=== PATIENT | male | born 1970 | race Caucasian/White ===

== ENCOUNTER → 2022-06-09 | Outpatient (CLI) | payer BC, SELFPAY ==
--- NOTE | 2022-06-09 12:39 | MRI_ITS ---
STUDY: MRI BRAIN WITH AND WITHOUT CONTRAST (ATTENTION INTERNAL AUDITORY CANALS - I.A.C.''s) REASON FOR EXAM: Male, 51 years old. HEARING LOSS TINNITUS R and gt;L TECHNIQUE: Standardized multiplanar fat and water weighted pulse sequences were obtained. IV 19cc dotarem was administered for the contrast portion of the examination. COMPARISON: None. FINDINGS: The bilateral 7th and 8th cranial nerve complexes have normal contour and signal. No mass or abnormal enhancement. The bilateral cochlea, vestibular apparatus, and facial nerve canal have normal pre and postcontrast MRI appearance. The temporal bone and mastoid air cells and extracranial soft tissue structures of the external ear are unremarkable. The brain is normal contour and signal. No infarct, hemorrhage or mass. No abnormal enhancement. No hydrocephalus. Mucosal thickening opacifies the left frontal sinus, and partially opacifies the bilateral ethmoid, sphenoid, and maxillary sinuses. MRI/Brain W/WO Contrast IMPRESSION: Normal MRI brain with attention to the internal auditory canals. No etiology for hearing loss identified. Mild paranasal sinus mucosal thickening Electronically Signed: Alonso Padron MD at 16:20 EDT Reading Location ID and State: [facility] / [place] Tel , Service support ,
[2022-06-09 13:00] VITALS: BP 139/94; PULSE 84; RESP 16; O2SAT 95
[2022-06-09 13:11] VITALS: BP 137/89; PULSE 84; RESP 16; O2SAT 93
[2022-06-09 13:21] VITALS: BP 133/83; PULSE 84; RESP 16; O2SAT 93
[2022-06-09 13:33] VITALS: BP 136/89; PULSE 85; RESP 16; O2SAT 94
[2022-06-09 13:45] VITALS: BP 130/86; PULSE 84; RESP 16; O2SAT 93
[2022-06-09 13:54] VITALS: BP 136/79; PULSE 85; RESP 16; O2SAT 95
== END | disposition home or self-care (01) ==
PROVIDERS: PCP Family Medicine; Referring Provider Otolaryngology; Visit Provider Otolaryngology
DX: H93.13 Tinnitus, bilateral (principal); H90.3 Sensorineural hearing loss, bilateral
CPT/HCPCS: 70553; A9575

== ENCOUNTER → 2025-06-24 | Outpatient (CLI) | payer BC, SELFPAY ==
--- NOTE | 2025-06-24 13:01 | RAD_ITS ---
PROCEDURE: L/S SPINE MIN 4 VIEWS 06/24/2025 REASON FOR EXAM: LUMBAR STENOSIS TECHNIQUE: Procedure Code: [id number] Modality: DX Procedure: L/S SPINE MIN 4 VIEWS FINDINGS: No evidence of acute fracture or dislocation. No visualized pars defects. Mild degenerative changes of the visualized spine. Mild lower lumbar facet arthropathy. Normal alignment. RAD/L/S Spine Min 4 Views IMPRESSION: Spondylosis. Reading Location: [id number]
== END | disposition home or self-care (01) ==
PROVIDERS: PCP Family Medicine; Referring Provider Anesthesiology; Visit Provider Anesthesiology
DX: M48.061 Spinal stenosis, lumbar region without neurogenic claudication (principal)
CPT/HCPCS: 72110

== ENCOUNTER 2025-08-26 16:29 | Outpatient (CLI) | payer BC, SELFPAY ==
[2025-08-26 17:08] LABS: Hematocrit 44.0 % (40-54); Hemoglobin 15.4 g/dL (13.0-16.5); Immature Granulocytes Count 0.030 X10^3/uL (0.0-0.0); Mean Corp Hgb Conc 35.0 g/dL (32-36); Mean Corpuscular Volume 100.2 fL (80-94); Mean Platelet Vol. 9.9 fl (6.2-12.0); NRBC Flagged by Analyzer 0 % (0-5); Platelet Count 205 K/mm3 (150-450); RBC Distribution Width CV 12.2 % (11.6-14.6); RBC Distribution Width SD 45.7 fl (35.1-43.9); Red Blood Count 4.39 M/mm3 (4.6-6.2); White Blood Count 7.5 K/mm3 (4.4-11.0)
[2025-08-26 18:01] LABS: CRP 4.24 mg/L (0.0-3.0)
[2025-08-26 18:02] LABS: AST(SGOT) 70 U/L (<=37); Alanine Aminotransfer ALT/SGPT 78 U/L (<=46); Albumin, Serum 4.3 g/dL (3.5-5.0); Alkaline Phosphatase 55 U/L (40-129); Anion Gap 14 (5-15); BUN 20 mg/dL (4-19); BUN/Creat Ratio 33.4 RATIO (10-20); Calcium,Total 8.7 mg/dL (7.6-11.0); Carbon Dioxide 22.3 mmol/L (21.0-32.0); Chloride 104 mmol/L (98-108); Globulin 3.1 g/dL (2.2-4.2); Glucose 128 mg/dL (70-99); Potassium 3.9 mmol/L (3.3-5.1)
[2025-08-28 12:08] LABS: Anti-Chromatin <0.2 AI (0.0-0.9); Anti-Jo <0.2 AI (0.0-0.9); Anti-dsDNA Ab <1 IU/mL (0-9); SJOGREN'S Anti-SS-A test < 0.2 AI (0.0-0.9); SJOGREN'S Anti-SS-B test < 0.2 AI (0.0-0.9)
[2025-08-31 15:08] LABS: Albumin 3.8 g/dL (2.9-4.4); Carbohydrate Ag 19-9 2261 28 U/mL (0-35); Cytoplasmic Ab (C-ANCA) <1:20 titer (Neg:<1:20); Gamma Globulin 1.1 g/dL (0.4-1.8); HEPATITIS B SURFACE AG Negative (Negative); Hep C Antibodies Non Reactive (Non Reactive); IgG, Quant 1237 mg/dL (603-1613); Immunoglobulin A 186 mg/dL (90-386); Immunoglobulin G, Subclass 1 510 mg/dL (248-810); Immunoglobulin G, Subclass 2 270 mg/dL (130-555); Immunoglobulin G, Subclass 3 46 mg/dL (15-102); Immunoglobulin G, Subclass 4 99 mg/dL (2-96); Immunoglobulin M 50 mg/dL (20-172); PROEL- TOTAL PROTEIN 7.2 g/dL (6.0-8.5); Perinuclear Ab (P-ANCA) <1:20 titer (Neg:<1:20)
== END 2025-08-26 23:59 | disposition home or self-care (01) ==
PROVIDERS: PCP Family Medicine; Referring Provider Internal Medicine Gastroenterology; Visit Provider Internal Medicine Gastroenterology
DX: R94.5 Abnormal results of liver function studies (principal)
CPT/HCPCS: 80053; 80074; 82784; 82785; 82787; 83516; 84165; 85025; 85652; 86037; 86140; 86225; 86235; 86255; 86301; 86334

== ENCOUNTER → 2025-09-10 | Outpatient (CLI) | payer BC, SELFPAY ==
--- NOTE | 2025-09-10 07:05 | MRI_ITS ---
PROCEDURE: MRCP ABDOMEN WITHOUT CONTRAST, 09/10/2025 REASON FOR EXAM: CHRONIC PANCREATITIS/RECURRENT CHOLEDOCHOLITHIASIS TECHNIQUE: Multiplanar multisequence MRI abdomen was performed without IV contrast. MRCP was performed including generation of MIP reconstructions and 3D reformats. COMPARISON: None. FINDINGS: Variable overall mild motion limitation. Note that the exam was optimized for evaluation of the gallbladder and biliary tree rather than the remaining abdominal viscera, some of which is excluded from the field of view on some sequences. Note also that sensitivity is limited in the absence of IV contrast. Liver: Unremarkable. Gallbladder: Cholecystectomy with tiny cystic duct remnant. Biliary tree: CHD measures 16 mm. CBD measures 14 mm with abrupt transition at the ampulla. No definite filling defect identified.. Pancreas diffuse fatty infiltration. No ductal dilatation.. Other: Circumaortic LEFT renal vein, normal variant. Prominent portacaval/peripancreatic nodes up to 11 mm short axis. MRI/MRCP Abdomen without Contrast IMPRESSION: 1. Cholecystectomy with biliary dilatation which is frequently due to post chol ecystectomy effect. In the absence of priors to confirm stability, correlate with serum bilirubin as ampullary stenosis or much less likely an occult ampullary lesion are also within the differential. No definite choledocholithiasis. 2. Prominent portacaval and peripancreatic nodes, nonspecific and presumably re active in the absence of known malignancy. Correlate with medical history and follow-up as indicated. 3. Additional description as above. Reading Location: [id number]
--- OUTSIDE RECORDS SUMMARY | 2025-09-10 07:27 | XMS RPT_ITS | CCD ---
Author Organization [facility] Care Team Providers Care Agency Recruiter Name Role Phone DIANNE PARKER Unavailable Unavailable VACCARIELLOJAZMYN Unavailable Unavailable CHIMALAKONDA, STEPHANIA Unavailable Unavailable VACCARIELLO, JAZMYN Carlton Unavailable Unavailable GIANCARLO MONGE Unavailable Unavailable ROSSY COFFMAN Unavailable Unavailable JEOVANY ALEXANDRA Unavailable Unavailable TERRANCE COLUNGA Unavailable Unavailable NAIN RONDON Unavailable Unavailable VASQUEZ JIMENEZ Unavailable Unavailable LAMAR MCKENZIE Unavailable Unavailable VaccJazmyn anthony Primary Care Provider Jazmyn Roman MD Unavailable [facility], [facility] office Unavailable Rheumatolgy Provider Unavailable Unavailable Dr. Vandana Holloway MD Unavailable Dr. David Conley MD Unavailable Gastroenterology Provider Unavailable Chelsi Rayo MD, Dr. Jennings Unavailable Dr. Jeovany Wang MD Unavailable Dr. Td Jackson MD Unavailable Dr. Tre Mcclendon MD Unavailable Sandoval ARMORED SERVICE TECHNICIAN, Laura Unavailable Rj Miller MD Unavailable Sukhdev ARMORED SERVICE TECHNICIAN, Nelsy C Unavailable Unavailable Kelvin Gifford MD Unavailable Osorio MAURERN, Ebonie Unavailable Unavailable Laura MAURERN, Eloisa L Unavailable Unavailab lalo Schumacher LPN, Meena Unavailable Unavailab Ebonie Zaragoza MA Unavailable Unavailable Vess ARMORED SERVICE TECHNICIAN, Neilee L Unavailable Unavailable Anthony ARMORED SERVICE TECHNICIAN, Olga Garcia Unavailable Unavaila ble Unavailable Unavailable Dr. Td Jackson MD Unavailable [facility] Unavailable JESSIE HARRIS, DR JAZMYN Carlton Primary Care Physician [facility] Attending Unavailable JESSIE HARRIS, DR JAZMYN Carlton Primary Care Chelsi FREIRE MD, [facility] Admitting Unavailable RU HARRIS, MIGDALIA Garcia Attending Unavailjonnie PELAEZ MD, DAMEON Consulting Unavailable AUGUSTUS HARRIS, ROSSY Nguyen Attending Unavailable LATANYA HARRIS, DAMEON Consulting Unavailable JESSIE HARRIS, DR JAZMYN Carlton Primary Care Chelsi COLUNGA MD, TERRANCE Loza Consulting Unavailable AUGUSTUS HARRIS, ROSSY Nguyen Attending Unavailable JESSIE HARRIS, DR JAZMYN Carlton Primary Care Chelsi Roman MD, Dr. Eaton Primary Care Physician Richard HARRIS, Dr. Ag Attending Physician Richard HARRIS, Dr. Ag Referring Provider JAZMYN ROMAN Consulting Unavailable JAZMYN ROMAN Referring Unavailable BETH DE LA CRUZ MD Primary Care Unavailable BETH DE LA CRUZ MD Attending Unavailable BETH DE LA CRUZ MD Admitting Unavailable PROVIDER, UNKNOWN Consulting Unavailable PROVIDER, UNKNOWN Consulting Unavailable PROVIDER, UNKNOWN Consulting Unavailable JAZMYN ROMAN Consulting Unavailable JAZMYN ROMAN Referring Unavailable SKYLAR FLORES JR Admitting Unavailable SKYLAR FLORES JR Primary Care Unavailable SKYLAR FLORES JR Attending Unavailable PROVIDER, UNKNOWN Consulting Unavailable PROVIDER, UNKNOWN Consulting Unavailable PROVIDER, UNKNOWN Consulting Unavailable JAZMYN ROMAN Consulting Unavailable KALANI CARRILLO MD Admitting Unavailable KALANI CARRILLO MD Primary Care Unavailable KALANI CARRILLO MD Attending Unavailable PROVIDER, UNKNOWN Consulting Unavailable PROVIDER, UNKNOWN Consulting Unavailable PROVIDER, UNKNOWN Consulting Unavailable Ancelmo Ramos Referring Unavailable Ancelmo Ramos Attending Unavailable Jazmyn Roman Primary Care Unavailable Allergies Allergy Classification Reported Allergen(s) Allergy Type Date of Onset Reaction(s) Facility (20 sources) Codeine; Translations: [codeine] Drug Allergy 5 Pharyngeal swelling (finding), Swelling (finding), Tongue swelling (finding) [facility], [facility], [facility]. (1 source) Codeine Drug Allergy [facility] (1 source) Codeine Drug Allergy [facility] Repository Medications Current Medications Medication Drug Class(es) Dates Sig (Normalized) Sig (Original) clobetasol propionate 0.0005 mg/mg topical ointment (20 sources) Corticosteroid Start: 06-26-2025 Start: 05-11-2022 Clobetasol Pro pionate 0.05 % External Ointment ; 1 (one) Ointment qhs, aaa for 0 days Quantity: 80 {Gram} Refills: 2 Ordered: 11-May-2022 MD Jazmyn Roman Start: 11-May-2022 dutasteride 0.5 mg / tamsulosin hydrochloride 0.4 mg oral capsule (20 sources) alpha-Adrenergic Иван, 5-alpha Reductase Inhibitor Start: 06-26-2025 Start: 09-25-2024 dutasteride 0. 5 mg-tamsulosin ER 0.4 mg capsule ext.release 24hr mphas ; 1 (one) capsule daily for 0 days Quantity: 90 {Capsule} Refills: 3 Ordered: 25-Sep-2024 MD Jazmyn Roman Start: 25-Sep-2024 Start: 02-11-2024 dutasteride 0. 5 mg-tamsulosin ER 0.4 mg capsule ext.release 24hr mphas ; 1 (one) capsule daily for 0 days Quantity: 90 {Capsule} Refills: 3 Ordered: 01-Aug-2024 MD Jazmyn Roman Start: 01-Aug-2024 Start: 08-10-2023 dutasteride 0. 5 mg-tamsulosin ER 0.4 mg capsule ext.release 24hr mphas ; 1 (one) capsule daily for 0 days Quantity: 90 {Capsule} Refills: 1 Ordered: 10-Aug-2023 MD Jazmyn Roman Start: 10-Aug-2023 ibuprofen 200 mg oral tablet (2 sources) Nonsteroidal Anti-inflammatory Drug Start: 12-15-2024 ibuprofen 200 mg oral tablet Dose : 400 mg = 2 tab(s), Oral, q4h, PRN as needed for pain, Take with food or milk., # 120 tab(s), 0 Refill(s) Start Date: 12/15/24 Status: Ordered Quantity: 120.0 Unit: tab(s) Repeat number: 1 melatonin 3 mg oral tablet (20 sources) Start: 10-18-2024 melatonin 3 mg oral tablet Dose : 3 mg = 1 tab(s), Oral, qHS, PRN Sleep, 0 Refill(s) Start Date: 10/18/24 Status: Ordered Repeat number: 1 take 1 tablet by mouth at bedtim e Melatonin 2.5 MG Oral Tablet Chewable ; 1 at bedtime (2.5 MG) Status: Inactive pantoprazole 40 mg delayed release oral tablet (20 sources) Proton Pump Inhibitor Start: 06-26-2025 take 1 tablet by mouth twice daily Start: 09-25-2024 pantoprazole 4 0 mg tablet,delayed release ; 1 Tablet two times daily for 0 days Quantity: 180 {Tablet} Refills: 3 Ordered: 25-Sep-2024 MD Jazmyn Roman Start: 25-Sep-2024 Start: 07-24-2024 pantoprazole 4 0 mg tablet,delayed release ; 1 Tablet two times daily for 0 days Quantity: 180 {Tablet} Refills: 3 Ordered: 01-Aug-2024 MD Jazmyn Roman Start: 01-Aug-2024 Start: 04-17-2024 pantoprazole 4 0 mg tablet,delayed release ; 1 Tablet two times daily for 0 days Quantity: 60 {Tablet} Refills: 2 Ordered: 17-Apr-2024 MD Jazmyn Roman Start: 17-Apr-2024 Start: 12-17-2023 pantoprazole 4 0 mg tablet,delayed release ; 1 Tablet two times daily for 0 days Quantity: 60 {Tablet} Refills: 2 Ordered: 17-Dec-2023 MD Jazmyn Roman Start: 17-Dec-2023 Start: 09-14-2023 pantoprazole 4 0 mg tablet,delayed release ; 1 Tablet two times daily for 0 days Quantity: 60 {Tablet} Refills: 2 Ordered: 14-Sep-2023 MD Jazmyn Roman Start: 14-Sep-2023 Start: 03-22-2018 End: 04-21-2018 pantoprazole 40 mg oral ente miller coated tablet Dose : 40 mg = 1 tab(s), Oral, qDay, # 30 tab(s), 0 Refill(s) Start Date: 03/22/18 Stop Date: 04/21/18 Status: Ordered Quantity: 30.0 Unit: tab(s) Repeat number: 1 sertraline 100 mg oral tablet (20 sources) Serotonin Reuptake Inhibitor Start: 06-26-2025 take 1 tablet by mouth once daily Start: 12-15-2024 sertraline 100 mg oral tablet Dose : 100 mg = 1 tab(s), Oral, qAM, # 90 tab(s), 0 Refill(s) Start Date: 12/15/24 Status: Ordered Quantity: 90.0 Unit: tab(s) Repeat number: 1 Start: 09-12-2024 sertraline 25 mg tablet ; 1 (one) tablet daily for 0 days Quantity: 90 {Tablet} Refills: 3 Ordered: 12-Sep-2024 JHONNY Nick Start: 12-Sep-2024 Start: 08-01-2024 sertraline 100 mg tablet ; 1/2 tablet daily 2 wks then full tab for 0 days Quantity: 90 {Tablet} Refills: 3 Ordered: 01-Aug-2024 JHONNY Ac Start: 01-Aug-2024 ursodiol 300 mg oral capsule (20 sources) Bile Acid Start: 06-26-2025 take 1 capsule by mo [facility] twice daily Start: 09-25-2024 ursodioL 300 m g capsule ; 1 (one) Capsule two times daily for 0 days Quantity: 180 {Capsule} Refills: 3 Ordered: 25-Sep-2024 MD Jazmyn Roman Start: 25-Sep-2024 Start: 07-24-2024 ursodioL 300 m g capsule ; 1 (one) Capsule two times daily for 0 days Quantity: 180 {Capsule} Refills: 3 Ordered: 01-Aug-2024 MD Jazmyn Roman Start: 01-Aug-2024 Start: 04-17-2024 ursodioL 300 m g capsule ; 1 (one) Capsule two times daily for 0 days Quantity: 60 {Capsule} Refills: 2 Ordered: 17-Apr-2024 MD Jazmyn Roman Start: 17-Apr-2024 Start: 12-17-2023 ursodioL 300 m g capsule ; 1 (one) Capsule two times daily for 0 days Quantity: 60 {Capsule} Refills: 2 Ordered: 17-Dec-2023 MD Jazmyn Roman Start: 17-Dec-2023 Start: 09-14-2023 ursodioL 300 m g capsule ; 1 (one) Capsule two times daily for 0 days Quantity: 60 {Capsule} Refills: 2 Ordered: 14-Sep-2023 MD Jazmyn Roman Start: 14-Sep-2023 take 1 capsule by [facility] once daily Ursodiol 300 MG Oral Capsule ; 1 daily (300 MG) Status: Inactive Completed/Discontinued Medications Medication Drug Class(es) Dates Sig (Normalized) Sig (Original) acetaminophen 750 mg / HYDROcodone bitartrate 7.5 mg oral tablet (20 sources) Opioid Agonist Start: 07-22-2010 End: 12-28-2010 VICODIN ES, 7.5-750MG (Oral Tablet) ; 1- 2 Tablet q4-6hrs, prn for 0 days Quantity: 20 {Tablet} Refills: 0 Ordered: 28-Dec-2010 JHONNY Nick Start: 22-Jul-2010 End: 28-Dec-2010 Status: Inactive acetaminophen 325 mg / oxyCODONE hydrochloride 7.5 mg oral tablet (20 sources) Opioid Agonist Start: 06-26-2018 End: 11-28-2018 take 1-2 tablets by mouth every four to six hours as needed for pain Percocet 7.5-325 MG Oral Tablet ; 1-2 Tablet q4-6hrs, prn severe pain for 0 days Quantity: 20 {Tablet} Refills: 0 Ordered: 28-Nov-2018 JHONNY Nick Start: 26-Jun-2018 End: 28-Nov-2018 Status: Inactive Start: 07-25-2010 End: 12-28-2010 take 1-2 tablets by mouth every four to six hours as needed PERCOCET, 5-325MG (Oral Tablet) ; 1-2 Tablet q4-6h, prn for 0 days Quantity: 20 {Tablet} Refills: 0 Ordered: 28-Dec-2010 JHONNY Nick Start: 25-Jul-2010 End: 28-Dec-2010 Status: Inactive amoxicillin 875 mg oral tablet (20 sources) Penicillin-class Antibacterial Start: 04-11-2018 End: 05-09-2018 take 1 tablet by mouth every twelve hours Amoxicillin 875 MG Oral Tablet ; 1 (one) Tablet q12 hrs for 0 days Quantity: 20 {Tablet} Refills: 0 Ordered: 09-May-2018 JHONNY Nick Start: 11-Apr-2018 End: 09-May-2018 Status: Inactive Start: 12-28-2010 End: 01-07-2011 take 1 capsule by mouth three times daily AMOXICILLIN, 500MG (Oral Capsule) ; 1 Capsule three times daily for 10 days Quantity: 30 {Capsule} Refills: 0 Ordered: 28-Dec-2010 MD Jazmyn Roman Start: 28-Dec-2010 End: 07-Jan-2011 Status: Inactive amoxicillin 875 mg / clavulanate 125 mg oral tablet (20 sources) Penicillin-class Antibacterial Start: 08-01-2024 End: 09-12-2024 amoxicillin 875 mg-potassium clavulanate 125 mg tablet ; 1 (one) tablet q12 hrs with food for 0 days Quantity: 20 {Tablet} Refills: 0 Ordered: 12-Sep-2024 JHONNY Ac Start: 01-Aug-2024 End: 12-Sep-2024 Status: Inactive Start: 06-17-2018 End: 06-27-2018 take 1 tablet by mouth twice daily at mealtime Augmentin 875-125 MG Oral Tablet ; 1 Tab Tab two times daily for 10 days Quantity: 20 {Tube} Refills: 0 Ordered: 17-Jun-2018 JHONNY Nick Start: 17-Jun-2018 End: 27-Jun-2018 Status: Inactive Comments: Take with food Comment on above: Take with food apremilast 30 mg oral tablet (20 sources) End: Otezla 30 MG Oral Tablet ; (30 MG) End: 10-Aug-2023 Status: Discontinued azithromycin 250 mg oral tablet (20 sources) Macrolide Antimicrobial Start: 014 End: 014 AZITHROMYCIN, 250MG (Oral Tablet) ; 2 (two) Tablets today Tablets today 1/dx4d for 0 days Quantity: 6 {Tablet} Refills: 0 Ordered: 28-May-2014 JHONNY Ramírez Start: 02-Feb-2014 End: 28-May-2014 Status: Inactive cholecalciferol 0.125 mg oral capsule (20 sources) Vitamin D Start: 015 End: 017 take 1 capsule by mouth once daily Vitamin D3 5000 UNIT Oral Capsule ; 1 (one) Capsule Capsule daily for 0 days Quantity: 30 {Capsule} Refills: 5 Ordered: 24-Aug-2017 JHONNY Nick Start: 04-Feb-2015 End: 24-Aug-2017 Status: Inactive ciprofloxacin 500 mg oral tablet (20 sources) Quinolone Antimicrobial Start: 013 End: take 1 tablet by mouth twice daily CIPROFLOXACIN HCL, 500MG (Oral Tablet) ; 1 Tablet two times daily for 7 days Quantity: 14 {Tablet} Refills: 0 Ordered: 11-Apr-2013 MD Kelvin Gifford Start: 11-Apr-2013 End: 18-Apr-2013 Status: Inactive cyclobenzaprine hydrochloride 5 mg oral tablet (20 sources) Muscle Relaxant Start: 018 End: take 1 tablet by mouth every eight hours as needed Cyclobenzaprine HCl 5 MG Oral Tablet ; 1 (one) Tablet q8h, prn for 0 days Quantity: 20 {Tablet} Refills: 0 Ordered: 18-Mar-2018 JHONNY Nick Start: 14-Jan-2018 End: 18-Mar-2018 Status: Inactive Start: 05-13-2014 End: 09-16-2014 take 1 tablet by mouth three times daily as needed CYCLOBENZAPRINE HCL, 10MG (Oral Tablet) ; 1 (one) Tablet Tablet Three times a day as needed for 0 days Quantity: 30 {Tablet} Refills: 0 Ordered: 16-Sep-2014 JHONNY Nick Start: 13-May-2014 End: 16-Sep-2014 Status: Inactive Comments: Medication taken as needed. may cause drowsiness Comment on above: Medication taken as needed. may cause drowsiness doxycycline monohydrate 100 mg oral tablet (20 sources) Tetracycline-class Drug Start: 022 End: 023 doxycycline monohydrate 100 mg tablet ; 1 (one) Tablet bid for 0 days Quantity: 28 {Tablet} Refills: 0 Ordered: 14-Jun-2023 JHONNY Nick Start: 24-Apr-2022 End: 14-Jun-2023 Status: Inactive erythromycin 0.005 mg/mg ophthalmic ointment (1 source) Macrolide, Macrolide Antimicrobial Start: 025 erythromycin 0.5% ophthalmic ointment Dose = 1 frida, Eyes, both, QID, 0 Refill(s) Start Date: 10/18/24 Status: Ordered Repeat number: 1 hydrocortisone acetate 30 mg rectal suppository (20 sources) Corticosteroid Start: End: Hydrocortisone Acetate 30 MG Rectal Suppository ; 1 (one) Suppository Suppository qhs for 0 days Quantity: 30 {Suppository} Refills: 1 Ordered: 24-Aug-2017 JHONNY Nick Start: 28-May-2014 End: 24-Aug-2017 Status: Inactive meloxicam 15 mg oral tablet (20 sources) Nonsteroidal Anti-inflammatory Drug Start: End: take 1 tablet by mouth once daily Meloxicam 15 MG Oral Tablet ; 1 (one) Tablet daily for 0 days Quantity: 10 {Tablet} Refills: 0 Ordered: 11-Apr-2018 JHONNY Ramírez Start: 14-Jan-2018 End: 11-Apr-2018 Status: Inactive metroNIDAZOLE 500 mg oral tablet (20 sources) Nitroimidazole Antimicrobial Start: End: take 1 tablet by mouth every eight hours MetroNIDAZOLE 500 MG Oral Tablet ; 1 (one) Tablet q8h for 0 days Quantity: 30 {Tablet} Refills: 0 Ordered: 09-May-2018 JHONNY Nick Start: 11-Apr-2018 End: 09-May-2018 Status: Inactive naproxen 500 mg oral tablet (20 sources) Nonsteroidal Anti-inflammatory Drug Start: End: take 1 tablet by mouth twice daily as needed Naprosyn 500 MG Oral Tablet ; 1 Tab Twice a day as needed for 0 days Quantity: 60 {Tab} Refills: 0 Ordered: 24-Aug-2017 JHONNY Nick Start: 13-Sep-2015 End: 24-Aug-2017 Status: Inactive Comments: Medication taken as needed. Take with food. Comment on above: Medication taken as needed. Take with food. omeprazole 20 mg delayed release oral capsule (20 sources) Proton Pump Inhibitor Start: End: OMEPRAZOLE, 20MG (Oral Capsule Delayed Release) ; [address] daily for 0 days Quantity: 30 {Capsule} Refills: 0 Ordered: 28-May-2014 JHONNY Ramírez Start: 22-Sep-2013 End: 28-May-2014 Status: Inactive PARoxetine hydrochloride 40 mg oral tablet (20 sources) Serotonin Reuptake Inhibitor Start: End: PaxiL 40 mg tablet ; 1 Tablet daily for 0 days Quantity: 90 {Tablet} Refills: 3 Ordered: 12-Sep-2024 JHONNY Ac Start: 01-Aug-2024 End: 12-Sep-2024 Status: Discontinued Start: 03-31-2024 PaxiL 40 mg ta blet ; 1 Tablet daily for 0 days Quantity: 30 {Tablet} Refills: 2 Ordered: 31-Mar-2024 MD Jazmyn Roman Start: 31-Mar-2024 Start: 12-17-2023 PaxiL 40 mg ta blet ; 1 Tablet daily for 0 days Quantity: 30 {Tablet} Refills: 2 Ordered: 17-Dec-2023 MD Jazmyn Roman Start: 17-Dec-2023 Start: 09-14-2023 PaxiL 40 mg ta blet ; 1 Tablet daily for 0 days Quantity: 30 {Tablet} Refills: 2 Ordered: 14-Sep-2023 MD Jazmyn Roman Start: 14-Sep-2023 Paxlovid (300/100) 20 x 150 MG & 10 x 100MG Oral Tablet Therapy Pack (20 sources) Start: 06-20-2022 End: 06-25-2022 Paxlovid (300/100) 20 x 150 MG & 10 x 100MG Oral Tablet Therapy Pack ; use as directed per instructions in pack for 5 days Quantity: 1 {Packet} Refills: 0 Ordered: 20-Jun-2022 JHONNY Ac Start: 20-Jun-2022 End: 25-Jun-2022 Status: Inactive predniSONE 20 mg oral tablet (20 sources) Start: 09-16-2014 End: 01-04-2015 take 1 tablet by mouth once daily PREDNISONE, 20MG (Oral Tablet) ; 1 (one) Tablet daily taper for 0 days Quantity: 35 {Tablet} Refills: 0 Ordered: 04-Jan-2015 JHONNY Nick Start: 16-Sep-2014 End: 04-Jan-2015 Status: Inactive Start: 07-22-2010 End: 12-28-2010 take 3 tablets by mouth once daily, then take 2 tablets by mouth once daily, then take 1 tablet by mouth once daily, then take 0.5 tablet by mouth once daily PREDNISONE, 20MG (Oral Tablet) ; 1 taper daily for 0 days Quantity: 22 {Tablet} Refills: 0 Ordered: 28-Dec-2010 JHONNY Nick Start: 22-Jul-2010 End: 28-Dec-2010 Status: Inactive Comments: Take 3tabs qd for 3 days thenTake 2tabs qd for 3 days thenTake 1tab qd for 3 days thenTake 1/2tab qd for 4 days. Comment on above: Take 3tabs qd for 3 days thenTake 2tabs qd for 3 days thenTake 1tab qd for 3 days thenTake 1/2tab qd for 4 days. sulfamethoxazole 800 mg / trimethoprim 160 mg oral tablet (20 sources) Dihydrofolate Reductase Inhibitor Antibacterial, Sulfonamide Antimicrobial Start: 06-16-20 End: 07-15-20 take 1 tablet by mouth twice daily Sulfamethoxazole -Trimethoprim 800-160 MG Oral Tablet ; 1 (one) Tablet bid for 0 days Quantity: 20 {Tablet} Refills: 0 Ordered: 15-Jul-2019 JHONNY Nick Start: 16-Jun-2019 End: 15-Jul-2019 Status: Inactive Start: 05-28-2014 End: 09-16-2014 take 1 tablet by mouth twice daily SULFAMETHOXAZOLE-TMP DS, 800-160MG (Oral Tablet) ; 1 (one) Tablet bid for 0 days Quantity: 20 {Tablet} Refills: 0 Ordered: 16-Sep-2014 JHONNY Nick Start: 28-May-2014 End: 16-Sep-2014 Status: Inactive tamsulosin hydrochloride 0.4 mg oral capsule (20 sources) alpha-Adrenergic Иван Start: 11-12-2017 End: 04-11-2018 take 1 capsule by mouth once daily Tamsulosin HCl 0.4 MG Oral Capsule ; 1 (one) Capsule Capsule daily for 0 days Quantity: 30 {Capsule} Refills: 1 Ordered: 11-Apr-2018 JHONNY Ramírez Start: 12-Nov-2017 End: 11-Apr-2018 Status: Inactive Problems Active Problems Problem Classification Problem Date Documented Da te Episodic/Chronic Abdominal pain (20 sources) Generalized abdominal pain; Translations: [Generalized abdominal pain] 11-17-2023 Episodic Allergic reactions (20 sources) Chronic eczema; Translations: [Dermatitis, unspecified] 08-10-2023 Episodic Anxiety disorders (3 sources) Anxiety 10-05-2013 Chronic Biliary tract disease (20 sources) Obstruction of common bile duct; Translations: [Obstruction of bile duct] 08-10-2023 Chronic Comment on above: stent placement 03/13 18 Cardiac dysrhythmias (2 sources) Symptomatic sinus bradycardia 12-15-2024 Episodic Coma; stupor; and brain damage (20 sources) Daytime somnolence; Translations: [Somnolence] 01-06-2021 Episodic Conditions associated with dizziness or vertigo (20 sources) Peripheral vertigo; Translations: [Other peripheral vertigo, unspecified ear] 09-12-2024 Episodic Conduction disorders (10 sources) Cardiac pacemaker in situ; Translations: [Presence of cardiac pacemaker] 10-20-2024 Chronic Comment on above: [facility] Digestive congenital anomalies (20 sources) 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; Translations: [Other congenital malformations of bile ducts] 08-10-2023 Chronic Diverticulosis and diverticulitis (20 sources) Diverticular disease; Translations: [Diverticulosis of intestine, part unspecified, without perforation or abscess without bleeding] 08-10-2023 Chronic Esophageal disorders (20 sources) Esophageal reflux; Translations: [Gastroesophageal reflux disease] 11-13-2011 Chronic Gastroduodenal ulcer (except hemorrhage) (20 sources) Peptic ulcer; Translations: [Peptic ulcer, site unspecified, unspecified as acute or chronic, without hemorrhage or perforation] 08-10-2023 Chronic Comment on above: pantoprazole Gastroduodenal ulcer (except hemorrhage) (20 sources) Acute duodenal ulcer; Translations: [Acute duodenal ulcer without hemorrhage or perforation] 08-10-2023 Episodic Gastrointestinal hemorrhage (20 sources) Black feces; Translations: [Melena] 04-24-2018 Episodic Genitourinary symptoms and ill-defined conditions (20 sources) Urinary outflow obstruction; Translations: [Obstructive and reflux uropathy, unspecified] 08-10-2023 Episodic Headache; including migraine (20 sources) Headache; Translations: [Headache] 02-04-2015 Episodic Hemorrhoids (20 sources) Bleeding internal hemorrhoids; Translations: [Other hemorrhoids] 08-10-2023 Episodic Hyperplasia of prostate (20 sources) Benign prostatic hypertrophy without outflow obstruction; Translations: [Benign prostatic hyperplasia without lower urinary tract symptoms] 08-10-2023 Chronic Comment on above: dutasteride Immunizations and screening for infectious disease (20 sources) Need for prophylactic vaccination and inoculation against influenza 07-22-2010 Episodic Lymphadenitis (20 sources) Acute lymphadenitis; Translations: [Acute lymphadenitis, unspecified] 05-09-2018 Episodic Malaise and fatigue (20 sources) Fatigue; Translations: [Other fatigue] 08-10-2023 Episodic Mood disorders (20 sources) Depressive disorder; Translations: [Depressive disorder, not elsewhere classified] 04-24-2022 Chronic Comment on above: paroxetine Mood disorders (20 sources) Mood disorders 10-10-2013 Nonspecific chest pain (20 sources) Chest pain; Translations: [Chest pain, unspecified] 10-16-2013 Episodic Nutritional deficiencies (20 sources) Vitamin D deficiency; Translations: [Vitamin D deficiency, unspecified] 08-10-2023 Chronic Other aftercare (20 sources) Post-discharge follow-up; Translations: [Encounter for follow-up examination after completed treatment for conditions other than malignant neoplasm] 07-17-2019 Episodic Other and unspecified benign neoplasm (20 sources) Benign neoplasm of ascending colon; Translations: [Benign neoplasm of ascending colon] 08-10-2023 Episodic Other and unspecified benign neoplasm (20 sources) Benign neoplasm of sigmoid colon; Translations: [Benign neoplasm of sigmoid colon] 08-10-2023 Episodic Other connective tissue disease (20 sources) Muscle weakness; Translations: [Muscle weakness (generalized)] 08-13-2023 Episodic Other connective tissue disease (20 sources) Muscle atrophy; Translations: [Muscle wasting and atrophy, not elsewhere classified, other site] 08-10-2023 Episodic Other connective tissue disease (20 sources) Myositis; Translations: [Myositis, unspecified] 08-10-2023 Episodic Other connective tissue disease (20 sources) Arthralgia of the upper arm; Translations: [Pain in right upper arm] 09-13-2015 Episodic Other connective tissue disease (20 sources) Other musculoskeletal symptoms referable to limbs 11-09-2011 Episodic Other connective tissue disease (20 sources) Pain in limb 05-05-2011 Episodic Other connective tissue disease (20 sources) Olecranon bursitis 07-27-2010 Episodic Other ear and sense organ disorders (20 sources) Bilateral tinnitus; Translations: [Tinnitus, bilateral] 08-10-2023 Episodic Other gastrointestinal disorders (20 sources) History of pancreatitis; Translations: [Personal history of other diseases of the digestive system] 08-10-2023 Episodic Other gastrointestinal disorders (20 sources) Central abdominal mass; Translations: [Other intra-abdominal and pelvic swelling, mass and lump] 10-10-2013 Episodic Other inflammatory condition of skin (20 sources) Psoriasis; Translations: [Psoriasis, unspecified] 08-10-2023 Chronic Comment on above: clobetasol Other liver diseases (20 sources) Steatosis of liver; Translations: [Fatty (change of) liver, not elsewhere classified] Onset: 10-15-2013 08-10-2023 Chronic Other liver diseases (20 sources) Increased creatine kinase level; Translations: [Abnormal levels of other serum enzymes] 08-10-2023 Episodic Comment on above: chronic ursodiol Other liver diseases (1 source) Increased aspartate transaminase level; Translations: [Elevation of levels of liver transaminase levels] Onset: 10-13-2024 Episodic Other lower respiratory disease (20 sources) Dyspnea;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 [id number] Acct: [id number] Name: LIYAH HOLLAND Rep #: [id number] : 1970 M 54 From: Harvey Dhillon MD PCP: Dr. Jazmyn Roman MD Status: REG CLI Study: L/S Spine Min 4 Views Date of Exam: 06/24/25 Exam# [id number] Ordering Dr: Ancelmo Ramos MD PROCEDURE: L/S SPINE MIN 4 VIEWS 06/24/2025 REASON FOR EXAM: LUMBAR STENOSIS TECHNIQUE: Procedure Code: RADSPLS Modality: DX Procedure: L/S SPINE MIN 4 VIEWS FINDINGS: No evidence of acute fracture or dislocation. No visualized pars defects. Mild degenerative changes of the visualized spine. Mild lower lumbar facet arthropathy. Normal alignment. RAD/L/S Spine Min 4 Views IMPRESSION: Spondylosis. Reading Location: [id number] CC: Dr. Jazmyn Roman MD; Dr. Ancelmo Ramos MD Test Boring Crew Chief: Signed Normal [facility] HEPATIC FUNCTION PANELon Albumin [Mass/Vol] 4.6 g/dL Normal 3.6-5.1 [facility] Comment on above: Performed By: #### 1 0256 #### [facility] [place] [address] Political Science Instructor: Bravo Kruger MD Albumin/Globulin [Mass ratio] 1.5 {ratio} Normal 1.0-2.5 [facility] Comment on above: Performed By: #### 1 0256 #### [facility] [place] [address] Political Science Instructor: Bravo Kruger MD ALP [Catalytic activity/Vol] 31 U/L Low 35-144 [facility] Comment on above: Performed By: #### 1 0256 #### [facility] [place] [address] Political Science Instructor: Bravo Kruger MD ALT [Catalytic activity/Vol] 66 U/L High 9-46 [facility] Comment on above: Performed By: #### 1 0256 #### [facility] [place] [address] Political Science Instructor: Bravo Kruger MD AST [Catalytic activity/Vol] 47 U/L High 10-35 [facility] Comment on above: Performed By: #### 1 0256 #### [facility] [place] [address] Political Science Instructor: Bravo Kruger MD Bilirubin [Mass/Vol] 0.4 mg/dL Normal 0.2-1.2 [facility] Comment on above: Performed By: #### 1 0256 #### [facility] [place] [address] Political Science Instructor: Bravo Kruger MD BILIRUBIN, INDIRECT 0.3 mg/dL (calc) Normal 0.2-1.2 [facility] Comment on above: Performed By: #### 1 0256 #### [facility] [place] [address] Political Science Instructor: Bravo Kruger MD Bilirubin.indirect [Mass/Vol] 0.1 mg/dL Normal < OR = 0.2 [facility] Comment on above: Performed By: #### 1 0256 #### [facility] [address], [address] [place] [address] Political Science Instructor: Bravo Kruger MD Globulin (S) [Mass/Vol] 3.1 g/dL Normal 1.9-3.7 [facility] Comment on above: Performed By: #### 1 0256 #### [facility] [address], [address] [place] [address] Political Science Instructor: Bravo Kruger MD Protein [Mass/Vol] 7.7 g/dL Normal 6.1-8.1 [facility] Comment on above: Performed By: #### 1 0256 #### [facility] [address], [address] [place] [address] Political Science Instructor: Bravo Kruger MD URINE CULTURE [CCL]on 2024 Bacteria identified Cx Nom (U) URCUL See Results Below See Below CULTURE, URINE No growth (<1,000 CFU/ml) SOURCE: Urine (Nonspecific) [facility] [address] [place] [address] Porfirio Reynoso III, M.D. [id number] SEND TO IC NO Normal [facility] Comment on above: Performed By: #### 2 20566 #### [address] [address] CBC + DIFFon 06-06-2025 Baso # 0.01 x10EE3/UL Normal 0.00 - 0.10 [facility] Comment on above: Performed By: #### 2 33829 #### [address] [address] Basophils/100 WBC (Bld) 0.2 % Normal 0.0 - 2.0 [facility] Comment on above: Performed By: #### 2 56733 #### [facility],[address] [place] [address] CBC + DIFF Normal [facility] Comment on above: Result Comment: CBC- COMPLETE BLOOD COUNT Performed By: #### 2 42105 #### [facility],[address] [place] [address] 41814 EO # 0.13 x10EE3/UL Normal 0.00 - 0.50 [facility] Comment on above: Performed By: #### 2 47141 #### [facility],[address] [place] [address] Eosinophils/100 WBC (Bld) 2.9 % Normal 0.0 - 7.0 [facility] Comment on above: Performed By: #### 2 19672 #### [facility],[address] [place] [address] Erythrocyte distribution width (RBC) [Ratio] 12.3 % Normal 12.0 - 15.6 [facility] Comment on above: Performed By: #### 2 84239 #### [facility],[address] [place] [address] Hematocrit (Bld) [Volume fraction] 42.3 % Normal 40.0 - 52.0 [facility] Comment on above: Performed By: #### 2 65679 #### [facility],[address] [place], [place] [address] Hemoglobin (Bld) [Mass/Vol] 14.5 g/dL Normal 13.0 - 17.5 [facility] Comment on above: Performed By: #### 2 31613 #### [facility],[address] [place] [address] 56076 Lymph # 1.04 x10EE3/UL Normal 0.80 - 2.80 [facility] Comment on above: Performed By: #### 2 15148 #### [facility],[address] [place], [place] [address] Lymphocytes/100 WBC (Bld) 22.7 % Normal 20.0 - 45.0 [facility] Comment on above: Performed By: #### 2 12539 #### [facility],[address] [place] [address] MANUAL DIFF N/A Normal [facility] Comment on above: Performed By: #### 2 84453 #### [facility],[address] [place] [address] MCH (RBC) [Entitic mass] 34 pg High 27 - 33 [facility] Comment on above: Performed By: #### 2 51398 #### [facility],[address] [place] [address] MCHC 34 X10 3 Normal 32 - 36 [facility] Comment on above: Performed By: #### 2 88556 #### [facility],[address] [place] [address] MCV (RBC) [Entitic vol] 98 fL Normal 81 - 98 [facility] Comment on above: Performed By: #### 2 86350 #### [facility],[address] [place] [address] Dent # 0.24 x10EE3/UL Normal 0.20 - 1.00 [facility] Comment on above: Performed By: #### 2 97594 #### [facility],[address] [place] [address] MONOS % 5.3 % Normal 0.0 - 10.0 [facility] Comment on above: Performed By: #### 2 09367 #### [facility],[address] [place] [address] Morphology Get (Bld) [Interp] N/A Normal [facility] Comment on above: Performed By: #### 2 25030 #### [facility],[address] [place] [address] Neut # 3.15 x10EE3/UL Normal 1.50 - 7.10 [facility] Comment on above: Performed By: #### 2 85590 #### [facility],[address] [place] [address] 50179 Neutrophils/100 WBC (Bld) 68.9 % Normal 46.0 - 76.0 [facility] Comment on above: Performed By: #### 2 14050 #### [facility],[address] [place] [address] 20735 PLATELET 162 x10EE3/UL Normal 150 - 450 [facility] Comment on above: Performed By: #### 2 54088 #### [facility],[address] [place] [address] 76517 Platelet mean volume (Bld) [Entitic vol] 7.0 fL Normal 6.4 - 10.5 [facility] Comment on above: Result Comment: AUTO MATED DIFFERENTIAL Performed By: #### 2 75925 #### [facility],[address] [place] [address] 90400 RBC 4.32 x 10EE6/UL Low 4.50 - 6.00 [facility] Comment on above: Performed By: #### 2 00544 #### [facility],[address] [place] [address] 41031 WBC 4.6 x 10EE3/UL Normal 4.5 - 10.8 [facility] Comment on above: Performed By: #### 2 68021 #### [facility],[address] [place] [address]80[address] CMP with eGFRon 06-06-2025 AGE 54 years Normal [facility] Comment on above: Performed By: #### 2 89890 #### [facility],[address] [place] [address] 40690 Albumin [Mass/Vol] 3.0 g/dL Low 3.4 - 5.0 [facility] Comment on above: Performed By: #### 2 57910 #### [facility],[address] [place] [address] 48929 Albumin/Globulin [Mass ratio] 0.9 {ratio} Normal 0.9 - 1.6 [facility] Comment on above: Performed By: #### 2 31212 #### [facility],[address] [place] [address] 75777 ALK PHOS 26 U/L Low 46 - 116 [facility] Comment on above: Performed By: #### 2 85747 #### [facility],[address] [place] [address] 90772 ALT [Catalytic activity/Vol] 262 U/L High 16 - 63 [facility] Comment on above: Performed By: #### 2 37552 #### [facility],[address] [place] [address] 81550 Anion gap [Moles/Vol] 12 mmol/L Normal 10 - 20 [facility] Comment on above: Performed By: #### 2 82582 #### [facility],[address] [place] [address] 78516 AST [Catalytic activity/Vol] 237 U/L High 15 - 37 [facility] Comment on above: Performed By: #### 2 81245 #### [facility],[address] [place] [address] 24991 B/C RATIO 25 ratio Normal 0 - 30 [facility] Comment on above: Performed By: #### 2 37318 #### [facility],[address] [place] [address] 45290 Bilirubin [Mass/Vol] 0.8 mg/dL Normal 0.2 - 1.0 [facility] Comment on above: Performed By: #### 2 07381 #### [facility],[address] [place] [address] 71144 Calcium [Mass/Vol] 7.9 mg/dL Low 8.5 - 10.1 [facility] Comment on above: Performed By: #### 2 35091 #### [facility],[address] [place] [address] 90653 Chloride [Moles/Vol] 104 mmol/L Normal 98 - 107 [facility] Comment on above: Performed By: #### 2 83505 #### [facility],[address] [place] [address] 21117 CMP with eGFR Normal [facility] Comment on above: Result Comment: COMP REHENSIVE METABOLIC PANEL Performed By: #### 2 24604 #### [facility],[address] [place] [address] 67855 CO2 [Moles/Vol] 29.4 mmol/L Normal 21.0 - 32.0 [facility] Comment on above: Performed By: #### 2 38428 #### [facility],[address] [place], [place] [address] Creatinine [Mass/Vol] 0.51 mg/dL Low 0.70 - 1.30 [facility] Comment on above: Performed By: #### 2 37247 #### [facility],[address] [place] [address] GFR/1.73 sq M.predicted among non-blacks MDRD (S/P/Bld) [Vol rate/Area] mL/min/{1.73_m2} Normal 60 - 999 [facility] Comment on above: Performed By: #### 2 15735 #### [facility],[address] [place] [address] Result Comment: ACCO RDING TO THE NATIONAL KIDNEY DISEASE EDUCATION PROGRAM(NKDE), A NORMAL eGFR IS A VALUE GREATER THAN OR EQUAL TO 60 ML/MIN/1.73 SQ METERS. CHRONIC KIDNEY DISEASE: <60mL/MIN/1.73 SQ METERS KIDNEY FAILURE: <15mL/MIN/1.73 SQ METERS THIS TEST SHOULD ONLY BE USED FOR PATIENTS 18 YEARS OF AGE AND OLDER. Globulin (S) [Mass/Vol] 3.4 g/dL Normal 1.5 - 3.8 [facility] Comment on above: Performed By: #### 2 72698 #### [facility],[address] [place], [place] [address] Glucose [Mass/Vol] 94 mg/dL Normal 74 - 106 [facility] Comment on above: Performed By: #### 2 66367 #### [facility],[address] [place] [address] Potassium [Moles/Vol] 3.8 mmol/L Normal 3.5 - 5.1 [facility] Comment on above: Performed By: #### 2 53052 #### [facility],[address] [place] [address] 99511 Protein [Mass/Vol] 6.4 g/dL Normal 6.4 - 8.2 [facility] Comment on above: Performed By: #### 2 84937 #### [facility],[address] [place] [address] Sodium [Moles/Vol] 142 mmol/L Normal 136 - 145 [facility] Comment on above: Performed By: #### 2 63028 #### [facility],[address] [place] [address] 88898 Urea nitrogen [Mass/Vol] 13 mg/dL Normal 7 - 18 [facility] Comment on above: Performed By: #### 2 72847 #### [facility],[address] [place] [address] 30908 Bacteria Ur Culton 5 Bacteria identified Cx Nom (U) CULTURE, URINE: No growth (<1,000 CFU/ml) Normal [facility] Comment on above: Performed By: #### 6 30-4 #### [facility] CLIA [id number] [address] [place] [address] STATES OF [facility] C-REACTIVE PROTEINon 025 CRP 0.15 mg/dl Normal 0.00 - 0.90 [facility] Comment on above: Performed By: #### 2 35918 #### [facility],[address] [place] [address] 39994 CBC + DIFFon 06-05-2025 Baso # 0.03 x10EE3/UL Normal 0.00 - 0.10 [facility] Comment on above: Performed By: #### 2 88446 #### [facility],[address] [place] [address] 58444 Basophils/100 WBC (Bld) 0.5 % Normal 0.0 - 2.0 [facility] Comment on above: Performed By: #### 2 10358 #### [facility],[address] [place] [address] CBC + DIFF Normal [facility] Comment on above: Result Comment: CBC- COMPLETE BLOOD COUNT Performed By: #### 2 74562 #### [facility],[address] [place] [address] 85612 EO # 0.12 x10EE3/UL Normal 0.00 - 0.50 [facility] Comment on above: Performed By: #### 2 12461 #### [facility],[address] [place], [place] [address] Eosinophils/100 WBC (Bld) 1.9 % Normal 0.0 - 7.0 [facility] Comment on above: Performed By: #### 2 17219 #### [facility],[address] [place], [place] [address] Erythrocyte distribution width (RBC) [Ratio] 12.3 % Normal 12.0 - 15.6 [facility] Comment on above: Performed By: #### 2 17493 #### [facility],[address] [place], [place] [address] Hematocrit (Bld) [Volume fraction] 42.2 % Normal 40.0 - 52.0 [facility] Comment on above: Performed By: #### 2 95316 #### [facility],[address] [place] [address] 40756 Hemoglobin (Bld) [Mass/Vol] 14.9 g/dL Normal 13.0 - 17.5 [facility] Comment on above: Performed By: #### 2 92900 #### [facility],[address] [place] [address] 13025 Lymph # 2.28 x10EE3/UL Normal 0.80 - 2.80 [facility] Comment on above: Performed By: #### 2 98004 #### [facility],[address] [place] [address] 89687 Lymphocytes/100 WBC (Bld) 35.1 % Normal 20.0 - 45.0 [facility] Comment on above: Performed By: #### 2 18832 #### [facility],[address] [place] [address] 96576 MANUAL DIFF N/A Normal [facility] Comment on above: Performed By: #### 2 03661 #### [facility],[address] [place] [address] 92180 MCH (RBC) [Entitic mass] 34 pg High 27 - 33 [facility] Comment on above: Performed By: #### 2 28335 #### [facility],[address] [place] [address] MCHC 35 X10 3 Normal 32 - 36 [facility] Comment on above: Performed By: #### 2 01663 #### [facility],[address] [place] [address] 79718 MCV (RBC) [Entitic vol] 97 fL Normal 81 - 98 [facility] Comment on above: Performed By: #### 2 27537 #### [facility],[address] [place] [address] 81118 Dent # 0.48 x10EE3/UL Normal 0.20 - 1.00 [facility] Comment on above: Performed By: #### 2 28404 #### [facility],[address] [place] [address] 32717 MONOS % 7.4 % Normal 0.0 - 10.0 [facility] Comment on above: Performed By: #### 2 02129 #### [facility],[address] [place] [address] 90801 Morphology Get (Bld) [Interp] N/A Normal [facility] Comment on above: Performed By: #### 2 37807 #### [facility],[address] [place] [address] 63800 Neut # 3.58 x10EE3/UL Normal 1.50 - 7.10 [facility] Comment on above: Performed By: #### 2 46892 #### [facility],[address] [place] [address] 03357 Neutrophils/100 WBC (Bld) 55.2 % Normal 46.0 - 76.0 [facility] Comment on above: Performed By: #### 2 24614 #### [facility],[address] [place] [address] 12527 PLATELET 181 x10EE3/UL Normal 150 - 450 [facility] Comment on above: Performed By: #### 2 04947 #### [facility],[address] [place] [address] 53608 Platelet mean volume (Bld) [Entitic vol] 7.3 fL Normal 6.4 - 10.5 [facility] Comment on above: Result Comment: AUTO MATED DIFFERENTIAL Performed By: #### 2 89617 #### [facility],[address] [place] [address] 99614 RBC 4.34 x 10EE6/UL Low 4.50 - 6.00 [facility] Comment on above: Performed By: #### 2 96729 #### [facility],[address] [place] [address] 78521 WBC 6.5 x 10EE3/UL Normal 4.5 - 10.8 [facility] Comment on above: Performed By: #### 2 43858 #### [facility],[address] [place] [address] 62211 CMP with eGFRon 06-05-2025 AGE 54 years Normal [facility] Comment on above: Performed By: #### 2 87481 #### [facility],[address] [place] [address] 58164 Albumin [Mass/Vol] 3.4 g/dL Normal 3.4 - 5.0 [facility] Comment on above: Performed By: #### 2 76978 #### [facility],[address] [place] [address] 84152 Albumin/Globulin [Mass ratio] 0.9 {ratio} Normal 0.9 - 1.6 [facility] Comment on above: Performed By: #### 2 29568 #### [facility],[address] [place] [address] 67474 ALK PHOS 47 U/L Normal 46 - 116 [facility] Comment on above: Performed By: #### 2 94676 #### [facility],[address] [place] [address] 96784 ALT [Catalytic activity/Vol] 72 U/L High 16 - 63 [facility] Comment on above: Performed By: #### 2 40581 #### [facility],[address] [place] [address] 78066 Anion gap [Moles/Vol] 11 mmol/L Normal 10 - 20 [facility] Comment on above: Performed By: #### 2 40211 #### [facility],[address] [place] [address] 86849 AST [Catalytic activity/Vol] 60 U/L High 15 - 37 [facility] Comment on above: Performed By: #### 2 38299 #### [facility],[address] [place] [address] 38269 B/C RATIO 26 ratio Normal 0 - 30 [facility] Comment on above: Performed By: #### 2 11416 #### [facility],[address] [place] [address] 65755 Bilirubin [Mass/Vol] 0.3 mg/dL Normal 0.2 - 1.0 [facility] Comment on above: Performed By: #### 2 03585 #### [facility],[address] [place] [address] 47556 Calcium [Mass/Vol] 8.0 mg/dL Low 8.5 - 10.1 [facility] Comment on above: Performed By: #### 2 73077 #### [facility],[address] [place], [place] [address] Chloride [Moles/Vol] 104 mmol/L Normal 98 - 107 [facility] Comment on above: Performed By: #### 2 62614 #### [facility],[address] [place] [address] CMP with eGFR Normal [facility] Comment on above: Result Comment: COMP REHENSIVE METABOLIC PANEL Performed By: #### 2 73597 #### [facility],[address] [place] [address] CO2 [Moles/Vol] 28.1 mmol/L Normal 21.0 - 32.0 [facility] Comment on above: Performed By: #### 2 51997 #### [facility],[address] [place] [address] Creatinine [Mass/Vol] 0.62 mg/dL Low 0.70 - 1.30 [facility] Comment on above: Performed By: #### 2 31155 #### [facility],[address] [place] [address] GFR/1.73 sq M.predicted among non-blacks MDRD (S/P/Bld) [Vol rate/Area] mL/min/{1.73_m2} Normal 60 - 999 [facility] Comment on above: Performed By: #### 2 32486 #### [facility],[address] [place] [address] Result Comment: ACCO RDING TO THE NATIONAL KIDNEY DISEASE EDUCATION PROGRAM(NKDE), A NORMAL eGFR IS A VALUE GREATER THAN OR EQUAL TO 60 ML/MIN/1.73 SQ METERS. CHRONIC KIDNEY DISEASE: <60mL/MIN/1.73 SQ METERS KIDNEY FAILURE: <15mL/MIN/1.73 SQ METERS THIS TEST SHOULD ONLY BE USED FOR PATIENTS 18 YEARS OF AGE AND OLDER. Globulin (S) [Mass/Vol] 3.6 g/dL Normal 1.5 - 3.8 [facility] Comment on above: Performed By: #### 2 05400 #### [facility],[address] [place] [address] 53021 Glucose [Mass/Vol] 112 mg/dL High 74 - 106 [facility] Comment on above: Performed By: #### 2 16000 #### [facility],[address] [place] [address] 72847 Potassium [Moles/Vol] 3.3 mmol/L Low 3.5 - 5.1 [facility] Comment on above: Performed By: #### 2 21721 #### [facility],[address] [place] [address] 49754 Protein [Mass/Vol] 7.0 g/dL Normal 6.4 - 8.2 [facility] Comment on above: Performed By: #### 2 47321 #### [facility],[address] [place] [address] 10023 Sodium [Moles/Vol] 140 mmol/L Normal 136 - 145 [facility] Comment on above: Performed By: #### 2 60941 #### [facility],[address] [place] [address] 33961 Urea nitrogen [Mass/Vol] 16 mg/dL Normal 7 - 18 [facility] Comment on above: Performed By: #### 2 20794 #### [facility],[address] [place], [place] [address] CT ABDOMEN/PELVIS [facility] 06-05 CT ABDOMEN/PELVIS [place] [address] Patient: LIYAH HOLLAND Phone#: : 1970 Age: 54 Gender: M Pt. Type: ER Account: [id number] Location: [facility] Ordering: DR. RON JOHNSON Exam Date: 06/05/2025/13:34 Family Phys: JAZMYN ROMAN Charge Code: 513122 Physician: [place] Order #: [id number] Dose#: [id number] PROCEDURE: CT ABDOMEN/PELVIS WITHOUT CONTRAST COMPARISON: [facility], CT, ABDOMEN/PELVIS W CON, 10/12/2024, 17:05. INDICATIONS: Abdominal pain. TECHNIQUE: CT images were created without intravenous contrast. All CT scans at this facility use dose modulation, iterative reconstruction, and/or weight based dosing when appropriate to reduce radiation dose to as low as reasonably achievable. IV CONTRAST: No IV contrast used,0ml TOTAL DOSE: 13.40 CTDIvol(mGy) FINDINGS: LIVER: Fatty changes of the liver are present. BILIARY: The gallbladder is absent. Surgical clips are present in the gallbladder fossa. PANCREAS: Senescent changes of the pancreas are present. SPLEEN: Calcified splenic granulomas are present. The common bile duct is 12 millimeters in diameter obstructive etiology is not identified. Diameter on prior exam was 14 millimeters.. No enlargement or focal lesion. KIDNEYS: Normal. No mass, obstruction, or calcification. ADRENALS: Normal. No mass or enlargement. AORTA/VASCULAR: Normal. No aneurysm. RETROPERITONEUM: Normal. No mass or adenopathy. BOWEL/MESENTERY: Normal. No visible mass, obstruction, or bowel wall thickening. ABDOMINAL WALL: Normal. No mass or hernia. URINARY BLADDER: Normal. No visible focal wall thickening, lesion, or calculus. PELVIC NODES: Normal. No adenopathy. PELVIC ORGANS: Normal. No visible mass. Pelvic organs appropriate for patient age. BONES: Normal. No bony lesion or fracture. LUNG BASES: Normal. No visible pulmonary or pleural disease. OTHER: Negative. CONCLUSION: 1. Senescent changes of the pancreas are present. Continued Report - Page 2 of 2 Patient: LIYAH HOLLAND Phone#: : 1970 Age: 54 Gender: M Pt. Type: ER Account: [id number] Location: 2 Ordering: DR. RON JOHNSON Exam Date: 06/05/2025/13:34 Family Phys: JAZMYN HOUSECRIS Charge Code: 692655 Physician: [place] Order #: [id number] Dose#: [id number] 2. The common bile duct is 12 millimeters in diameter. Obstructive etiology is not demonstrated. Dictated by: Katherine Mayer MD on 06/05/2025 at 13:55 Approved by: Katherine Mayer MD on 06/05/2025 at 14:00 Normal [facility] ED MED ADMINISTRATION DETAIL on 06-05-2025 ED MED ADMINISTRATION DETAIL Luggage Maker - LIYAH HOLLAND, : 1970, , Medication Administration Record [address] [address] [id number] 06/05/2025 Patient: LIYAH HOLLAND Sex: Male : 1970 Age: 54y MEASUREMENTS: Wt: 108.0 kg, Ht/Collin: 71.0 in, BMI: 33.19 ALLERGIES: codeine Medication Ordered Medication Administration Date/Time IV NS 0.9 % 1000 13:06/05 IV NS 0.9 % 1000 mL started in bag#1 1000 mL at Started mL at 150 mL/hr 150 mL/hr via Site# 1. Allergies verified and confirmed 5 rights. IV 13:06/05/2025 (NOW x1) patency established. IV site checked: no pain, redness, or swelling. Contreras Tom, SUZE flushed thoroughly pre-medication administration. Information E.M.T.-P. reviewed with patient including reason for taking this medication, Stopped signs of allergic reaction and precautions. Verbalizes 16:06/05/2025 understanding. Completed per protocol. - 13:28 Skyla Ivory R.N. E.M.T.-P. Scanned 16:06/05 Medication Discontinued: bag #1 completed. Total amount infused: 1000 mL. IV patency established. IV site checked: no pain, redness, or swelling. IV flushed thoroughly post-medication administration. - 16:23 Skyla Sánchez R.N. Zofran IVP 4 mg 13:06/05 Zofran IVP 4 mg given via Site# 1. Allergies verified Given (NOW x1) and confirmed 5 rights. IV patency established. IV site checked: no 13:06/05/2025 pain, redness, or swelling. IV flushed thoroughly pre-medication Contreras Tom, administration. IVP given by EMT-P. Information reviewed with Danae. patient including reason for taking this medication, signs of allergic Scanned reaction and precautions. Verbalizes understanding. - 13:28 Contreras Tom E.M.T.-P. 1 of 3 Luggage Maker - LIYAH HOLLAND, : 1970, , Medication Ordered Medication Administration Date/Time HYDROmorphone 13:06/05 HYDROmorphone (Dilaudid) IVP 1 mg given via Site# Given (Dilaudid) IVP 1 mg 1. Allergies verified and confirmed 5 rights. IV patency established. 13:06/05/2025 (NOW x1) IV site checked: no pain, redness, or swelling. IV flushed thoroughly Contreras Tom pre-medication administration. IVP given by EMT-P. Information Danae. reviewed with patient including reason for taking this medication, Scanned signs of allergic reaction and precautions. Verbalizes understanding. - 13:29 Contreras Tom E.M.T.-P. HYDROmorphone 14:06/05 HYDROmorphone (Dilaudid) IVP 0.5 mg given via Given (Dilaudid) IVP 0.5 Site# 1. Allergies verified and confirmed 5 rights. IV patency 14:06/05/2025 mg (NOW x1) established. IV site checked: no pain, redness, or swelling. IV Skyla Sánchez R.N. flushed thoroughly pre-medication administration. Information Scanned reviewed with patient including reason for taking this medication, signs of allergic reaction, precautions and sedative warning. Verbalizes understanding. (back pain 03/03). Medication Wastage: 0.5 mg wasted. - 14:13 Skyla Sánchez R.N. HYDROmorphone 16:06/05 HYDROmorphone (Dilaudid) IVP 0.5 mg given via Given (Dilaudid) IVP 0.5 Site# 1. Allergies verified and confirmed 5 rights. IV patency 16:06/05/2025 mg (NOW x1) established. IV site checked: no pain, redness, or swelling. IV Skyla Sánchez R.N. flushed thoroughly pre-medication administration. Information Scanned reviewed with patient including reason for taking this medication, signs of allergic reaction, precautions and sedative warning. Verbalizes understanding. (back pain 04/02). Medication Wastage: 0.5 mg wasted. - 16:13 Skyla Sánchez R.N. 2 of 3 [employer]gage [employer] - LIYAH HOLLAND, : 1970, , Medication Ordered Medication Administration Date/Time potassium 16:15 06/05 potassium chloride(K-Marshall)20mEq/100 ml IVPB Started chloride(K-Marshall)20 Premix 20 mEq started at 50 mL/hr via Site# 1. Allergies verified 16:15 06/05/2025 mEq/100ml IVPB and confirmed 5 rights. Via IV pump. IV patency established. IV site Skyla Sánchez R.N. Premix 20 mEq at checked: no pain, redness, or swelling. IV flushed thoroughly Scanned 50 mL/hr (NOW x1, pre-medication administration. Information reviewed with patient HIGH ALERT including reason for taking this medication, signs of allergic reaction MEDICATION) and precautions. Verbalizes understanding. (K+ 3.3). - 16:20 Skyla Sánchez R.N. 16:15 06/05 Medication Co-sign: Verified dosage, concentration and rate. - 16:20 Partha Ramirez R.N. 16:43 06/05 Medication Continued: upon transfer at the rate of 50 mL/hr. 80 mL remaining in bag. IV patency established. IV site checked: no pain, redness, or swelling. - 20:15 Skyla Sánchez R.N. 3 of 3 [facility] ED NURSES CLINICAL NOTEon ED NURSES CLINICAL NOTE Nurse Narrative - LIYAH HOLLAND, : 1970, , Nurse Clinical Narrative [address] [place] [address] [id number] 06/05/2025 12:58:00 Patient: LIYAH HOLLAND Sex: Male : 1970 Age: 54y Disposition: Observation to Med/Surg Disposition Decision Time: 15:56 06/05/2025 Departure Time: 16:43 06/05/2025 TRIAGE Arrived by private vehicle. Historian: (patient). Accompanied by family. Primary physician (Dr. Roman). Triage time: 13:01 06/05/2025. Acuity: LEVEL 3. Chief Complaint: Location of symptoms- lower back. No injury occurred. Onset. (2 days ago). The patient has had trouble walking. Has had no swelling or redness. No fever, difficulty breathing, skin rash, itching or weakness. 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 SEPSIS SCREEN: NEGATIVE. SIRS criteria negative. No possible sources of infection. -- 13:06/05/25 DARIT Skyla Sánchez R.N. 13:06/05/25. BP: 131/81 MAP: 98. HR: 75. RR: 18. O2 saturation: 96% Temperature: 97.9 F. Pain level now 10. -- 13:06/05/25 DARIT Skyla Sánchez R.N. Measurements: 13:06/05/25 Wt: 108.0 kg, Ht/Collin: 71.0 in, BMI: 33.19 -- 13:06/05/25 DARIT Skyla Sánchez R.N. Medications: 1 of 5 Nurse Narrative - LIYAH HOLLAND, : 1970, , ursodiol 300 mg capsule: 1 capsule once a day . -- 13:06/05/25 DARIT Skyla Sánchez R.N. pantoprazole 40 mg tablet,delayed release: 1 tablet twice a day . -- 13:06/05/25 DARIT Skyla Sánchez R.N. sertraline 25 mg tablet: 1 tablet once a day . -- 13:06/05/25 DARIT Skyla Sánchez R.N. sertraline 100 mg tablet: 1 tablet once a day . -- 13:06/05/25 JASON Sánchez R.N.Correction -- 15:46 06/05/25 DARIT Skyla Sánchez R.N. dutasteride 0.5 mg-tamsulosin ER 0.4 mg capsule ext.release 24hr mphas: 1 capsule once a day . -- 13:07 06/05/25 JASON Sánchez R.N.Correction -- 15:47 06/05/25 JASON Sánchez R.N. sertraline 25 mg tablet: 125 mg once a day . -- 15:46 06/05/25 JASON Sánchez R.N. tamsulosin 0.4 mg capsule -- 15:49 06/05/25 JASON Sánchez R.N. Allergies: codeine -- 13:04 06/05/25 JASON Sánchez R.N. Problems: Pacemaker -- 13:04 06/05/25 JASON Sánchez R.N. Duodenal ulcer disease -- 13:04 06/05/25 JASON Sánchez R.N. Pancreatitis -- 13:04 06/05/25 JASON Sánchez R.N. 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 Surgeries: Cholecystectomy -- 13:04 06/05/25 JASON Sánchez R.N. Knee Surgery. bilateral -- 13:04 06/05/25 JASON Sánchez R.N. History 13:01 06/05/25. SOCIAL HX: Occasional alcohol use; consumes beer daily. No drug use. The patient has not traveled outside the [place] Infectious disease exposure: No infectious disease exposure. ABUSE ASSESSMENT: The patient answered yes to the question(s) Do you feel safe in your home? and no to the question(s) Are you afraid to go home?. SELF HARM ASSESSMENT: Self harm assessment was performed. The patient answered no to the question(s) Have you recently felt down, depressed, or hopeless? and Do you have thoughts of harming or killing yourself?. 2 of 5 Nurse Narrative - LIYAH HOLLAND, : 1970, , FALL RISK ASSESSMENT: Fall risk assessment completed. No risk factors identified. -- 13:06/05/25 EDT Skyla Sánchez R.N. 13:10 06/05/25. SOCIAL HX: Never smoker. -- 13:10 06/05/25 EDT Skyla Sánchez R.N. Interventions 13:01 06/05/25. Advanced care plan. Patient does not have advanced directive. -- 13:06/05/25 EDT Skyla Sánchez R.N. PHYSICAL ASSESSMENT 13:35 06/05/25. Ambulatory to room. GENERAL / NEURO / PSYCH: Oriented X 4. Alert. Appears in no acute distress. EXTREMITIES: Limited ROM present in the right lower leg and left lower leg. Upper extremity edema present. Extremities exhibit normal ROM. Neuro-vascular status not intact to the extremity. SKIN: Skin intact. Skin is warm and dry. BACK: Lower back area: tenderness. Limited ROM: (c/o severe lower back pain 06/03, denies fall or injury. Pain does not radiate. Denies numbness or tingling.). No erythema, swelling, ecchymosis, laceration or abrasion. No puncture wound or foreign body. -- 14:00 06/05/25 EDT Skyla Sánchez R.N. NURSING PROGRESS NOTES 13:18 06/05/25. Site #1 started in the left wrist with a 20g needle with aseptic technique and good blood return; 1 attempt. Blood drawn: rainbow set tube(s). Saline lock flushed with 10 mL saline. -- 13:21 06/05/25 DARIT Skyla Sánchez R.N. 13:28 06/05/25. IV NS 0.9 % 1000 mL started in bag#1 1000 mL at 150 mL/hr via Site# 1. Allergies verified and confirmed 5 rights. IV patency established. IV site checked: no pain, redness, or swelling. IV flushed thoroughly pre-medication administra (more content not included)... Normal [facility] ED ORDER SHEET (CPOE ONLY)on 06-05-2025 ED ORDER SHEET (CPOE ONLY) Order Sheet - LIYAH HOLLAND, : 1970, , Order Sheet [address] [place] [address] [id number] 06/05/2025 Patient: LIYAH HOLLAND Sex: Male : 1970 Age: 54y MEASUREMENTS: Wt: 108.0 kg, Ht/Collin: 71.0 in, BMI: 33.19 ALLERGIES: codeine MEDICATION/IV/DRIP/FLUID ORDERS Order Description Priority Entered Acknowledged Completed IV NS 0.9 %1000 mL at 150 13:14 06/05/2025 13:20 13:28 mL/hr (NOW x1) Ron Johnson M.D. 06/05/2025 06/05/2025 Contreras Ivory E.M.T.-P. E.MAngelT.-P. Zofran IVP4 mg (NOW x1) 13:14 06/05/2025 13:20 13:28 Ron Johnson M.D. 06/05/2025 06/05/2025 Contreras Ivory E.M.TAngel-P. E.M.T.-P. HYDROmorphone (Dilaudid) 13:14 06/05/2025 13:20 13:29 IVP1 mg (NOW x1) Ron Johnson M.D. 06/05/2025 06/05/2025 Contreras Ivory E.M.T.-P. E.M.T.-P. Reason for ordering with alerts: Benefits outweigh risks --13:14 06/05/2025 Ron Johnson M.D. HYDROmorphone (Dilaudid) 14:07 06/05/2025 16:13 IVP0.5 mg (NOW x1) Ron Johnson M.D. 06/05/2025 Skyla Sánchez, 1 of 4 Order Sheet - LIYAH HOLLAND, : 1970, , R.N. Reason for ordering with alerts: Benefits outweigh risks --14:07 06/05/2025 Ron Johnson M.D. HYDROmorphone (Dilaudid) 16:01 06/05/2025 Cancelled: Duplicate Order IVP0.5 mg (NOW x1, HIGH Ron Johnson M.D. 16:40 EDT Skyla Sánchez R.N. ALERT MEDICATION) Reason for ordering with alerts: Benefits outweigh risks --16:01 06/05/2025 Ron Johnson M.D. potassium 16:01 06/05/2025 16:20 chloride(K-Marshall)20mEq/100 ml Ron Johnosn M.D. 06/05/2025 IVPB Ttxqld50 mEq at 50 mL/hr Skyla Sánchez, (NOW x1, HIGH ALERT R.N. MEDICATION) LAB ORDERS Order Description Priority Entered Acknowledged Collected Completed CBC w Diff Stat Stat 13:14 06/05/2025 13:30 06/05/2025 13:30 06/05/2025 Skyla Conrad Crystal Brenner, M.D. R.N. R.N. CMP Stat Stat 13:14 06/05/2025 13:30 06/05/2025 13:30 06/05/2025 Skyla Conrad Crystal Brenner, M.D. R.N. R.N. Lipase Stat Stat 13:14 06/05/2025 13:30 06/05/2025 13:30 06/05/2025 Skyla Conrad Crystal Brenner, M.D. R.N. R.N. Urinalysis Stat Stat 13:14 06/05/2025 13:30 06/05/2025 16:09 06/05/2025 Skyla Conrad Crystal Brenner, M.D. RAngelN. R.N. Urine Culture [CCL] Stat Stat 13:14 06/05/2025 13:30 06/05/2025 16:09 06/05/2025 2 of 4 Order Sheet - LIYAH HOLLAND, : 1970, , Skyla Conrad Crystal Brenner, M.D. R.N. R.N. CRP Stat Stat 13:14 06/05/2025 13:30 06/05/2025 13:30 06/05/2025 Skyla Conrad Crystal Brenner, M.D. R.N. R.N. Troponin-I Stat Stat 13:14 06/05/2025 13:30 06/05/2025 13:30 06/05/2025 Skyla Conrad Crystal Brenner, M.D. R.N. R.N. Lactate, Serum Stat Stat 13:14 06/05/2025 13:30 06/05/2025 14:01 06/05/2025 Skyla Conrad Crystal Brenner, M.D. R.N. R.N. EKG - ED Stat Stat 13:14 06/05/2025 13:30 06/05/2025 14:01 06/05/2025 Skyla Conrad Crystal Brenner, M.D. R.N. R.N. DIAGNOSTIC STUDY ORDERS Order Description Priority Entered Acknowledged Completed CT ABD/PEL wo Cont Stat Stat 13:14 06/05/2025 13:30 14:01 Ron Johnson M.D. 06/05/2025 06/05/2025 Skyla Jackman R.NAngel R.N. Order Comments: 13:14 06/05/2025: (back pain and ruq pain hx of remote cholecystectomy and panc) Ron Johnson M.D. Reason for Study: Abdominal Pain STAFF ORDERS Order Description Priority Entered Acknowledged Collected Completed 3 of 4 Order Sheet - LIYAH HOLLAND, : 1970, , [Electronically signed by Ron Johnson M.D. (06/05/2025 13:15 EDT)] [Electronically signed by Ron Johnson M.D. (06/05/2025 18:03 EDT)] 4 of 4 Normal [facility] ED PHYSICIAN CLINICAL REPORT on 06-05-2025 ED PHYSICIAN CLINICAL REPORT Narrative - LIYAH HOLLAND, : 1970, , Physician Clinical Narrative [place] [address] [address] [id number] 06/05/2025 12:58:00 Patient: LIYAH HOLLAND Sex: Male : 1970 Age: 54y Disposition: Observation to Med/Surg Disposition Decision Time: 15:56 06/05/2025 Departure Time: 16:43 06/05/2025 Measurements Wt: 108.0 kg, Ht/Collin: 71.0 in, BMI: 33.19 Initial Vital Sign Measured Time BP MAP HR RR O2Sat ETCO2 Temp Pain GCS RTS 13:03 06/05/2025 131/81 98 75 18 96% 97.9 F 9 Time Seen: 13:05 06/05/2025. Arrived- By private vehicle. Historian- patient. Independent historian- family. HISTORY OF PRESENT ILLNESS Chief Complaint: BACK PAIN. Onset- began 2 days ago and it is still present. It is described as being severe and in the area of the lower thoracic spine and radiating (epigstrium). The quality is noted to be sharp and similar to prior episodes. Modifying factors. (nothing) Not relieved by anything. No bladder dysfunction, bowel dysfunction, sensory loss or motor loss. Additional history - post remote cholecystectomy. Has hx of cystic duct obstruction and pancreatitis. Does drink alcohol on occasion. Patient denies an injury. No injury to the head or chest or other injury. Similar symptoms previously. Patient has had similar symptoms several times. Narrative - LIYAH HOLLAND, : 1970, , REVIEW OF SYSTEMS PSYCHIATRIC: No depression. RESPIRATORY: No cough or difficulty breathing. CONSTITUTIONAL: No fever or chills. NEUROLOGICAL: No headache. SKIN: No skin rash. GI: The patient has had abdominal pain and nausea. No vomiting or diarrhea. : No difficulty with urination or urinary frequency. PAST HISTORY See nurses notes. Duodenal ulcer disease Pacemaker Pancreatitis tubular huertas myopathy Surgeries: Cholecystectomy Knee Surgery: Body Site bilateral Medications: pantoprazole 40 mg tablet,delayed release: 1 tablet twice a day . sertraline 25 mg tablet: 125 mg once a day . tamsulosin 0.4 mg capsule ursodiol 300 mg capsule: 1 capsule once a day . Allergies: codeine SOCIAL HISTORY Alcohol use. No drug use. No recent travel. FAMILY HISTORY Negative. ADDITIONAL NOTES 2 of 12 LIYAH Roe, : 1970, , The nursing notes have been reviewed. PHYSICAL EXAM Vital Signs: Have been reviewed as normal. Appearance: Alert. Anxious. Appears to be in pain. Patient in moderate distress. HEENT: Normal external inspection. Eyes: Pupils equal, round and reactive to light. ENT: Ears normal. Neck: Normal inspection. Neck nontender. Painless ROM. CVS: Normal heart rate. Heart sounds normal. Respiratory: No respiratory distress. Breath sounds normal. Chest nontender. Abdomen: Normal inspection. Soft. Moderate tenderness (epigstric and RUQ). No guarding or Wang's sign present. Bowel sounds normal. No organomegaly. Back: Normal inspection. No tenderness. Painless ROM. Skin: Skin warm and dry. Normal skin color. No rash. Normal skin turgor. Extremities: Extremities exhibit normal ROM. Extremities nontender. Neuro: Oriented X 3. Mood/affect normal. LABS, X-RAYS, AND EKG 12-LEAD EKG: Normal sinus rhythm. Rate: 68. Normal P waves. Normal ЮЛИЯ. Normal QRS complex. RBBB (Incomplete). Non-specific ST segment / T wave abnormalities. a sinus rhythm at 68 beats per minute, normal axis, incomplete right bundle-branch block, nonspecific ST changes, no acute ST elevations. Interpreted by Nikolas Johnson MD. The study has been interpreted contemporaneously by me. The EKG appears to be a good tracing. Laboratory Tests: CBC + DIFF Final KARINA: 06/05/2025 13:18:00 EDT MsgRcvd: 06/05/2025 13:34 EDT Lab Test Result Reference Status Received 06/05/2025 13:34 CBC + DIFF Final EDT CBC-COMPLETE BLOOD COUNT 3 of 12 LIYAH Roe, : 1970, , 06/05/2025 13:34 WBC 6.5 x 10/UL 4.5 - 10.8 Final EDT 4.34 x 10/UL 06/05/2025 13:34 RBC 4.50 - 6.00 Final Below low normal EDT 06/05/2025 13:34 HEMOGLOBIN 14.9 g/dl 13.0 - 17.5 Final EDT 06/05/2025 13:34 HEMATOCRIT 42.2 % 40.0 - 52.0 Final EDT 06/05/2025 13:34 MCV 97 fl 81 - 98 Final EDT 34 pg 06/05/2025 13:34 MCH 27 - 33 Final Above high normal EDT 06/05/2025 13:34 MCHC 35 X10 3 32 - 36 Final EDT 06/05/2025 13:34 RDW/CV 12.3 % 12.0 - 15.6 Final EDT 06/05/2025 13:34 PLATELET 181 x10/UL 150 - 450 Final EDT 06/05/2025 13:34 MPV 7.3 fl 6.4 - 10.5 Final EDT AUTOMATED DIFFERENTIAL 06/05/2025 13:34 NEUT % 55.2 % 46.0 - 76.0 Final EDT 06/05/2025 13:34 LYMPH % 35.1 % 20.0 - 45.0 Final EDT 06/05/2025 13:34 MONOS % (more content not included)... Normal [facility] ED SUPER BILLon 06-05-2025 ED [facility] [place] BILL [facility] - LIYAH HOLLAND, : 1970, , [address] [place] [address] [id number] 06/05/2025 Patient: LIYAH HOLLAND Sex: Male : 1970 Age: 54y Facility Professional Category Item Description Code Code Quantity Fee Total Drugs Normal Saline 320893 1 $0.00 $0.00 1000cc (417885) Nurse/E/M EMERGENCY 492159 1 $0.00 $0.00 DEPT VISIT HIGH SEVERITYFUNCJ (79266-24) Nurse/IV/IM/Infusions Drip/IVPB initial 450157 1 $0.00 $0.00 (46063) Nurse/IV/IM/Infusions Hydration 380713 3 $0.00 $0.00 additional hour (52332) Nurse/IV/IM/Infusions IVP additional 280591 2 $0.00 $0.00 push (27481) Nurse/IV/IM/Infusions IVP same med 320915 2 $0.00 $0.00 (31 min apart) (45064) Grand $0.00 Total 1 of 2 Superbill - LIYAH HOLLAND, : 1970, , Providers Ron Johnson M.D. Chief Complaint BACK PAIN. Principal Diagnosis abdominal pain, common bile duct dilatation, hypokalemia. 2 of 2 Normal [facility] ED VISIT SUMMARYon ED VISIT SUMMARY Visit Overview - LIYAH VILLALOBOS : 1970, , Visit [address] [address] [id number] 06/05/2025 Patient: LIYAH HOLLAND Sex: Male : 1970 Age: 54y 06/05/2025 08:16 PM EDT ED Arrival:12:58 06/05/2025 EDT Status: Recent Travel:no Language:eng Adv Directive:No Isolation Status: Ethnicity:N Fall Risk:no risk Infectious Disease Exposure:no Measurements:5'11 / 180.3 Self-Harm Status:risk Sepsis Screen:negative cm 238.0 lb / 108.0 kg Chief Complaint:lower back , (2 days ago), and (Dr. Romna) ALLERGIES codeine HOME MEDICATIONS pantoprazole 40 mg tablet,delayed release: 1 tablet twice a day . sertraline 25 mg tablet: 125 mg once a day . tamsulosin 0.4 mg capsule ursodiol 300 mg capsule: 1 capsule once a day . PAST MEDICAL HISTORY / PROBLEMS 1 of 4 Visit Overview - LIYAH HOLLAND, : 1970, , Duodenal ulcer disease Pacemaker Pancreatitis See nurses notes tubular huertas myopathy PAST SURGICAL HISTORY Cholecystectomy Knee Surgery. bilateral SOCIAL HISTORY Smoking status: No Alcohol use: Yes Drug use: No ED COURSE MEDICATIONS GIVEN IN EMERGENCY DEPARTMENT 13:28 09/12/25 IV NS 0.9 % 1000 mL 150 mL/hr 13:28 06/05/25 Zofran IVP 4 mg 13:28 06/05/25 HYDROmorphone (Dilaudid) IVP 1 mg 14:10 06/05/25 HYDROmorphone (Dilaudid) IVP 0.5 mg 16:12 06/05/25 HYDROmorphone (Dilaudid) IVP 0.5 mg 16:15 06/05/25 potassium chloride(K-Marshall)20mEq/100 ml IVPB Premix 20 mEq 50 mL/hr IV SITE INFORMATION 13:18 06/05/25 Site #1 left wrist, 20g. Saline lock. INTAKE OUTPUT REASSESMENT (most recent) 2 of 4 Visit Overview - HOLLAND, LIYAH, : 1970, , 13:35 06/05/25. Ambulatory to room. GENERAL / NEURO / PSYCH: Oriented X 4. Alert. Appears in no acute distress. EXTREMITIES: Limited ROM present in the right lower leg and left lower leg. Upper extremity edema present. Extremities exhibit normal ROM. Neuro-vascular status not intact to the extremity. SKIN: Skin intact. Skin is warm and dry. BACK: Lower back area: tenderness. Limited ROM: (c/o severe lower back pain 10, denies fall or injury. Pain does not radiate. Denies numbness or tingling.). No erythema, swelling, ecchymosis, laceration or abrasion. No puncture wound or foreign body. VITAL SIGNS First Vitals Last Vitals Temp 13:03 06/05/25 97.9 F Temp 16:35 06/05/25 BP 13:06/05/25 131/81 BP 16:06/05/25 139/75 HR 13:06/05/25 75 HR 16:35 06/05/25 73 RR 13:06/05/25 18 RR 16:35 06/05/25 16 O2 Sat 13:06/05/25 96% O2 Sat 16:35 06/05/25 96% Pain 13:06/05/25 9 Pain 16:06/05/25 3 ETCO2 13:06/05/25 ETCO2 16:35 06/05/25 GCS 13:03 06/05/25 GCS 16:35 06/05/25 RTS 13:03 06/05/25 RTS 16:35 06/05/25 PROCEDURES NURSING INTERVENTIONS LABS / STUDIES LABS / STUDIES ORDERED CBC w Diff CMP CRP CT ABD/PEL wo Cont EKG - ED Lactate, Serum Lipase Troponin-I Urinalysis Urine Culture [CCL] 3 of 4 Visit Overview - LIYAH HOLLAND, : 1970, , CLINICAL IMPRESSION 4 of 4 Normal [facility] ED VITALS FLOW SHEETon 06-05 ED VITALS FLOW SHEET Vitals - LIYAH HOLLAND, : 1970, , [place]ital [place] [address] [id number] 06/05/2025 Patient: LIYAH HOLLAND Sex: Male : 1970 Age: 54y Measurements Wt: 108.0 kg, Ht/Collin: 71.0 in, BMI: 33.19 Measured Time BP MAP HR RR O2Sat ETCO2 Temp Pain GCS RTS 16:35 06/05/2025 139/75 96 73 16 96% 3 13:03 06/05/2025 131/81 98 75 18 96% 97.9 F 9 1 of 1 Normal [facility] LACTATEon 06-05-2025 Lactate [Moles/Vol] 1.2 mmol/L Normal 0.4 - 2.0 [facility] Comment on above: Performed By: #### 2 [id number] #### [facility],[address] [place] [address] LIPASEon 06-05-2025 Lipase [Catalytic activity/Vol] 22.0 U/L Normal 15.0 - 78.0 [facility] Comment on above: Result Comment: *PLE ASE NOTE THAT RANGES FOR LIPASE HAVE CHANGED OF 09/21/23 DUE TO AN ASSAY UPDATE BY THE FIELD IRRIGATION WORKER.THE NEW ASSAY RANGE IS 6-250 U/L, WITH A REFERENCE RANGE OF 16-77 U/L. Performed By: #### 2 [id number] #### [facility],[address] [place] [address] TROPONINon 06-05-2025 HS TROPONIN 7.8 pg/mL Normal 0.0 - 76.2 [facility] Comment on above: Performed By: #### 2 [id number] #### [facility],[address] [place] [address] URINALYSISon 06-05-2025 Amorphous NONE Normal [facility] Comment on above: Performed By: #### 2 [id number] #### [facility],[address] [place] [address] Bacteria NONE Normal [facility] Comment on above: Performed By: #### 2 [id number] #### [facility],[address] [place] [address] Bilirubin Ql (U) Negative Normal NORMAL: NEGATIVE [facility] Comment on above: Performed By: #### 2 [id number] #### [facility],[address] [place] [address] Casts NONE Normal [facility] Comment on above: Performed By: #### 2 [id number] #### [facility],[address] [place] [address] Clarity (U) clear Normal NORMAL: CLEAR [facility] Comment on above: Performed By: #### 2 [id number] #### [facility],[address] [place], [place] [id number] Color (U) yellow Normal NORMAL: YELLOW [facility] Comment on above: Performed By: #### 2 [id number] #### [facility],[address] [place], [place] [phone] Crystals LM Nom (Urine sed) NONE Normal [facility] Comment on above: Performed By: #### 2 [id number] #### [facility],[address] [place], [place] [phone] Epi Cells NONE Normal [facility] Comment on above: Performed By: #### 2 30040 #### [facility],[address] [place] [address] Glucose Ql (U) NORM Normal NORMAL: NORMAL [facility] Comment on above: Performed By: #### 2 33014 #### [facility],[address] [place] [address] Hemoglobin Ql (U) 10 Abnormal NORMAL: NEGATIVE [facility] Comment on above: Performed By: #### 2 95627 #### [facility],[address] [place] [address] Ketone Negative Normal NORMAL: NEGATIVE [facility] Comment on above: Performed By: #### 2 [id number] #### [facility],[address] [place] [address] Leukocytes Negative Normal NORMAL: NEGATIVE [facility] Comment on above: Performed By: #### 2 82078 #### [facility],[address] [place] [address] Mucous NONE Normal [facility] Comment on above: Performed By: #### 2 93994 #### [facility],[address] [place] [address] Nitrite Ql (U) Negative Normal NORMAL: NEGATIVE [facility] Comment on above: Performed By: #### 2 88685 #### [facility],[address] [place] [address] pH (U) 6 [pH] Normal NORMAL: 5.0-8.0 [facility] Comment on above: Performed By: #### 2 85305 #### [facility],[address] [place] [address] Protein Ql (U) Negative Normal NORMAL: NEGATIVE [facility] Comment on above: Performed By: #### 2 25535 #### [facility],[address] [place] [address] Rbc 0-5 Normal 0-3/hpf [facility] Comment on above: Performed By: #### 2 56621 #### [facility],[address] [place] [address] Sp [place] 1.020 Normal NORMAL: 1.010-1.030 [facility] Comment on above: Performed By: #### 2 61925 #### [facility],[address] [place] [address] Specimen Type R Normal [facility] Comment on above: Performed By: #### 2 72333 #### [facility],[address] [place] [address] Urinalysis dipstick W Reflex Microscopic panel (U) SEE BELOW Normal [facility] Comment on above: Result Comment: MICR OSCOPIC Performed By: #### 2 80129 #### [facility],[address] [place] [address] Urobilinog NORM Normal NORMAL: NORMAL [facility] Comment on above: Performed By: #### 2 26098 #### [facility],[address] [place] [address] Wbc 1-5 Normal 0-5/hpf [facility] Comment on above: Performed By: #### 2 75502 #### [facility],[address] [place] [address] Yeast NONE Normal [facility] Comment on above: Performed By: #### 2 27133 #### [facility],[address] [place] [address] XR ERCP BILIARY AND PANCREAT IC DUCTon 12-30-2024 XR ERCP BILIARY AND PANCREATIC DUCT ORIGINAL EXAMINATION: 11 ERCP on 10/18/2024 SPOT IMAGES FROM AN ERCP COMPARISON: ERCP on 10/18/2024 FLUOROSCOPY DOSE AND TYPE: Radiation Exposure Index: 24.867 mGy air kerma, Fluoro time 58.8 seconds HISTORY: ORDERING SYSTEM PROVIDED HISTORY: Reason for Exam: CBD stent removal FINDINGS: Fluoroscopy was provided for in the endoscopic removal of common bile duct stent. Balloon sweeping of common bile duct was performed. IMPRESSION: Common bile duct stent removed. See procedure report for additional details. Interpreted by: Demar Stephens MD Preliminary Report By: Demar Stephens MD Electronically signed By Demar Stephens MD Dictated Date: 12/30/2024 6:00:56 AM Prelim Date: 12/30/2024 6:01:03 AM Sign Date: 12/30/2024 11:54:58 PM Ordering Provider: ROSSY Luciano [facility] .Auto Diffon 12-15-2024 Basophil, Absolute 0.0 10 3/mcL Normal 0.0-0.3 [facility] Comment on above: Performed By: #### B MP, GFR, ANEU, ADIFF, CBC #### [address] [address] Basophils/100 WBC (Bld) 0.5 % Normal 0.0-2.5 [facility] Comment on above: Performed By: #### B MP, GFR, ANEU, ADIFF, CBC #### [address] [address] Eosinophil, Absolute 0.1 10 3/mcL Normal 0.0-0.7 [facility] Comment on above: Performed By: #### B MP, GFR, ANEU, ADIFF, CBC #### [address] [address] Eosinophils/100 WBC (Bld) 1.4 % Normal 0.0-6.0 [facility] Comment on above: Performed By: #### B MP, GFR, ANEU, ADIFF, CBC #### [address] [address] Lymphocyte, Absolute 1.7 10 3/mcL Normal 0.9-4.3 [facility] Comment on above: Performed By: #### B MP, GFR, ANEU, ADIFF, CBC #### [address] [address] Lymphocytes/100 WBC (Bld) 23.7 % Normal 20.0-40.0 [facility] Comment on above: Performed By: #### B MP, GFR, ANEU, ADIFF, CBC #### [address] [address] Monocyte, Absolute 0.6 10 3/mcL Normal 0.1-1.4 [facility] Comment on above: Performed By: #### B MP, GFR, ANEU, ADIFF, CBC #### [facility] [address] [place] [address] Monocytes/100 WBC (Bld) 8.7 % Normal 2.0-13.0 [facility] Comment on above: Performed By: #### B MP, GFR, ANEU, ADIFF, CBC #### [facility] [address] [place] [address] Neutrophils/100 WBC (Bld) 65.7 % Normal 50.0-75.0 [facility] Comment on above: Performed By: #### B MP, GFR, ANEU, ADIFF, CBC #### [address] [address] .GFRon 12-15-2024 Estimated Glomerular Filtration Rate 120 ml/min/1.73sqm Normal [facility] Comment on above: Result Comment: Stages of Chronic Kidney Disease (CKD) Stage Description eGFR(ml/min/1.73 sq.m.) CKD 1 Normal kidney function or >=90 normal kindney function with possible kidney damage (ex. Proteinuria) CKD 2 Kidney damage with mild loss 60-89 of kidney function CKD 3a Mild to moderate loss of kidney 45-59 function CKD 3b Moderate to severe loss of 30-44 of kindey function CKD 4 Severe loss of kidney function 15-29 CKD 5 Kidney failure <15 Note: (go live 2024) the eGFR calculation was updated to the 2020 CKD-EPI creatinine equation without a race factor to calculate the eGFR results. Performed By: #### B MP, GFR, ANEU, ADIFF, CBC #### [address] [address] .NEUABSon 12-15-2024 Neutrophil, Absolute 4.7 10 3/mcL Normal 2.3-8.1 [facility] Comment on above: Performed By: #### B MP, GFR, ANEU, ADIFF, CBC #### [address] [address] BMPon 12-15-2024 BUN/Creatinine Ratio 36.7 ratio High 10.0-22.0 [facility] Comment on above: Performed By: #### B MP, GFR, ANEU, ADIFF, CBC #### [address] [address] Calcium [Mass/Vol] 8.5 mg/dL Low 8.7-10.4 [facility] Comment on above: Performed By: #### B MP, GFR, ANEU, ADIFF, CBC #### [address] [address] Chloride [Moles/Vol] 103 mmol/L Normal 98-110 [facility] Comment on above: Performed By: #### B MP, GFR, ANEU, ADIFF, CBC #### [address] [address] CO2 [Moles/Vol] 28 mmol/L Normal 22-32 [facility] Comment on above: Performed By: #### B MP, GFR, ANEU, ADIFF, CBC #### [place] [phone] Creatinine [Mass/Vol] 0.49 mg/dL Low 0.60-1.40 [facility] Comment on above: Result Comment: Test ing performed on Original analyzer using enzymatic creatinine methodology. Performed By: #### B MP, GFR, ANEU, ADIFF, CBC #### [address] [address] Electrolyte Balance 7.0 mEq/L Normal 4.0-15.0 [facility] Comment on above: Performed By: #### B MP, GFR, ANEU, ADIFF, CBC #### [address] [address] Glucose [Mass/Vol] 119 mg/dL High 70-110 [facility] Comment on above: Performed By: #### B MP, GFR, ANEU, ADIFF, CBC #### [address] [address] Potassium [Moles/Vol] 4.0 mmol/L Normal 3.5-5.0 [facility] Comment on above: Performed By: #### B MP, GFR, ANEU, ADIFF, CBC #### [address] [address] Sodium [Moles/Vol] 138 mmol/L Normal 136-145 [facility] Comment on above: Performed By: #### B MP, GFR, ANEU, ADIFF, CBC #### [place] [address] Urea nitrogen [Mass/Vol] 18.0 mg/dL Normal 8.0-22.0 [facility] Comment on above: Performed By: #### B MP, GFR, ANEU, ADIFF, CBC #### [address] [address] CBCon 12-15-2024 Erythrocyte distribution width (RBC) [Ratio] 13.8 % Normal 11.5-15.5 [facility] Comment on above: Performed By: #### B MP, GFR, ANEU, ADIFF, CBC #### [place] [address] Hematocrit (Bld) [Volume fraction] 47.3 % Normal 40.0-52.0 [facility] Comment on above: Performed By: #### B MP, GFR, ANEU, ADIFF, CBC #### [place] [phone] Hgb 15.9 G/dL Normal 13.0-17.5 [facility] Comment on above: Performed By: #### B MP, GFR, ANEU, ADIFF, CBC #### [place] [phone] MCH (RBC) [Entitic mass] 32.9 pg Normal 27.0-33.0 [facility] Comment on above: Performed By: #### B MP, GFR, ANEU, ADIFF, CBC #### [place] [phone] MCHC 33.7 G/dL Normal 32.0-36.0 [facility] Comment on above: Performed By: #### B MP, GFR, ANEU, ADIFF, CBC #### [place] [address] MCV (RBC) [Entitic vol] 97.6 fL Normal 81.0-100.0 [facility] Comment on above: Performed By: #### B MP, GFR, ANEU, ADIFF, CBC #### [address] [address] Platelet 219 10 3/mcL Normal 150-450 [facility] Comment on above: Performed By: #### B MP, GFR, ANEU, ADIFF, CBC #### [address] [address] Platelet mean volume (Bld) [Entitic vol] 7.6 fL Normal 6.4-10.5 [facility] Comment on above: Performed By: #### B MP, GFR, ANEU, ADIFF, CBC #### [address] [address] RBC 4.85 10 6/mcL Normal 4.50-6.00 [facility] Comment on above: Performed By: #### B MP, GFR, ANEU, ADIFF, CBC #### [place] [phone] WBC 7.2 10 3/mcL Normal 4.5-10.8 [facility] Comment on above: Performed By: #### B MP, GFR, ANEU, ADIFF, CBC #### [place] [address] LABORATORYOrdered By: SYSTEM SYSTEM on 12-15-2024 Basophils (Bld) [#/Vol] 0.0 103/mcL Normal 0.0 - 0.3 10^3/mcL AH Workflow SS Basophils/100 WBC (Bld) 0.5 % Normal 0.0 - 2.5 % AH Workflow SS Calcium [Mass/Vol] 8.5 mg/dL Low 8.7 - 10. 4 mg/dL AH ADM SS Chloride [Moles/Vol] 103 mmol/L Normal 98 - 110 mEq/L AH ADM SS CO2 [Moles/Vol] 28 mmol/L Normal 22 - 32 mEq/L ADM SS Creatinine [Mass/Vol] 0.49 mg/dL Low 0.60 - 1.40 mg/dL AH ADM SS Comment on above: Interpretive Data: T esting performed on Original analyzer using enzymatic creatinine methodology. Electrolyte Balance 7.0 mEq/L Normal 4.0 - 15 .0 mEq/L AH ADM SS Eosinophils (Bld) [#/Vol] 0.1 103/mcL Normal 0.0 - 0.7 10^3/mcL AH Workflow SS Eosinophils/100 WBC (Bld) 1.4 % Normal 0.0 - 6.0 % AH Workflow SS Erythrocyte distribution width (RBC) [Ratio] 13.8 % Normal 11.5 - 15.5 % AH Workflow SS Estimated Glomerular Filtration Rate 120 ml/min/1.73sqm Invalid Interpretation Code Chemistry S Comment on above: Interpretive Data: Stages of Chronic Kidney Disease (CKD) Stage Description eGFR(ml/min/1.73 sq.m.) CKD 1 Normal kidney function or >=90 normal kindney function with possible kidney damage (ex. Proteinuria) CKD 2 Kidney damage with mild loss 60-89 of kidney function CKD 3a Mild to moderate loss of kidney 45-59 function CKD 3b Moderate to severe loss of 30-44 of kindey function CKD 4 Severe loss of kidney function 15-29 CKD 5 Kidney failure <15 Note: (go live 2024) the eGFR calculation was updated to the 2020 CKD-EPI creatinine equation without a race factor to calculate the eGFR results. Glucose [Mass/Vol] 119 mg/dL High 70 - 110 mg/dL ADM SS Hematocrit (Bld) [Volume fraction] 47.3 % Normal 40.0 - 52.0 % AH Workflow SS Hemoglobin (Bld) [Mass/Vol] 15.9 G/dL Normal 13.0 - 17.5 G/dL AH Workflow SS Lymphocytes (Bld) [#/Vol] 1.7 103/mcL Normal 0.9 - 4.3 10^3/mcL AH Workflow SS Lymphocytes/100 WBC (Bld) 23.7 % Normal 20.0 - 40.0 % AH Workflow SS MCH (RBC) [Entitic mass] 32.9 pg Normal 27.0 - 33.0 pg AH Workflow SS MCHC 33.7 G/dL Normal 32.0 - 36.0 G/dL AH Workflow SS MCV (RBC) [Entitic vol] 97.6 fL Normal 81.0 - 100.0 fL AH Workflow SS Monocytes (Bld) [#/Vol] 0.6 103/mcL Normal 0.1 - 1.4 10^3/mcL AH Workflow SS Monocytes/100 WBC (Bld) 8.7 % Normal 2.0 - 13.0 % AH Workflow SS Neutrophils (Bld) [#/Vol] 4.7 103/mcL Normal 2.3 - 8.1 10^3/mcL Workflow SS Neutrophils/100 WBC (Bld) 65.7 % Normal 50.0 - 75.0 % AH Workflow SS Platelet mean volume (Bld) [Entitic vol] 7.6 fL Normal 6.4 - 10.5 fL Workflow SS Platelets (Bld) [#/Vol] 219 103/mcL Normal 150 - 450 10^3/mcL AH Workflow SS Potassium [Moles/Vol] 4.0 mmol/L Normal 3.5 - 5.0 mEq/L AH ADM SS RBC (Bld) [#/Vol] 4.85 106/mcL Normal 4.50 - 6.0 0 10^6/mcL AH Workflow SS Sodium [Moles/Vol] 138 mmol/L Normal 136 - 145 mEq/L ADM SS Urea nitrogen [Mass/Vol] 18.0 mg/dL Normal 8.0 - 22.0 mg/dL ADM SS Urea nitrogen/Creatinine [Mass ratio] 36.7 ratio High 10.0 - 22.0 ratio ADM SS WBC (Bld) [#/Vol] 7.2 103/mcL Normal 4.5 - 10.8 10^3/mcL Workflow SS XR ERCP BILIARY AND PANCREAT IC DUCTon 10-18-2024 XR ERCP BILIARY AND PANCREATIC DUCT ORIGINAL EXAMINATION: 2 SPOT IMAGES FROM AN ERCP COMPARISON: None FLUOROSCOPY DOSE AND TYPE: Reference air kerma: mGy, 11.473 HISTORY: ORDERING SYSTEM PROVIDED HISTORY: Reason for Exam: GS, pancreatitis FINDINGS: Endoscopy and cannulation of the major papilla was performed by the gastroenterology service. Spot views are presented for interpretation. Cholecystectomy. Biliary stent. IMPRESSION: ERCP. Please see procedural report. Interpreted by: Alonso Lanza Preliminary Report By: Alonso Lanza Electronically signed By Alonso Lanza Dictated Date: 10/18/2024 4:05:51 PM Prelim Date: 10/18/2024 4:06:56 PM Sign Date: 10/18/2024 4:06:56 PM Ordering Provider: ROSSY Luciano [facility] HFPon 10-17-2024 Bili Indirect 0.4 mg/dL Normal 0.1-10.0 [facility] Comment on above: Performed By: #### L IP, HFP #### [place] [address] Albumin Level 3.3 G/dL Normal 3.2-4.8 [facility] Comment on above: Performed By: #### L IP, HFP #### [place] [address] Albumin/Globulin [Mass ratio] 0.9 {ratio} Normal 0.9-1.6 [facility] Comment on above: Performed By: #### L IP, HFP #### [place] [address] ALP [Catalytic activity/Vol] 49 U/L Normal 38-126 [facility] Comment on above: Performed By: #### L IP, HFP #### [place] [address] ALT [Catalytic activity/Vol] 250 U/L High 12-55 [facility] Comment on above: Performed By: #### L IP, HFP #### [place] [id number] AST [Catalytic activity/Vol] 270 U/L High 8-34 [facility] Comment on above: Performed By: #### L IP, HFP #### [place] [id number] Bili Direct 0.3 mg/dL Normal 0.0-0.4 [facility] Comment on above: Result Comment: Use of this assay is not recommended for patients undergoing treatment with eltrombopag due to the potential for falsely elevated results. Performed By: #### L IP, HFP #### [place] [address] Bili Total 0.70 mg/dL Normal 0.20-1.20 [facility] Comment on above: Result Comment: Use of this assay is not recommended for patients undergoing treatment with eltrombopag due to the potential for falsely elevated results. Performed By: #### L IP, HFP #### [place] [address] Globulin 3.5 G/dL Normal 1.5-3.8 [facility] Comment on above: Performed By: #### L IP, HFP #### [facility] [address] [place] [address] Total Protein 6.8 G/dL Normal 5.7-8.2 [facility] Comment on above: Performed By: #### L IP, HFP #### [facility] [address] [place] [address] LABORATORYOrdered By: SYSTEM SYSTEM on 10-17-2024 Albumin BCP dye [Mass/Vol] 3.3 G/dL Normal 3.2 - 4.8 G/dL ADM SS Albumin/Globulin [Mass ratio] 0.9 {ratio} Normal 0.9 - 1.6 ratio ADM SS ALP [Catalytic activity/Vol] 49 U/L Normal 38 - 126 U/L ADM SS ALT No additional P-5'-P [Catalytic activity/Vol] 250 U/L High 12 - 55 U/L ADM SS AST [Catalytic activity/Vol] 270 U/L High 8 - 34 U/L ADM SS Bili Indirect 0.4 mg/dL Normal 0.1 - 10.0 mg/dL Chemistry S Bilirubin [Mass/Vol] 0.70 mg/dL Normal 0.20 - 1.20 mg/dL ADM SS Comment on above: Interpretive Data: U se of this assay is not recommended for patients undergoing treatment with eltrombopag due to the potential for falsely elevated results. Bilirubin.conjugate d [Mass/Vol] 0.3 mg/dL Normal 0.0 - 0.4 mg/dL ADM SS Comment on above: Interpretive Data: U se of this assay is not recommended for patients undergoing treatment with eltrombopag due to the potential for falsely elevated results. Globulin 3.5 G/dL Normal 1.5 - 3.8 G/dL ADM SS Lipase [Catalytic activity/Vol] 402 U/L High 12 - 53 U/L ADM SS Comment on above: Interpretive Data: * *Note - New Reference Range in effect 20 Protein [Mass/Vol] 6.8 G/dL Normal 5.7 - 8.2 G/dL ADM SS LIPon 10-17-2024 Lipase Level 402 U/L High 12-53 [facility] Comment on above: Result Comment: No te - New Reference Range in effect 20 Performed By: #### L , [facility] #### [place] [address] HFPon 10-16-2024 Bili Indirect 0.3 mg/dL Normal 0.1-10.0 [facility] Comment on above: Performed By: #### H FP #### [place] [address] Albumin Level 3.3 G/dL Normal 3.2-4.8 [facility] Comment on above: Performed By: #### H FP #### [place] [address] Albumin/Globulin [Mass ratio] 1.0 {ratio} Normal 0.9-1.6 [facility] Comment on above: Performed By: #### H FP #### [place] [address] ALP [Catalytic activity/Vol] 36 U/L Low 38-126 [facility] Comment on above: Performed By: #### H FP #### [place] [address] ALT [Catalytic activity/Vol] 167 U/L High 12-55 [facility] Comment on above: Performed By: #### H FP #### [place] [address] AST [Catalytic activity/Vol] 100 U/L High 8-34 [facility] Comment on above: Performed By: #### H FP #### [place] [address] Bili Direct 0.2 mg/dL Normal 0.0-0.4 [facility] Comment on above: Result Comment: Use of this assay is not recommended for patients undergoing treatment with eltrombopag due to the potential for falsely elevated results. Performed By: #### H FP #### [place] [address] Bili Total 0.50 mg/dL Normal 0.20-1.20 [facility] Comment on above: Result Comment: Use of this assay is not recommended for patients undergoing treatment with eltrombopag due to the potential for falsely elevated results. Performed By: #### H FP #### [place] [address] Globulin 3.4 G/dL Normal 1.5-3.8 [facility] Comment on above: Performed By: #### H FP #### [place] [id number] Total Protein 6.7 G/dL Normal 5.7-8.2 [facility] Comment on above: Performed By: #### H FP #### [place] [address] LABORATORYOrdered By: SYSTEM SYSTEM on 10-16-2024 Albumin BCP dye [Mass/Vol] 3.3 G/dL Normal 3.2 - 4.8 G/dL ADM SS Albumin/Globulin [Mass ratio] 1.0 {ratio} Normal 0.9 - 1.6 ratio AH ADM SS ALP [Catalytic activity/Vol] 36 U/L Low 38 - 126 U/L ADM SS ALT No additional P-5'-P [Catalytic activity/Vol] 167 U/L High 12 - 55 U/L ADM SS AST [Catalytic activity/Vol] 100 U/L High 8 - 34 U/L ADM SS Bili Indirect 0.3 mg/dL Normal 0.1 - 10.0 mg/dL Chemistry S Bilirubin [Mass/Vol] 0.50 mg/dL Normal 0.20 - 1.20 mg/dL AH ADM SS Comment on above: Interpretive Data: U se of this assay is not recommended for patients undergoing treatment with eltrombopag due to the potential for falsely elevated results. Bilirubin.conjugate d [Mass/Vol] 0.2 mg/dL Normal 0.0 - 0.4 mg/dL AH ADM SS Comment on above: Interpretive Data: U se of this assay is not recommended for patients undergoing treatment with eltrombopag due to the potential for falsely elevated results. Globulin 3.4 G/dL Normal 1.5 - 3.8 G/dL ADM SS Protein [Mass/Vol] 6.7 G/dL Normal 5.7 - 8.2 G/dL ADM SS .Auto Diffon 10-14-2024 Basophil, Absolute 0.0 10 3/mcL Normal 0.0-0.3 [facility] Comment on above: Performed By: #### L IP, HFP #### [address] [address] Basophils/100 WBC (Bld) 0.4 % Normal 0.0-2.5 [facility] Comment on above: Performed By: #### L IP, HFP #### [address] [address] Eosinophil, Absolute 0.1 10 3/mcL Normal 0.0-0.7 [facility] Comment on above: Performed By: #### L IP, HFP #### [address] [address] Eosinophils/100 WBC (Bld) 2.1 % Normal 0.0-6.0 [facility] Comment on above: Performed By: #### L IP, HFP #### [address] [address] Lymphocyte, Absolute 1.2 10 3/mcL Normal 0.9-4.3 [facility] Comment on above: Performed By: #### L IP, HFP #### [address] [address] Lymphocytes/100 WBC (Bld) 21.3 % Normal 20.0-40.0 [facility] Comment on above: Performed By: #### L IP, HFP #### [address] [address] Monocyte, Absolute 0.3 10 3/mcL Normal 0.1-1.4 [facility] Comment on above: Performed By: #### L IP, HFP #### [address] [address] Monocytes/100 WBC (Bld) 5.6 % Normal 2.0-13.0 [facility] Comment on above: Performed By: #### L IP, HFP #### [address] [address] Neutrophils/100 WBC (Bld) 70.6 % Normal 50.0-75.0 [facility] Comment on above: Performed By: #### L IP, HFP #### [address] [address] .GFRon 10-14-2024 GFR >60 Normal [facility] Comment on above: Result Comment: GFR Population mean for , Non- Americans Ages 20-29 = 116 mL/min/1.73 sq.m. Ages 30-39 = 107 mL/min/1.73 sq.m. Ages 40-49 = 99 mL/min/1.73 sq.m. Ages 50-59 = 93 mL/min/1.73 sq.m. Ages 60-69 = 85 mL/min/1.73 sq.m. Ages 70+ = 75 mL/min/1.73 sq.m. Chronic Kidney Disease: Less than 60 mL/min/1.73 square meters End Stage Renal Disease: Less than 15 mL/min/1.73 square meters Performed By: #### L IP, HFP #### [address] [address] GFR Non- >60 Normal [facility] Comment on above: Result Comment: GFR Population mean for , Non- Americans Ages 20-29 = 116 mL/min/1.73 sq.m. Ages 30-39 = 107 mL/min/1.73 sq.m. Ages 40-49 = 99 mL/min/1.73 sq.m. Ages 50-59 = 93 mL/min/1.73 sq.m. Ages 60-69 = 85 mL/min/1.73 sq.m. Ages 70+ = 75 mL/min/1.73 sq.m. Chronic Kidney Disease: Less than 60 mL/min/1.73 square meters End Stage Renal Disease: Less than 15 mL/min/1.73 square meters Performed By: #### L IP, HFP #### [address] [address] .NEUABSon 10-14-2024 Neutrophil, Absolute 4.1 10 3/mcL Normal 2.3-8.1 [facility] Comment on above: Performed By: #### L IP, HFP #### [address] [address] CBCon 10-14-2024 Erythrocyte distribution width (RBC) [Ratio] 13.1 % Normal 11.5-15.5 [facility] Comment on above: Performed By: #### G FR, CMP, CBC, ANEU, MG, ADIFF ####[place] [address] Hematocrit (Bld) [Volume fraction] 42.5 % Normal 40.0-52.0 [facility] Comment on above: Performed By: #### G FR, CMP, CBC, ANEU, MG, ADIFF ####[place] [address] Hgb 14.6 G/dL Normal 13.0-17.5 [facility] Comment on above: Performed By: #### G FR, CMP, CBC, ANEU, MG, ADIFF ####[place] [address] MCH (RBC) [Entitic mass] 34.2 pg High 27.0-33.0 [facility] Comment on above: Performed By: #### G FR, CMP, CBC, ANEU, MG, ADIFF ####[place] [address] MCHC 34.4 G/dL Normal 32.0-36.0 [facility] Comment on above: Performed By: #### G FR, CMP, CBC, ANEU, MG, ADIFF ####[place] [address] MCV (RBC) [Entitic vol] 99.5 fL Normal 81.0-100.0 [facility] Comment on above: Performed By: #### G FR, CMP, CBC, ANEU, MG, ADIFF ####[place] [address] Platelet 165 10 3/mcL Normal 150-450 [facility] Comment on above: Performed By: #### G FR, CMP, CBC, ANEU, MG, ADIFF ####[place] [address] Platelet mean volume (Bld) [Entitic vol] 7.5 fL Normal 6.4-10.5 [facility] Comment on above: Performed By: #### G FR, CMP, CBC, ANEU, MG, ADIFF ####[place] [id number] [place] [address] RBC 4.27 10 6/mcL Low 4.50-6.00 [facility] Comment on above: Performed By: #### G FR, CMP, CBC, ANEU, MG, ADIFF ####[place] [address] [place] [address] WBC 5.8 10 3/mcL Normal 4.5-10.8 [facility] Comment on above: Performed By: #### G FR, CMP, CBC, ANEU, MG, ADIFF ####[address] [address] CMPon 10-14-2024 Albumin Level 3.3 G/dL Normal 3.2-4.8 [facility] Comment on above: Performed By: #### L IP, [facility] #### [place] [address] Albumin/Globulin [Mass ratio] 1.0 {ratio} Normal 0.9-1.6 [facility] Comment on above: Performed By: #### L IP, HFP #### [address] [address] ALP [Catalytic activity/Vol] 29 U/L Low 38-126 [facility] Comment on above: Performed By: #### L IP, HFP #### [place] [id number] ALT [Catalytic activity/Vol] 276 U/L High 12-55 [facility] Comment on above: Performed By: #### L IP, HFP #### [place] [id number] AST [Catalytic activity/Vol] 190 U/L High 8-34 [facility] Comment on above: Performed By: #### L IP, HFP #### [place] [id number] Bili Total 0.70 mg/dL Normal 0.20-1.20 [facility] Comment on above: Result Comment: Use of this assay is not recommended for patients undergoing treatment with eltrombopag due to the potential for falsely elevated results. Performed By: #### L IP, HFP #### [place] [address] BUN/Creatinine Ratio 19.6 ratio Normal 10.0-22.0 [facility] Comment on above: Performed By: #### L IP, HFP #### [place] [address] Calcium [Mass/Vol] 8.3 mg/dL Low 8.7-10.4 [facility] Comment on above: Performed By: #### L IP, HFP #### [place] [address] Chloride [Moles/Vol] 106 mmol/L Normal 98-110 [facility] Comment on above: Performed By: #### L IP, HFP #### [place] [address] CO2 [Moles/Vol] 26 mmol/L Normal 22-32 [facility] Comment on above: Performed By: #### L IP, HFP #### [place] [address] Creatinine [Mass/Vol] 0.46 mg/dL Low 0.60-1.40 [facility] Comment on above: Result Comment: Test ing performed on Original analyzer using enzymatic creatinine methodology. Performed By: #### L IP, HFP #### [place] [address] Electrolyte Balance 10.0 mEq/L Normal 4.0-15.0 [facility] Comment on above: Performed By: #### L IP, HFP #### [place] [id number] Globulin 3.3 G/dL Normal 1.5-3.8 [facility] Comment on above: Performed By: #### L IP, HFP #### [place] [id number] Glucose [Mass/Vol] 79 mg/dL Normal 70-110 [facility] Comment on above: Performed By: #### L IP, HFP #### [place] [phone] Potassium [Moles/Vol] 3.5 mmol/L Normal 3.5-5.0 [facility] Comment on above: Performed By: #### L IP, HFP #### [address] [address] Sodium [Moles/Vol] 142 mmol/L Normal 136-145 [facility] Comment on above: Performed By: #### L IP, HFP #### [address] [address] Total Protein 6.6 G/dL Normal 5.7-8.2 [facility] Comment on above: Performed By: #### L IP, HFP #### [address] [address] Urea nitrogen [Mass/Vol] 9.0 mg/dL Normal 8.0-22.0 [facility] Comment on above: Performed By: #### L IP, HFP #### [address] [address] LABORATORYOrdered By: SYSTEM SYSTEM on 10-14-2024 Albumin BCP dye [Mass/Vol] 3.3 G/dL Normal 3.2 - 4.8 G/dL ADM SS Albumin/Globulin [Mass ratio] 1.0 {ratio} Normal 0.9 - 1.6 ratio ADM SS ALP [Catalytic activity/Vol] 29 U/L Low 38 - 126 U/L ADM SS ALT No additional P-5'-P [Catalytic activity/Vol] 276 U/L High 12 - 55 U/L ADM SS AST [Catalytic activity/Vol] 190 U/L High 8 - 34 U/L ADM SS Basophils (Bld) [#/Vol] 0.0 103/mcL Normal 0.0 - 0.3 10^3/mcL Workflow SS Basophils/100 WBC (Bld) 0.4 % Normal 0.0 - 2.5 % Workflow SS Bilirubin [Mass/Vol] 0.70 mg/dL Normal 0.20 - 1.20 mg/dL ADM SS Comment on above: Interpretive Data: U se of this assay is not recommended for patients undergoing treatment with eltrombopag due to the potential for falsely elevated results. Calcium [Mass/Vol] 8.3 mg/dL Low 8.7 - 10. 4 mg/dL ADM SS Chloride [Moles/Vol] 106 mmol/L Normal 98 - 110 mEq/L ADM SS CO2 [Moles/Vol] 26 mmol/L Normal 22 - 32 mEq/L ADM SS Creatinine [Mass/Vol] 0.46 mg/dL Low 0.60 - 1.40 mg/dL ADM SS Comment on above: Interpretive Data: T esting performed on Original analyzer using enzymatic creatinine methodology. Electrolyte Balance 10.0 mEq/L Normal 4.0 - 15 .0 mEq/L ADM SS Eosinophils (Bld) [#/Vol] 0.1 103/mcL Normal 0.0 - 0.7 10^3/mcL Workflow SS Eosinophils/100 WBC (Bld) 2.1 % Normal 0.0 - 6.0 % Workflow SS Erythrocyte distribution width (RBC) [Ratio] 13.1 % Normal 11.5 - 15.5 % Workflow SS GFR/1.73 sq M.predicted among blacks MDRD (S/P/Bld) [Vol rate/Area] ml/min/1.73sqm Invalid Interpretation Code [employer] Chemistry S Comment on above: Interpretive Data: GFR Population mean for , Non- Americans Ages 20-29 = 116 mL/min/1.73 sq.m. Ages 30-39 = 107 mL/min/1.73 sq.m. Ages 40-49 = 99 mL/min/1.73 sq.m. Ages 50-59 = 93 mL/min/1.73 sq.m. Ages 60-69 = 85 mL/min/1.73 sq.m. Ages 70+ = 75 mL/min/1.73 sq.m. Chronic Kidney Disease: Less than 60 mL/min/1.73 square meters End Stage Renal Disease: Less than 15 mL/min/1.73 square meters GFR/1.73 sq M.predicted among non-blacks MDRD (S/P/Bld) [Vol rate/Area] ml/min/1.73sqm Invalid Interpretation Code [employer] Chemistry S Comment on above: Interpretive Data: GFR Population mean for , Non- Americans Ages 20-29 = 116 mL/min/1.73 sq.m. Ages 30-39 = 107 mL/min/1.73 sq.m. Ages 40-49 = 99 mL/min/1.73 sq.m. Ages 50-59 = 93 mL/min/1.73 sq.m. Ages 60-69 = 85 mL/min/1.73 sq.m. Ages 70+ = 75 mL/min/1.73 sq.m. Chronic Kidney Disease: Less than 60 mL/min/1.73 square meters End Stage Renal Disease: Less than 15 mL/min/1.73 square meters Globulin 3.3 G/dL Normal 1.5 - 3.8 G/dL AH ADM SS Glucose [Mass/Vol] 79 mg/dL Normal 70 - 110 mg/dL AH ADM SS Hematocrit (Bld) [Volume fraction] 42.5 % Normal 40.0 - 52.0 % AH Workflow SS Hemoglobin (Bld) [Mass/Vol] 14.6 G/dL Normal 13.0 - 17.5 G/dL AH Workflow SS Lymphocytes (Bld) [#/Vol] 1.2 103/mcL Normal 0.9 - 4.3 10^3/mcL AH Workflow SS Lymphocytes/100 WBC (Bld) 21.3 % Normal 20.0 - 40.0 % AH Workflow SS Magnesium [Mass/Vol] 2.0 mg/dL Normal 1.6 - 2.4 mg/dL AH ADM SS MCH (RBC) [Entitic mass] 34.2 pg High 27.0 - 33.0 pg AH Workflow SS MCHC 34.4 G/dL Normal 32.0 - 36.0 G/dL AH Workflow SS MCV (RBC) [Entitic vol] 99.5 fL Normal 81.0 - 100.0 fL AH Workflow SS Monocytes (Bld) [#/Vol] 0.3 103/mcL Normal 0.1 - 1.4 10^3/mcL AH Workflow SS Monocytes/100 WBC (Bld) 5.6 % Normal 2.0 - 13.0 % AH Workflow SS Neutrophils (Bld) [#/Vol] 4.1 103/mcL Normal 2.3 - 8.1 10^3/mcL AH Workflow SS Neutrophils/100 WBC (Bld) 70.6 % Normal 50.0 - 75.0 % AH Workflow SS Platelet mean volume (Bld) [Entitic vol] 7.5 fL Normal 6.4 - 10.5 fL AH Workflow SS Platelets (Bld) [#/Vol] 165 103/mcL Normal 150 - 450 10^3/mcL AH Workflow SS Potassium [Moles/Vol] 3.5 mmol/L Normal 3.5 - 5.0 mEq/L AH ADM SS Protein [Mass/Vol] 6.6 G/dL Normal 5.7 - 8.2 G/dL ADM SS RBC (Bld) [#/Vol] 4.27 106/mcL Low 4.50 - 6.0 0 10^6/mcL Workflow SS Sodium [Moles/Vol] 142 mmol/L Normal 136 - 145 mEq/L ADM SS Urea nitrogen [Mass/Vol] 9.0 mg/dL Normal 8.0 - 22.0 mg/dL ADM SS Urea nitrogen/Creatinine [Mass ratio] 19.6 ratio Normal 10.0 - 22.0 ratio ADM SS WBC (Bld) [#/Vol] 5.8 103/mcL Normal 4.5 - 10.8 10^3/mcL Workflow SS MGon 10-14-2024 Magnesium [Mass/Vol] 2.0 mg/dL Normal 1.6-2.4 [facility] Comment on above: Performed By: #### L IP, HFP #### [address] [address] .Auto Diffon 10-13-2024 Basophil, Absolute 0.0 10 3/mcL Normal 0.0-0.3 [facility] Comment on above: Performed By: #### A DIFF, MG, GFR, HFP, ANEU, LIP, LIPID, BMP, CBC ####[address] [address] Basophils/100 WBC (Bld) 0.3 % Normal 0.0-2.5 [facility] Comment on above: Performed By: #### A DIFF, MG, GFR, HFP, ANEU, LIP, LIPID, BMP, CBC ####[address] [address] Eosinophil, Absolute 0.1 10 3/mcL Normal 0.0-0.7 [facility] Comment on above: Performed By: #### A DIFF, MG, GFR, HFP, ANEU, LIP, LIPID, BMP, CBC ####[address] [address] Eosinophils/100 WBC (Bld) 1.6 % Normal 0.0-6.0 [facility] Comment on above: Performed By: #### A DIFF, MG, GFR, HFP, ANEU, LIP, LIPID, BMP, CBC ####[address] [address] Lymphocyte, Absolute 1.4 10 3/mcL Normal 0.9-4.3 [facility] Comment on above: Performed By: #### A DIFF, MG, GFR, HFP, ANEU, LIP, LIPID, BMP, CBC ####[address] [address] Lymphocytes/100 WBC (Bld) 28.0 % Normal 20.0-40.0 [facility] Comment on above: Performed By: #### A DIFF, MG, GFR, HFP, ANEU, LIP, LIPID, BMP, CBC ####[address] [address] Monocyte, Absolute 0.3 10 3/mcL Normal 0.1-1.4 [facility] Comment on above: Performed By: #### A DIFF, MG, GFR, HFP, ANEU, LIP, LIPID, BMP, CBC ####[address] [address] Monocytes/100 WBC (Bld) 6.1 % Normal 2.0-13.0 [facility] Comment on above: Performed By: #### A DIFF, MG, GFR, HFP, ANEU, LIP, LIPID, BMP, CBC ####[address] [address] Neutrophils/100 WBC (Bld) 64.0 % Normal 50.0-75.0 [facility] Comment on above: Performed By: #### A DIFF, MG, GFR, HFP, ANEU, LIP, LIPID, BMP, CBC ####[address] [address] .GFRon 10-13-2024 GFR Non- >60 Normal [facility] Comment on above: Result Comment: GFR Population mean for , Non- Americans Ages 20-29 = 116 mL/min/1.73 sq.m. Ages 30-39 = 107 mL/min/1.73 sq.m. Ages 40-49 = 99 mL/min/1.73 sq.m. Ages 50-59 = 93 mL/min/1.73 sq.m. Ages 60-69 = 85 mL/min/1.73 sq.m. Ages 70+ = 75 mL/min/1.73 sq.m. Chronic Kidney Disease: Less than 60 mL/min/1.73 square meters End Stage Renal Disease: Less than 15 mL/min/1.73 square meters Performed By: #### A DIFF, MG, GFR, HFP, ANEU, LIP, LIPID, BMP, CBC ####[place] [address] GFR >60 Normal [facility] Comment on above: Result Comment: GFR Population mean for , Non- Americans Ages 20-29 = 116 mL/min/1.73 sq.m. Ages 30-39 = 107 mL/min/1.73 sq.m. Ages 40-49 = 99 mL/min/1.73 sq.m. Ages 50-59 = 93 mL/min/1.73 sq.m. Ages 60-69 = 85 mL/min/1.73 sq.m. Ages 70+ = 75 mL/min/1.73 sq.m. Chronic Kidney Disease: Less than 60 mL/min/1.73 square meters End Stage Renal Disease: Less than 15 mL/min/1.73 square meters Performed By: #### A DIFF, MG, GFR, HFP, ANEU, LIP, LIPID, BMP, CBC ####[place] [address] .NEUABSon 10-13-2024 Neutrophil, Absolute 3.1 10 3/mcL Normal 2.3-8.1 [facility] Comment on above: Performed By: #### A DIFF, MG, GFR, HFP, ANEU, LIP, LIPID, BMP, CBC ####[place] [address] BMPon 10-13-2024 BUN/Creatinine Ratio 20.8 ratio Normal 10.0-22.0 [facility] Comment on above: Performed By: #### A DIFF, MG, GFR, HFP, ANEU, LIP, LIPID, BMP, CBC ####[place] [address] Calcium [Mass/Vol] 8.8 mg/dL Normal 8.7-10.4 [facility] Comment on above: Performed By: #### A DIFF, MG, GFR, HFP, ANEU, LIP, LIPID, BMP, CBC ####[address] [address] Chloride [Moles/Vol] 106 mmol/L Normal 98-110 [facility] Comment on above: Performed By: #### A DIFF, MG, GFR, HFP, ANEU, LIP, LIPID, BMP, CBC ####[address] [address] CO2 [Moles/Vol] 28 mmol/L Normal 22-32 [facility] Comment on above: Performed By: #### A DIFF, MG, GFR, HFP, ANEU, LIP, LIPID, BMP, CBC ####[place] [id number] Creatinine [Mass/Vol] 0.53 mg/dL Low 0.60-1.40 [facility] Comment on above: Result Comment: Test ing performed on Original analyzer using enzymatic creatinine methodology. Performed By: #### A DIFF, MG, GFR, HFP, ANEU, LIP, LIPID, BMP, CBC ####[place] [id number] Electrolyte Balance 9.0 mEq/L Normal 4.0-15.0 [facility] Comment on above: Performed By: #### A DIFF, MG, GFR, HFP, ANEU, LIP, LIPID, BMP, CBC ####[address] [address] Glucose [Mass/Vol] 115 mg/dL High 70-110 [facility] Comment on above: Performed By: #### A DIFF, MG, GFR, HFP, ANEU, LIP, LIPID, BMP, CBC ####[address] [address] Potassium [Moles/Vol] 3.9 mmol/L Normal 3.5-5.0 [facility] Comment on above: Performed By: #### A DIFF, MG, GFR, HFP, ANEU, LIP, LIPID, BMP, CBC ####[place] [address] Sodium [Moles/Vol] 143 mmol/L Normal 136-145 [facility] Comment on above: Performed By: #### A DIFF, MG, GFR, HFP, ANEU, LIP, LIPID, BMP, CBC ####[place] [address] Urea nitrogen [Mass/Vol] 11.0 mg/dL Normal 8.0-22.0 [facility] Comment on above: Performed By: #### A DIFF, MG, GFR, HFP, ANEU, LIP, LIPID, BMP, CBC ####[place] [address] CBCon 10-13-2024 Erythrocyte distribution width (RBC) [Ratio] 13.2 % Normal 11.5-15.5 [facility] Comment on above: Performed By: #### A DIFF, MG, GFR, HFP, ANEU, LIP, LIPID, BMP, CBC ####[place] [address] Hematocrit (Bld) [Volume fraction] 45.6 % Normal 40.0-52.0 [facility] Comment on above: Performed By: #### A DIFF, MG, GFR, HFP, ANEU, LIP, LIPID, BMP, CBC ####[place] [address] Hgb 15.7 G/dL Normal 13.0-17.5 [facility] Comment on above: Performed By: #### A DIFF, MG, GFR, HFP, ANEU, LIP, LIPID, BMP, CBC ####[place] [address] MCH (RBC) [Entitic mass] 34.1 pg High 27.0-33.0 [facility] Comment on above: Performed By: #### A DIFF, MG, GFR, HFP, ANEU, LIP, LIPID, BMP, CBC ####[place] [address] MCHC 34.4 G/dL Normal 32.0-36.0 [facility] Comment on above: Performed By: #### A DIFF, MG, GFR, HFP, ANEU, LIP, LIPID, BMP, CBC ####[place] [address] MCV (RBC) [Entitic vol] 99.1 fL Normal 81.0-100.0 [facility] Comment on above: Performed By: #### A DIFF, MG, GFR, HFP, ANEU, LIP, LIPID, BMP, CBC ####[place] [address] Platelet 187 10 3/mcL Normal 150-450 [facility] Comment on above: Performed By: #### A DIFF, MG, GFR, HFP, ANEU, LIP, LIPID, BMP, CBC ####[place] [address] Platelet mean volume (Bld) [Entitic vol] 7.8 fL Normal 6.4-10.5 [facility] Comment on above: Performed By: #### A DIFF, MG, GFR, HFP, ANEU, LIP, LIPID, BMP, CBC ####[place] [address] RBC 4.60 10 6/mcL Normal 4.50-6.00 [facility] Comment on above: Performed By: #### A DIFF, MG, GFR, HFP, ANEU, LIP, LIPID, BMP, CBC ####[place] [address] WBC 4.8 10 3/mcL Normal 4.5-10.8 [facility] Comment on above: Performed By: #### A DIFF, MG, GFR, HFP, ANEU, LIP, LIPID, BMP, CBC ####[place] [address] ED MED ADMINISTRATION DETAIL on 10-13-2024 ED MED ADMINISTRATION DETAIL [employer] Medication Administration Record [address] [address] [id number] 10/12/2024 Patient: LIYAH HOLLAND Sex: Male : 1970 Age: 54y MEASUREMENTS: Wt: 106.6 kg, Ht/Collin: 72.0 in, BMI: 31.87 ALLERGIES: codeine Medication Ordered Medication Administration Date/Time IV NS 0.9 % 1000 15:51 10/12 IV NS 0.9 % 1000 mL started in bag#1 1000 mL at Started mL at 999 mL/hr 999 mL/hr via Site# 1. Allergies verified and confirmed 5 rights. Via 15:51 10/12/2024 (NOW x1) IV pump. IV patency established. IV site checked: no pain, redness, Brenda Ma, R.N. or swelling. IV flushed thoroughly pre-medication administration. Stopped Information reviewed with patient and spouse including reason for 17:03 10/12/2024 taking this medication. - 15:53 Brenda Ma R.N. Brenda Ma R.N. Scanned 17:03 10/12 Medication Discontinued: bag #1 infused. Total amount infused: 1000 mL. IV patency established. IV site checked: no pain, redness, or swelling. IV flushed thoroughly post-medication administration. - 17:03 Brenda Ma R.N. MORPHine IVP 4 15:54 10/12 MORPHine IVP 4 mg given via Site# 1. Allergies Given mg (NOW x1, HIGH verified and confirmed 5 rights. IV patency established. IV site 15:54 10/12/2024 ALERT checked: no pain, redness, or swelling. IV flushed thoroughly Brenda Ma R.N. MEDICATION) pre-medication administration. IVP given by nurse. Information Scanned reviewed with patient and spouse including reason for taking this medication and sedative warning. - 15:54 Brenda Ma R.N. 21:00 10/12 Medication Response: Pain is improving. Symptoms have improved. The patient feels better. - 22:40 Keshia Butterfield R.N. 1 of 3 [employer] Medication Ordered Medication Administration Date/Time Zofran IVP 4 mg 15:53 10/12 Zofran IVP 4 mg given via Site# 1. Allergies verified Given (NOW x1) and confirmed 5 rights. IV patency established. IV site checked: no 15:53 10/12/2024 pain, redness, or swelling. IV flushed thoroughly pre-medication Brenda Ma, R.N. administration. IVP given by nurse. Information reviewed with Scanned patient including reason for taking this medication and sedative warning. - 15:53 Brenda Ma R.N. MORPHine IVP 4 16:56 10/12 MORPHine IVP 4 mg given via Site# 1. Allergies Given mg (NOW x1, HIGH verified and confirmed 5 rights. IV patency established. IV site 16:56 10/12/2024 ALERT checked: no pain, redness, or swelling. IV flushed thoroughly Brenda Ma R.N. MEDICATION) pre-medication administration. IVP given by nurse. Information Scanned reviewed with patient including reason for taking this medication and sedative warning. - 16:57 Brenda Ma R.N. MORPHine IVP 1 Completed mg 19:42 10/12/2024 Keshia Butterfield R.N. Order Comments: 19:42 10/12/2024: Canc el order . New order echo fajardo MD. Blake michele R.N. 2 of 3 [employer] Medication Ordered Medication Administration Date/Time IV NS 0.9 % 1000 19:37 10/12 IV NS 0.9 % 1000 mL started in bag#2 1000 mL at Started mL at 999 mL/hr 999 mL/hr via Site# 1. Allergies verified and confirmed 5 rights. Via 19:37 10/12/2024 (NOW x1) IV pump. IV patency established. IV site checked: no pain, redness, Keshia Butterfield R.N. or swelling. IV flushed thoroughly pre-medication administration. Stopped Information reviewed with patient. - 19:38 Keshia Butterfield R.N. 20:40 10/12/2024 Keshia Butterfield R.N. 20:40 10/12 Medication Discontinued: bag #2 completed. Total Scanned amount infused: 2000 mL. IV patency established. IV site checked: no pain, redness, or swelling. IV flushed thoroughly post-medication administration. - 22:29 Keshia Butterfield R.N. MORPHine IVP 4 19:42 10/12 Change MORPHine IVP 4 mg given via Site# 1. Given mg (NOW x1, HIGH Allergies verified and confirmed 5 rights. IV patency established. IV 19:42 10/12/2024 ALERT site checked: no pain, redness, or swelling. IV flushed thoroughly Keshia Butterfield R.N. MEDICATION) pre-medication administration. IVP given by nurse. Information Scanned reviewed with patient including sedative warning. - 19:48 Keshia Butterfield R.N. 21:00 10/12 Medication Response: Pain is improving. Symptoms have improved. The patient feels better. - 22:39 Keshia Butterfield R.N. HYDROmorphone 22:36 10/12 HYDROmorphone (Dilaudid) IVP 0.5 mg given via Given (Dilaudid) IVP 0.5 Site# 1. Allergies verified and confirmed 5 rights. IV patency 22:36 10/12/2024 mg (NOW x1, HIGH established. IV site checked: no pain, redness, or swelling. IV Keshia Butterfield R.N. ALERT flushed thoroughly pre-medication administration. IVP given by Scanned MEDICATION) nurse. Information reviewed with patient including sedative warning. Vitals: 22:33 10/12/2024 BP: 119/81 MAP: 90 mmHg. HR: 63 bpm. Medication Wastage: 0.5 mg wasted. - 22:36 Keshia Butterfield R.N. 22: (more content not included)... Normal [facility] ED NURSES CLINICAL NOTEon ED NURSES CLINICAL NOTE Nurse Narrative Nurse Clinical Narrative [address] [place] [id number] 10/12/2024 Patient: LIYAH HOLLAND Sex: Male : 1970 Age: 54y Disposition: Transfer to [facility] Disposition Decision Time: 19:00 10/12/2024 Departure Time: 23:45 10/12/2024 TRIAGE Arrived by private vehicle. Historian: patient. Accompanied by family. Primary physician (Jessie). Triage time: 14:33 10/12/2024. Acuity: LEVEL 3. Chief Complaint: ABDOMINAL PAIN. Onset. (Sunday). SEPSIS SCREEN: NEGATIVE. SIRS criteria negative. Possible sources of infection: acute abdomen. -- 14:40 10/12/24 CYNDI Marinelli R.N. 14:35 10/12/24. BP: 168/104 MAP: 125. HR: 70. RR: 18. O2 saturation: 97% Temperature: 97.9 F. Pain level now 8/10. Describes the pain as (sharp pain, a hot knife stabbing). -- 14:36 10/12/24 CYNDI Marinelli R.N. Measurements: 14:39 10/12/24 Wt: 106.6 kg, Ht/Collin: 72.0 in, BMI: 31.87 -- 14:39 10/12/24 CYNDI Marinelli R.N. Medications: ursodiol 300 mg capsule: 1 capsule once a day. -- 14:42 10/12/24 CYNDI Marinelli R.N. sertraline 25 mg tablet: 1 tablet once a day. -- 14:42 10/12/24 CYNDI Marinelli R.N. sertraline 100 mg tablet: 1 tablet once a day. -- 14:42 10/12/24 CYNDI Marinelli R.N. pantoprazole 40 mg tablet,delayed release: 1 tablet twice a day. -- 14:42 10/12/24 CYNDI Marinelli R.N. 1 of 6 Nurse Narrative dutasteride 0.5 mg-tamsulosin ER 0.4 mg capsule ext.release 24hr mphas: 1 capsule once a day. -- 14:42 10/12/24 CYNDI Marinelli R.N. Allergies: codeine -- 14:37 10/12/24 CYNDI Marinelli R.N. Home Medications/Allergy Information Source: patient -- 14:37 10/12/24 CYNDI Marinelli R.N. Problems: Pacemaker -- 14:37 10/12/24 CYNDI Marinelli R.N. Duodenal ulcer disease -- 14:37 10/12/24 CYNDI Marinelli R.N. Pancreatitis -- 14:38 10/12/24 CYNDI Marinelli R.N. ADDITIONAL SURGERIES: Cholecystectomy -- 14:38 10/12/24 CYNDI Marinelli R.N. Knee Surgery. bilateral -- 14:38 10/12/24 CYNDI Marinelli R.N. History 14:33 10/12/24. SOCIAL HX: Smoker- current status unknown (chew tobacco). Never smoker. Occasional alcohol use. No drug use. The patient has not traveled outside the [place] Infectious disease exposure: No infectious disease exposure. ABUSE ASSESSMENT: The patient answered yes to the question(s) Do you feel safe in your home? and no to the question(s) Are you afraid to go home?. Abuse denied. No suspicion of abuse. SELF HARM ASSESSMENT: Self harm assessment was performed. The patient answered no to the question(s) Have you recently felt down, depressed, or hopeless? and Do you have thoughts of harming or killing yourself?. FALL RISK ASSESSMENT: Fall risk assessment completed. No risk factors identified. -- 14:40 10/12/24 CYNDI Marinelli R.N. 2 of 6 Nurse Narrative Interventions 14:33 10/12/24. Advanced care plan discussed with patient (full code). -- 14:40 10/12/24 CYNDI Marinelli R.N. PHYSICAL ASSESSMENT 17:03 10/12/24. GENERAL / NEURO / PSYCH: Alert. Oriented X 4. Appears in pain. RESPIRATORY: Respirations not labored. GI / : The patient has had nausea. Abdominal distention. Abdominal tenderness in the left side of the abdomen, left lower quadrant and lower abdomen (Pt states pain goes into pt's left quadrant into his anus - sharp shooting). -- 17:18 10/12/24 CYNDI Ma R.N. NURSING PROGRESS NOTES 15:51 10/12/24. IV NS 0.9 % 1000 mL started in bag#1 1000 mL at 999 mL/hr via Site# 1. Allergies verified and confirmed 5 rights. Via IV pump. IV patency established. IV site checked: no pain, redness, or swelling. IV flushed thoroughly pre-medication administration. Information reviewed with patient and spouse including reason for taking this medication. -- 15:53 10/12/24 CYNDI Ma R.N. 15:53 10/12/24. Zofran IVP 4 mg given via Site# 1. Allergies verified and confirmed 5 rights. IV patency established. IV site checked: no pain, redness, or swelling. IV flushed thoroughly pre-medication administration. IVP given by nurse. Information reviewed with patient including reason for taking this medication and sedative warning. -- 15:53 10/12/24 CYNDI Ma R.N. 15:54 10/12/24. MORPHine IVP 4 mg given via Site# 1. Allergies verified and confirmed 5 rights. IV patency established. IV site checked: no pain, redness, or swelling. IV flushed thoroughly pre-medication administration. IVP given by nurse. Information reviewed with patient and spouse including reason for taking this medication and sedative warning. -- 15:54 10/12/24 CYNDI Ma R.N. 16:47 10/12/24. Patient gowned. Patient identifiers checked. Call light placed in reach. Side rails up. Bed placed in lowest position. Brakes of bed on. -- 17:02 10/12/24 CYNDI Ma, (more content not included)... Normal [facility] ED ORDER SHEET (CPOE ONLY)on 10-13-2024 ED ORDER SHEET (CPOE ONLY) Order Sheet Order Sheet [address] [place] [address] [id number] 10/12/2024 Patient: LIYAH HOLLAND Sex: Male : 1970 Age: 54y MEASUREMENTS: Wt: 106.6 kg, Ht/Collin: 72.0 in, BMI: 31.87 ALLERGIES: codeine MEDICATION/IV/DRIP/FLUID ORDERS Order Description Priority Entered Acknowledged Completed IV NS 0.9 %1000 mL at 999 14:47 10/12/2024 15:53 mL/hr (NOW x1) Skylar Flores D.O. 10/12/2024 Brenda Ma R.N. MORPHine IVP4 mg (NOW x1, 15:21 10/12/2024 15:54 HIGH ALERT MEDICATION) Skylar Flores D.O. 10/12/2024 Brenda Ma R.N. Reason for ordering with alerts: Other --15:21 10/12/2024 Skylar Flores D.O. Zofran IVP4 mg (NOW x1) 15:21 10/12/2024 15:53 Skylar Flores D.O. 10/12/2024 Brenda Ma R.N. MORPHine IVP4 mg (NOW x1, 16:46 10/12/2024 16:55 16:57 HIGH ALERT MEDICATION) Skylar Flores D.O. 10/12/2024 10/12/2024 Brenda Faulkner R.N. RAngelNAngel 1 of 4 Order Sheet Reason for ordering with alerts: Clinical consideration given --16:46 10/12/2024 Skylar Flores D.O. MORPHine IVP1 mg (NOW x1, 18:25 10/12/2024 19:12 19:42 HIGH ALERT MEDICATION) Skylar Flores D.O. 10/12/2024 10/12/2024 Keshia Copeland R.N. RAngelNAngel Order Comments: 19:42 10/12/2024: Cancel order. New order written per MD. Keshia Butterfield R.N. Reason for ordering with alerts: Clinical consideration given --18:25 10/12/2024 Skylar Flores D.O. MORPHine IVP4 mg (NOW x1, 19:20 10/12/2024 19:33 19:48 HIGH ALERT MEDICATION) Skylar Flores D.O. 10/12/2024 10/12/2024 Keshia Copeland R.N. R.NAngel Reason for ordering with alerts: Clinical consideration given --18:25 10/12/2024 Skylar Flores D.O. OxyCODONE-APAP 5-325 18:38 10/12/2024 Cancelled: Other (Percocet) PO1 tab (NOW x1, Skylar Flores D.O. 19:21 EST Skylar Flores D.O. HIGH ALERT MEDICATION) Reason for ordering with alerts: Clinical consideration given --18:38 10/12/2024 Skylar Flores D.O. IV NS 0.9 %1000 mL at 999 18:55 10/12/2024 19:12 19:38 mL/hr (NOW x1) Skylar Flores D.O. 10/12/2024 10/12/2024 Keshia Copeland R.N. R.NAngel Reason for ordering with alerts: Clinical consideration given --18:55 10/12/2024 Skylar Flores D.O. HYDROmorphone (Dilaudid) 22:27 10/12/2024 22:28 22:36 IVP0.5 mg (NOW x1, HIGH Ashely Hodges D.O. 10/12/2024 10/12/2024 ALERT MEDICATION) Keshia Copeland R.N. R.NAngel Reason for ordering with alerts: Benefits outweigh risks --22:27 10/12/2024 Ashely Hodges D.O. 2 of 4 Order Sheet LAB ORDERS Order Description Priority Entered Acknowledged Collected Completed CBC w Diff Stat Stat 14:47 10/12/2024 15:21 10/12/2024 17:04 10/12/2024 Brenda Wagner Natalie Yoder, D.O. R.N. R.N. CMP Stat Stat 14:47 10/12/2024 15:21 10/12/2024 17:04 10/12/2024 Brenda Wagner Natalie Yoder, D.O. R.N. R.NAngel Troponin-I Stat Stat 14:47 10/12/2024 Cancelled: Skip Flores, 15:22 CYNDI Flores D.O. D.O. Urinalysis Stat Stat 14:47 10/12/2024 15:21 10/12/2024 17:04 10/12/2024 Brenda Wagner Natalie Yoder, D.O. R.N. R.N. Lipase Stat Stat 15:22 10/12/2024 15:26 10/12/2024 17:04 10/12/2024 Brenda Wagner Natalie Yoder, D.O. R.N. R.NAngel DIAGNOSTIC STUDY ORDERS Order Description Priority Entered Acknowledged Completed CT Abdomen w Cont Stat Stat 16:43 10/12/2024 Cancelled: Skip Flores D.O. 16:52 CYNDI Flores D.O. Reason for Study: abdominal pain CT ABD/PEL w Cont Stat Stat 16:53 10/12/2024 17:03 17:04 Skylar Flores D.O. 10/12/2024 10/12/2024 Brenda Faulkner R.N. R.NAngel 3 of 4 Order Sheet Reason for Study: Abdominal Pain STAFF ORDERS Order Description Priority Entered Acknowledged Collected Completed IV Saline Lock 14:47 10/12/2024 15:21 10/12/2024 17:04 10/12/2024 Brenda Wagner Natalie Yoder, D.O. R.N. R.N. [Electronically signed by Skylar Flores D.O. (10/12/2024 19:24 EST)] [Electronically signed by Ashely Hodges D.O. (10/12/2024 22:27 EST)] 4 of 4 Normal [facility] ED PHYSICIAN CLINICAL REPORT on 10-13-2024 ED PHYSICIAN CLINICAL REPORT Narrative Physician Clinical Narrative [facility] [address] [place] [address] [id number] 10/12/2024 Patient: LIYAH HOLLAND Sex: Male : 1970 Age: 54y Disposition: Transfer to [facility] Disposition Decision Time: 19:00 10/12/2024 Measurements Wt: 106.6 kg, Ht/Collin: 72.0 in, BMI: 31.87 Initial Vital Sign Measured Time BP MAP HR RR O2Sat ETCO2 Temp Pain GCS RTS 14:35 10/12/2024 168/104 125 70 18 97% 97.9 F 8 Time Seen: 14:27 10/12/2024. Arrived- By private vehicle. Historian- patient. HISTORY OF PRESENT ILLNESS Chief Complaint: ABDOMINAL PAIN. Is still present. It is described as burning and dull and it is described as located in the lower abdomen, in the pelvic area and in the left lower quadrant. The patient has had nausea. No diarrhea. Similar symptoms previously. None. Recent medical care: Not recently seen/assessed. REVIEW OF SYSTEMS EYES: No blurred vision. : No difficulty with urination or pain with urination. NEUROLOGICAL: No headache. GI: No constipation or hematemesis. The patient has had black stools. THROAT: No sore throat. 1 of 10 Narrative PAST HISTORY See nurses notes. Peptic ulcer. Duodenal ulcer disease Pacemaker Pancreatitis Surgeries: Cholecystectomy Knee Surgery: Body Site bilateral Medications: dutasteride 0.5 mg-tamsulosin ER 0.4 mg capsule ext.release 24hr mphas: 1 capsule once a day. pantoprazole 40 mg tablet,delayed release: 1 tablet twice a day. sertraline 100 mg tablet: 1 tablet once a day. sertraline 25 mg tablet: 1 tablet once a day. ursodiol 300 mg capsule: 1 capsule once a day. Allergies: codeine Home Medications/Allergy Information Source: patient - Sara Marinelli Phuong, 10/12/2024 14:37 EST SOCIAL HISTORY No alcohol use or drug use. ADDITIONAL NOTES The nursing notes have been reviewed. PHYSICAL EXAM Vital Signs: Have been reviewed. Appearance: Alert. Oriented X3. No acute distress. 2 of 10 Narrative Eyes: Pupils equal, round and reactive to light. Eyes normal inspection. No scleral icterus or pale conjunctivae. Neck: Normal inspection. Neck supple. CVS: Normal heart rate and rhythm. Respiratory: No respiratory distress. Abdomen: Soft. Tenderness in the periumbilical area, left side of the abdomen and suprapubic area. No organomegaly. No mass. Back: Normal inspection. No CVA tenderness. Skin: Skin warm and dry. Normal skin color. No rash. Extremities: Extremities exhibit normal ROM. No lower extremity edema. Neuro: Oriented X 3. No motor deficit. No sensory deficit. LABS, X-RAYS, AND EKG Laboratory Tests: CBC + DIFF Final KARINA: 10/12/2024 15:55:00 EST MsgRcvd: 10/12/2024 16:28 EST Lab Test Result Reference Status Received Comments 10/12/2024 16:28 CBC-COMPLETE CBC + DIFF Final EST BLOOD COUNT 10/12/2024 16:28 WBC 6.1 x 10/UL 4.5 - 10.8 Final EST 10/12/2024 16:28 RBC 4.96 x 10/UL 4.50 - 6.00 Final EST 10/12/2024 16:28 HEMOGLOBIN 16.6 g/dl 13.0 - 17.5 Final EST 10/12/2024 16:28 HEMATOCRIT 48.8 % 40.0 - 52.0 Final EST 10/12/2024 16:28 MCV 98 fl 81 - 98 Final EST 3 of 10 Narrative 10/12/2024 16:28 MCH 33 pg 27 - 33 Final EST 10/12/2024 16:28 MCHC 34 X10 3 32 - 36 Final EST 10/12/2024 16:28 RDW/CV 12.5 % 12.0 - 15.6 Final EST 10/12/2024 16:28 PLATELET 196 x10/UL 150 - 450 Final EST 10/12/2024 16:28 AUTOMATED MPV 8.1 fl 6.4 - 10.5 Final EST DIFFERENTIAL 10/12/2024 16:28 NEUT % 57.8 % 46.0 - 76.0 Final EST 10/12/2024 16:28 LYMPH % 32.5 % 20.0 - 45.0 Final EST 10/12/2024 16:28 MONOS % 6.8 % 0.0 - 10.0 Final EST 10/12/2024 16:28 EO % 2.6 % 0.0 - 7.0 Final EST 10/12/2024 16:28 BASO % 0.4 % 0.0 - 2.0 Final EST 10/12/2024 16:28 Lymph # 1.97 x10/UL 0.80 - 2.80 Final EST 10/12/2024 16:28 Neut # 3.50 x10/UL 1.50 - 7.10 Final EST 10/12/2024 16:28 Dent # 0.41 x10/UL 0.20 - 1.00 Final EST 10/12/2024 16:28 EO # 0.16 x10/UL 0.00 - 0.50 Final EST 4 of 10 Narrative 10/12/2024 16:28 Baso # 0.02 x10/UL 0.00 - 0.10 Final EST 10/12/2024 16:28 MANUAL DIFF N/A New Order EST 10/12/2024 16:28 MORPHOLOGY N/A New Order EST CMP with eGFR Final KARINA: 10/12/2024 15:55:00 EST MsgRcvd: 10/12/2024 16:49 EST Lab Test Result Reference Status Received Comments COMPREHENSIVE 10/12/2024 CMP with eGFR Final METABOLIC 16:49 EST PANEL 10/12/2024 SODIUM 141 mmol/l 136 - 145 Final 16:49 EST 10/12/2024 POTASSIUM 4.2 mmol/L 3.5 - 5.1 Final 16:49 EST 10/12/2024 CHLORIDE 104 mmol/L 98 - 107 Final 16:49 EST 10/12/2024 CO2 24.9 mmol/L 21.0 - 32.0 Final 16:49 EST 10/12/2024 GLUCOSE 89 mg/dl 74 - 106 Final 16:49 EST 10/12/2024 BUN 12 mg/dl 7 - 18 Final 16:49 (more content not included)... Normal [facility] ED SUPER BILLon 10-13-[address] [address] [id number] 10/12/2024 Patient: LIYAH HOLLAND Sex: Male : 1970 Age: 54y Facility Professional Category Item Description Code Code Quantity Fee Total Drugs Normal Saline 355746 2 $0.00 $0.00 1000cc (568960) Nurse/E/M EMERGENCY 220987 1 $0.00 $0.00 DEPT VISIT HIGH SEVERITYFUNCJ (06481-58) Nurse/IV/IM/Infusions Hydration 382092 2 $0.00 $0.00 additional hour (64613) Nurse/IV/IM/Infusions IVP additional 602203 2 $0.00 $0.00 push (88947) Nurse/IV/IM/Infusions IVP initial (36411) 146078 1 $0.00 $0.00 Nurse/IV/IM/Infusions IVP same med 227409 2 $0.00 $0.00 (31 min apart) (22925) Grand $0.00 Total Providers 1 of 2 [facility] Skylar Flores D.O. Chief Complaint ABDOMINAL PAIN. Principal Diagnosis Acute pancreatitis. ICD-10 Codes K85.90: Acute pancreatitis without necrosis or infection, unspecified 2 of 2 [facility] ED VISIT SUMMARYon ED VISIT SUMMARY Visit Overview Visit Overview [address] [address] [id number] 10/12/2024 Patient: LIYAH HOLLAND Sex: Male : 1970 Age: 54y 10/13/2024 12:00 AM EST ED Arrival:14:33 10/12/2024 EST Status: Recent Travel:no Language:eng Adv Directive: Isolation Status: Ethnicity:N Fall Risk:no risk Infectious Disease Exposure:no Measurements:6' / 182.9 Self-Harm Status:risk Sepsis Screen:negative cm 235.0 lb / 106.6 kg Chief Complaint:ABDOMINAL PAIN, (Sunday ), and ([place]) ALLERGIES codeine HOME MEDICATIONS dutasteride 0.5 mg-tamsulosin ER 0.4 mg capsule ext.release 24hr mphas: 1 capsule once a day. pantoprazole 40 mg tablet,delayed release: 1 tablet twice a day. sertraline 100 mg tablet: 1 tablet once a day. sertraline 25 mg tablet: 1 tablet once a day. ursodiol 300 mg capsule: 1 capsule once a day. 1 of 3 Visit Overview PAST MEDICAL HISTORY / PROBLEMS Duodenal ulcer disease Pacemaker Pancreatitis Peptic ulcer See nurses notes PAST SURGICAL HISTORY Cholecystectomy Knee Surgery. bilateral SOCIAL HISTORY Smoking status: Yes Alcohol use: Yes Drug use: No ED COURSE MEDICATIONS GIVEN IN EMERGENCY DEPARTMENT 15:51 10/12/24 IV NS 0.9 % 1000 mL 999 mL/hr 15:53 10/12/24 Zofran IVP 4 mg 15:54 10/12/24 MORPHine IVP 4 mg 16:56 10/12/24 MORPHine IVP 4 mg 19:37 10/12/24 IV NS 0.9 % 1000 mL 999 mL/hr 19:42 10/12/24 MORPHine IVP 4 mg 22:36 10/12/24 HYDROmorphone (Dilaudid) IVP 0.5 mg IV SITE INFORMATION 15:52 10/12/24 Site #1 left hand, 20g. Saline lock. INTAKE OUTPUT REASSESMENT (most recent) 23:29 10/12/24. The patient reports no complaints and the patient is calm and resting quietly. ( Pt is ambulatory in room.). 2 of 3 Visit Overview VITAL SIGNS First Vitals Last Vitals Temp 14:35 10/12/24 97.9 F Temp 23:24 10/12/24 BP 14:35 10/12/24 168/104 BP 23:24 10/12/24 HR 14:35 10/12/24 70 HR 23:24 10/12/24 68 RR 14:35 10/12/24 18 RR 23:24 10/12/24 O2 Sat 14:35 10/12/24 97% O2 Sat 23:24 10/12/24 96% Pain 14:35 10/12/24 8 Pain 23:24 10/12/24 ETCO2 14:35 10/12/24 ETCO2 23:24 10/12/24 GCS 14:35 10/12/24 GCS 23:24 10/12/24 RTS 14:35 10/12/24 RTS 23:24 10/12/24 PROCEDURES NURSING INTERVENTIONS LABS / STUDIES LABS / STUDIES ORDERED CBC w Diff CMP CT ABD/PEL w Cont Lipase Urinalysis LABS / STUDIES PENDING IMPORT CT ABDOMEN/PELVIS W CLINICAL IMPRESSION ACUTE PANCREATITIS 3 of 3 Normal [facility] ED VITALS FLOW SHEETon 10-13 ED VITALS FLOW SHEET Vitals Vital Sign Flow Sheet [address] [address] [id number] 10/12/2024 Patient: LIYAH HOLLAND Sex: Male : 1970 Age: 54y Measurements Wt: 106.6 kg, Ht/Collin: 72.0 in, BMI: 31.87 Measured Time BP MAP HR RR O2Sat ETCO2 Temp Pain GCS RTS 23:24 10/12/2024 68 96% 23:19 10/12/2024 64 96% 23:17 10/12/2024 131/85 99 61 23:14 10/12/2024 62 97% 23:09 10/12/2024 73 98% 23:04 10/12/2024 70 97% 23:02 10/12/2024 136/84 102 64 22:59 10/12/2024 63 96% 22:54 10/12/2024 67 97% 22:49 10/12/2024 67 95% 22:48 10/12/2024 133/90 104 62 22:44 10/12/2024 63 97% 22:33 10/12/2024 119/81 90 63 20:14 10/12/2024 107/73 78 63 20:01 10/12/2024 114/73 85 62 1 of 2 Vitals Measured Time BP MAP HR RR O2Sat ETCO2 Temp Pain GCS RTS 19:49 10/12/2024 110/68 82 66 16 7 14:35 10/12/2024 168/104 125 70 18 97% 97.9 F 8 2 of 2 Normal [facility] HFPon 10-13-2024 Bili Indirect 0.5 mg/dL Normal 0.1-10.0 [facility] Comment on above: Performed By: #### A DIFF, MG, GFR, HFP, ANEU, LIP, LIPID, BMP, CBC ####[place] [address] Albumin Level 3.6 G/dL Normal 3.2-4.8 [facility] Comment on above: Performed By: #### A DIFF, MG, GFR, HFP, ANEU, LIP, LIPID, BMP, CBC ####[place] [address] Albumin/Globulin [Mass ratio] 1.0 {ratio} Normal 0.9-1.6 [facility] Comment on above: Performed By: #### A DIFF, MG, GFR, HFP, ANEU, LIP, LIPID, BMP, CBC ####[place] [address] ALP [Catalytic activity/Vol] 30 U/L Low 38-126 [facility] Comment on above: Performed By: #### A DIFF, MG, GFR, HFP, ANEU, LIP, LIPID, BMP, CBC ####[place] [address] ALT [Catalytic activity/Vol] 291 U/L High 12-55 [facility] Comment on above: Performed By: #### A DIFF, MG, GFR, HFP, ANEU, LIP, LIPID, BMP, CBC ####[place] [id number] AST [Catalytic activity/Vol] 276 U/L High 8-34 [facility] Comment on above: Performed By: #### A DIFF, MG, GFR, HFP, ANEU, LIP, LIPID, BMP, CBC ####[place] [address] Bili Direct 0.5 mg/dL High 0.0-0.4 [facility] Comment on above: Result Comment: Use of this assay is not recommended for patients undergoing treatment with eltrombopag due to the potential for falsely elevated results. Performed By: #### A DIFF, MG, GFR, HFP, ANEU, LIP, LIPID, BMP, CBC ####[place] [address] Bili Total 1.00 mg/dL Normal 0.20-1.20 [facility] Comment on above: Result Comment: Use of this assay is not recommended for patients undergoing treatment with eltrombopag due to the potential for falsely elevated results. Performed By: #### A DIFF, MG, GFR, HFP, ANEU, LIP, LIPID, BMP, CBC ####[address] [address] Globulin 3.5 G/dL Normal 1.5-3.8 [facility] Comment on above: Performed By: #### A DIFF, MG, GFR, HFP, ANEU, LIP, LIPID, BMP, CBC ####[place] [address] Total Protein 7.1 G/dL Normal 5.7-8.2 [facility] Comment on above: Performed By: #### A DIFF, MG, GFR, HFP, ANEU, LIP, LIPID, BMP, CBC ####[place] [address] LABORATORYOrdered By: SYSTEM SYSTEM on 10-13-2024 Basophils (Bld) [#/Vol] 0.0 103/mcL Normal 0.0 - 0.3 10^3/mcL AH Workflow SS Basophils/100 WBC (Bld) 0.3 % Normal 0.0 - 2.5 % AH Workflow SS Bili Indirect 0.5 mg/dL Normal 0.1 - 10.0 mg/dL Chemistry S Bilirubin.conjugate d [Mass/Vol] 0.5 mg/dL High 0.0 - 0.4 mg/dL ADM SS Comment on above: Interpretive Data: U se of this assay is not recommended for patients undergoing treatment with eltrombopag due to the potential for falsely elevated results. Calcium [Mass/Vol] 8.8 mg/dL Normal 8.7 - 10. 4 mg/dL AH ADM SS Chloride [Moles/Vol] 106 mmol/L Normal 98 - 110 mEq/L AH ADM SS CO2 [Moles/Vol] 28 mmol/L Normal 22 - 32 mEq/L AH ADM SS Creatinine [Mass/Vol] 0.53 mg/dL Low 0.60 - 1.40 mg/dL AH ADM SS Comment on above: Interpretive Data: T esting performed on Original analyzer using enzymatic creatinine methodology. Electrolyte Balance 9.0 mEq/L Normal 4.0 - 15 .0 mEq/L ADM SS Eosinophils (Bld) [#/Vol] 0.1 103/mcL Normal 0.0 - 0.7 10^3/mcL Workflow SS Eosinophils/100 WBC (Bld) 1.6 % Normal 0.0 - 6.0 % Workflow SS Erythrocyte distribution width (RBC) [Ratio] 13.2 % Normal 11.5 - 15.5 % Workflow SS GFR/1.73 sq M.predicted among blacks MDRD (S/P/Bld) [Vol rate/Area] ml/min/1.73sqm Invalid Interpretation Code [employer] Chemistry S Comment on above: Interpretive Data: GFR Population mean for , Non- Americans Ages 20-29 = 116 mL/min/1.73 sq.m. Ages 30-39 = 107 mL/min/1.73 sq.m. Ages 40-49 = 99 mL/min/1.73 sq.m. Ages 50-59 = 93 mL/min/1.73 sq.m. Ages 60-69 = 85 mL/min/1.73 sq.m. Ages 70+ = 75 mL/min/1.73 sq.m. Chronic Kidney Disease: Less than 60 mL/min/1.73 square meters End Stage Renal Disease: Less than 15 mL/min/1.73 square meters GFR/1.73 sq M.predicted among non-blacks MDRD (S/P/Bld) [Vol rate/Area] ml/min/1.73sqm Invalid Interpretation Code [employer] Chemistry S Comment on above: Interpretive Data: GFR Population mean for , Non- Americans Ages 20-29 = 116 mL/min/1.73 sq.m. Ages 30-39 = 107 mL/min/1.73 sq.m. Ages 40-49 = 99 mL/min/1.73 sq.m. Ages 50-59 = 93 mL/min/1.73 sq.m. Ages 60-69 = 85 mL/min/1.73 sq.m. Ages 70+ = 75 mL/min/1.73 sq.m. Chronic Kidney Disease: Less than 60 mL/min/1.73 square meters End Stage Renal Disease: Less than 15 mL/min/1.73 square meters Glucose [Mass/Vol] 115 mg/dL High 70 - 110 mg/dL ADM SS Hematocrit (Bld) [Volume fraction] 45.6 % Normal 40.0 - 52.0 % AH Workflow SS Hemoglobin (Bld) [Mass/Vol] 15.7 G/dL Normal 13.0 - 17.5 G/dL AH Workflow SS Lipase [Catalytic activity/Vol] 529 U/L High 12 - 53 U/L AH ADM SS Comment on above: Interpretive Data: * *Note - New Reference Range in effect 20 Lymphocytes (Bld) [#/Vol] 1.4 103/mcL Normal 0.9 - 4.3 10^3/mcL AH Workflow SS Lymphocytes/100 WBC (Bld) 28.0 % Normal 20.0 - 40.0 % AH Workflow SS Magnesium [Mass/Vol] 2.2 mg/dL Normal 1.6 - 2.4 mg/dL ADM SS MCH (RBC) [Entitic mass] 34.1 pg High 27.0 - 33.0 pg AH Workflow SS MCHC 34.4 G/dL Normal 32.0 - 36.0 G/dL AH Workflow SS MCV (RBC) [Entitic vol] 99.1 fL Normal 81.0 - 100.0 fL AH Workflow SS Monocytes (Bld) [#/Vol] 0.3 103/mcL Normal 0.1 - 1.4 10^3/mcL AH Workflow SS Monocytes/100 WBC (Bld) 6.1 % Normal 2.0 - 13.0 % AH Workflow SS Neutrophils (Bld) [#/Vol] 3.1 103/mcL Normal 2.3 - 8.1 10^3/mcL AH Workflow SS Neutrophils/100 WBC (Bld) 64.0 % Normal 50.0 - 75.0 % AH Workflow SS Platelet mean volume (Bld) [Entitic vol] 7.8 fL Normal 6.4 - 10.5 fL AH Workflow SS Platelets (Bld) [#/Vol] 187 103/mcL Normal 150 - 450 10^3/mcL AH Workflow SS Potassium [Moles/Vol] 3.9 mmol/L Normal 3.5 - 5.0 mEq/L AH ADM SS RBC (Bld) [#/Vol] 4.60 106/mcL Normal 4.50 - 6.0 0 10^6/mcL AH Workflow SS Sodium [Moles/Vol] 143 mmol/L Normal 136 - 145 mEq/L ADM SS Urea nitrogen [Mass/Vol] 11.0 mg/dL Normal 8.0 - 22.0 mg/dL ADM SS Urea nitrogen/Creatinine [Mass ratio] 20.8 ratio Normal 10.0 - 22.0 ratio ADM SS WBC (Bld) [#/Vol] 4.8 103/mcL Normal 4.5 - 10.8 10^3/mcL Workflow SS LABORATORYOrdered By: Trevon covarrubias on 10-13-2024 Cholesterol [Mass/Vol] 127 mg/dL Normal 50 - 199 mg/dL ADM SS Comment on above: Interpretive Data: C holesterol Reference Interval: Less than 200 Desirable 200-239 Borderline high risk 240 and above High risk Cholesterol in HDL [Mass/Vol] 31 mg/dL Low 40 - 59 mg/dL ADM SS Cholesterol in LDL [Mass/Vol] 73 mg/dL Normal 0 - 129 mg/dL ADM SS Triglyceride [Mass/Vol] 116 mg/dL Normal 3 - 149 mg/dL ADM SS LIPon 10-13-2024 Lipase Level 529 U/L [facility] 12-53 [facility] Comment on above: Result Comment: No te - New Reference Range in effect 20 Performed By: #### A DIFF, MG, GFR, HFP, ANEU, LIP, LIPID, BMP, CBC ####[address] [place] [address] [address] LIPIDon 10-13-2024 Cholesterol [Mass/Vol] 127 mg/dL Normal 50-199 [facility] Comment on above: Result Comment: Chol esterol Reference Interval: Less than 200 Desirable 200-239 Borderline high risk 240 and above High risk Performed By: #### A DIFF, MG, GFR, HFP, ANEU, LIP, LIPID, BMP, CBC ####[place] [address] [address] [place] [address] Cholesterol in HDL [Mass/Vol] 31 mg/dL Low 40-59 [facility] Comment on above: Performed By: #### A DIFF, MG, GFR, HFP, ANEU, LIP, LIPID, BMP, CBC ####[place] [address] [place] [address] Cholesterol in LDL [Mass/Vol] 73 mg/dL Normal 0-129 [facility] Comment on above: Performed By: #### A DIFF, MG, GFR, HFP, ANEU, LIP, LIPID, BMP, CBC ####[place] [address] Triglyceride [Mass/Vol] 116 mg/dL Normal 3-149 [facility] Comment on above: Performed By: #### A DIFF, MG, GFR, HFP, ANEU, LIP, LIPID, BMP, CBC ####[place] [address] MGon 10-13-2024 Magnesium [Mass/Vol] 2.2 mg/dL Normal 1.6-2.4 [facility] Comment on above: Performed By: #### A DIFF, MG, GFR, HFP, ANEU, LIP, LIPID, BMP, CBC ####[place] [address] CBC + DIFFon 10-12-2024 Baso # 0.02 x10EE3/UL Normal 0.00 - 0.10 [facility] Comment on above: Performed By: #### 2 65763 #### [facility],[address] [place] [address] Basophils/100 WBC (Bld) 0.4 % Normal 0.0 - 2.0 [facility] Comment on above: Performed By: #### 2 15748 #### [facility],[address] [place] [address] CBC + DIFF Normal [facility] Comment on above: Result Comment: CBC- COMPLETE BLOOD COUNT Performed By: #### 2 35388 #### [facility],[address] [place] [address] EO # 0.16 x10EE3/UL Normal 0.00 - 0.50 [facility] Comment on above: Performed By: #### 2 13920 #### [facility],[address] [place] [address] Eosinophils/100 WBC (Bld) 2.6 % Normal 0.0 - 7.0 [facility] Comment on above: Performed By: #### 2 93525 #### [facility],[address] [place], [place] [id number] Erythrocyte distribution width (RBC) [Ratio] 12.5 % Normal 12.0 - 15.6 [facility] Comment on above: Performed By: #### 2 07838 #### [facility],[address] [place] [address] Hematocrit (Bld) [Volume fraction] 48.8 % Normal 40.0 - 52.0 [facility] Comment on above: Performed By: #### 2 56770 #### [facility],[address] [place] [address] Hemoglobin (Bld) [Mass/Vol] 16.6 g/dL Normal 13.0 - 17.5 [facility] Comment on above: Performed By: #### 2 73093 #### [place] [address] Lymph # 1.97 x10EE3/UL Normal 0.80 - 2.80 [facility] Comment on above: Performed By: #### 2 35049 #### [facility],[address] [place], [place] [id number] Lymphocytes/100 WBC (Bld) 32.5 % Normal 20.0 - 45.0 [facility] Comment on above: Performed By: #### 2 45756 #### [facility],[address] [place], [place] [id number] MANUAL DIFF N/A Normal [facility] Comment on above: Performed By: #### 2 66572 #### [facility],[address] [place] [address] MCH (RBC) [Entitic mass] 33 pg Normal 27 - 33 [facility] Comment on above: Performed By: #### 2 05075 #### [facility],[address] [place] [address] MCHC 34 X10 3 Normal 32 - 36 [facility] Comment on above: Performed By: #### 2 23462 #### [facility],[address] [place] [address] MCV (RBC) [Entitic vol] 98 fL Normal 81 - 98 [facility] Comment on above: Performed By: #### 2 02095 #### [facility],[address] [place] [address] Dent # 0.41 x10EE3/UL Normal 0.20 - 1.00 [facility] Comment on above: Performed By: #### 2 08780 #### [facility],[address] [place] [address] MONOS % 6.8 % Normal 0.0 - 10.0 [facility] Comment on above: Performed By: #### 2 33208 #### [facility],[address] [place] [address] Morphology Get (Bld) [Interp] N/A Normal [facility] Comment on above: Performed By: #### 2 51157 #### [facility],[address] [place] [address]761 Neut # 3.50 x10EE3/UL Normal 1.50 - 7.10 [facility] Comment on above: Performed By: #### 2 98169 #### [facility],[address] [place] [address] 12411 Neutrophils/100 WBC (Bld) 57.8 % Normal 46.0 - 76.0 [facility] Comment on above: Performed By: #### 2 89896 #### [facility],[address] [place] [address]37[address] PLATELET 196 x10EE3/UL Normal 150 - 450 [facility] Comment on above: Performed By: #### 2 46442 #### [facility],[address] [place] [address] Platelet mean volume (Bld) [Entitic vol] 8.1 fL Normal 6.4 - 10.5 [facility] Comment on above: Result Comment: AUTO MATED DIFFERENTIAL Performed By: #### 2 47971 #### [facility],[address] [place] [address] 86133 RBC 4.96 x 10EE6/UL Normal 4.50 - 6.00 [facility] Comment on above: Performed By: #### 2 26600 #### [facility],[address] [place] [address] 00776 WBC 6.1 x 10EE3/UL Normal 4.5 - 10.8 [facility] Comment on above: Performed By: #### 2 51237 #### [facility],[address] [place] [address] 13875 CMP with eGFRon 10-12-2024 AGE 54 years Normal [facility] Comment on above: Performed By: #### 2 01244 #### [facility],[address] [place] [address] Albumin [Mass/Vol] 3.8 g/dL Normal 3.4 - 5.0 [facility] Comment on above: Performed By: #### 2 17008 #### [facility],[address] [place] [address] 51268 Albumin/Globulin [Mass ratio] 1.1 {ratio} Normal 0.9 - 1.6 [facility] Comment on above: Performed By: #### 2 31836 #### [facility],[address] [place] [address]4522 ALK PHOS 33 U/L Low 46 - 116 [facility] Comment on above: Performed By: #### 2 55316 #### [facility],[address] [place] [address] 11665 ALT [Catalytic activity/Vol] 72 U/L High 16 - 63 [facility] Comment on above: Performed By: #### 2 11494 #### [facility],[address] [place] [address] 23193 Anion gap [Moles/Vol] 16 mmol/L Normal 10 - 20 [facility] Comment on above: Performed By: #### 2 95174 #### [facility],[address] [place] [address] 36924 AST [Catalytic activity/Vol] 56 U/L High 15 - 37 [facility] Comment on above: Performed By: #### 2 06379 #### [facility],[address] [place] [address]67[address] B/C RATIO 27 ratio Normal 0 - 30 [facility] Comment on above: Performed By: #### 2 42541 #### [facility],[address] [place] [address] 54745 Bilirubin [Mass/Vol] 0.4 mg/dL Normal 0.2 - 1.0 [facility] Comment on above: Performed By: #### 2 63750 #### [facility],[address] [place] [address]643 Calcium [Mass/Vol] 8.4 mg/dL Low 8.5 - 10.1 [facility] [place] Comment on above: Performed By: #### 2 [id number] #### [facility],[address] [place] [address] [id number] Chloride [Moles/Vol] 104 mmol/L Normal 98 - 107 [facility] Comment on above: Performed By: #### 2 [id number] #### [facility],[address] [place] [address] [id number] CMP with eGFR Normal [facility] Comment on above: Result Comment: COMP REHENSIVE METABOLIC PANEL Performed By: #### [id number] #### [facility],[address] [place] [address] 03464 CO2 [Moles/Vol] 24.9 mmol/L Normal 21.0 - 32.0 [facility] Comment on above: Performed By: #### 2 [id number] #### [facility],[address] [place] [address] [id number] Creatinine [Mass/Vol] 0.45 mg/dL Low 0.70 - 1.30 [facility] Comment on above: Performed By: #### 2 [id number] #### [facility],[address] [place] [address] GFR/1.73 sq M.predicted among non-blacks MDRD (S/P/Bld) [Vol rate/Area] mL/min/{1.73_m2} Normal 60 - 999 [facility] Comment on above: Performed By: #### 2 [id number] #### [facility],[address] [place] [address] Result Comment: ACCO RDING TO THE NATIONAL KIDNEY DISEASE EDUCATION PROGRAM(NKDE), A NORMAL eGFR IS A VALUE GREATER THAN OR EQUAL TO 60 ML/MIN/1.73 SQ METERS. CHRONIC KIDNEY DISEASE: <60mL/MIN/1.73 SQ METERS KIDNEY FAILURE: <15mL/MIN/1.73 SQ METERS THIS TEST SHOULD ONLY BE USED FOR PATIENTS 18 YEARS OF AGE AND OLDER. Globulin (S) [Mass/Vol] 3.4 g/dL Normal 1.5 - 3.8 [facility] Comment on above: Performed By: #### 2 [id number] #### [place] [address] Glucose [Mass/Vol] 89 mg/dL Normal 74 - 106 [facility] [place] Comment on above: Performed By: #### 2 41193 #### [place] [id number] Potassium [Moles/Vol] 4.2 mmol/L Normal 3.5 - 5.1 [facility] Comment on above: Performed By: #### 2 50849 #### [place] [id number] Protein [Mass/Vol] 7.2 g/dL Normal 6.4 - 8.2 [facility] [place] Comment on above: Performed By: #### 2 79295 #### [place] [address] Sodium [Moles/Vol] 141 mmol/L Normal 136 - 145 [facility] [place] Comment on above: Performed By: #### 2 29847 #### [facility],[address] [place] [address] 27327 Urea nitrogen [Mass/Vol] 12 mg/dL Normal 7 - 18 [facility] Comment on above: Performed By: #### 2 54171 #### [facility],[address] [place] [address] ABDOMEN/PELVIS Won 2024 CT ABDOMEN/PELVIS W [address] [address] Patient: LIYAH HOLLAND Phone#: : 1970 Age: 54 Gender: M Pt. Type: ER Account: [id number] Location: [facility] Ordering: SKYLAR FLORES Exam Date: 10/12/2024/17:05 Family Phys: JAZMYN ROMAN Charge Code: 406134 Physician: [place] Order #: [id number] Dose#: [id number] PROCEDURE: CT ABDOMEN/PELVIS WITH CONTRAST COMPARISON: [facility], CT, ABDOMEN/PELVIS W CON, 07/09/2019, 19:28. INDICATIONS: Abdominal pain. TECHNIQUE: After obtaining the patient's consent, CT images were created with non-ionic intravenous contrast material. All CT scans at this facility use dose modulation, iterative reconstruction, and/or weight based dosing when appropriate to reduce radiation dose to as low as reasonably achievable. IV CONTRAST: Omnipaque 350,80ml TOTAL DOSE: 25.80 CTDIvol(mGy) FINDINGS: LIVER: Liver is diffusely decreased in attenuation, consistent with diffuse fatty infiltration the liver. BILIARY: Gallbladder is absent, surgical clips are in the gallbladder fossa. Common bile duct measures 1.6 cm. PANCREAS: The pancreas is enlarged with mild peripancreatic stranding, findings consistent with pancreatitis. No loculated peripancreatic fluid collection. Pancreas parenchyma enhances homogeneously. There is fatty replacement of the pancreas. SPLEEN: Calcified granulomas in the spleen. KIDNEYS: Kidneys enhance and excrete contrast symmetrically. No hydronephrosis. ADRENALS: Normal. No mass or enlargement. AORTA/VASCULAR: No aortic aneurysm. There are scattered atherosclerotic calcifications. There is circumaortic left renal vein. RETROPERITONEUM: Normal. No mass or adenopathy. BOWEL/MESENTERY: No bowel obstruction or dilatation. Diverticulosis of the sigmoid colon. The appendix is unremarkable in size. ABDOMINAL WALL: Normal. No mass or hernia. URINARY BLADDER: Decompressed. Continued Report - Page 2 of 2 Patient: LIYAH HOLLAND Phone#: : 1970 Age: 54 Gender: M Pt. Type: ER Account: [id number] Location: 052 Ordering: SKYLAR FLORES Exam Date: 10/12/2024/17:05 Family Phys: JAZMYN ROMAN Charge Code: 554241 Physician: [place] Order #: [id number] Dose#: [id number] PELVIC NODES: Normal. No adenopathy. PELVIC ORGANS: Normal. No visible mass. Pelvic organs appropriate for patient age. BONES: Subtle sclerosis of the right femoral head, series 9, image 23, concerning for a vascular necrosis. There are subchondral cysts in the right acetabulum. LUNG BASES: Normal. No visible pulmonary or pleural disease. OTHER: Cardiac leads are present in the right heart. CONCLUSION: 1. Pancreatitis 2. Diffuse fatty infiltration of the liver. 3. 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 Performed By: #### 2 50265 #### [facility],[address] [place] [address] URINALYSISon 10-12-2024 Bilirubin Ql (U) Negative Normal NORMAL: NEGATIVE [facility] Comment on above: Performed By: #### 2 99324 #### [facility],[address] [place] [address] Clarity (U) clear Normal NORMAL: CLEAR [facility] Comment on above: Performed By: #### 2 80903 #### [facility],[address] [place] [address] Color (U) p.yel Normal NORMAL: YELLOW [facility] Comment on above: Performed By: #### 2 34393 #### [facility],[address] [place] [address]194 Glucose Ql (U) NORM Normal NORMAL: NORMAL [facility] Comment on above: Performed By: #### 2 54751 #### [facility],[address] [place] [address] 42506 Hemoglobin Ql (U) Negative Normal NORMAL: NEGATIVE [facility] Comment on above: Performed By: #### 2 90111 #### [facility],[address] [place] [address] 52719 Ketone Negative Normal NORMAL: NEGATIVE [facility] Comment on above: Performed By: #### 2 42729 #### [facility],[address] [place] [address] Leukocytes Negative Normal NORMAL: NEGATIVE [facility] Comment on above: Performed By: #### 2 41939 #### [facility],[address] [place] [address] 44858 Nitrite Ql (U) Negative Normal NORMAL: NEGATIVE [facility] Comment on above: Performed By: #### 2 31238 #### [facility],[address] [place] [address] 38464 pH (U) 7 [pH] Normal NORMAL: 5.0-8.0 [facility] Comment on above: Performed By: #### 2 69080 #### [facility],[address] [place] [address] 12340 Protein Ql (U) Negative Normal NORMAL: NEGATIVE [facility] Comment on above: Performed By: #### 2 43608 #### [facility],[address] [place] [address] Sp [place] 1.015 Normal NORMAL: 1.010-1.030 [facility] Comment on above: Performed By: #### 2 89031 #### [facility],[address] [place] [address] Specimen Type R Normal [facility] Comment on above: Performed By: #### 2 52267 #### [facility],[address] [place] [address] Urinalysis dipstick W Reflex Microscopic panel (U) NOT INDICATED Normal [facility] Comment on above: Performed By: #### 2 38718 #### [facility],[address] [place] [address] Urobilinog NORM Normal NORMAL: NORMAL [facility] Comment on above: Performed By: #### 2 89842 #### [facility],[address] [place] [address] CBC (INCLUDES DIFF/PLT)on Basophils (Bld) [#/Vol] 0.042 10*3/uL Normal 0-200 [facility] Comment on above: Performed By: #### 6 399, 6010, 12083 #### [facility] [place] [address] Political Science Instructor: Bravo Kruger MD Basophils/100 WBC (Bld) 0.5 % Normal [facility] Comment on above: Performed By: #### 6 399, 7600, 57877 #### [facility] [place] [address] Political Science Instructor: Bravo Kruger MD Eosinophils (Bld) [#/Vol] 0.118 10*3/uL Normal 15-500 [facility] Comment on above: Performed By: #### 6 399, 7600, 52280 #### [facility] of [address], [address] [place] [address] Political Science Instructor: Bravo Kruger MD Eosinophils/100 WBC (Bld) 1.4 % Normal [facility] Comment on above: Performed By: #### 6 399, 7600, 45573 #### [facility] of [address], [address] [place] [address] Political Science Instructor: Bravo Kruger MD Erythrocyte distribution width (RBC) [Ratio] 11.7 % Normal 11.0-15.0 [facility] Comment on above: Performed By: #### 6 399, 7600, 34544 #### [facility] of [address], [address] [place] [address] Political Science Instructor: Bravo Kruger MD Hematocrit (Bld) [Volume fraction] 45.1 % Normal 38.5-50.0 [facility] Comment on above: Performed By: #### 6 399, 7600, 26039 #### [facility] of [address], [address] [place] [address] Political Science Instructor: Bravo Kruger MD Hemoglobin (Bld) [Mass/Vol] 15.6 g/dL Normal 13.2-17.1 [facility] Comment on above: Performed By: #### 6 399, 7600, 22056 #### [facility] of [address], [address] [place] [address] Political Science Instructor: Bravo Kruger MD Lymphocytes (Bld) [#/Vol] 1.999 10*3/uL Normal 850-3900 [facility] Comment on above: Performed By: #### 6 399, 7600, 90111 #### [facility] of [address], [address] [place] [address] Political Science Instructor: Bravo Kruger MD Lymphocytes/100 WBC (Bld) 23.8 % Normal [facility] Comment on above: Performed By: #### 6 399, 7600, 88219 #### [facility] of [place] [address] Political Science Instructor: Bravo Kruger MD MCH (RBC) [Entitic mass] 34.1 pg High 27.0-33.0 [facility] Comment on above: Performed By: #### 6 399, 7600, 39924 #### [facility] of [place] [address] Political Science Instructor: Bravo Kruger MD MCHC (RBC) [Mass/Vol] 34.6 g/dL Normal 32.0-36.0 [facility] Comment on above: Result Comment: For adults, a slight decrease in the calculated MCHC value (in the range of 30 to 32 g/dL) is most likely not clinically significant; however, it should be interpreted with caution in correlation with other red cell parameters and the patient's clinical condition. Performed By: #### 6 399, 7600, 33090 #### [facility] [place] [address] Political Science Instructor: Bravo Kruger MD MCV (RBC) [Entitic vol] 98.7 fL Normal 80.0-100.0 [facility] Comment on above: Performed By: #### 6 399, 7600, 95655 #### [facility] [place] [address] Political Science Instructor: Bravo Kruger MD Monocytes (Bld) [#/Vol] 0.689 10*3/uL Normal 200-950 [facility] Comment on above: Performed By: #### 6 399, 7600, 18967 #### [facility] of [place] [address] Political Science Instructor: Bravo Kruger MD Monocytes/100 WBC (Bld) 8.2 % Normal [facility] Comment on above: Performed By: #### 6 399, 7600, 67698 #### [facility] [place] [address] Political Science Instructor: Bravo Kruger MD Neutrophils (Bld) [#/Vol] 5.552 10*3/uL Normal 6607-7492 [facility] Comment on above: Performed By: #### 6 399, 7600, 62847 #### [facility] of [address], [address] [place] [address] Political Science Instructor: Bravo Kruger MD Neutrophils/100 WBC (Bld) 66.1 % Normal [facility] Comment on above: Performed By: #### 6 399, 7600, 53605 #### [facility] of [place] [address] Political Science Instructor: Bravo Kruger MD Platelet mean volume (Bld) [Entitic vol] 9.8 fL Normal 7.5-12.5 [facility] Comment on above: Performed By: #### 6 399, 7600, 06022 #### [facility] of [place] [address] Political Science Instructor: Bravo Kruger MD Platelets (Bld) [#/Vol] 264 10*3/uL Normal 140-400 [facility] Comment on above: Performed By: #### 6 399, 7600, 01442 #### [facility] of [place] [address] Political Science Instructor: Bravo Kruger MD RBC (Bld) [#/Vol] 4.57 10*6/uL Normal 4.20-5.80 [facility] Comment on above: Performed By: #### 6 399, 7600, 69856 #### [facility] of [place] [address] Political Science Instructor: Bravo Kruger MD WBC (Bld) [#/Vol] 8.4 10*3/uL Normal 3.8-10.8 [facility] Comment on above: Performed By: #### 6 399, 7600, 05315 #### [facility] of [place] [address] Political Science Instructor: Bravo Kruger MD R[employer] [facility] 08-02-2024 Albumin [Mass/Vol] 4.3 g/dL Normal 3.6-5.1 [facility] Comment on above: Performed By: #### 6 399, 7600, 03743 #### [facility] of [address], [address] [place] [address] Political Science Instructor: Bravo Kruger MD Albumin/Globulin [Mass ratio] 1.3 {ratio} Normal 1.0-2.5 [facility] Comment on above: Performed By: #### 6 399, 7600, 04094 #### [facility] of [address], [address] [place] [address] Political Science Instructor: Bravo Kruger MD ALP [Catalytic activity/Vol] 32 U/L Low 35-144 [facility] Comment on above: Performed By: #### 6 399, 7600, 22066 #### [facility] of [place] [address] Political Science Instructor: Bravo Kruger MD ALT [Catalytic activity/Vol] 43 U/L Normal 9-46 [facility] Comment on above: Performed By: #### 6 399, 7600, 47935 #### [facility] of [place] [address] Political Science Instructor: Bravo Kruger MD AST [Catalytic activity/Vol] 43 U/L High 10-35 [facility] Comment on above: Performed By: #### 6 399, 7600, 11198 #### [facility] of [place] [address] Political Science Instructor: Bravo Kruger MD Bilirubin [Mass/Vol] 0.3 mg/dL Normal 0.2-1.2 [facility] Comment on above: Performed By: #### 6 399, 7600, 94895 #### [facility] of [place] [address] Political Science Instructor: Bravo Kruger MD Calcium [Mass/Vol] 8.6 mg/dL Normal 8.6-10.3 [facility] Comment on above: Performed By: #### 6 399, 7600, 05977 #### [facility] of [place] [address] Political Science Instructor: Bravo Kruger MD Chloride [Moles/Vol] 101 mmol/L Normal 98-110 [facility] Comment on above: Performed By: #### 6 399, 7600, 25267 #### [facility] [place] [address] Political Science Instructor: Bravo Kruger MD CO2 [Moles/Vol] 22 mmol/L Normal 20-32 [facility] Comment on above: Performed By: #### 6 399, 7600, 79209 #### [facility] [place] [address] Political Science Instructor: Bravo Kruger MD Creatinine [Mass/Vol] 0.67 mg/dL Low 0.70-1.30 [facility] Comment on above: Performed By: #### 6 399, 7600, 86570 #### [facility] [place] [address] Political Science Instructor: Bravo Kruger MD GFR/1.73 sq M.predicted among non-blacks MDRD (S/P/Bld) [Vol rate/Area] 110 mL/min/{1.73_m2} Normal > OR = 60 [facility] Comment on above: Performed By: #### 6 399, 7600, 68466 #### [facility] [place] [address] Political Science Instructor: Bravo Kruger MD Globulin (S) [Mass/Vol] 3.2 g/dL Normal 1.9-3.7 [facility] Comment on above: Performed By: #### 6 399, 7600, 09145 #### [facility] [place] [address] Political Science Instructor: Bravo Kruger MD Glucose [Mass/Vol] 110 mg/dL High 65-99 [facility] Comment on above: Result Comment: Fasting reference interval For someone without known diabetes, a glucose value between 100 and 125 mg/dL is consistent with prediabetes and should be confirmed with a follow-up test. Performed By: #### 6 399, 7600, 20776 #### [facility] [address] [place] [address] Political Science Instructor: Bravo Kruger MD Potassium [Moles/Vol] 3.7 mmol/L Normal 3.5-5.3 [facility] Comment on above: Performed By: #### 6 399, 7600, 05365 #### [facility] of [place] [address] Political Science Instructor: Bravo Kruger MD Protein [Mass/Vol] 7.5 g/dL Normal 6.1-8.1 [facility] Comment on above: Performed By: #### 6 399, 7600, 40776 #### [facility] of [place] [address] Political Science Instructor: Bravo Kruger MD Sodium [Moles/Vol] 137 mmol/L Normal 135-146 [facility] Comment on above: Performed By: #### 6 399, 7600, 70282 #### [facility] of [place] [address] Political Science Instructor: Bravo Kruger MD Urea nitrogen [Mass/Vol] 21 mg/dL Normal 7-25 [facility] Comment on above: Performed By: #### 6 399, 7600, 35922 #### [facility] of [place] [address] Political Science Instructor: Bravo Kruger MD Urea nitrogen/Creatinine [Mass ratio] 31 mg/mg High 6-22 [facility] Comment on above: Performed By: #### 6 399, 7600, 30715 #### [facility] of [place] [address] Political Science Instructor: Bravo Kruger MD LIPID PANEL, [facility] [place] 11-0 Cholesterol [Mass/Vol] 174 mg/dL Normal <200 [facility] Comment on above: Performed By: #### 6 399, 7600, 11908 #### [facility] of [place] [address] Political Science Instructor: Bravo Kruger MD Cholesterol in HDL [Mass/Vol] 39 mg/dL Low > OR = 40 [facility] Comment on above: Performed By: #### 6 399, 7600, 10585 #### [facility] [place] [address] Political Science Instructor: Bravo Kruger MD Cholesterol in LDL [Mass/Vol] 109 mg/dL High [facility] Comment on above: Result Comment: Refe rence range: <100 Desirable range <100 mg/dL for primary prevention; <70 mg/dL for patients with CHD or diabetic patients with > or = 2 CHD risk factors. LDL-C is now calculated using the Elmer calculation, which is a validated novel method providing better accuracy than the Friedewald equation in the estimation of LDL-C. Cesar SS et al. [place]. 2013;310(19): 8896-0486 (http://education.[employer]/faq/RWC080) Performed By: #### 6 399, 7600, 83037 #### [facility] [place] [address] Political Science Instructor: Bravo Kruger MD Cholesterol.total/C holesterol in HDL [Mass ratio] 4.5 {ratio} Normal <5.0 [facility] Comment on above: Performed By: #### 6 399, 7600, 87567 #### [facility] [place] [address] Political Science Instructor: Bravo Kruger MD NON HDL CHOLESTEROL 135 mg/dL (calc) High <130 [facility] Comment on above: Result Comment: For patients with diabetes plus 1 major ASCVD risk factor, treating to a non-HDL-C goal of <100 mg/dL (LDL-C of <70 mg/dL) is considered a therapeutic option. Performed By: #### 6 399, 7600, 08968 #### [facility] [place] [address] Political Science Instructor: Bravo Kruger MD Triglyceride [Mass/Vol] 149 mg/dL Normal <150 [facility] Comment on above: Performed By: #### 6 399, 7600, 28738 #### [facility] [address], [address] [place] [id number] Political Science Instructor: Bravo Kruger MD PSA, TOTALon 08-02-2024 PSA, TOTAL 2.90 ng/mL Normal < OR = 4.00 [facility] Comment on above: Result Comment: The total PSA value from this assay system is standardized against the WHO standard. The test result will be approximately 20% lower when compared to the equimolar-standardized total PSA ([place]). Comparison of serial PSA results should be interpreted with this fact in mind. This test was performed using the Siemens chemiluminescent method. Values obtained from different assay methods cannot be used interchangeably. PSA levels, regardless of value, should not be interpreted as absolute evidence of the presence or absence of disease. Performed By: #### 6 399, 7310, 74376 #### [facility] [address], [address] [place] [address] Political Science Instructor: Bravo Kruger MD Laboratory - Chemistry and C hemistry - challengeon 08-01-2024 Albumin [Mass/Vol] 4.3 g/dL Normal 3.6 - 5.1 g/dL [facility] [employer] Albumin/Globulin [Mass ratio] 1.3 {ratio} Normal 1.0 - 2.5 [place] [facility], [facility].; [employer] ALP [Catalytic activity/Vol] 32 U/L Abnormal 35 - 144 U/L [place] [facility] [employer] ALT [Catalytic activity/Vol] 43 U/L Normal 9 - 46 U/L [place] [facility] [employer] AST [Catalytic activity/Vol] 43 U/L Abnormal 10 - 35 U/L [employer] [employer] Bilirubin [Mass/Vol] 0.3 mg/dL Normal 0.2 - 1.2 mg/dL [facility] [employer] Calcium [Mass/Vol] 8.6 mg/dL Normal 8.6 - 10. 3 mg/dL [place] [facility] [employer] Chloride [Moles/Vol] 101 mmol/L Normal 98 - 110 mmol/L [facility], [facility]. Cholesterol [Mass/Vol] 174 mg/dL Normal [facility].; [facility], [facility]. Cholesterol in HDL [Mass/Vol] 39 mg/dL Abnormal [facility].; [facility], [facility]. Cholesterol in LDL [Mass/Vol] 109 mg/dL Abnormal [facility], [facility].; [place] [facility], [facility]. CO2 [Moles/Vol] 22 mmol/L Normal 20 - 32 mmol/L [facility].; [place] [facility], [facility]. Creatinine [Mass/Vol] 0.67 mg/dL Abnormal 0.70 - 1.30 mg/dL [facility].; [facility], [facility]. GFR/1.73 sq M.predicted among non-blacks MDRD (S/P/Bld) [Vol rate/Area] 110 mL/min/{1.73_m2} Normal [facility].; [facility], [facility]. Glucose [Mass/Vol] 110 mg/dL Abnormal 65 - 99 mg/dL [facility].; [place] [facility], [facility]. Potassium [Moles/Vol] 3.7 mmol/L Normal 3.5 - 5.3 mmol/L [facility].; [place] [facility], [place] Everywhere. Protein [Mass/Vol] 7.5 g/dL Normal 6.1 - 8.1 g/dL [facility], [facility].; [place] [employer], [facility]. Sodium [Moles/Vol] 137 mmol/L Normal 135 - 146 mmol/L [facility].; [place] [employer] [place] Everywhere. Triglyceride [Mass/Vol] 149 mg/dL Normal [facility].; [place] [employer], [facility]. Urea nitrogen [Mass/Vol] 21 mg/dL Normal 7 - 25 mg/dL [facility].; [place] [employer], [facility]. Urea nitrogen/Creatinine [Mass ratio] 31 mg/mg Abnormal 6 - 22 [facility].; [place] [employer], [facility]. Laboratory - Hematology and Cell countson 08-01-2024 Basophils (Bld) [#/Vol] 0.042 10*3/uL Normal 0 - 200 {cells/uL} [facility].; [facility], [facility]. Basophils/100 WBC (Bld) 0.5 % Normal [facility].; [facility], [facility] Eosinophils (Bld) [#/Vol] 0.118 10*3/uL Normal 15 - 500 {cells/uL} [facility].; [facility], [facility]. Eosinophils/100 WBC (Bld) 1.4 % Normal [facility].; [facility], [facility] Erythrocyte distribution width (RBC) [Ratio] 11.7 % Normal 11.0 - 15.0 % [facility].; [facility], [facility] Hematocrit (Bld) [Volume fraction] 45.1 % Normal 38.5 - 50.0 % [facility].; [facility], [facility]. Hemoglobin (Bld) [Mass/Vol] 15.6 g/dL Normal 13.2 - 17.1 g/dL [facility].; [facility], [facility] Lymphocytes (Bld) [#/Vol] 1.999 10*3/uL Normal 850 - 3900 {cells/uL} [facility].; [facility], [facility]. Lymphocytes/100 WBC (Bld) 23.8 % Normal [facility].; [facility], [facility]. MCH (RBC) [Entitic mass] 34.1 pg Abnormal 27.0 - 33.[address] [facility].; [facility], [facility]. MCHC (RBC) [Mass/Vol] 34.6 g/dL Normal 32.0 - 36.0 g/dL [facility], [facility].; [facility], [facility]. MCV (RBC) [Entitic vol] 98.7 fL Normal 80.0 - 100.0 fL [place] [facility], [facility].; [facility], [facility]. Monocytes (Bld) [#/Vol] 0.689 10*3/uL Normal 200 - 950 {cells/uL} [facility], [facility].; [facility], [facility]. Monocytes/100 WBC (Bld) 8.2 % Normal [facility].; [facility], [facility]. Neutrophils (Bld) [#/Vol] 5.552 10*3/uL Normal 1500 - 7800 {cells/uL} [facility].; [place] [facility] Neutrophils/100 WBC (Bld) 66.1 % Normal [facility]; [facility] Platelet mean volume (Bld) [Entitic vol] 9.8 fL Normal 7.5 - 12.5 fL [facility]; [facility] Platelets (Bld) [#/Vol] 264 10*3/uL Normal 140 - 400 [facility]; [facility] RBC (Bld) [#/Vol] 4.57 10*6/uL Normal 4.20 - 5.8 0 {Million/uL } [facility]; [facility] WBC (Bld) [#/Vol] 8.4 10*3/uL Normal 3.8 - 10.8 [facility]; [place] [facility] No Panel Informationon 08-01 CHOL/HDLC RATIO 4.5 Normal [facility]; [facility] GLOBULIN 3.2 Normal 1.9 - 3.7 [facility]; [facility] NON HDL CHOLESTEROL 135 Abnormal [facility]; [facility] PSA, TOTAL 2.90 ng/mL Normal [facility]; [place] [employer] [facility] Laboratory - Chemistry and C hemistry - challengeon 08-10-2023 Albumin [Mass/Vol] 4.8 g/dL Normal 3.6 - 5.1 g/dL [facility]; [place] [facility], [facility]. Albumin/Globulin [Mass ratio] 1.7 {ratio} Normal 1.0 - 2.5 [facility]; [facility] ALP [Catalytic activity/Vol] 17 U/L Abnormal 35 - 144 U/L [facility].; [place] [facility], [facility]. ALT [Catalytic activity/Vol] 59 U/L Abnormal 9 - 46 U/L [facility].; [place] [facility]. AST [Catalytic activity/Vol] 52 U/L Abnormal 10 - 35 U/L [facility], [facility].; [facility], [facility]. Bilirubin [Mass/Vol] 0.5 mg/dL Normal 0.2 - 1.2 mg/dL [facility], [facility].; [facility], [facility]. Calcium [Mass/Vol] 9.5 mg/dL Normal 8.6 - 10. 3 mg/dL [facility], [facility].; [facility], [facility]. Chloride [Moles/Vol] 102 mmol/L Normal 98 - 110 mmol/L [facility], [facility].; [facility] Cholesterol [Mass/Vol] 173 mg/dL Normal [facility], [facility].; [facility], [facility]. Cholesterol in HDL [Mass/Vol] 40 mg/dL Normal [facility], [facility].; [facility], [facility]. Cholesterol in LDL [Mass/Vol] 109 mg/dL Abnormal [facility], [facility].; [facility], [facility]. CO2 [Moles/Vol] 25 mmol/L Normal 20 - 32 mmol/L [facility], [facility].; [facility] Creatinine [Mass/Vol] 0.58 mg/dL Abnormal 0.70 - 1.30 mg/dL [facility], [facility].; [facility], [facility]. GFR/1.73 sq M.predicted among non-blacks MDRD (S/P/Bld) [Vol rate/Area] 116 mL/min/{1.73_m2} Normal [facility], [facility].; [facility] Glucose [Mass/Vol] 82 mg/dL Normal 65 - 99 mg/dL [facility], [facility].; [facility] Potassium [Moles/Vol] 4.3 mmol/L Normal 3.5 - 5.3 mmol/L [facility], [facility].; [facility], [facility]. Protein [Mass/Vol] 7.7 g/dL Normal 6.1 - 8.1 g/dL [facility], [facility].; [place] [employer] Sodium [Moles/Vol] 140 mmol/L Normal 135 - 146 mmol/L [facility], [facility].; [facility] Triglyceride [Mass/Vol] 128 mg/dL Normal [facility], [facility].; [facility] Urea nitrogen [Mass/Vol] 15 mg/dL Normal 7 - 25 mg/dL [facility].; [place] [employer] [facility] Urea nitrogen/Creatinine [Mass ratio] 26 mg/mg Abnormal 6 - 22 [facility].; [place] [employer], [facility] Laboratory - Hematology and Cell countson 08-10-2023 Basophils (Bld) [#/Vol] 0.037 10*3/uL Normal 0 - 200 {cells/uL} [facility].; [place] [employer] [facility] Basophils/100 WBC (Bld) 0.5 % Normal [facility].; [place] [facility], [facility] Eosinophils (Bld) [#/Vol] 0.074 10*3/uL Normal 15 - 500 {cells/uL} [facility].; [place] [employer] [place] [employer]. Eosinophils/100 WBC (Bld) 1.0 % Normal [place] [facility].; [place] [employer] Erythrocyte distribution width (RBC) [Ratio] 12.2 % Normal 11.0 - 15.0 % [facility].; [employer] [facility] Hematocrit (Bld) [Volume fraction] 47.1 % Normal 38.5 - 50.0 % [place] [facility].; [place] [employer], [facility]. Hemoglobin (Bld) [Mass/Vol] 16.5 g/dL Normal 13.2 - 17.1 g/dL [facility].; [place] [employer], [facility]. Lymphocytes (Bld) [#/Vol] 2.161 10*3/uL Normal 850 - 3900 {cells/uL} [facility].; [place] [employer], [facility]. Lymphocytes/100 WBC (Bld) 29.2 % Normal [place] [facility].; [place] [employer], [facility]. MCH (RBC) [Entitic mass] 33.8 pg Abnormal 27.0 - 33.0 pg [place] [facility].; [employer] [place] [employer]. MCHC (RBC) [Mass/Vol] 35.0 g/dL Normal 32.0 - 36.0 g/dL [place] [facility].; [place] [employer] [place] [employer]. MCV (RBC) [Entitic vol] 96.5 fL Normal 80.0 - 100.0 fL [facility].; [place] [employer] [place] [employer]. Monocytes (Bld) [#/Vol] 0.503 10*3/uL Normal 200 - 950 {cells/uL} [facility].; [place] [employer] [place] [employer]. Monocytes/100 WBC (Bld) 6.8 % Normal [facility].; [place] [employer] [place] [employer]. Neutrophils (Bld) [#/Vol] 4.625 10*3/uL Normal 1500 - 7800 {cells/uL} [facility].; [place] [employer]. Neutrophils/100 WBC (Bld) 62.5 % Normal [place] [facility].; [place] [employer] [place] [employer]. Platelet mean volume (Bld) [Entitic vol] 10.1 fL Normal 7.5 - 12.5 fL [facility].; [place] [employer] [place] [employer]. Platelets (Bld) [#/Vol] 219 10*3/uL Normal 140 - 400 [facility].; [place] [employer]. RBC (Bld) [#/Vol] 4.88 10*6/uL Normal 4.20 - 5.8 0 {Million/uL } [facility].; [place] [employer] [place] [employer]. WBC (Bld) [#/Vol] 7.4 10*3/uL Normal 3.8 - 10.8 [facility].; [place] [employer] [place] [employer]. No Panel Informationon 08-10 CHOL/HDLC RATIO 4.3 Normal [facility], [facility].; [place] [employer] [place] [employer]. GLOBULIN 2.9 Normal 1.9 - 3.7 [facility].; [place] [employer] [place] [employer]. NON HDL CHOLESTEROL 133 Abnormal [facility].; [place] [employer]. PSA, TOTAL 0.45 ng/mL Normal [place] [facility].; [place] [employer], [facility]. [facility] -- LIYAH HOLLAND ([id number]) 1970 M [facility] Date Time Provider Department 06/06/22 PILO OLIVAS During your visit today, we recorded the following information about you: Pilo Olivas RN 06/06/2022 3:18 PM Signed Device management form received from [facility] MRI department ([phone]) completed by Dr. Barfield and return faxed at this time as requested with receipt of fax transmission confirmation. Pilo Olivas RN June 06, 2022 3:17 PM Allergies As of Date: 06/06/2022 (Not on File) Date Reviewed: Never Reviewed Reason for Visit: Device management form [facility] MRI [Other] Problem List As Of Date: 06/06/2022 (None) Encounter Status:Closed by PILO OLIVAS on 06/06/22 Normal [facility] Laboratory - Chemistry and C hemistry - challengeon 05-06-2022 Cholesterol [Mass/Vol] 139 mg/dL Normal 0 - 240 mg/dL [employer] [place] [employer] Cholesterol in HDL [Mass or moles/Vol] 43 mg/dL Normal 40 - 60 mg/dL [employer] [facility].; [employer] Cholesterol in LDL [Mass/Vol] 80 mg/dL Normal 0 - 129 mg/dL [employer] [employer] Cholesterol.total/C holesterol in HDL [Mass ratio] 3.2 {ratio} Normal 0.0 - 5.0 [employer] [place] [employer]. Lipid 1996 panel LIPID PROFILE Normal [facility] [employer], [facility].; [employer] Prostate specific Ag [Mass/Vol] 0.67 ng/mL Normal 0.00 - 4.00 ng/mL [employer] [facility].; [employer] Triglyceride [Mass/Vol] 78 mg/dL Normal 0 - 150 mg/dL [employer] [place] [employer].; [employer] [place] [employer]. SARS CoV 2 RNA(COVID 19), QU ALITATIVE NAATon 06-11-2021 SARS CoV 2 RNA Detected Abnormal NOT DETECTED [facility] Comment on above: Order Comment: YE RICHMOND: UNKNOWN Result Comment: A Detected result indicates that the patient's specimen was positive for SARS-CoV-2 RNA. Test Method: Nucleic Acid Amplification Test including reverse bagging salvager polymerase chain reaction (RT-PCR and bagging salvager mediated amplification (TMA). The test method meets the [place] Centers for Disease Control and prevention (CDC) pre departure and arrival requirement for viral test for COVID-19 dated October 21, 2020. Testing requirements for traveling may change with time. The patient is responsible for determining the test requirements for each nation while they are traveling. This test has been authorized by the FDA under an Emergency Use Authorization (EUA) for use by authorized laboratories. Please review the Fact Sheets and FDA authorized labeling available for health care providers and patients using the following websites: https://[email or web address]/home/Covid-19/HCP/NAAT/fact-sheet 2 https://www.[email or web address]/home/Covid-19/Patients/NAAT/ fact-sheet2 Due to the current public health emergency, [facility] is accepting samples from appropriate clinical sources collected using wide variety of swabs and transport media for COVID-19. Not detected test results derived from specimens received in non- commercially manufactured viral collection kits or those not yet authorized by FDA for COVID-19 testing should be cautiously evaluated and take extra precautions such as such as additional clinical monitoring, including collection of an additional specimen. Additional information about COVID-19 can be found at the [facility] website: [email or web address]. Performed By: #### 3 [id number] #### [facility] [address] [place] [address] ASHLEY Huff [id number] Political Science Instructor: Dameon Milton MD Laboratory - Microbiology an d Antimicrobial susceptibilityon 06-08-2021 FLUAV Ag IA Ql (Throat) Negative Normal [employer] [place] [employer]. SARS-CoV-2 (COVID-19) RNA RUFINO+probe Ql (Unsp spec) Detected Abnormal [employer]; [employer] [place] [employer]. OTIS by IFAon 01-24-2021 OTIS Pattern ANANOT Normal [facility] Comment on above: Performed By: #### H BSAG, RF, AHBSQ, AHBCOT, AHCV1B, ALD #### [facility] [address] [place] [phone] #### ANAIFS, CCP #### [facility] [address] [place] [phone] OTIS Titer Normal Negative [facility] Comment on above: Result Comment: Nega tive Normal range : negatie at <1:80 serum dilution. Performed By: #### H BSAG, RF, AHBSQ, AHBCOT, AHCV1B, ALD #### [facility] [address] [place] [phone] #### ANAIFS, CCP #### [facility] [address] [place] [phone] Nuclear Ab IF (S) [Titer] Negative Normal Negative [facility] Comment on above: Performed By: #### H BSAG, RF, AHBSQ, AHBCOT, AHCV1B, ALD #### [facility] [address] [place] [phone] #### ANAIFS, CCP #### [facility] [address] [place] [phone] Aldolaseon 01-24-2021 Aldolase 19.6 U/L High 1.5-8.1 [facility] Comment on above: Performed By: #### H BSAG, RF, AHBSQ, AHBCOT, AHCV1B, ALD #### [facility] [address] [place] [phone] #### ANAIFS, CCP #### [facility] [address] [place] [phone] CCP Antibody, IgGon 01-25-20 21 CCP Antibody, IgG <15 Normal <20 [facility] Comment on above: Performed By: #### H BSAG, RF, AHBSQ, AHBCOT, AHCV1B, ALD #### [facility] [address] [place] [phone] #### ANAIFS, CCP #### [facility] [address] [place] [phone] Hep B Core Ab,Totalon 2020 Hep B Core Ab,Total NEGAT Normal Negative [facility] Comment on above: Performed By: #### H BSAG, RF, AHBSQ, AHBCOT, AHCV1B, ALD #### [facility] [address] [place] [phone] #### ANAIFS, CCP #### [facility] [address] [place] [phone] Hep C Ab IA w/Confon 021 Hepatitis C Ab IA NEGAT Normal Negative [facility] Comment on above: Performed By: #### H BSAG, RF, AHBSQ, AHBCOT, AHCV1B, ALD #### [facility] [address] [place] [phone] #### ANAIFS, CCP #### [facility] [address] [place] [phone] HepB SurfaceAb,Quanton 01-23 HepB SurfaceAb,Quant <8.00 Normal <8.00 [facility] Comment on above: Performed By: #### H BSAG, RF, AHBSQ, AHBCOT, AHCV1B, ALD #### [facility] [address] [place] [phone] #### ANAIFS, CCP #### [facility] [address] [place] [phone] Hepatitis B Surf. Agon 01-23 Hepatitis B Surf. Ag NEGAT Normal Negative [facility] Comment on above: Performed By: #### H BSAG, RF, AHBSQ, AHBCOT, AHCV1B, ALD #### [facility] [address] [place] [id number] #### ANAIFS, CCP #### [facility] [address] [place] [address] Rheumatoid Factoron 01-24-20 21 Rheumatoid Factor <10 Normal <16 [facility] Comment on above: Performed By: #### H BSAG, RF, AHBSQ, AHBCOT, AHCV1B, ALD #### [facility] [address] [place] [address] #### ANAIFS, CCP #### [facility] [address] [place] [address] COMPREHENSIVE METABOLIC PANE [facility] 01-07-2021 Albumin [Mass/Vol] 4.4 g/dL Normal 3.6-5.1 [facility] Comment on above: Performed By: #### 3 74, 5363, 38655, 7600 #### [facility] [place] [address] Political Science Instructor: Bravo Kruger MD Albumin/Globulin [Mass ratio] 1.7 {ratio} Normal 1.0-2.5 [facility] Comment on above: Performed By: #### 3 74, 5363, 01433, 7600 #### [facility] [place] [address] Political Science Instructor: Bravo Kruger MD ALP [Catalytic activity/Vol] 24 U/L Low 35-144 [facility] Comment on above: Performed By: #### 3 74, 5363, 79243, 7600 #### [facility] [place] [address] Political Science Instructor: Bravo Kruger MD ALT [Catalytic activity/Vol] 97 U/L High 9-46 [facility] Comment on above: Performed By: #### 3 74, 5363, 39318, 7600 #### [facility] of [place] [address] Political Science Instructor: Bravo Kruger MD AST [Catalytic activity/Vol] 99 U/L High 10-35 [facility] Comment on above: Performed By: #### 3 74, 5363, 77965, 7600 #### [facility] of [place] [address] Political Science Instructor: Bravo Kruger MD Bilirubin [Mass/Vol] 0.4 mg/dL Normal 0.2-1.2 [facility] Comment on above: Performed By: #### 3 74, 5363, 28794, 7600 #### [facility] [place] [address] Political Science Instructor: Bravo Kruger MD Calcium [Mass/Vol] 8.9 mg/dL Normal 8.6-10.3 [facility] Comment on above: Performed By: #### 3 74, 5363, 64415, 7600 #### [facility] [place] [address] Political Science Instructor: Bravo Kruger MD Chloride [Moles/Vol] 104 mmol/L Normal 98-110 [facility] Comment on above: Performed By: #### 3 74, 5363, 21176, 7600 #### [facility] [place] [address] Political Science Instructor: Bravo Kruger MD CO2 [Moles/Vol] 24 mmol/L Normal 20-32 [facility] Comment on above: Performed By: #### 3 74, 5363, 35786, 7600 #### [facility] [place] [address] Political Science Instructor: Bravo Kruger MD Creatinine [Mass/Vol] 0.54 mg/dL Low 0.70-1.33 [facility] Comment on above: Result Comment: For patients >49 years of age, the reference limit for Creatinine is approximately 13% higher for people identified as -Bruneian. Performed By: #### 3 74, 5363, 02000, 7600 #### [facility] [place] [address] Political Science Instructor: Bravo Kruger MD eGFR NON-AFR. SWISS 121 mL/min/1.73m2 Normal > OR = 60 [facility] Comment on above: Performed By: #### 3 74, 5363, 47500, 7600 #### [facility] [place] [address] Political Science Instructor: Bravo Kruger MD GFR/1.73 sq M.predicted among blacks MDRD (S/P/Bld) [Vol rate/Area] 140 mL/min/{1.73_m2} Normal > OR = 60 [facility] Comment on above: Performed By: #### 3 74, 5363, 23420, 7600 #### [facility] [place] [address] Political Science Instructor: Bravo Kruger MD Globulin (S) [Mass/Vol] 2.6 g/dL Normal 1.9-3.7 [facility] Comment on above: Performed By: #### 3 74, 5363, 12512, 7600 #### [facility] [place] [address] Political Science Instructor: Bravo Kruger MD Glucose [Mass/Vol] 93 mg/dL Normal 65-99 [facility] Comment on above: Result Comment: Fasting reference interval Performed By: #### 3 74, 5363, 82717, 7600 #### [facility] [place] [address] Political Science Instructor: Bravo Kruger MD Potassium [Moles/Vol] 3.7 mmol/L Normal 3.5-5.3 [facility] Comment on above: Performed By: #### 3 74, 5363, 16342, 7600 #### [facility] [place] [id number] Political Science Instructor: Bravo Kruger MD Protein [Mass/Vol] 7.0 g/dL Normal 6.1-8.1 [facility] Comment on above: Performed By: #### 3 74, 5363, 20844, 7600 #### [facility] of [address], [address] [place] [address] Political Science Instructor: Bravo Kruger MD Sodium [Moles/Vol] 139 mmol/L Normal 135-146 [facility] Comment on above: Performed By: #### 3 74, 5363, 21493, 7600 #### [facility] of [address], [address] [place] [address] Political Science Instructor: Bravo Kruger MD Urea nitrogen [Mass/Vol] 22 mg/dL Normal 7-25 [facility] Comment on above: Performed By: #### 3 74, 5363, 21682, 7600 #### [facility] of [address], [address] [place] [address] Political Science Instructor: Bravo Kruger MD Urea nitrogen/Creatinine [Mass ratio] 41 mg/mg High 6-22 [facility] Comment on above: Performed By: #### 3 74, 5363, 67942, 7600 #### [facility] of [place] [address] Political Science Instructor: Bravo Kruger MD CREATINE KINASE, TOTALon CREATINE KINASE, TOTAL 3623 U/L High 44-196 [facility] Comment on above: Performed By: #### 3 74, 5363, 97371, 7600 #### [facility] of [address], [address] [place] [address] Political Science Instructor: Bravo Kruger MD LIPID PANEL, STANDARDon 12-23 Cholesterol [Mass/Vol] 165 mg/dL Normal <200 [facility] Comment on above: Performed By: #### 3 74, 5363, 78076, 7600 #### [facility] of [place] [address] Political Science Instructor: Bravo Kruger MD Cholesterol in HDL [Mass/Vol] 40 mg/dL Normal > OR = 40 [facility] Comment on above: Performed By: #### 3 74, 5363, 30483, 7600 #### [facility] [place] [address] Political Science Instructor: Bravo Kruger MD Cholesterol in LDL [Mass/Vol] 96 mg/dL Normal [facility] Comment on above: Result Comment: Refe rence range: <100 Desirable range <100 mg/dL for primary prevention; <70 mg/dL for patients with CHD or diabetic patients with > or = 2 CHD risk factors. LDL-C is now calculated using the Elmer calculation, which is a validated novel method providing better accuracy than the Friedewald equation in the estimation of LDL-C. Cesar YE et al. [place]. 2013;310(19): 1303-4532 (http://education.Kizziang.EcoSurge/faq/OVB546) Performed By: #### 3 74, 5363, 68389, 7600 #### [facility] [place] [address] Political Science Instructor: Bravo Kruger MD Cholesterol.total/C holesterol in HDL [Mass ratio] 4.1 {ratio} Normal <5.0 [facility] Comment on above: Performed By: #### 3 74, 5363, [id number], 8100 #### [facility] [place] [address] Political Science Instructor: Bravo Kruger MD NON HDL CHOLESTEROL 125 mg/dL (calc) Normal <130 [facility] Comment on above: Result Comment: For patients with diabetes plus 1 major ASCVD risk factor, treating to a non-HDL-C goal of <100 mg/dL (LDL-C of <70 mg/dL) is considered a therapeutic option. Performed By: #### 3 74, 5363, 49093, 7600 #### [facility] [place] [address] Political Science Instructor: Bravo Kruger MD Triglyceride [Mass/Vol] 196 mg/dL High <150 [facility] Comment on above: Performed By: #### 3 74, 5363, 37191, 7600 #### [facility] [address], [address] [place] [phone] Political Science Instructor: Bravo Kruger MD PSA, TOTALon 01-07-2021 PSA, TOTAL 0.4 ng/mL Normal < OR = 4.0 [facility] Comment on above: Result Comment: The total PSA value from this assay system is standardized against the WHO standard. The test result will be approximately 20% lower when compared to the equimolar-standardized total PSA (Jj Tiffani). Comparison of serial PSA results should be interpreted with this fact in mind. This test was performed using the Siemens chemiluminescent method. Values obtained from different assay methods cannot be used interchangeably. PSA levels, regardless of value, should not be interpreted as absolute evidence of the presence or absence of disease. Performed By: #### 3 74, 5363, 60604, 7600 #### [facility] [address], [address] [place] [phone] Political Science Instructor: Bravo Kruger MD Laboratory - Chemistry and C hemistry - challengeon 01-06-2021 Albumin [Mass/Vol] 4.4 g/dL Normal 3.6 - 5.1 g/dL [place] [facility] [employer] Albumin/Globulin [Mass ratio] 1.7 {ratio} Normal 1.0 - 2.5 [place] [facility] [employer] ALP [Catalytic activity/Vol] 24 U/L Abnormal 35 - 144 U/L [facility] ALT [Catalytic activity/Vol] 97 U/L Abnormal 9 - 46 U/L [employer] AST [Catalytic activity/Vol] 99 U/L Abnormal 10 - 35 U/L [facility] [employer] Bilirubin [Mass/Vol] 0.4 mg/dL Normal 0.2 - 1.2 mg/dL [place] [facility] [employer] Calcium [Mass/Vol] 8.9 mg/dL Normal 8.6 - 10. 3 mg/dL [facility].; [facility]. Chloride [Moles/Vol] 104 mmol/L Normal 98 - 110 mmol/L [facility].; [facility], [facility]. Cholesterol [Mass/Vol] 165 mg/dL Normal [facility].; [facility], [facility]. Cholesterol in HDL [Mass/Vol] 40 mg/dL Normal [facility].; [facility], [facility] Cholesterol in LDL [Mass/Vol] 96 mg/dL Normal [facility].; [facility], [facility]. CO2 [Moles/Vol] 24 mmol/L Normal 20 - 32 mmol/L [facility].; [facility], [facility]. Creatinine [Mass/Vol] 0.54 mg/dL Abnormal 0.70 - 1.33 mg/dL [facility].; [facility], [facility]. GFR/1.73 sq M.predicted among blacks MDRD (S/P/Bld) [Vol rate/Area] 140 mL/min/{1.73_m2} Normal [facility].; [facility], [facility]. Glucose [Mass/Vol] 93 mg/dL Normal 65 - 99 mg/dL [facility], [facility].; [facility], [facility]. Potassium [Moles/Vol] 3.7 mmol/L Normal 3.5 - 5.3 mmol/L [facility], [facility].; [facility], [facility]. Protein [Mass/Vol] 7.0 g/dL Normal 6.1 - 8.1 g/dL [facility], [facility].; [facility], [facility]. Sodium [Moles/Vol] 139 mmol/L Normal 135 - 146 mmol/L [facility], [facility].; [facility], [facility]. Triglyceride [Mass/Vol] 196 mg/dL Abnormal [facility].; [facility], [facility]. Urea nitrogen [Mass/Vol] 22 mg/dL Normal 7 - 25 mg/dL [facility], [facility].; [facility], [facility]. Urea nitrogen/Creatinine [Mass ratio] 41 mg/mg Abnormal 6 - 22 [facility].; [place] [facility], [facility]. No Panel Informationon 01-06 CHOL/HDLC RATIO 4.1 Normal [facility]; [employer] CREATINE KINASE, TOTAL 3623 U/L Abnormal 44 - 196 U/L [facility]; [employer] eGFR NON-AFR. SWISS 121 Normal [facility]; [employer] GLOBULIN 2.6 Normal 1.9 - 3.7 [facility]; [employer] NON HDL CHOLESTEROL 125 Normal [facility]; [employer] PSA, TOTAL 0.4 ng/mL Normal [facility]; [employer]. Laboratory - Chemistry and C hemistry - challengeon 06-16-2019 Bilirubin Ql (U) Negative Normal [facility].; [employer]. Ketones Ql (U) Negative Normal [facility].; [employer]. pH (U) 6.5 [pH] Normal [facility]; [employer]. Specific gravity (U) [Rel density] >=1.030 Normal [facility]; [employer] Urobilinogen Qn (U) 0.2 mg/dL Normal [facility]; [employer]. Laboratory - Hematology and Cell countson 06-16-2019 Hemoglobin Ql (U) trace, hemolyzed Abnormal H [facility] [employer]; [employer] Laboratory - Microbiology an d Antimicrobial susceptibilityon 06-16-2019 Bacteria identified Cx Nom (U) SEE NOTE Normal [facility]; [employer]. Laboratory - Specimen inform ationon 06-16-2019 Appearance (U) Clear Normal [facility]; [employer] Color (U) yellow Normal [facility]; [employer] Specimen source Nom (Unsp spec) URINE Normal [facility].; [employer]. Laboratory - Urinalysison Glucose Test strip (U) [Mass/Vol] Negative Normal [facility] [employer]; [employer]. Leukocyte esterase Test strip Ql (U) Negative Normal [facility]; [place] [facility]|tab. Nitrite Ql (U) Negative Normal [facility].; [facility]|tab Protein Ql (U) 30 mg/dL Abnormal [facility].; [place] [employer]. Laboratory - Chemistry and C hemistry - challengeon 06-26-2018 Albumin [Mass/Vol] 4.5 g/dL Normal 3.6 - 5.1 g/dL [facility]; [place] [facility] Albumin/Globulin [Mass ratio] 1.6 {ratio} Normal 1.0 - 2.5 [facility]; [facility]|tab ALP [Catalytic activity/Vol] 21 U/L Abnormal 40 - 115 U/L [facility].; [place] [facility]|tab. ALT [Catalytic activity/Vol] 55 U/L Abnormal 9 - 46 U/L [facility].; [place] [employer]. AST [Catalytic activity/Vol] 48 U/L Abnormal 10 - 40 U/L [facility].; [place] [employer]. Bilirubin [Mass/Vol] 0.4 mg/dL Normal 0.2 - 1.2 mg/dL [facility].; [place] [facility], [place] Everywhere. Calcium [Mass/Vol] 9.6 mg/dL Normal 8.6 - 10. 3 mg/dL [facility].; [place] [facility]. Chloride [Moles/Vol] 103 mmol/L Normal 98 - 110 mmol/L [facility].; [place] [employer]. CK [Catalytic activity/Vol] 1049 U/L Abnormal 44 - 196 U/L [facility].; [place] [employer]. CO2 [Moles/Vol] 26 mmol/L Normal 20 - 32 mmol/L [facility].; [place] [employer] [place] Every[place]. Creatinine [Mass/Vol] 0.59 mg/dL Abnormal 0.60 - 1.35 mg/dL [facility].; [place] [facility], [place] Everywhere. GFR/1.73 sq M.predicted among blacks MDRD (S/P/Bld) [Vol rate/Area] 138 {ML/MIN/1.73M2} Normal [facility] [employer], [place] Every[employer].; [employer] [place] Everywhere. GFR/1.73 sq M.predicted MDRD (S/P/Bld) [Vol rate/Area] 119 {ML/MIN/1.73M2} Normal [place] [employer] [facility], [place] Every[place].; [employer] [place] Every[place]. Globulin (S) [Mass/Vol] 2.9 g/dL Normal 1.9 - 3.7 g/dL [place] [employer].; [employer]. Glucose [Mass/Vol] 96 mg/dL Normal 65 - 99 mg/dL [place] [employer].; [employer] [place] Everywhere. Potassium [Moles/Vol] 4.1 mmol/L Normal 3.5 - 5.3 mmol/L [place] [employer].; [employer]. Protein [Mass/Vol] 7.4 g/dL Normal 6.1 - 8.1 g/dL [employer].; [employer]. Sodium [Moles/Vol] 138 mmol/L Normal 135 - 146 mmol/L [employer].; [employer]. Urea nitrogen [Mass/Vol] 13 mg/dL Normal 7 - 25 mg/dL [employer].; [employer] [place] Everywhere. Urea nitrogen/Creatinine [Mass ratio] 22.4 mg/mg Abnormal 6 - 22 [employer].; [employer]. Laboratory - Hematology and Cell countson 04-11-2018 Hemoglobin (Bld) [Mass/Vol] 13.5 g/dL Normal 11.5 - 14.2 g/dL [employer].; [employer]. 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 MICRO - MicrobiologyPROCEDURE: Stool Culture [^1 *1] Stool BODY SITE:COLLECTED DATE/TIME: 03/21/2018 12:16 EDT RECEIVED DATE/TIME: 03/21/2018 13:26 EDTSTART DATE/TIME: 03/21/2018 13:26 EDT FREE TEXT SOURCE:FINAL REPORTSFinal Report []Verified Date/Time/Personnel: 03/24/2018 10:17 EDTNormal stool tracey present.Salmonella: NegativeShigella: NegativeCampylobacter: NegativePRELIMINARY REPORTSPreliminary Report []Verified Date/Time/Personnel: 03/23/2018 11:58 EDTNormal stool tracey present.Negative for stool pathogens at 48 hours.Final report to follow.Interpretive Data^1: Culture Stool Requests for alternative pathogens including Yersinia, E. coli 0157, C. difficile toxin, Rotavirus, Giardia and parasites require specific requests.Performing Locations*1: This test was performed at: [facility], [address] [place] [address], [facility] , [facility] ([place]) Comment on above: Performed By: #### C BC, ADIFF, ANEU, LIP, GFR, CMP ####[address] [address] .Auto Diffon 03-22-2018 Basophils Auto #/vol (Bld) 0.00 10 3/mcL Normal 0.00-0.27 [facility] ([place]) Comment on above: Performed By: #### L AC ####[address] [address] Basophils/100 WBC Auto (Bld) 0.6 % Normal 0.0-2.5 [facility] ([place]) Comment on above: Performed By: #### L AC ####[address] [address] Eosinophils 0.20 10 3/mcL Normal 0.00-0.65 [facility] ([place]) Comment on above: Performed By: #### L AC ####[address] [address] Eosinophils/100 leukocytes 3.7 % Normal 0.0-6.0 [facility] ([place]) Comment on above: Performed By: #### L AC ####[address] [address] Lymphocytes 1.90 10 3/mcL Normal 0.90-4.32 [facility] ([place]) Comment on above: Performed By: #### L AC ####[address] [address] Lymphocytes/100 leukocytes 38.4 % Normal 20.0-40.0 [facility] ([place]) Comment on above: Performed By: #### L AC ####[address] [address] Monocytes 0.40 10 3/mcL Normal 0.09-1.40 [facility] ([place]) Comment on above: Performed By: #### L AC ####[address] [address] Monocytes/100 leukocytes 7.2 % Normal 2.0-13.0 [facility] ([place]) Comment on above: Performed By: #### L AC ####[address] [address] Neutrophils/100 WBC Auto (Bld) 50.1 % Normal 50.0-75.0 [facility] ([place]) Comment on above: Performed By: #### L AC ####[address] [address] .GFRon 03-22-2018 eGFR (non-black) mL/min/{1.73_m2} Normal [facility] ([place]) Comment on above: Result Comment: GFR Population mean for , Non- Americans Ages 20-29 = 116 mL/min/1.73 sq.m. Ages 30-39 = 107 mL/min/1.73 sq.m. Ages 40-49 = 99 mL/min/1.73 sq.m. Ages 50-59 = 93 mL/min/1.73 sq.m. Ages 60-69 = 85 mL/min/1.73 sq.m. Ages 70+ = 75 mL/min/1.73 sq.m.Chronic Kidney Disease: Less than 60 mL/min/1.73 square metersEnd Stage Renal Disease: Less than 15 mL/min/1.73 square meters Performed By: #### P RO, MG, BMP, GFR, HFP ####[address] [address] eGFR (non-black) mL/min/{1.73_m2} Normal [facility] ([place]) Comment on above: Result Comment: GFR Population mean for , Non- Americans Ages 20-29 = 116 mL/min/1.73 sq.m. Ages 30-39 = 107 mL/min/1.73 sq.m. Ages 40-49 = 99 mL/min/1.73 sq.m. Ages 50-59 = 93 mL/min/1.73 sq.m. Ages 60-69 = 85 mL/min/1.73 sq.m. Ages 70+ = 75 mL/min/1.73 sq.m.Chronic Kidney Disease: Less than 60 mL/min/1.73 square metersEnd Stage Renal Disease: Less than 15 mL/min/1.73 square meters Performed By: #### P RO, MG, BMP, GFR, HFP ####[place] [address] .NEUABSon 03-22-2018 Neutrophils 2.50 10 3/mcL Normal 2.25-8.10 [facility] ([place]) Comment on above: Performed By: #### L AC ####[place] [address] BMPon 03-22-2018 BUN/Creatinine Ratio 21.4 ratio Normal 10.0-22.0 [facility] ([place]) Comment on above: Performed By: #### P RO, MG, BMP, GFR, HFP ####[place] [address] Creatinine 0.56 mg/dL Low 0.60-1.40 [facility] ([place]) Comment on above: Performed By: #### P RO, MG, BMP, GFR, HFP ####[place] [address] Calcium 8.2 mg/dL Low 8.4-10.1 [facility] ([place] Comment on above: Performed By: #### P RO, MG, BMP, GFR, HFP ####[place] [address] Chloride 102 mmol/L Normal 98-110 [facility] ([place] Comment on above: Performed By: #### P RO, MG, BMP, GFR, HFP ####[place] [address] CO2 33 mmol/L High 22-32 [facility] ([place] Comment on above: Performed By: #### P RO, MG, BMP, GFR, HFP ####[place] [address] Electrolyte Balance 7.0 mEq/L Normal 4.0-15.0 [facility] ([place]) Comment on above: Performed By: #### P RO, MG, BMP, GFR, HFP ####[place] [address] Glucose mass conc 92 mg/dL Normal 70-110 [facility] ([place] Comment on above: Performed By: #### P RO, MG, BMP, GFR, HFP ####[place] [address] Potassium molar conc 4.4 mmol/L Normal 3.5-5.0 [facility] ([place] Comment on above: Performed By: #### P RO, MG, BMP, GFR, HFP ####[place] [address] Sodium 142 mmol/L Normal 136-145 [facility] ([place] Comment on above: Performed By: #### P RO, MG, BMP, GFR, HFP ####[place] [address] Urea nitrogen 12.0 mg/dL Normal 8.0-22.0 [facility] ([place] Comment on above: Performed By: #### P RO, MG, BMP, GFR, HFP ####[place] [address] CBCon 03-22-2018 Erythrocyte distribution width Auto Ratio (RBC) 13.2 % Normal 11.5-15.5 [facility] ([place] Comment on above: Performed By: #### L AC ####[place] [address] Erythrocytes (RBC) 4.22 10 6/mcL Low 4.50-6.00 [facility] ([place] Comment on above: Performed By: #### L AC ####[place] [address] Hematocrit (HCT) 42.1 % Normal 40.0-52.0 [facility] ([place] Comment on above: Performed By: #### L AC ####[place] [address] Hemoglobin mass conc (Bld) 14.5 G/dL Normal 13.0-17.5 [facility] ([place] Comment on above: Performed By: #### L AC ####[place] [address] MCH 34.4 pg High 27.0-33.0 [facility] ([place] Comment on above: Performed By: #### L AC ####[place] [address] MCHC mass conc (RBC) 34.4 G/dL Normal 32.0-36.0 [facility] ([place] Comment on above: Performed By: #### L AC ####[place] [address] MCV 99.8 fL Normal 81.0-100.0 [facility] ([place] Comment on above: Performed By: #### L AC ####[place] [address] Platelet mean volume (PMV) 8.9 fL Normal 6.4-10.5 [facility] ([place] Comment on above: Performed By: #### L AC ####[place] [address] Platelets 181 10 3/mcL Normal 150-450 [facility] ([place] Comment on above: Performed By: #### L AC ####[place] [address] WBC (Leukocytes) 5.00 10 3/mcL Normal 4.50-10.80 [facility] ([place]) Comment on above: Performed By: #### L AC ####[place] [address] CDPCRon 03-22-2018 CDPCR . MICRO - MicrobiologyPROCEDURE: Clostridium difficile PCR [^1 *1]SOURCE: Stool BODY SITE:COLLECTED DATE/TIME: 03/21/2018 12:16 EDT RECEIVED DATE/TIME: 03/21/2018 13:26 EDTSTART DATE/TIME: 03/21/2018 13:26 EDT FREE TEXT SOURCE:FINAL REPORTSFinal Report []Verified Date/Time/Personnel: 03/22/2018 01:16 EDTNEGATIVE.No tcdB gene DNA detected. Negative test resultsmay occur from improper collection, handling orstorage of specimen, technical error, or number oforganisms below the analytical sensitivity of the test.Interpretive Data^1: Clostridium difficile PCR As with all in vitro diagnostic tests, positive and negative predictive values are highly dependent on prevalence. The [employer] C. difficile PCR Assay performance may vary depending on the prevalence and population tested.Performing Locations*1: This test was performed at: [address], [address] [place] [address] ([place]) Comment on above: Performed By: #### L AC ####[place] [address] CMPon 03-22-2018 Alanine aminotransferase (ALT) 305 U/L High 12-55 [facility] ([place]) Comment on above: Performed By: #### L AC, CBC, ADIFF, ANEU, LIP, CMP ####[place] [address] Albumin/Globulin Ratio 1.0 {ratio} Normal 0.9-1.6 [facility] ([place]) Comment on above: Performed By: #### L AC, CBC, ADIFF, ANEU, LIP, CMP ####[place] [address] Alk Phos 52 U/L Normal 38-126 [facility] ([place] Comment on above: Performed By: #### L AC, CBC, ADIFF, ANEU, LIP, CMP ####[place] [address] Bili Total 0.4 mg/dL Normal 0.2-1.2 [facility] ([place] Comment on above: Performed By: #### L AC, CBC, ADIFF, ANEU, LIP, CMP ####[place] [address] BUN/Creatinine Ratio 20.7 ratio Normal 10.0-22.0 [facility] ([place] Comment on above: Performed By: #### L AC, CBC, ADIFF, ANEU, LIP, CMP ####[place] [address] Creatinine 0.58 mg/dL Low 0.60-1.40 [facility] ([place] Comment on above: Performed By: #### L AC, CBC, ADIFF, ANEU, LIP, CMP ####[place] [address] Globulin 3.1 G/dL Normal 1.5-3.8 [facility] ([place] Comment on above: Performed By: #### L AC, CBC, ADIFF, ANEU, LIP, CMP ####[place] [address] Protein 6.1 G/dL Normal 6.0-8.5 [facility] ([place] Comment on above: Performed By: #### L AC, CBC, ADIFF, ANEU, LIP, CMP ####[place] [address] Albumin 3.0 G/dL Low 3.2-4.8 [facility] ([place] Comment on above: Performed By: #### L AC, CBC, ADIFF, ANEU, LIP, CMP ####[place] [address] Aspartate aminotransferase (AST) 100 U/L High 8-34 [facility] ([place] Comment on above: Performed By: #### L AC, CBC, ADIFF, ANEU, LIP, CMP ####[place] [address] Calcium 8.2 mg/dL Low 8.4-10.1 [facility] ([place] Comment on above: Performed By: #### L AC, CBC, ADIFF, ANEU, LIP, CMP ####[place] [address] Chloride 102 mmol/L Normal 98-110 [facility] ([place] Comment on above: Performed By: #### L AC, CBC, ADIFF, ANEU, LIP, CMP ####[place] [address] CO2 33 mmol/L High 22-32 [facility] ([place] Comment on above: Performed By: #### L AC, CBC, ADIFF, ANEU, LIP, CMP ####[place] [address] Electrolyte Balance 8.0 mEq/L Normal 4.0-15.0 [facility] ([place]) Comment on above: Performed By: #### L AC, CBC, ADIFF, ANEU, LIP, CMP ####[place] [address] Glucose mass conc 94 mg/dL Normal 70-110 [facility] ([place] Comment on above: Performed By: #### L AC, CBC, ADIFF, ANEU, LIP, CMP ####[place] [address] Potassium molar conc 4.5 mmol/L Normal 3.5-5.0 [facility] ([place] Comment on above: Performed By: #### L AC, CBC, ADIFF, ANEU, LIP, CMP ####[place] [address] Sodium 143 mmol/L Normal 136-145 [facility] ([place] Comment on above: Performed By: #### L AC, CBC, ADIFF, ANEU, LIP, CMP ####[place] [address] Urea nitrogen 12.0 mg/dL Normal 8.0-22.0 [facility] ([place] Comment on above: Performed By: #### L AC, CBC, ADIFF, ANEU, LIP, CMP ####[place] [address] Depart Summaryon 03-22-2018 Depart Summary Normal [facility] ([place]) Discharge Summaryon 03-22-20 18 Discharge Summary Normal [facility] ([place] Discharge Summary Normal [facility] ([place]) Final Surgical Pathology Rep [facility] 03-22-2018 Final Surgical Pathology Report . Pathology ReportsAccession: Collected Date/Time: Received Date/Time: Pathologist:[id number] 03/20/2018 08:27 EDT 03/21/2018 08:27 EDT MD PATITO FERNANDEZ Final Surgical Pathology ReportDIAGNOSIS:AMPULLARY BIOPSY: - SMALL INTESTINAL MUCOSA AND SUBMUCOSAL TISSUE WITH MILD ACUTE AND CHRONIC INFLAMMATION. - NO EVIDENCE OF MALIGNANCY IN THIS BIOPSY SPECIMEN.CLINICAL INFORMATION:.Procedure: ERCP WITH PTC WIRE ASSISTANCE / SPHINCTEROTOMY / BILIARY STENT PLACEMENT / AMPULLA BIOPSY USING SPECIMEN PROCEDURES FLUORO AND ANESTHESIAPreoperative diagnosis: COMMON BILE DUCT OBSTRUCTIONPostoperative diagnosis: SAMESPECIMEN:A BIOPSY, NOS - AMPULLAGROSS DESCRIPTION:Received in formalin labeled ampulla biopsy are several baxter glistening soft tissues ranging from 0.2-0.3 cm. TS -1Dictated by FREDIS RAMIREZ ([facility])MICROSCOPIC DESCRIPTION:Slides reviewed.Electronically Signed byPathology Report verified by [facility] HospitalElectronically signed by PATITO FERNANDEZ MDSign out Date: 03/22/2018 12:43Performing Lab: [facility], [address] [place] [address] Normal [facility] ([place]) Comment on above: Performed By: #### C BC, ADIFF, ANEU, LIP, GFR, CMP ####[place] [address] Gastroenterology Progress No ashtyn 03-22-2018 Gastroenterology Progress Note Normal [facility] ([place]) HFPon 03-22-2018 Bili Direct 0.3 mg/dL Normal 0.0-0.4 [facility] ([place]) Comment on above: Performed By: #### P RO, MG, BMP, GFR, HFP ####[place] [address] Bili Indirect 0.1 mg/dL Normal 0.1-10.0 [facility] ([place]) Comment on above: Performed By: #### P RO, MG, BMP, GFR, HFP ####[place] [address] Albumin/Globulin Ratio 0.9 {ratio} Normal 0.9-1.6 [facility] ([place]) Comment on above: Performed By: #### P RO, MG, BMP, GFR, HFP ####[place] [address] Alk Phos 53 U/L Normal 38-126 [facility] ([place]) Comment on above: Performed By: #### P RO, MG, BMP, GFR, HFP ####[place] [address] Bili Total 0.4 mg/dL Normal 0.2-1.2 [facility] ([place]) Comment on above: Performed By: #### P RO, MG, BMP, GFR, HFP ####[place] [address] Globulin 3.2 G/dL Normal 1.5-3.8 [facility] ([place]) Comment on above: Performed By: #### P RO, MG, BMP, GFR, HFP ####[place] [address] Protein 6.0 G/dL Normal 6.0-8.5 [facility] ([place]) Comment on above: Performed By: #### P RO, MG, BMP, GFR, HFP ####[place] [address] Alanine aminotransferase (ALT) 304 U/L High 12-55 [facility] ([place]) Comment on above: Performed By: #### P RO, MG, BMP, GFR, HFP ####[place] [address] Albumin 2.8 G/dL Low 3.2-4.8 [facility] ([place]) Comment on above: Performed By: #### P RO, MG, BMP, GFR, HFP ####[place] [address] Aspartate aminotransferase (AST) 101 U/L High 8-34 [facility] ([place]) Comment on above: Performed By: #### P RO, MG, BMP, GFR, HFP ####[place] [address] Hospitalist Progress Noteon 03-22-2018 Hospitalist Progress Note Normal [facility] ([place]) Hospitalist Progress Note Normal [facility] ([place]) Inpatient Patient Summaryon 03-22-2018 Inpatient Patient Summary Normal [facility] ([place]) LACon 03-22-2018 Lactic Acid Lvl 1.6 mmol/L Normal 0.2-2.0 [facility] ([place]) Comment on above: Performed By: #### L AC ####[place] [address] LIPon 03-22-2018 Lipase Level 155 U/L Normal 73-393 [facility] ([place]) Comment on above: Performed By: #### L AC ####[place] [address] MGon 03-22-2018 Magnesium 2.1 mg/dL Normal 1.6-2.4 [facility] ([place]) Comment on above: Performed By: #### P RO, MG, BMP, GFR, HFP ####[place] [address] PROon 03-22-2018 INR Coag RelTime (PPP) 1.0 {INR} Normal [facility] ([place]) Comment on above: Result Comment: [employer] (CHEST, 1992, 102:312S-25S)recommended therapeutic range for oral anticoagulant therapy is:LOW RISK: Prophylaxis of venous thrombosis INR: 2.0-3.0 Treatment of pulmonary embolism 2.0-3.0 Prevention of systemic embolism 2.0-3.0HIGH RISK: Mechanical prosthetic valves 2.5-3.5 Performed By: #### P RO, MG, BMP, GFR, HFP ####[place] [address] Prothrombin time (PT) Coag time (PPP) 11.0 s Normal 9.0-14.5 [facility] ([place]) Comment on above: Result Comment: Effe ctive 04/07/08, Protime results may be affected by some antibiotics (i.e. Ciprofloxacin, Azithromycin, Bactrim) which may potentiate the action of oral anticoagulants, with further increases in Protime/INR. Performed By: #### P RO, MG, BMP, GFR, HFP ####[place] [address] SHIGAon 03-22-2018 SHIGA . MICRO - MicrobiologyPROCEDURE: Shiga Toxins 1 and 2 [^1ACCESSION: [id number] *1]SOURCE: Stool BODY SITE:COLLECTED DATE/TIME: 03/21/2018 13:25 EDT RECEIVED DATE/TIME: 03/21/2018 13:25 EDTSTART DATE/TIME: 03/21/2018 13:26 EDT FREE TEXT SOURCE:FINAL REPORTSFinal Report []Verified Date/Time/Personnel: 03/22/2018 07:34 EDTAbsence of Shiga toxin 1Absence of Shiga toxin 2Interpretive Data^1: Shiga Toxins 1 and 2 Testing performed by immunochromatography.Perfo rming Locations*1: This test was performed at: [facility], [address] [place] [address], [address] , [facility] Normal [facility] ([place]) Comment on above: Performed By: #### S KELLI ####[address] [address] .Auto Diffon 03-21-2018 Basophils Auto #/vol (Bld) 0.00 10 3/mcL Normal 0.00-0.27 [facility] ([place]) Comment on above: Performed By: #### P RO, CBC, ADIFF, ANEU, MG, BMP, GFR, HFP ####[address] [address] Basophils/100 WBC Auto (Bld) 0.3 % Normal 0.0-2.5 [facility] ([place]) Comment on above: Performed By: #### P RO, CBC, ADIFF, ANEU, MG, BMP, GFR, HFP ####[address] [address] Eosinophils 0.20 10 3/mcL Normal 0.00-0.65 [facility] ([place]) Comment on above: Performed By: #### P RO, CBC, ADIFF, ANEU, MG, BMP, GFR, HFP ####[address] [address] Eosinophils/100 leukocytes 2.1 % Normal 0.0-6.0 [facility] ([place]) Comment on above: Performed By: #### P RO, CBC, ADIFF, ANEU, MG, BMP, GFR, HFP ####[address] [address] Lymphocytes 2.00 10 3/mcL Normal 0.90-4.32 [facility] ([place]) Comment on above: Performed By: #### P RO, CBC, ADIFF, ANEU, MG, BMP, GFR, HFP ####[address] [address] Lymphocytes/100 leukocytes 27.2 % Normal 20.0-40.0 [facility] ([place]) Comment on above: Performed By: #### P RO, CBC, ADIFF, ANEU, MG, BMP, GFR, HFP ####[address] [address] Monocytes 0.40 10 3/mcL Normal 0.09-1.40 [facility] ([place]) Comment on above: Performed By: #### P RO, CBC, ADIFF, ANEU, MG, BMP, GFR, HFP ####[address] [address] Monocytes/100 leukocytes 5.8 % Normal 2.0-13.0 [facility] ([place]) Comment on above: Performed By: #### P RO, CBC, ADIFF, ANEU, MG, BMP, GFR, HFP ####[address] [address] Neutrophils/100 WBC Auto (Bld) 64.6 % Normal 50.0-75.0 [facility] ([place]) Comment on above: Performed By: #### P RO, CBC, ADIFF, ANEU, MG, BMP, GFR, HFP ####[address] [address] .GFRon 03-21-2018 eGFR (non-black) mL/min/{1.73_m2} Normal [facility] ([place]) Comment on above: Result Comment: GFR Population mean for , Non- Americans Ages 20-29 = 116 mL/min/1.73 sq.m. Ages 30-39 = 107 mL/min/1.73 sq.m. Ages 40-49 = 99 mL/min/1.73 sq.m. Ages 50-59 = 93 mL/min/1.73 sq.m. Ages 60-69 = 85 mL/min/1.73 sq.m. Ages 70+ = 75 mL/min/1.73 sq.m.Chronic Kidney Disease: Less than 60 mL/min/1.73 square metersEnd Stage Renal Disease: Less than 15 mL/min/1.73 square meters Performed By: #### P RO, CBC, ADIFF, ANEU, MG, BMP, GFR, HFP ####[place] [address] .NEUABSon 03-21-2018 Neutrophils 4.80 10 3/mcL Normal 2.25-8.10 [facility] ([place]) Comment on above: Performed By: #### P RO, CBC, ADIFF, ANEU, MG, BMP, GFR, HFP ####[place] [address] BMPon 03-21-2018 BUN/Creatinine Ratio 24.1 ratio High 10.0-22.0 [facility] ([place]) Comment on above: Performed By: #### P RO, CBC, ADIFF, ANEU, MG, BMP, GFR, HFP ####[place] [address] Creatinine 0.54 mg/dL Low 0.60-1.40 [facility] ([place]) Comment on above: Performed By: #### P RO, CBC, ADIFF, ANEU, MG, BMP, GFR, HFP ####[place] [address] Calcium 8.2 mg/dL Low 8.4-10.1 [facility] ([place]) Comment on above: Performed By: #### P RO, CBC, ADIFF, ANEU, MG, BMP, GFR, HFP ####[place] [address] Chloride 100 mmol/L Normal 98-110 [facility] ([place]) Comment on above: Performed By: #### P RO, CBC, ADIFF, ANEU, MG, BMP, GFR, HFP ####[place] [address] CO2 31 mmol/L Normal 22-32 [facility] ([place]) Comment on above: Performed By: #### P RO, CBC, ADIFF, ANEU, MG, BMP, GFR, HFP ####[place] [address] Electrolyte Balance 10.0 mEq/L Normal 4.0-15.0 [facility] ([place]) Comment on above: Performed By: #### P RO, CBC, ADIFF, ANEU, MG, BMP, GFR, HFP ####[place] [address] Glucose mass conc 105 mg/dL Normal 70-110 [facility] ([place]) Comment on above: Performed By: #### P RO, CBC, ADIFF, ANEU, MG, BMP, GFR, HFP ####[place] [address] Potassium molar conc 3.9 mmol/L Normal 3.5-5.0 [facility] ([place]) Comment on above: Performed By: #### P RO, CBC, ADIFF, ANEU, MG, BMP, GFR, HFP ####[place] [address] Sodium 141 mmol/L Normal 136-145 [facility] ([place]) Comment on above: Performed By: #### P RO, CBC, ADIFF, ANEU, MG, BMP, GFR, HFP ####[place] [address] Urea nitrogen 13.0 mg/dL Normal 8.0-22.0 [facility] ([place]) Comment on above: Performed By: #### P RO, CBC, ADIFF, ANEU, MG, BMP, GFR, HFP ####[place] [address] CBCon 03-21-2018 Erythrocyte distribution width Auto Ratio (RBC) 13.2 % Normal 11.5-15.5 [facility] ([place]) Comment on above: Performed By: #### P RO, CBC, ADIFF, ANEU, MG, BMP, GFR, HFP ####[place] [address] Erythrocytes (RBC) 3.88 10 6/mcL Low 4.50-6.00 [facility] ([place]) Comment on above: Performed By: #### P RO, CBC, ADIFF, ANEU, MG, BMP, GFR, HFP ####[place] [address] Hematocrit (HCT) 38.5 % Low 40.0-52.0 [facility] ([place]) Comment on above: Performed By: #### P RO, CBC, ADIFF, ANEU, MG, BMP, GFR, HFP ####[place] [address] Hemoglobin mass conc (Bld) 13.4 G/dL Normal 13.0-17.5 [facility] ([place]) Comment on above: Performed By: #### P RO, CBC, ADIFF, ANEU, MG, BMP, GFR, HFP ####[place] [address] MCH 34.5 pg High 27.0-33.0 [facility] ([place]) Comment on above: Performed By: #### P RO, CBC, ADIFF, ANEU, MG, BMP, GFR, HFP ####[place] [address] MCHC mass conc (RBC) 34.7 G/dL Normal 32.0-36.0 [facility] ([place]) Comment on above: Performed By: #### P RO, CBC, ADIFF, ANEU, MG, BMP, GFR, HFP ####[place] [address] MCV 99.4 fL Normal 81.0-100.0 [facility] ([place]) Comment on above: Performed By: #### P RO, CBC, ADIFF, ANEU, MG, BMP, GFR, HFP ####[place] [address] Platelet mean volume (PMV) 8.8 fL Normal 6.4-10.5 [facility] ([place]) Comment on above: Performed By: #### P RO, CBC, ADIFF, ANEU, MG, BMP, GFR, HFP ####[place] [address] Platelets 181 10 3/mcL Normal 150-450 [facility] ([place]) Comment on above: Performed By: #### P RO, CBC, ADIFF, ANEU, MG, BMP, GFR, HFP ####[place] [address] WBC (Leukocytes) 7.50 10 3/mcL Normal 4.50-10.80 [facility] ([place]) Comment on above: Performed By: #### P RO, CBC, ADIFF, ANEU, MG, BMP, GFR, HFP ####[place] [address] CMPon 03-21-2018 Alanine aminotransferase (ALT) 412 U/L High 12-55 [facility] ([place]) Comment on above: Performed By: #### L AC, LIP, CMP ####[place] [address] Albumin/Globulin Ratio 1.0 {ratio} Normal 0.9-1.6 [facility] ([place]) Comment on above: Performed By: #### L AC, LIP, CMP ####[place] [address] Alk Phos 61 U/L Normal 38-126 [facility] ([place]) Comment on above: Performed By: #### L AC, LIP, CMP ####[place] [address] Bili Total 0.5 mg/dL Normal 0.2-1.2 [facility] ([place]) Comment on above: Performed By: #### L AC, LIP, CMP ####[place] [address] BUN/Creatinine Ratio 21.4 ratio Normal 10.0-22.0 [facility] ([place]) Comment on above: Performed By: #### L AC, LIP, CMP ####[place] [address] Creatinine 0.56 mg/dL Low 0.60-1.40 [facility] ([place]) Comment on above: Performed By: #### L AC, LIP, CMP ####[place] [address] Globulin 2.9 G/dL Normal 1.5-3.8 [facility] ([place]) Comment on above: Performed By: #### L AC, LIP, CMP ####[place] [address] Protein 5.7 G/dL Low 6.0-8.5 [facility] ([place]) Comment on above: Performed By: #### L AC, LIP, CMP ####[place] [address] Albumin 2.8 G/dL Low 3.2-4.8 [facility] ([place]) Comment on above: Performed By: #### L AC, LIP, CMP ####[place] [address] Aspartate aminotransferase (AST) 215 U/L High 8-34 [facility] ([place]) Comment on above: Performed By: #### L AC, LIP, CMP ####[place] [address] Calcium 8.0 mg/dL Low 8.4-10.1 [facility] ([place]) Comment on above: Performed By: #### L AC, LIP, CMP ####[place] [address] Chloride 100 mmol/L Normal 98-110 [facility] ([place]) Comment on above: Performed By: #### L AC, LIP, CMP ####[place] [address] CO2 33 mmol/L High 22-32 [facility] ([place]) Comment on above: Performed By: #### L AC, LIP, CMP ####[place] [address] Electrolyte Balance 7.0 mEq/L Normal 4.0-15.0 [facility] ([place]) Comment on above: Performed By: #### L AC, LIP, CMP ####[place] [address] Glucose mass conc 107 mg/dL Normal 70-110 [facility] ([place]) Comment on above: Performed By: #### L AC, LIP, CMP ####[place] [address] Potassium molar conc 3.8 mmol/L Normal 3.5-5.0 [facility] ([place]) Comment on above: Performed By: #### L AC, LIP, CMP ####[place] [address] Sodium 140 mmol/L Normal 136-145 [facility] ([place]) Comment on above: Performed By: #### L AC, LIP, CMP ####[place] [address] Urea nitrogen 12.0 mg/dL Normal 8.0-22.0 [facility] ([place]) Comment on above: Performed By: #### L AC, LIP, CMP ####[place] [address] Gastroenterology Progress No ashtyn 03-21-2018 Gastroenterology Progress Note Normal [facility] ([place]) HBCABon 03-21-2018 Hep B Core Ab Negative Normal NEGAT [facility] ([place]) Comment on above: Result Comment: Perf ormed By:[place] [id number] Director: Citlalli Wheatley M.D.CLIA#: [id number]#: Performed By: #### C BC, ADIFF, ANEU, LIP, GFR, CMP ####[place] [address] HBSQTon 03-21-2018 Hep B Surf Ab Qnt <8.00 Normal <8.00 [facility] ([place]) Comment on above: Result Comment: No e vidence of antibodies to Hepatitis B surface antigen.Performed By:[address] [address]Lrt Director: Citlalli Wheatley M.D.CLIA#: [id number]#: Performed By: #### C BC, ADIFF, ANEU, LIP, GFR, CMP ####[place] [address] HFPon 03-21-2018 Bili Direct 0.3 mg/dL Normal 0.0-0.4 [facility] ([place]) Comment on above: Performed By: #### P RO, CBC, ADIFF, ANEU, MG, BMP, GFR, HFP ####[place] [address] Bili Indirect 0.2 mg/dL Normal 0.1-10.0 [facility] ([place]) Comment on above: Performed By: #### P RO, CBC, ADIFF, ANEU, MG, BMP, GFR, HFP ####[place] [address] Albumin/Globulin Ratio 0.9 {ratio} Normal 0.9-1.6 [facility] ([place]) Comment on above: Performed By: #### P RO, CBC, ADIFF, ANEU, MG, BMP, GFR, HFP ####[place] [address] Alk Phos 61 U/L Normal 38-126 [facility] ([place]) Comment on above: Performed By: #### P RO, CBC, ADIFF, ANEU, MG, BMP, GFR, HFP ####[place] [address] Bili Total 0.5 mg/dL Normal 0.2-1.2 [facility] ([place]) Comment on above: Performed By: #### P RO, CBC, ADIFF, ANEU, MG, BMP, GFR, HFP ####[place] [address] Globulin 3.0 G/dL Normal 1.5-3.8 [facility] ([place]) Comment on above: Performed By: #### P RO, CBC, ADIFF, ANEU, MG, BMP, GFR, HFP ####[place] [address] Protein 5.8 G/dL Low 6.0-8.5 [facility] ([place]) Comment on above: Performed By: #### P RO, CBC, ADIFF, ANEU, MG, BMP, GFR, HFP ####[place] [address] Alanine aminotransferase (ALT) 428 U/L High 12-55 [facility] ([place]) Comment on above: Performed By: #### P RO, CBC, ADIFF, ANEU, MG, BMP, GFR, HFP ####[facility] [place] [address] Albumin 2.8 G/dL Low 3.2-4.8 [facility] ([place]) Comment on above: Performed By: #### P RO, CBC, ADIFF, ANEU, MG, BMP, GFR, HFP ####[facility] [place] [address] Aspartate aminotransferase (AST) 220 U/L High 8-34 [facility] ([place]) Comment on above: Performed By: #### P RO, CBC, ADIFF, ANEU, MG, BMP, GFR, HFP ####[place] [address] [address] [place] [id number] Hospitalist Progress Noteon 03-21-2018 Hospitalist Progress Note Normal [facility] ([place]) IR BILIARY DRAIN/CATH INT-EX T W/GUIDEon 03-21-2018 IR BILIARY DRAIN/CATH INT-EXT W/GUIDE ORIGINALPROCEDURE: 1. Left percutaneous transhepatic cholangiogram with fluoroscopic and ultrasound guidance2. Traversal of common bile duct occlusion with wire placement into the small bowel with fluoroscopy in order to rendezvous with ERCP3. Ultrasound guidance CHAINSTITCH HEMMER: Dr. Rondon CLINICAL HISTORY: CBD obstruction, rendezvous COMPARISON: MRCP 03/17/2018 MATERIALS UTILIZED: 4 Fr Marlow catheter0.035 GlidewireJeff set21 gauge needleTorque deviceJagwire CONTRAST: 10 ml Omni 350 FLUOROSCOPY: 7.8 minutes, 413 mgy air kerma ANESTHESIA: General ANTIBIOTIC: Cefoxitin 2 gm IV immediately preprocedure PROCEDURE: The procedure, risks, and alternatives, were discussed with the patient and all questions were answered. Written informed consent obtained. Accompanying paperwork was verified for accuracy. Directed history and physical exam performed prior to the procedure. Medication reconciliation performed by nursing personnel. Procedure was performed using a cap, sterile gown, sterile gloves, a large sterile sheet, hand hygiene and hospital-approved cutaneous antisepsis. The patient was positioned supine on the table and prepped and draped in usual sterile fashion. A critical pause was performed with assisting personnel just prior to the procedure with the patient's identity confirmed using 2 identifiers, confirming site and side. Under ultrasound guidance, an appropriate skin site was chosen in the epigastric region. Dilated bile ducts were demonstrated. An image of the left lobe of the liver was recorded. A tiny skin incision was made and a 21 gauge needle advanced into the liver under direct ultrasound guidance. After a single pass, a bile duct was opacified and cholangiogram performed. Injection demonstrates moderate bilateral intrahepatic duct dilatation. There is also dilatation of the common bile duct. There is tapering to occlusion at the T12-L1 level. A 0.018 wire was advanced into the duct and a Stefan set advanced over the wire. The inner cannula and stiffener were removed and a Glidewire advanced through the outer catheter. The catheter was removed and replaced only over the 0.035 wire. A Marlow catheter was advanced over the wire and negotiated into small bowel with the aid of the Glidewire. Contrast injection confirms intraluminal location in the small bowel. The duodenal mucosal markings are blunted suggesting abnormal duodenum. Jagwire was placed over the catheter and advanced into the proximal jejunum. The sheath was removed. A sterile dressing was placed. Please see ERCP report for biliary stent placement and biopsy. COMPLICATIONS: None.EBL: Less than 10 mL.PATIENT CONDITION: Stable, unchanged. IMPRESSION: 1. Percutaneous transhepatic cholangiogram demonstrates moderate bilateral biliary duct dilatation with occlusion at the lower common bile duct at the T12-L1 level.2. The occlusion was crossed and a wire was placed into the jejunum. The wire will be used for ERCP in order to traverse the occlusion and place a plastic internal stent. Interpreted By: Nain Rondon MDPreliminary Report By: Nain Rondon MDElectronically Signed By: Nain Rondon MD Dictated Date: 03/21/2018 6:19:29 PM Prelim Date: 03/21/2018 6:19:29 PM Sign Date: 03/21/2018 6:27:54 PM Normal [facility] ([place]) Interventional Radiology Pro radames Noteon 03-21-2018 Interventional Radiology Progress Note Normal [facility]) LACon 03-21-2018 Lactic Acid Lvl 2.7 mmol/L High 0.2-2.0 [facility]) Comment on above: Performed By: #### L AC, LIP, CMP ####[place] [address] LIPon 03-21-2018 Lipase Level 210 U/L Normal 73-393 [facility] ([place]) Comment on above: Performed By: #### L AC, LIP, CMP ####[place] [address] MGon 03-21-2018 Magnesium 1.9 mg/dL Normal 1.6-2.4 [facility] ([place]) Comment on above: Performed By: #### P RO, CBC, ADIFF, ANEU, MG, BMP, GFR, HFP ####[place] [address] MITOon 03-21-2018 Mitochondrial Ab Neg 20 Normal Neg 20 [facility] ([place]) Comment on above: Performed By: #### C BC, ADIFF, ANEU, LIP, GFR, CMP ####[place] [address] PROon 03-21-2018 INR Coag RelTime (PPP) 1.0 {INR} Normal [facility] ([place]) Comment on above: Result Comment: [employer] (CHEST, 1992, 102:312S-25S)recommended therapeutic range for oral anticoagulant therapy is:LOW RISK: Prophylaxis of venous thrombosis INR: 2.0-3.0 Treatment of pulmonary embolism 2.0-3.0 Prevention of systemic embolism 2.0-3.0HIGH RISK: Mechanical prosthetic valves 2.5-3.5 Performed By: #### P RO, CBC, ADIFF, ANEU, MG, BMP, GFR, HFP ####[place] [address] Prothrombin time (PT) Coag time (PPP) 11.2 s Normal 9.0-14.5 [facility] ([place]) Comment on above: Result Comment: Effe ctive 04/07/08, Protime results may be affected by some antibiotics (i.e. Ciprofloxacin, Azithromycin, Bactrim) which may potentiate the action of oral anticoagulants, with further increases in Protime/INR. Performed By: #### P RO, CBC, ADIFF, ANEU, MG, BMP, GFR, HFP ####[place] [address] SMUSCon 03-21-2018 Smooth Muscle Ab See Titer Normal Neg 20 [facility] ([place]) Comment on above: Performed By: #### A FPS, CEA, CA19, HBSAG, 1HAVM, HBCM, HCV1, HIV, OTIS, AHBSQ, AHBCOT, TRINI, SMUSC, SMUST ####[address] [address] SMUSTon 03-21-2018 Smooth Muscle Ab Titer Pos 20 Normal Neg 20 [facility] ([place]) Comment on above: Result Comment: An A nti-smooth muscle antibody (ASMA) of 1:160 or greater isseen in approximately 80% of patients with HBSAG-neg ChronicActive Hepatitis (CAH). Low ASMA titers may be present inviral infections, malignancies and normal individuals. Performed By: #### A FPS, CEA, CA19, HBSAG, 1HAVM, HBCM, HCV1, HIV, OTIS, AHBSQ, AHBCOT, TRINI, SMUSC, SMUST ####[place] [id number] XR ERCP BILIARY AND PANCREAT IC DUCTon 03-21-2018 Creatinine ORIGINALXR ERCP BILI AMAURY AND PANCREATIC DUCT CLINICAL STATEMENT: common bile duct obstruction AIR KERMA DOSE: 0 mGyBODY PART: Biliary tree IMPRESSION: Documentation of fluoroscopy. Please see intraoperative notes for additional details. Interpreted By: Nain Rondon MDPreliminary Report By: Nain Rondon MDElectronically Signed By: Nain Rondon MD Dictated Date: 03/21/2018 10:18:44 AM Prelim Date: 03/21/2018 10:18:44 AM Sign Date: 03/21/2018 10:19:37 AM Normal [facility] ([place]) .Auto Diffon 03-20-2018 Basophils Auto #/vol (Bld) 0.00 10 3/mcL Normal 0.00-0.27 [facility] ([place]) Comment on above: Performed By: #### C BC, ADIFF, ANEU, LIP, GFR, CMP ####[address] [address] Basophils/100 WBC Auto (Bld) 0.2 % Normal 0.0-2.5 [facility] ([place]) Comment on above: Performed By: #### C BC, ADIFF, ANEU, LIP, GFR, CMP ####[address] [address] Eosinophils 0.00 10 3/mcL Normal 0.00-0.65 [facility] ([place]) Comment on above: Performed By: #### C BC, ADIFF, ANEU, LIP, GFR, CMP ####[address] [address] Eosinophils/100 leukocytes 0.3 % Normal 0.0-6.0 [facility] ([place]) Comment on above: Performed By: #### C BC, ADIFF, ANEU, LIP, GFR, CMP ####[address] [address] Lymphocytes 0.80 10 3/mcL Low 0.90-4.32 [facility] ([place]) Comment on above: Performed By: #### C BC, ADIFF, ANEU, LIP, GFR, CMP ####[address] [address] Lymphocytes/100 leukocytes 11.7 % Low 20.0-40.0 [facility] ([place]) Comment on above: Performed By: #### C BC, ADIFF, ANEU, LIP, GFR, CMP ####[address] [address] Monocytes 0.40 10 3/mcL Normal 0.09-1.40 [facility] ([place]) Comment on above: Performed By: #### C BC, ADIFF, ANEU, LIP, GFR, CMP ####[address] [address] Monocytes/100 leukocytes 5.5 % Normal 2.0-13.0 [facility] ([place]) Comment on above: Performed By: #### C BC, ADIFF, ANEU, LIP, GFR, CMP ####[address] [address] Neutrophils/100 WBC Auto (Bld) 82.3 % High 50.0-75.0 [facility] ([place]) Comment on above: Performed By: #### C BC, ADIFF, ANEU, LIP, GFR, CMP ####[address] [address] .GFRon 03-20-2018 eGFR (non-black) mL/min/{1.73_m2} Normal [facility] ([place]) Comment on above: Result Comment: GFR Population mean for , Non- Americans Ages 20-29 = 116 mL/min/1.73 sq.m. Ages 30-39 = 107 mL/min/1.73 sq.m. Ages 40-49 = 99 mL/min/1.73 sq.m. Ages 50-59 = 93 mL/min/1.73 sq.m. Ages 60-69 = 85 mL/min/1.73 sq.m. Ages 70+ = 75 mL/min/1.73 sq.m.Chronic Kidney Disease: Less than 60 mL/min/1.73 square metersEnd Stage Renal Disease: Less than 15 mL/min/1.73 square meters Performed By: #### C BC, ADIFF, ANEU, LIP, GFR, CMP ####[place] [address] .NEUABSon 03-20-2018 Neutrophils 5.90 10 3/mcL Normal 2.25-8.10 [facility]) Comment on above: Performed By: #### C BC, ADIFF, ANEU, LIP, GFR, CMP ####[place] [address] AFPSon 03-20-2018 AFP, Tumor Marker 4.5 ng/mL Normal 0.0-8.5 [facility] ([place]) Comment on above: Performed By: #### C BC, ADIFF, ANEU, LIP, GFR, CMP ####[place] [address] ANAon 03-20-2018 OTIS Titer 40 {titer} Normal Neg 40 [facility] ([place]) Comment on above: Performed By: #### C BC, ADIFF, ANEU, LIP, GFR, CMP ####[place] [address] Anesthesiology Consultationo n 03-20-2018 Anesthesiology Consultation Normal [facility] ([place]) Anesthesiology Consultation Normal [facility] ([place]) BMPon 03-20-2018 BUN/Creatinine Ratio 23.9 ratio High 10.0-22.0 [facility] ([place]) Comment on above: Performed By: #### C BC, ADIFF, ANEU, LIP, GFR, CMP ####[address] [address] Calcium 8.5 mg/dL Normal 8.4-10.1 [facility] ([place]) Comment on above: Performed By: #### C BC, ADIFF, ANEU, LIP, GFR, CMP ####[address] [address] Chloride 99 mmol/L Normal 98-110 [facility] ([place]) Comment on above: Performed By: #### C BC, ADIFF, ANEU, LIP, GFR, CMP ####[address] [address] CO2 31 mmol/L Normal 22-32 [facility] ([place]) Comment on above: Performed By: #### C BC, ADIFF, ANEU, LIP, GFR, CMP ####[place] [address] Creatinine 0.46 mg/dL Low 0.60-1.40 [facility] ([place]) Comment on above: Performed By: #### C BC, ADIFF, ANEU, LIP, GFR, CMP ####[place] [address] Electrolyte Balance 9.0 mEq/L Normal 4.0-15.0 [facility] ([place]) Comment on above: Performed By: #### C BC, ADIFF, ANEU, LIP, GFR, CMP ####[place] [address] Glucose mass conc 128 mg/dL High 70-110 [facility] ([place]) Comment on above: Performed By: #### C BC, ADIFF, ANEU, LIP, GFR, CMP ####[place] [address] Potassium molar conc 4.3 mmol/L Normal 3.5-5.0 [facility] ([place]) Comment on above: Performed By: #### C BC, ADIFF, ANEU, LIP, GFR, CMP ####[place] [address] Sodium 139 mmol/L Normal 136-145 [facility] ([place]) Comment on above: Performed By: #### C BC, ADIFF, ANEU, LIP, GFR, CMP ####[place] [address] Urea nitrogen 11.0 mg/dL Normal 8.0-22.0 [facility] ([place]) Comment on above: Performed By: #### C BC, ADIFF, ANEU, LIP, GFR, CMP ####[place] [address] CA19on 03-20-2018 CA 19-9 38.6 U/mL High 0.0-35.0 [facility] ([place]) Comment on above: Performed By: #### C BC, ADIFF, ANEU, LIP, GFR, CMP ####[place] [address] CBCon 03-20-2018 Erythrocyte distribution width Auto Ratio (RBC) 13.1 % Normal 11.5-15.5 [facility] ([place]) Comment on above: Performed By: #### C BC, ADIFF, ANEU, LIP, GFR, CMP ####[place] [address] Erythrocytes (RBC) 4.33 10 6/mcL Low 4.50-6.00 [facility] ([place]) Comment on above: Performed By: #### C BC, ADIFF, ANEU, LIP, GFR, CMP ####[place] [address] Hematocrit (HCT) 43.4 % Normal 40.0-52.0 [facility] ([place]) Comment on above: Performed By: #### C BC, ADIFF, ANEU, LIP, GFR, CMP ####[place] [address] Hemoglobin mass conc (Bld) 14.8 G/dL Normal 13.0-17.5 [facility] ([place]) Comment on above: Performed By: #### C BC, ADIFF, ANEU, LIP, GFR, CMP ####[place] [address] MCH 34.1 pg High 27.0-33.0 [facility] ([place]) Comment on above: Performed By: #### C BC, ADIFF, ANEU, LIP, GFR, CMP ####[place] [address] MCHC mass conc (RBC) 34.0 G/dL Normal 32.0-36.0 [facility] ([place]) Comment on above: Performed By: #### C BC, ADIFF, ANEU, LIP, GFR, CMP ####[place] [address] MCV 100.2 fL High 81.0-100.0 [facility] ([place]) Comment on above: Performed By: #### C BC, ADIFF, ANEU, LIP, GFR, CMP ####[place] [address] Platelet mean volume (PMV) 8.6 fL Normal 6.4-10.5 [facility] ([place]) Comment on above: Performed By: #### C BC, ADIFF, ANEU, LIP, GFR, CMP ####[place] [address] Platelets 176 10 3/mcL Normal 150-450 [facility] ([place]) Comment on above: Performed By: #### C BC, ADIFF, ANEU, LIP, GFR, CMP ####[place] [address] WBC (Leukocytes) 7.20 10 3/mcL Normal 4.50-10.80 [facility] ([place]) Comment on above: Performed By: #### C BC, ADIFF, ANEU, LIP, GFR, CMP ####[place] [address] CEAon 03-20-2018 CEA 1.9 ng/mL Normal 0.0-3.0 [facility] ([place]) Comment on above: Result Comment: CEA Reference Range for SMOKERS: 0.0 - 5.0 ng/mL. Performed By: #### C BC, ADIFF, ANEU, LIP, GFR, CMP ####[place] [address] Endoscopic Procedureon 03-20 Endoscopic Procedure Normal [facility] ([place]) HAVMon 03-20-2018 Hep A IgM Ab Negative Normal Negative [facility] ([place]) Comment on above: Performed By: #### C BC, ADIFF, ANEU, LIP, GFR, CMP ####[place] [address] Hep A IgM Ab Int No serological evide nce of a current Hepatitis A infection. Normal [facility] ([place]) Comment on above: Performed By: #### C BC, ADIFF, ANEU, LIP, GFR, CMP ####[place] [address] HBCMon 03-20-2018 Hep B Core IgM Ab Negative Normal Negative [facility] ([place]) Comment on above: Result Comment: No s erological evidence of ACUTE Hepatitis B infection. Performed By: #### C BC, ADIFF, ANEU, LIP, GFR, CMP ####[place] [address] HBSAGon 03-20-2018 Hep B Surf Ag Negative Normal Negative [facility] ([place]) Comment on above: Performed By: #### C BC, ADIFF, ANEU, LIP, GFR, CMP ####[place] [address] HCVon 03-20-2018 Hep C Ab Negative Normal Negative [facility] ([place]) Comment on above: Performed By: #### C BC, ADIFF, ANEU, LIP, GFR, CMP ####[place] [address] Hep C Ab Int No serological evide nce of Hepatitis C infection, although levels of anti-HCV may be undetectable in early infection. [facility] ([place]) Comment on above: Performed By: #### C BC, ADIFF, ANEU, LIP, GFR, CMP ####[place] [address] HFPon 03-20-2018 Bili Direct 0.4 mg/dL Normal 0.0-0.4 [facility] ([place]) Comment on above: Performed By: #### C BC, ADIFF, ANEU, LIP, GFR, CMP ####[place] [address] Bili Indirect 0.2 mg/dL Normal 0.1-10.0 [facility] ([place]) Comment on above: Performed By: #### C BC, ADIFF, ANEU, LIP, GFR, CMP ####[address] [address] Albumin/Globulin Ratio 0.9 {ratio} Normal 0.9-1.6 [facility] ([place]) Comment on above: Performed By: #### C BC, ADIFF, ANEU, LIP, GFR, CMP ####[address] [address] Alk Phos 73 U/L Normal 38-126 [facility] ([place]) Comment on above: Performed By: #### C BC, ADIFF, ANEU, LIP, GFR, CMP ####[place] [address] Globulin 3.6 G/dL Normal 1.5-3.8 [facility] ([place]) Comment on above: Performed By: #### C BC, ADIFF, ANEU, LIP, GFR, CMP ####[place] [address] Protein 6.7 G/dL Normal 6.0-8.5 [facility] ([place]) Comment on above: Performed By: #### C BC, ADIFF, ANEU, LIP, GFR, CMP ####[place] [address] Alanine aminotransferase (ALT) 553 U/L High 12-55 [facility] ([place]) Comment on above: Performed By: #### C BC, ADIFF, ANEU, LIP, GFR, CMP ####[place] [address] Albumin 3.1 G/dL Low 3.2-4.8 [facility] ([place]) Comment on above: Performed By: #### C BC, ADIFF, ANEU, LIP, GFR, CMP ####[address] [address] Aspartate aminotransferase (AST) 341 U/L High 8-34 [facility] ([place]) Comment on above: Performed By: #### C BC, ADIFF, ANEU, LIP, GFR, CMP ####[place] [id number] [place] [address] Bili Total 0.6 mg/dL Normal 0.2-1.2 [facility] ([place]) Comment on above: Performed By: #### C BC, ADIFF, ANEU, LIP, GFR, CMP ####[place] [address] HIVon 03-20-2018 HIV 1/2 Ab Normal Negative [facility] ([place]) Comment on above: Result Comment: Dianne Carolina is negative for anti-HIV-1 and anti-HIV-2. Performed By: #### C BC, ADIFF, ANEU, LIP, GFR, CMP ####[place] [address] Hospitalist Progress Noteon 03-20-2018 Hospitalist Progress Note Normal [facility] ([place]) IR Procedure Recordon 2017 IR Procedure Record Normal [facility] ([place]) MGon 03-20-2018 Magnesium 2.2 mg/dL Normal 1.6-2.4 [facility] ([place]) Comment on above: Performed By: #### C BC, ADIFF, ANEU, LIP, GFR, CMP ####[place] [address] Main OR Intraop Recordon Main OR Intraop Record Normal [facility] ([place]) PROon 03-20-2018 INR Coag RelTime (PPP) 1.0 {INR} Normal [facility] ([place]) Comment on above: Result Comment: [employer] (CHEST, 1992, [id number])recommended therapeutic range for oral anticoagulant therapy is:LOW RISK: Prophylaxis of venous thrombosis INR: 2.0-3.0 Treatment of pulmonary embolism 2.0-3.0 Prevention of systemic embolism 2.0-3.0HIGH RISK: Mechanical prosthetic valves 2.5-3.5 Performed By: #### C BC, ADIFF, ANEU, LIP, GFR, CMP ####[place] [address] Prothrombin time (PT) Coag time (PPP) 11.5 s Normal 9.0-14.5 [facility] ([place]) Comment on above: Result Comment: Effe ctive 04/07/08, Protime results may be affected by some antibiotics (i.e. Ciprofloxacin, Azithromycin, Bactrim) which may potentiate the action of oral anticoagulants, with further increases in Protime/INR. Performed By: #### C BC, ADIFF, ANEU, LIP, GFR, CMP ####[address] [address] Procedure Noteon 03-20-2018 Procedure Note Normal [facility] ([place]) .Auto Diffon 03-19-2018 Basophils Auto #/vol (Bld) 0.00 10 3/mcL Normal 0.00-0.27 [facility] ([place]) Comment on above: Performed By: #### C BC, ADIFF, ANEU, LIP, GFR, CMP ####[address] [address] Basophils/100 WBC Auto (Bld) 0.3 % Normal 0.0-2.5 [facility] ([place]) Comment on above: Performed By: #### C BC, ADIFF, ANEU, LIP, GFR, CMP ####[address] [address] Eosinophils 0.10 10 3/mcL Normal 0.00-0.65 [facility] ([place]) Comment on above: Performed By: #### C BC, ADIFF, ANEU, LIP, GFR, CMP ####[address] [address] Eosinophils/100 leukocytes 2.3 % Normal 0.0-6.0 [facility] ([place]) Comment on above: Performed By: #### C BC, ADIFF, ANEU, LIP, GFR, CMP ####[address] [address] Lymphocytes 1.10 10 3/mcL Normal 0.90-4.32 [facility] ([place]) Comment on above: Performed By: #### C BC, ADIFF, ANEU, LIP, GFR, CMP ####[address] [address] Lymphocytes/100 leukocytes 18.8 % Low 20.0-40.0 [facility] ([place]) Comment on above: Performed By: #### C BC, ADIFF, ANEU, LIP, GFR, CMP ####[address] [address] Monocytes 0.40 10 3/mcL Normal 0.09-1.40 [facility] ([place]) Comment on above: Performed By: #### C BC, ADIFF, ANEU, LIP, GFR, CMP ####[address] [address] Monocytes/100 leukocytes 7.1 % Normal 2.0-13.0 [facility] ([place]) Comment on above: Performed By: #### C BC, ADIFF, ANEU, LIP, GFR, CMP ####[address] [address] Neutrophils/100 WBC Auto (Bld) 71.5 % Normal 50.0-75.0 [facility] ([place]) Comment on above: Performed By: #### C BC, ADIFF, ANEU, LIP, GFR, CMP ####[address] [address] .GFRon 03-19-2018 eGFR (non-black) mL/min/{1.73_m2} Normal [facility] ([place]) Comment on above: Result Comment: GFR Population mean for , Non- Americans Ages 20-29 = 116 mL/min/1.73 sq.m. Ages 30-39 = 107 mL/min/1.73 sq.m. Ages 40-49 = 99 mL/min/1.73 sq.m. Ages 50-59 = 93 mL/min/1.73 sq.m. Ages 60-69 = 85 mL/min/1.73 sq.m. Ages 70+ = 75 mL/min/1.73 sq.m.Chronic Kidney Disease: Less than 60 mL/min/1.73 square metersEnd Stage Renal Disease: Less than 15 mL/min/1.73 square meters Performed By: #### C BC, ADIFF, ANEU, LIP, GFR, CMP ####[address] [address] .NEUABSon 03-19-2018 Neutrophils 4.30 10 3/mcL Normal 2.25-8.10 [facility] ([place]) Comment on above: Performed By: #### C BC, ADIFF, ANEU, LIP, GFR, CMP ####[place] [address] Anesthesiology Consultationo n 03-19-2018 Anesthesiology Consultation Normal [facility] ([place]) Anesthesiology Consultation Normal [facility] ([place]) BMPon 03-19-2018 BUN/Creatinine Ratio 14.0 ratio Normal 10.0-22.0 [facility] ([place]) Comment on above: Performed By: #### C BC, ADIFF, ANEU, LIP, GFR, CMP ####[place] [address] Creatinine 0.50 mg/dL Low 0.60-1.40 [facility] ([place] Comment on above: Performed By: #### C BC, ADIFF, ANEU, LIP, GFR, CMP ####[place] [address] Calcium 8.7 mg/dL Normal 8.4-10.1 [facility] ([place]) Comment on above: Performed By: #### C BC, ADIFF, ANEU, LIP, GFR, CMP ####[place] [address] Chloride 98 mmol/L Normal 98-110 [facility] ([place] Comment on above: Performed By: #### C BC, ADIFF, ANEU, LIP, GFR, CMP ####[place] [address] CO2 30 mmol/L Normal 22-32 [facility] ([place] Comment on above: Performed By: #### C BC, ADIFF, ANEU, LIP, GFR, CMP ####[place] [address] Electrolyte Balance 10.0 mEq/L Normal 4.0-15.0 [facility] ([place]) Comment on above: Performed By: #### C BC, ADIFF, ANEU, LIP, GFR, CMP ####[place] [address] Glucose mass conc 102 mg/dL Normal 70-110 [facility] ([place] Comment on above: Performed By: #### C BC, ADIFF, ANEU, LIP, GFR, CMP ####[place] [address] Potassium molar conc 4.0 mmol/L Normal 3.5-5.0 [facility] ([place] Comment on above: Performed By: #### C BC, ADIFF, ANEU, LIP, GFR, CMP ####[place] [address] Sodium 138 mmol/L Normal 136-145 [facility] ([place] Comment on above: Performed By: #### C BC, ADIFF, ANEU, LIP, GFR, CMP ####[place] [address] Urea nitrogen 7.0 mg/dL Low 8.0-22.0 [facility] ([place]) Comment on above: Performed By: #### C BC, ADIFF, ANEU, LIP, GFR, CMP ####[place] [address] CBCon 03-19-2018 Erythrocyte distribution width Auto Ratio (RBC) 13.0 % Normal 11.5-15.5 [facility] ([place] Comment on above: Performed By: #### C BC, ADIFF, ANEU, LIP, GFR, CMP ####[place] [address] Erythrocytes (RBC) 4.49 10 6/mcL Low 4.50-6.00 [facility] ([place]) Comment on above: Performed By: #### C BC, ADIFF, ANEU, LIP, GFR, CMP ####[place] [address] Hematocrit (HCT) 44.7 % Normal 40.0-52.0 [facility] ([place] Comment on above: Performed By: #### C BC, ADIFF, ANEU, LIP, GFR, CMP ####[place] [address] Hemoglobin mass conc (Bld) 15.2 G/dL Normal 13.0-17.5 [facility] ([place] Comment on above: Performed By: #### C BC, ADIFF, ANEU, LIP, GFR, CMP ####[place] [address] MCH 33.9 pg High 27.0-33.0 [facility] ([place] Comment on above: Performed By: #### C BC, ADIFF, ANEU, LIP, GFR, CMP ####[place] [address] MCHC mass conc (RBC) 34.0 G/dL Normal 32.0-36.0 [facility] ([place] Comment on above: Performed By: #### C BC, ADIFF, ANEU, LIP, GFR, CMP ####[place] [address] MCV 99.7 fL Normal 81.0-100.0 [facility] ([place] Comment on above: Performed By: #### C BC, ADIFF, ANEU, LIP, GFR, CMP ####[place] [address] Platelet mean volume (PMV) 8.5 fL Normal 6.4-10.5 [facility] ([place] Comment on above: Performed By: #### C BC, ADIFF, ANEU, LIP, GFR, CMP ####[place] [address] Platelets 171 10 3/mcL Normal 150-450 [facility] ([place] Comment on above: Performed By: #### C BC, ADIFF, ANEU, LIP, GFR, CMP ####[place] [address] WBC (Leukocytes) 6.00 10 3/mcL Normal 4.50-10.80 [facility] ([place]) Comment on above: Performed By: #### C BC, ADIFF, ANEU, LIP, GFR, CMP ####[place] [address] Dance Historian Progress Noteon 03-19-2018 Dance Historian Progress Note Normal [facility] ([place]) Endoscopic Procedureon 03-19 Endoscopic Procedure Normal [facility] ([place]) HFPon 03-19-2018 Bili Direct 1.7 mg/dL High 0.0-0.4 [facility] ([place]) Comment on above: Performed By: #### C BC, ADIFF, ANEU, LIP, GFR, CMP ####[place] [address] Bili Indirect 0.6 mg/dL Normal 0.1-10.0 [facility] ([place] Comment on above: Performed By: #### C BC, ADIFF, ANEU, LIP, GFR, CMP ####[place] [address] Albumin/Globulin Ratio 1.1 {ratio} Normal 0.9-1.6 [facility] ([place]) Comment on above: Performed By: #### C BC, ADIFF, ANEU, LIP, GFR, CMP ####[place] [address] Alk Phos 67 U/L Normal 38-126 [facility] ([place] Comment on above: Performed By: #### C BC, ADIFF, ANEU, LIP, GFR, CMP ####[place] [address] Bili Total 2.3 mg/dL High 0.2-1.2 [facility] ([place] Comment on above: Performed By: #### C BC, ADIFF, ANEU, LIP, GFR, CMP ####[place] [address] Globulin 3.1 G/dL Normal 1.5-3.8 [facility] ([place] Comment on above: Performed By: #### C BC, ADIFF, ANEU, LIP, GFR, CMP ####[place] [address] Protein 6.6 G/dL Normal 6.0-8.5 [facility] ([place] Comment on above: Performed By: #### C BC, ADIFF, ANEU, LIP, GFR, CMP ####[place] [address] Alanine aminotransferase (ALT) 565 U/L High 12-55 [facility] ([place]) Comment on above: Performed By: #### C BC, ADIFF, ANEU, LIP, GFR, CMP ####Yina [id number] [place] [address] Albumin 3.5 G/dL Normal 3.2-4.8 [facility] ([place] Comment on above: Performed By: #### C BC, ADIFF, ANEU, LIP, GFR, CMP ####[address] [address] Aspartate aminotransferase (AST) 449 U/L High 8-34 [facility] ([place]) Comment on above: Performed By: #### C BC, ADIFF, ANEU, LIP, GFR, CMP ####[address] [address] MGon 03-19-2018 Magnesium 2.0 mg/dL Normal 1.6-2.4 [facility] ([place] Comment on above: Performed By: #### C BC, ADIFF, ANEU, LIP, GFR, CMP ####[address] [address] Main OR Intraop Recordon Main OR Intraop Record Normal [facility] ([place]) PROon 03-19-2018 INR Coag RelTime (PPP) 1.0 {INR} Normal [facility] ([place]) Comment on above: Result Comment: [employer] (CHEST, 1992, 102:[id number])recommended therapeutic range for oral anticoagulant therapy is:LOW RISK: Prophylaxis of venous thrombosis INR: 2.0-3.0 Treatment of pulmonary embolism 2.0-3.0 Prevention of systemic embolism 2.0-3.0HIGH RISK: Mechanical prosthetic valves 2.5-3.5 Performed By: #### C BC, ADIFF, ANEU, LIP, GFR, CMP ####[address] [address] Prothrombin time (PT) Coag time (PPP) 11.8 s Normal 9.0-14.5 [facility] ([place]) Comment on above: Result Comment: Effe ctive 04/07/08, Protime results may be affected by some antibiotics (i.e. Ciprofloxacin, Azithromycin, Bactrim) which may potentiate the action of oral anticoagulants, with further increases in Protime/INR. Performed By: #### C BC, ADIFF, ANEU, LIP, GFR, CMP ####[address] [address] XR ERCP BILIARY AND PANCREAT IC DUCTon 03-19-2018 Creatinine ORIGINALXR ERCP BILI AMAURY AND PANCREATIC DUCT CLINICAL STATEMENT: ERCP COMPARISON: None FINDINGS:80.9 seconds of fluoroscopic time with a cumulative dose of 40.26 mGy was utilized. 2 intraoperative images for localization purposes were recorded. Reference is made to intraoperative notes for diagnostic information Interpreted By: Elly Salcedo MDPreliminary Report By: Elly Salcedo MDElectronically Signed By: Elly Salcedo MD Dictated Date: 03/19/2018 2:40:00 PM Prelim Date: 03/19/2018 2:40:00 PM Sign Date: 03/19/2018 2:40:27 PM Normal [facility] ([place]) .Auto Diffon 03-18-2018 Basophils Auto #/vol (Bld) 0.00 10 3/mcL Normal 0.00-0.27 [facility] ([place]) Comment on above: Performed By: #### C BC, ADIFF, ANEU, LIP, GFR, CMP ####[address] [address] Basophils/100 WBC Auto (Bld) 0.3 % Normal 0.0-2.5 [facility] ([place] Comment on above: Performed By: #### C BC, ADIFF, ANEU, LIP, GFR, CMP ####[address] [address] Eosinophils 0.10 10 3/mcL Normal 0.00-0.65 [facility] ([place] Comment on above: Performed By: #### C BC, ADIFF, ANEU, LIP, GFR, CMP ####[address] [address] Eosinophils/100 leukocytes 2.1 % Normal 0.0-6.0 [facility] ([place] Comment on above: Performed By: #### C BC, ADIFF, ANEU, LIP, GFR, CMP ####[address] [address] Lymphocytes 1.20 10 3/mcL Normal 0.90-4.32 [facility] ([place] Comment on above: Performed By: #### C BC, ADIFF, ANEU, LIP, GFR, CMP ####[address] [address] Lymphocytes/100 leukocytes 20.3 % Normal 20.0-40.0 [facility] ([place] Comment on above: Performed By: #### C BC, ADIFF, ANEU, LIP, GFR, CMP ####[address] [address] Monocytes 0.40 10 3/mcL Normal 0.09-1.40 [facility] ([place] Comment on above: Performed By: #### C BC, ADIFF, ANEU, LIP, GFR, CMP ####[address] [address] Monocytes/100 leukocytes 6.9 % Normal 2.0-13.0 [facility] ([place] Comment on above: Performed By: #### C BC, ADIFF, ANEU, LIP, GFR, CMP ####[address] [address] Neutrophils/100 WBC Auto (Bld) 70.4 % Normal 50.0-75.0 [facility] ([place] Comment on above: Performed By: #### C BC, ADIFF, ANEU, LIP, GFR, CMP ####[address] [address] .GFRon 03-18-2018 eGFR (non-black) mL/min/{1.73_m2} Normal [facility] ([place]) Comment on above: Result Comment: GFR Population mean for , Non- Americans Ages 20-29 = 116 mL/min/1.73 sq.m. Ages 30-39 = 107 mL/min/1.73 sq.m. Ages 40-49 = 99 mL/min/1.73 sq.m. Ages 50-59 = 93 mL/min/1.73 sq.m. Ages 60-69 = 85 mL/min/1.73 sq.m. Ages 70+ = 75 mL/min/1.73 sq.m.Chronic Kidney Disease: Less than 60 mL/min/1.73 square metersEnd Stage Renal Disease: Less than 15 mL/min/1.73 square meters Performed By: #### C BC, ADIFF, ANEU, LIP, GFR, CMP ####[place] [address] .NEUABSon 03-18-2018 Neutrophils 4.30 10 3/mcL Normal 2.25-8.10 [facility] ([place] Comment on above: Performed By: #### C BC, ADIFF, ANEU, LIP, GFR, CMP ####[place] [address] BMPon 03-18-2018 BUN/Creatinine Ratio 15.9 ratio Normal 10.0-22.0 [facility] ([place]) Comment on above: Performed By: #### C BC, ADIFF, ANEU, LIP, GFR, CMP ####[place] [address] Creatinine 0.44 mg/dL Low 0.60-1.40 [facility] ([place]) Comment on above: Performed By: #### C BC, ADIFF, ANEU, LIP, GFR, CMP ####[place] [address] Calcium 8.2 mg/dL Low 8.4-10.1 [facility] ([place]) Comment on above: Performed By: #### C BC, ADIFF, ANEU, LIP, GFR, CMP ####[place] [address] Chloride 101 mmol/L Normal 98-110 [facility] ([place]) Comment on above: Performed By: #### C BC, ADIFF, ANEU, LIP, GFR, CMP ####[place] [address] CO2 29 mmol/L Normal 22-32 [facility] ([place]) Comment on above: Performed By: #### C BC, ADIFF, ANEU, LIP, GFR, CMP ####[place] [address] Electrolyte Balance 9.0 mEq/L Normal 4.0-15.0 [facility] ([place]) Comment on above: Performed By: #### C BC, ADIFF, ANEU, LIP, GFR, CMP ####[place] [address] Glucose mass conc 86 mg/dL Normal 70-110 [facility] ([place]) Comment on above: Performed By: #### C BC, ADIFF, ANEU, LIP, GFR, CMP ####[place] [address] Potassium molar conc 4.0 mmol/L Normal 3.5-5.0 [facility] ([place]) Comment on above: Performed By: #### C BC, ADIFF, ANEU, LIP, GFR, CMP ####[place] [address] Sodium 139 mmol/L Normal 136-145 [facility] ([place]) Comment on above: Performed By: #### C BC, ADIFF, ANEU, LIP, GFR, CMP ####[place] [address] Urea nitrogen 7.0 mg/dL Low 8.0-22.0 [facility] ([place]) Comment on above: Performed By: #### C BC, ADIFF, ANEU, LIP, GFR, CMP ####[place] [address] CBCon 03-18-2018 Erythrocyte distribution width Auto Ratio (RBC) 12.9 % Normal 11.5-15.5 [facility] ([place]) Comment on above: Performed By: #### C BC, ADIFF, ANEU, LIP, GFR, CMP ####[place] [address] Erythrocytes (RBC) 4.35 10 6/mcL Low 4.50-6.00 [facility] ([place]) Comment on above: Performed By: #### C BC, ADIFF, ANEU, LIP, GFR, CMP ####[place] [address] Hematocrit (HCT) 43.3 % Normal 40.0-52.0 [facility] ([place]) Comment on above: Performed By: #### C BC, ADIFF, ANEU, LIP, GFR, CMP ####[place] [address] Hemoglobin mass conc (Bld) 15.1 G/dL Normal 13.0-17.5 [facility] ([place]) Comment on above: Performed By: #### C BC, ADIFF, ANEU, LIP, GFR, CMP ####[place] [address] MCH 34.7 pg High 27.0-33.0 [facility] ([place]) Comment on above: Performed By: #### C BC, ADIFF, ANEU, LIP, GFR, CMP ####[place] [address] MCHC mass conc (RBC) 34.9 G/dL Normal 32.0-36.0 [facility] ([place]) Comment on above: Performed By: #### C BC, ADIFF, ANEU, LIP, GFR, CMP ####[place] [address] MCV 99.4 fL Normal 81.0-100.0 [facility] ([place]) Comment on above: Performed By: #### C BC, ADIFF, ANEU, LIP, GFR, CMP ####[place] [address] Platelet mean volume (PMV) 8.4 fL Normal 6.4-10.5 [facility] ([place]) Comment on above: Performed By: #### C BC, ADIFF, ANEU, LIP, GFR, CMP ####[place] [address] Platelets 168 10 3/mcL Normal 150-450 [facility] ([place]) Comment on above: Performed By: #### C BC, ADIFF, ANEU, LIP, GFR, CMP ####[place] [address] WBC (Leukocytes) 6.10 10 3/mcL Normal 4.50-10.80 [facility] ([place]) Comment on above: Performed By: #### C BC, ADIFF, ANEU, LIP, GFR, CMP ####[place] [address] CRPon 03-18-2018 C reactive protein (CRP) 1.49 mg/dL High <=0.80 [facility] ([place]) Comment on above: Order Comment: add o n Performed By: #### C BC, ADIFF, ANEU, LIP, GFR, CMP ####[place] [address] Gastroenterology Progress No ashtyn 03-18-2018 Gastroenterology Progress Note Normal [facility] ([place]) HFPon 03-18-2018 Bili Direct 1.3 mg/dL High 0.0-0.4 [facility] ([place]) Comment on above: Performed By: #### C BC, ADIFF, ANEU, LIP, GFR, CMP ####[place] [address] Bili Indirect 0.6 mg/dL Normal 0.1-10.0 [facility] ([place]) Comment on above: Performed By: #### C BC, ADIFF, ANEU, LIP, GFR, CMP ####[place] [address] Albumin/Globulin Ratio 1.1 {ratio} Normal 0.9-1.6 [facility] ([place]) Comment on above: Performed By: #### C BC, ADIFF, ANEU, LIP, GFR, CMP ####[place] [address] Alk Phos 53 U/L Normal 38-126 [facility] ([place] Comment on above: Performed By: #### C BC, ADIFF, ANEU, LIP, GFR, CMP ####[place] [address] Bili Total 1.9 mg/dL High 0.2-1.2 [facility] ([place]) Comment on above: Performed By: #### C BC, ADIFF, ANEU, LIP, GFR, CMP ####[place] [address] Globulin 2.9 G/dL Normal 1.5-3.8 [facility] ([place]) Comment on above: Performed By: #### C BC, ADIFF, ANEU, LIP, GFR, CMP ####[place] [address] Protein 6.2 G/dL Normal 6.0-8.5 [facility] ([place]) Comment on above: Performed By: #### C BC, ADIFF, ANEU, LIP, GFR, CMP ####[address] [address] Alanine aminotransferase (ALT) 486 U/L High 12-55 [facility]) Comment on above: Performed By: #### C BC, ADIFF, ANEU, LIP, GFR, CMP ####[place] [address] Albumin 3.3 G/dL Normal 3.2-4.8 [facility]) Comment on above: Performed By: #### C BC, ADIFF, ANEU, LIP, GFR, CMP ####[place] [address] Aspartate aminotransferase (AST) 411 U/L High 8-34 [facility] ([place]) Comment on above: Performed By: #### C BC, ADIFF, ANEU, LIP, GFR, CMP ####[place] [address] Hospitalist Progress Noteon 03-18-2018 Hospitalist Progress Note Normal [facility] ([place]) Hospitalist Progress Note Normal [facility] ([place]) Hospitalist Progress Note Normal [facility] ([place]) MGon 03-18-2018 Magnesium 2.0 mg/dL Normal 1.6-2.4 [facility]) Comment on above: Performed By: #### C BC, ADIFF, ANEU, LIP, GFR, CMP ####[place] [address] PROon 03-18-2018 INR Coag RelTime (PPP) 1.0 {INR} Normal [facility]) Comment on above: Result Comment: [employer] (CHEST, 1991, [id number])recommended therapeutic range for oral anticoagulant therapy is:LOW RISK: Prophylaxis of venous thrombosis INR: 2.0-3.0 Treatment of pulmonary embolism 2.0-3.0 Prevention of systemic embolism 2.0-3.0HIGH RISK: Mechanical prosthetic valves 2.5-3.5 Performed By: #### C BC, ADIFF, ANEU, LIP, GFR, CMP ####[place] [id number] Prothrombin time (PT) Coag time (PPP) 12.0 s Normal 9.0-14.5 [facility] ([place]) Comment on above: Result Comment: Effe ctive 04/07/08, Protime results may be affected by some antibiotics (i.e. Ciprofloxacin, Azithromycin, Bactrim) which may potentiate the action of oral anticoagulants, with further increases in Protime/INR. Performed By: #### C BC, ADIFF, ANEU, LIP, GFR, CMP ####[place] [address] TRIGon 03-18-2018 Triglyceride 104 mg/dL Normal 3-149 [facility] ([place]) Comment on above: Result Comment: Trig lyceride Reference Interval:Less than 150 [id number] Borderline high [id number] High [id number] or higher Very high risk Performed By: #### C BC, ADIFF, ANEU, LIP, GFR, CMP ####[place] [address] .Auto Diffon 03-17-2018 Basophils Auto #/vol (Bld) 0.00 10 3/mcL Normal 0.00-0.27 [facility] ([place]) Comment on above: Performed By: #### C BC, ADIFF, ANEU, LIP, GFR, CMP ####[place] [address] Basophils/100 WBC Auto (Bld) 0.5 % Normal 0.0-2.5 [facility] ([place]) Comment on above: Performed By: #### C BC, ADIFF, ANEU, LIP, GFR, CMP ####[place] [address] Eosinophils 0.10 10 3/mcL Normal 0.00-0.65 [facility] ([place]) Comment on above: Performed By: #### C BC, ADIFF, ANEU, LIP, GFR, CMP ####[place] [address] Eosinophils/100 leukocytes 2.1 % Normal 0.0-6.0 [facility] ([place]) Comment on above: Performed By: #### C BC, ADIFF, ANEU, LIP, GFR, CMP ####[address] [address] Lymphocytes 1.40 10 3/mcL Normal 0.90-4.32 [facility] ([place]) Comment on above: Performed By: #### C BC, ADIFF, ANEU, LIP, GFR, CMP ####[address] [address] Lymphocytes/100 leukocytes 25.2 % Normal 20.0-40.0 [facility] ([place]) Comment on above: Performed By: #### C BC, ADIFF, ANEU, LIP, GFR, CMP ####[address] [address] Monocytes 0.40 10 3/mcL Normal 0.09-1.40 [facility] ([place]) Comment on above: Performed By: #### C BC, ADIFF, ANEU, LIP, GFR, CMP ####[address] [address] Monocytes/100 leukocytes 7.6 % Normal 2.0-13.0 [facility] ([place]) Comment on above: Performed By: #### C BC, ADIFF, ANEU, LIP, GFR, CMP ####[address] [address] Neutrophils/100 WBC Auto (Bld) 64.6 % Normal 50.0-75.0 [facility] ([place]) Comment on above: Performed By: #### C BC, ADIFF, ANEU, LIP, GFR, CMP ####[address] [address] .GFRon 03-17-2018 eGFR (non-black) mL/min/{1.73_m2} Normal [facility] ([place]) Comment on above: Result Comment: GFR Population mean for , Non- Americans Ages 20-29 = 116 mL/min/1.73 sq.m. Ages 30-39 = 107 mL/min/1.73 sq.m. Ages 40-49 = 99 mL/min/1.73 sq.m. Ages 50-59 = 93 mL/min/1.73 sq.m. Ages 60-69 = 85 mL/min/1.73 sq.m. Ages 70+ = 75 mL/min/1.73 sq.m.Chronic Kidney Disease: Less than 60 mL/min/1.73 square metersEnd Stage Renal Disease: Less than 15 mL/min/1.73 square meters Performed By: #### C BC, ADIFF, ANEU, LIP, GFR, CMP ####[place] [address] .NEUABSon 03-17-2018 Neutrophils 3.70 10 3/mcL Normal 2.25-8.10 [facility] ([place]) Comment on above: Performed By: #### C BC, ADIFF, ANEU, LIP, GFR, CMP ####[place] [address] CBCon 03-17-2018 Erythrocyte distribution width Auto Ratio (RBC) 13.0 % Normal 11.5-15.5 [facility] ([place]) Comment on above: Performed By: #### C BC, ADIFF, ANEU, LIP, GFR, CMP ####[place] [address] Erythrocytes (RBC) 4.45 10 6/mcL Low 4.50-6.00 [facility] ([place]) Comment on above: Performed By: #### C BC, ADIFF, ANEU, LIP, GFR, CMP ####[place] [address] Hematocrit (HCT) 44.4 % Normal 40.0-52.0 [facility] ([place]) Comment on above: Performed By: #### C BC, ADIFF, ANEU, LIP, GFR, CMP ####[place] [address] Hemoglobin mass conc (Bld) 15.1 G/dL Normal 13.0-17.5 [facility] ([place]) Comment on above: Performed By: #### C BC, ADIFF, ANEU, LIP, GFR, CMP ####[place] [address] MCH 33.9 pg High 27.0-33.0 [facility] ([place]) Comment on above: Performed By: #### C BC, ADIFF, ANEU, LIP, GFR, CMP ####[place] [address] MCHC mass conc (RBC) 34.0 G/dL Normal 32.0-36.0 [facility] ([place]) Comment on above: Performed By: #### C BC, ADIFF, ANEU, LIP, GFR, CMP ####[place] [address] MCV 99.8 fL Normal 81.0-100.0 [facility] ([place]) Comment on above: Performed By: #### C BC, ADIFF, ANEU, LIP, GFR, CMP ####[place] [address] Platelet mean volume (PMV) 7.8 fL Normal 6.4-10.5 [facility] ([place]) Comment on above: Performed By: #### C BC, ADIFF, ANEU, LIP, GFR, CMP ####[place] [address] Platelets 165 10 3/mcL Normal 150-450 [facility] ([place]) Comment on above: Performed By: #### C BC, ADIFF, ANEU, LIP, GFR, CMP ####[place] [address] WBC (Leukocytes) 5.70 10 3/mcL Normal 4.50-10.80 [facility] ([place]) Comment on above: Performed By: #### C BC, ADIFF, ANEU, LIP, GFR, CMP ####[place] [address] CMPon 03-17-2018 Albumin/Globulin Ratio 1.2 {ratio} Normal 0.9-1.6 [facility] ([place]) Comment on above: Performed By: #### C BC, ADIFF, ANEU, LIP, GFR, CMP ####[place] [address] Alk Phos 40 U/L Normal 38-126 [facility] ([place]) Comment on above: Performed By: #### C BC, ADIFF, ANEU, LIP, GFR, CMP ####[place] [address] Bili Total 1.9 mg/dL High 0.2-1.2 [facility] ([place]) Comment on above: Performed By: #### C BC, ADIFF, ANEU, LIP, GFR, CMP ####[address] [address] Globulin 3.0 G/dL Normal 1.5-3.8 [facility] ([place]) Comment on above: Performed By: #### C BC, ADIFF, ANEU, LIP, GFR, CMP ####[address] [address] Protein 6.7 G/dL Normal 6.0-8.5 [facility] ([place]) Comment on above: Performed By: #### C BC, ADIFF, ANEU, LIP, GFR, CMP ####[place] [address] Alanine aminotransferase (ALT) 369 U/L High 12-55 [facility] ([place]) Comment on above: Performed By: #### C BC, ADIFF, ANEU, LIP, GFR, CMP ####[place] [address] Albumin 3.7 G/dL Normal 3.2-4.8 [facility] ([place]) Comment on above: Performed By: #### C BC, ADIFF, ANEU, LIP, GFR, CMP ####[place] [address] Aspartate aminotransferase (AST) 300 U/L High 8-34 [facility] ([place]) Comment on above: Result Comment: Spec imen slightly hemolyzed. Results may be falsely elevated. Performed By: #### C BC, ADIFF, ANEU, LIP, GFR, CMP ####[address] [address] BUN/Creatinine Ratio 20.8 ratio Normal 10.0-22.0 [facility] ([place]) Comment on above: Performed By: #### C BC, ADIFF, ANEU, LIP, GFR, CMP ####[address] [address] Calcium 8.6 mg/dL Normal 8.4-10.1 [facility] ([place]) Comment on above: Performed By: #### C BC, ADIFF, ANEU, LIP, GFR, CMP ####[place] [address] Chloride 109 mmol/L Normal 98-110 [facility] ([place]) Comment on above: Performed By: #### C BC, ADIFF, ANEU, LIP, GFR, CMP ####[place] [address] CO2 28 mmol/L Normal 22-32 [facility] ([place]) Comment on above: Performed By: #### C BC, ADIFF, ANEU, LIP, GFR, CMP ####[place] [address] Creatinine 0.53 mg/dL Low 0.60-1.40 [facility] ([place]) Comment on above: Performed By: #### C BC, ADIFF, ANEU, LIP, GFR, CMP ####[place] [address] Electrolyte Balance 8.0 mEq/L Normal 4.0-15.0 [facility] ([place]) Comment on above: Performed By: #### C BC, ADIFF, ANEU, LIP, GFR, CMP ####[place] [address] Glucose mass conc 83 mg/dL Normal 70-110 [facility] ([place]) Comment on above: Performed By: #### C BC, ADIFF, ANEU, LIP, GFR, CMP ####[place] [address] Potassium molar conc 4.4 mmol/L Normal 3.5-5.0 [facility] ([place]) Comment on above: Result Comment: Spec imen slightly hemolyzed. Results may be falsely elevated. Performed By: #### C BC, ADIFF, ANEU, LIP, GFR, CMP ####[place] [address] Sodium 145 mmol/L Normal 136-145 [facility] ([place]) Comment on above: Performed By: #### C BC, ADIFF, ANEU, LIP, GFR, CMP ####[place] [address] Urea nitrogen 11.0 mg/dL Normal 8.0-22.0 [facility] ([place]) Comment on above: Performed By: #### C BC, ADIFF, ANEU, LIP, GFR, CMP ####[place] [id number] [address] [place] [id number] Gastroenterology Consultatio non 03-17-2018 Gastroenterology Consultation Normal [facility] ([place]) History and Physicalon 03-17 History and Physical Normal [facility] ([place]) LACon 03-17-2018 Lactic Acid Lvl 0.9 mmol/L Normal 0.2-2.0 [facility] ([place]) Comment on above: Performed By: #### L AC ####[place] [address] LIPon 03-17-2018 Lipase Level 1011 U/L High 73-393 [facility] ([place]) Comment on above: Performed By: #### C BC, ADIFF, ANEU, LIP, GFR, CMP ####[place] [address] MRI MRCPon 03-17-2018 MRI MRCP ORIGINALNoncontrast MRCP with console postprocessing and 3D MIP reconstructions. INDICATION: >liver, lipase. Pain COMPARISON: Ultrasound, 03/16/2018 FINDINGS: The heart appears normal in size. No appreciable pleural fluid seen. There is no discrete hepatic lesions seen. The intra and extrahepatic ducts are dilated. The common duct measures maximum of 12 mm. No filling defects seen. There is no dilatation of the pancreatic duct. Pancreas appears prominent/edematous with mild surrounding inflammation. No suspicious findings seen in the visualized kidneys. IMPRESSION:1. Dilated common duct. There is no choledocholithiasis or other filling defect seen in the common duct. A stricture at the ampulla cannot be excluded. Please note that the pancreatic duct is normal in caliber. Consider ERCP.2. Edematous appearing pancreas with surrounding inflammation consistent with pancreatitis. Interpreted By: Freddie Garcia MDPreliminary Report By: Freddie Garcia MDElectronically Signed By: Freddie Gacria MD Dictated Date: 03/17/2018 11:12:35 AM Prelim Date: 03/17/2018 11:12:35 AM Sign Date: 03/17/2018 11:18:19 AM Normal [facility] ([place]) XR FOREIGN BODY LOC EYE JULIO CÉSAR Ocasio 03-17-2018 XR FOREIGN BODY LOC EYE BILATERAL ORIGINALXR FOREIGN BODY LOC EYE BILATERAL 1. A few CLINICAL INDICATION: Prior to MRI-hx metal in eyes COMPARISON: None FINDINGS: No opaque orbital foreign body is identified. The orbital rims and orbital floors are intact. The maxillary and frontal sinuses are clear. The right frontal sinus is hypoplastic. IMPRESSION: No opaque orbital foreign body. Interpreted By: Damaso Robertreliminary Report By: Damaso Robert MDElectronically Signed By: Damaso Robert MD Dictated Date: 03/17/2018 10:23:12 AM Prelim Date: 03/17/2018 10:23:12 AM Sign Date: 03/17/2018 10:24:05 AM Normal [facility] ([place]) Laboratory - Chemistry and C hemistry - challengeon 11-12-2017 Albumin [Mass/Vol] 4.7 g/dL Normal 3.6 - 5.1 g/dL [employer] Albumin/Globulin [Mass ratio] 1.6 {ratio} Normal 1.0 - 2.5 [employer]. ALP [Catalytic activity/Vol] 32 U/L Abnormal 40 - 115 U/L [employer]. ALT [Catalytic activity/Vol] 120 U/L Abnormal 9 - 46 U/L [employer]. AST [Catalytic activity/Vol] 75 U/L Abnormal 10 - 40 U/L [employer]. Bilirubin [Mass/Vol] 0.3 mg/dL Normal 0.2 - 1.2 mg/dL [employer]. Calcium [Mass/Vol] 9.0 mg/dL Normal 8.6 - 10. 3 mg/dL [employer]. Chloride [Moles/Vol] 103 mmol/L Normal 98 - 110 mmol/L [employer]. CK [Catalytic activity/Vol] 2546 U/L Abnormal 44 - 196 U/L [facility], [facility].; [facility], [facility]. CO2 [Moles/Vol] 28 mmol/L Normal 20 - 31 mmol/L [facility].; [facility], [facility] Creatinine [Mass/Vol] 0.65 mg/dL Normal 0.60 - 1.35 mg/dL [facility], [facility].; [facility], [facility]. GFR/1.73 sq M.predicted among blacks MDRD (S/P/Bld) [Vol rate/Area] 132 {ML/MIN/1.73M2} Normal [facility], [facility].; [facility], [facility]. GFR/1.73 sq M.predicted MDRD (S/P/Bld) [Vol rate/Area] 114 {ML/MIN/1.73M2} Normal [facility], [facility].; [facility], [facility]. Globulin (S) [Mass/Vol] 2.8 g/dL Normal 1.9 - 3.7 g/dL [facility], [facility].; [facility], [facility]. Glucose [Mass/Vol] 89 mg/dL Normal 65 - 99 mg/dL [facility], [facility].; [facility], [facility]. Potassium [Moles/Vol] 4.1 mmol/L Normal 3.5 - 5.3 mmol/L [facility], [facility].; [place] [facility], [facility]. Protein [Mass/Vol] 7.5 g/dL Normal 6.1 - 8.1 g/dL [facility], [facility].; [place] [facility], [facility]. Sodium [Moles/Vol] 140 mmol/L Normal 135 - 146 mmol/L [facility], [facility].; [place] [facility], [facility]. Urea nitrogen [Mass/Vol] 24 mg/dL Normal 7 - 25 mg/dL [facility].; [place] [employer], [facility]. Urea nitrogen/Creatinine [Mass ratio] 36.5 mg/mg Abnormal 6 - 22 [facility].; [place] [employer], [facility]. Laboratory - Chemistry and C hemistry - challengeon 01-25-2015 25-hydroxyvitamin D3 [Mass/Vol] 12.70 ng/mL Abnormal 30.00 - 100 ng/mL [facility].; [facility]. Albumin [Mass/Vol] 4.5 g/dL Normal 3.4 - 4.8 g/dL [facility].; [facility], [facility] Albumin [Mass/Vol] 1.7 g/dL Abnormal 0.9 - 1.6 [facility].; [facility], [facility] ALP [Catalytic activity/Vol] 30 U/L Abnormal 38 - 126 U/L [facility].; [facility], [facility]. ALT [Catalytic activity/Vol] 91 U/L Abnormal 10 - 40 U/L [facility].; [facility], [facility]. ALT No additional P-5'-P [Catalytic activity/Vol] 91 U/L Abnormal 10 - 40 U/L [facility].; [facility], [facility]. AST [Catalytic activity/Vol] 81 U/L Abnormal 13 - 39 U/L [facility].; [facility], [facility] Bilirubin [Mass/Vol] 0.3 mg/dL Normal 0.0 - 1.5 mg/dL [facility].; [facility], [facility] Calcium [Mass/Vol] 9.3 mg/dL Normal 8.6 - 10. 2 mg/dL [facility].; [facility], [facility]. Chloride [Moles/Vol] 103 mmol/L Normal 98 - 107 mmol/L [facility].; [facility], [facility] CO2 [Moles/Vol] 30.0 mmol/L Abnormal 13.0 - 29.0 mmol/L [facility].; [facility], [facility] Comprehensive metabolic 2000 panel CMP with eGFR Normal [facility]; [facility], [facility] Creatinine [Mass/Vol] 0.6 mg/dL Abnormal 0.7 - 1.3 mg/dL [facility].; [facility], [facility]. GFR/1.73 sq M.predicted among blacks MDRD (S/P/Bld) [Vol rate/Area] mL/min/{1.73_m2} Normal 60 - 999 {ML/MINUTE} [facility].; [facility], [facility]. GFR/1.73 sq M.predicted MDRD (S/P/Bld) [Vol rate/Area] mL/min/{1.73_m2} Normal 60 - 999 {ML/MINUTE} [facility].; [place] [facility] Globulin (S) [Mass/Vol] 2.7 g/dL Normal 1.5 - 3.8 g/dL [facility].; [place] [facility], [facility] Glucose [Mass/Vol] 91 mg/dL Normal 74 - 106 mg/dL [facility].; [place] [facility], [facility]. Potassium [Moles/Vol] 4.0 mmol/L Normal 3.5 - 5.1 mmol/L [facility].; [place] [facility], [place] Everywhere. Protein [Mass/Vol] 7.2 g/dL Normal 6.4 - 8.3 g/dL [facility].; [place] [employer], [place] [facility] Sodium [Moles/Vol] 135 mmol/L Abnormal 136 - 145 mmol/L [facility].; [place] [employer], [facility]. Urea nitrogen [Mass/Vol] 15 mg/dL Normal 6 - 20 mg/dL [facility].; [place] [employer], [place]. Urea nitrogen/Creatinine [Mass ratio] 25 {ratio} Normal 0 - 30 {ratio} [place] [facility].; [employer]. Laboratory - Hematology and Cell countson 01-25-2015 Basophils (Bld) [#/Vol] 0.10 {3/UL} Normal 0.00 - 0.10 {3/UL} [facility].; [employer] [facility]. Basophils/100 WBC (Bld) 1.1 % Normal 0.0 - 2.0 % [place] [facility].; [employer] [place]. CBC W Auto Differential panel (Bld) CBC Normal [facility].; [place] [employer], [facility]. Eosinophils (Bld) [#/Vol] 0.10 {3/UL} Normal 0.00 - 0.50 {3/UL} [place] [facility], [facility].; [employer] [place]. Eosinophils/100 WBC (Bld) 2.0 % Normal 0.0 - 7.0 % [facility].; [employer]. Erythrocyte distribution width (RBC) [Ratio] 12.8 % Normal 12.0 - 15.6 % [facility].; [place] [facility]. Hematocrit (Bld) [Volume fraction] 44.0 % Normal 40.0 - 52.0 % [facility], [facility].; [place] [facility], [facility] Hemoglobin (Bld) [Mass/Vol] 15.0 g/dL Normal 13.0 - 17.5 g/dL [facility].; [facility], [facility] Lymphocytes (Bld) [#/Vol] 2.30 {3/UL} Normal 0.80 - 2.80 {3/UL} [place] [employer] [facility].; [place] [employer] [facility]. Lymphocytes/100 WBC (Bld) 33.3 % Normal 20.0 - 45.0 % [facility].; [employer] [employer], [facility]. MCH (RBC) [Entitic mass] 34 pg Abnormal 27 - 33 pg [place] [employer] [facility].; [place] [employer], [facility]. MCHC (RBC) [Mass/Vol] 34 {X10_3} Normal 32 - 36 {X10_3} [place] [employer] [facility].; [employer] [place]. MCV (RBC) [Entitic vol] 99 fL Abnormal 81 - 98 fL [place] [employer] [facility].; [place] [employer], [facility]. Monocytes (Bld) [#/Vol] 0.50 {3/UL} Normal 0.20 - 1.00 {3/UL} [place] [employer] [facility].; [place] [employer], [facility]. Monocytes/100 WBC (Bld) 6.7 % Normal 0.0 - 10.0 % [place] [employer] [facility].; [employer] [facility]. Morphology Get (Bld) [Interp] N/A Normal [place] [employer] [facility].; [place] [employer], [facility]. Neutrophils (Bld) [#/Vol] 3.90 {3/UL} Normal 1.50 - 7.10 {3/UL} [place] [employer], [facility].; [employer] Neutrophils/100 WBC (Bld) 56.9 % Normal 46.0 - 76.0 % [place] [employer] [facility].; [facility]|tab. Platelet mean volume (Bld) [Entitic vol] 8.6 fL Normal 6.4 - 10.5 fL [place] [employer] [facility].; [employer]. Platelets (Bld) [#/Vol] 212 {3/UL} Normal 150 - 450 {3/UL} [place] [employer] [facility].; [employer]. RBC (Bld) [#/Vol] 4.45 {6/UL} Abnormal 4.50 - 6.0 0 {6/UL} [employer].; [employer]. WBC (Bld) [#/Vol] 6.9 {3/UL} Normal 4.5 - 10.8 {3/UL} [employer].; [employer]. No Panel Informationon 01-25 AGE 44 {years} Normal [place] [facility].; [employer] MANUAL DIFF N/A Normal [place] [employer] [facility].; [employer] PANEL NAME TSH W/ REFLEX TO FREE T4 Normal [place] [employer] [facility].; [employer]. Laboratory - Chemistry and C hemistry - challengeon 05-13-2014 Bilirubin Ql (U) small Abnormal [facility].; [employer]. Ketones Ql (U) Negative Normal [facility].; [employer]. pH (U) 6.0 [pH] Normal [place] [employer] [facility].; [employer]. Specific gravity (U) [Rel density] 1.030 Abnormal [employer] [facility].; [employer] Urobilinogen Qn (U) .2 mg/dL Normal [facility].; [employer]. Laboratory - Hematology and Cell countson 05-13-2014 Hemoglobin Ql (U) trace, hemolyzed Abnormal [facility].; [employer]. Laboratory - Specimen inform ationon 05-13-2014 Appearance (U) Clear Normal [facility].; [employer]. Color (U) Yellow Normal [employer]; [employer]. Laboratory - Urinalysison Glucose Test strip (U) [Mass/Vol] Negative Normal [facility].; [place] [employer]. Leukocyte esterase Test strip Ql (U) Negative Normal [facility].; [place] [facility], [place]. Nitrite Ql (U) Negative Normal [facility].; [place] [employer], [place]. Protein Ql (U) Negative Normal [facility]|tab.; [place] [employer]. Laboratory - Chemistry and C hemistry - challengeon 10-06-2013 Cholesterol [Mass/Vol] 135 mg/dL Normal 0 - 200 mg/dL [facility].; [place] [employer]. Cholesterol in HDL [Mass/Vol] 31 mg/dL Abnormal 40 - 60 mg/dL [facility].; [place] [employer], [place]. Cholesterol in LDL [Mass/Vol] 83 mg/dL Normal 50.0 - 130.0 mg/dL [facility].; [place] [employer]. Cholesterol in VLDL [Mass/Vol] -- Normal [facility].; [place] [employer], [place]. Cholesterol.total/C holesterol in HDL [Mass ratio] -- Normal 0 - 5.0 [facility]|tab.; [place] [employer]. Triglyceride [Mass/Vol] 106 mg/dL Normal 40 - 150 mg/dL [facility].; [place] [employer]. Laboratory - Hematology and Cell countson 09-22-2013 Hemoglobin (Bld) [Mass/Vol] 16.4 g/dL Abnormal 11.5 - 14.2 g/dL [facility].; [place] [employer], [place]. Laboratory - Chemistry and C hemistry - challengeon 10-31-2011 Albumin [Mass/Vol] 4.6 g/dL Normal 3.5 - 5.0 g/dL [facility].; [place] [employer], [place]. Albumin/Globulin [Mass ratio] 1.6 {ratio} Normal [facility].; [place] [employer], [place]. ALP [Catalytic activity/Vol] 31 U/L Abnormal 50 - 136 U/L [facility].; [place] [employer], [place]. ALT [Catalytic activity/Vol] 116 mmol/L Abnormal 12 - 49 mmol/L [facility].; [facility]. AST [Catalytic activity/Vol] 103 U/L Abnormal 15 - 37 U/L [facility].; [facility]. Calcium [Mass/Vol] 9.2 mg/dL Normal 8.4 - 10. 6 mg/dL [facility].; [facility] Chloride [Moles/Vol] 101 mmol/L Normal 98 - 110 mmol/L [facility].; [facility]. CK [Catalytic activity/Vol] 3012 mU/mL Abnormal 25.0 - 145.0 mU/mL [facility]; [facility] CO2 [Moles/Vol] 27.0 {vania/L} Normal 22.0 - 32.0 {vania/L} [facility].; [facility] Creatinine [Mass/Vol] 0.6 mg/dL Normal 0.6 - 1.4 mg/dL [facility].; [facility]. Globulin (S) [Mass/Vol] 2.9 g/dL Normal 1.5 - 3.8 g/dL [facility].; [facility], [facility]. Glucose [Mass/Vol] 67 mg/dL Abnormal 75 - 105 mg/dL [facility].; [facility], [facility]. Potassium [Moles/Vol] 3.9 mmol/L Normal 3.50 - 5.00 meq/L [facility].; [facility]. Protein [Mass/Vol] 7.5 g/dL Normal 6.4 - 8.2 g/dL [facility].; [facility], [facility]. Sodium [Moles/Vol] 139 mmol/L Normal 136 - 145 mmol/L [facility].; [facility], [facility]. Urea nitrogen [Mass/Vol] 16 mg/dL Normal 7.0 - 20.0 mg/dL [facility].; [place] [facility]. Laboratory - Hematology and Cell countson 10-31-2011 Basophils/100 WBC (Bld) 0.00 % Normal 0.00 - 0.10 [facility].; [place] [facility], [facility]. Basophils/100 WBC (Bld) - Normal 0.0 - 2.0 % [facility], [facility].; [place] [facility], [facility]. Eosinophils/100 WBC (Bld) 0.20 % Normal 0.00 - 0.50 [facility], [facility].; [facility], Inc[facility] Eosinophils/100 WBC (Bld) 2.1 % Normal 0.0 - 6.0 % [facility], [facility].; [place] [facility], [facility]. Erythrocyte distribution width (RBC) [Ratio] 12.3 % Normal 12.0 - 15.6 % [facility], [facility].; [employer], [place]. Hematocrit (Bld) [Volume fraction] 43.2 % Normal 40 - 52 % [place] [facility], [facility].; [employer], [place]. Hemoglobin (Bld) [Mass/Vol] 15.3 g/dL Normal [facility], [facility].; [place] [employer], [place]. Lymphocytes/100 WBC (Bld) 0.3 % Abnormal [facility].; [employer], [place]. Lymphocytes/100 WBC (Bld) 31.4 % Normal 20.0 - 45.0 % [place] [facility], [place].; [employer] [place]. MCH (RBC) [Entitic mass] 35 pg Abnormal 27 - 33 pg [place] [facility], [facility].; [employer] MCHC (RBC) [Mass/Vol] 35 g/dL Normal 32 - 36 g/dL [facility], [facility].; [employer] [place]. MCV (RBC) [Entitic vol] 98 fL Normal 81 - 98 fL [place] [employer] [facility].; [employer] Monocytes/100 WBC (Bld) 6.1 % Normal 2.0 - 13.0 % [place] [facility], [facility].; [employer], [place]. Monocytes/100 WBC (Bld) 0.50 % Normal [place] [facility], [facility].; [employer] Morphology Get (Bld) [Interp] - Normal [facility], [facility].; [employer] Neutrophils/100 WBC (Bld) 60.1 % Normal 46 - 76 % [facility] [place] Every[place].; [employer]. Platelet mean volume (Bld) [Entitic vol] 8.8 fL Normal 6.4 - 10.5 fL [place] [employer].; [employer]. Platelets (Bld) [#/Vol] 210 10*9{Cells}/L Normal 150 - 450 10*9{Cells} /L [place] [employer].; [employer]. RBC (Bld) [#/Vol] 4.43 10*6/uL Abnormal 4.60 - 6.0 0 10*6/uL [place] [employer].; [employer]. WBC (Bld) [#/Vol] 7.4 10*9{Cells}/L Normal 4.5 - 10.8 10*9{Cells} /L [place] [employer].; [employer]. No Panel Informationon 10-31 GFR 147 Normal [place] [employer].; [employer] NEUTROPHILS 4.40 10*6/uL Normal 1.5 - 7.1 10*6/uL [place] [employer].; [employer]. Laboratory - Chemistry and C hemistry - challengeon 05-04-2011 CK [Catalytic activity/Vol] 2470 U/L Abnormal 44 - 196 U/L [place] [employer].; [employer]. Laboratory - Chemistry and C hemistry - challengeon 05-01-2011 Albumin [Mass/Vol] 4.7 g/dL Normal 3.6 - 5.1 g/dL [place] [employer].; [employer]. Albumin/Globulin [Mass ratio] 1.7 {ratio} Normal 1.0 - 2.1 [place] [employer].; [employer]. ALP [Catalytic activity/Vol] 25 U/L Abnormal 40 - 115 U/L [employer].; [employer]. ALT [Catalytic activity/Vol] 79 U/L Abnormal 9 - 60 U/L [employer].; [employer]. AST [Catalytic activity/Vol] 53 U/L Abnormal 10 - 40 U/L [employer].; [employer]. Bilirubin [Mass/Vol] 0.3 mg/dL Normal 0.2 - 1.2 mg/dL [facility], [facility].; [place] [facility], [employer] Calcium [Mass/Vol] 9.2 mg/dL Normal 8.6 - 10. 2 mg/dL [facility], [facility].; [place] [facility], [employer] Chloride [Moles/Vol] 102 mmol/L Normal 98 - 110 mmol/L [facility], [facility].; [place] [facility], [employer] CO2 [Moles/Vol] 26 mmol/L Normal 21 - 33 mmol/L [facility], [facility].; [place] [facility], [employer] Creatinine [Mass/Vol] 0.59 mg/dL Abnormal 0.78 - 1.34 mg/dL [facility], [facility].; [place] [facility], [facility]. GFR/1.73 sq M.predicted among blacks MDRD (S/P/Bld) [Vol rate/Area] 145 {ML/MIN/1.73M2} Normal [facility], [facility].; [facility], [facility] GFR/1.73 sq M.predicted MDRD (S/P/Bld) [Vol rate/Area] 125 {ML/MIN/1.73M2} Normal [facility], [facility].; [place] [facility], [employer] Globulin (S) [Mass/Vol] 2.7 g/dL Normal 2.1 - 3.7 g/dL [facility], [facility].; [place] [facility], [employer] Glucose [Mass/Vol] 85 mg/dL Normal 65 - 99 mg/dL [facility], [facility].; [place] [employer] Potassium [Moles/Vol] 4.1 mmol/L Normal 3.5 - 5.3 mmol/L [facility], [facility].; [place] [employer] Protein [Mass/Vol] 7.4 g/dL Normal 6.2 - 8.3 g/dL [facility], [facility].; [place] [employer] Sodium [Moles/Vol] 140 mmol/L Normal 135 - 146 mmol/L [place] [facility], [facility].; [place] [employer] Urea nitrogen [Mass/Vol] 13 mg/dL Normal 7 - 25 mg/dL [facility], [facility].; [place] [employer], [place]. Urea nitrogen/Creatinine [Mass ratio] 21.9 mg/mg Normal 6 - 22 [facility]; [place] [facility] Laboratory - Chemistry and C hemistry - challengeon 07-25-2010 Urate [Mass/Vol] 5.8 mg/dL Normal 4.0 - 8.0 mg/dL [facility]; [place] [facility] [facility]|tab Vital Signs Date Time Vital Sign Value Performing Clinician Facility 01-01-2025 10:05-0400 Body height 180.34 cm Laura Sandoval ARMORED SERVICE TECHNICIAN Work Phone: [facility]; [place] [facility] 01-01-2025 10:05-0400 Body mass index (BMI) [Ratio] 32.91 kg/m2 Laura Sandoval ARMORED SERVICE TECHNICIAN Work Phone: [facility]; [place] [facility] 01-01-2025 10:05-0400 Body surface area Derived from formula 2.26 m2 Laura Sandoval ARMORED SERVICE TECHNICIAN Work Phone: [facility]; [place] [facility] 01-01-2025 10:05-0400 Body weight 107.05 kg Laura Sandoval ARMORED SERVICE TECHNICIAN Work Phone: [facility]; [place] [facility] 01-01-2025 10:05-0400 Diastolic blood pressure 91 mm[Hg] Laura Sandoval ARMORED SERVICE TECHNICIAN Work Phone: [facility]; [facility]|tab. Comment on above: Patient Position: Sitting; Cuff Location : Left Arm; Cuff Size: Thigh 01-01-2025 10:05-0400 Heart rate 76 /min Laura Sandoval ARMORED SERVICE TECHNICIAN Work Phone: [place] [facility]; [employer]. Comment on above: Pattern: Regular 01-01-2025 10:05-0400 Systolic blood pressure 151 mm[Hg] Laura Sandoval ARMORED SERVICE TECHNICIAN Work Phone: [place] [facility] [facility]; [employer]. Comment on above: Patient Position: Sitting; Cuff Location : Left Arm; Cuff Size: Thigh 12-29-2024 10:00-0400 Body temperature 96.26 [degF] ROSSY COFFMAN MD [facility] 12-29-2024 10:00-0400 Diastolic Blood Pressure Non-Invasive 64 mm[Hg] ROSSY COFFMAN MD [facility] 12-29-2024 10:00-0400 Systolic Blood Pressure Non-Invasive 110 mm[Hg] ROSSY COFFMAN MD [facility] 12-29-2024 09:41-0400 Heart rate 63 /min ROSSY COFFMAN MD [facility] 12-29-2024 09:41-0400 Body temperature 97.7 [degF] ROSSY COFFMAN MD [facility] 12-29-2024 09:41-0400 Diastolic Blood Pressure Non-Invasive 71 mm[Hg] ROSSY COFFMAN MD [facility] 12-29-2024 09:41-0400 Mean blood pressure 84 mm[Hg] ROSSY COFFMAN MD [facility] 12-29-2024 09:41-0400 Respiratory rate 16 /min ROSSY COFFMAN MD [facility] 12-29-2024 09:41-0400 Systolic Blood Pressure Non-Invasive 105 mm[Hg] ROSSY COFFMAN MD [facility] 12-29-2024 09:28-0400 Diastolic Blood Pressure Non-Invasive 68 mm[Hg] ROSSY COFFMAN MD [facility] 12-29-2024 09:28-0400 Mean blood pressure 79 mm[Hg] ROSSY COFFMAN MD [facility] 12-29-2024 09:28-0400 Systolic Blood Pressure Non-Invasive 101 mm[Hg] ROSSY COFFMAN MD [facility] 12-29-2024 09:27-0400 Heart rate 61 /min ROSSY COFFMAN MD [facility] 12-29-2024 09:14-0400 Body temperature 97.88 [degF] ROSSY COFFMAN MD [facility] 12-29-2024 09:14-0400 Mean blood pressure 81 mm[Hg] ROSSY COFFMAN MD [facility] 12-29-2024 09:10-0400 Respiratory Rate - Anes 35 br/min ROSSY COFFMAN MD [facility] 12-29-2024 09:05-0400 Respiratory Rate - Anes 0 br/min ROSSY COFFMAN MD [facility] 12-29-2024 06:57-0400 Body height 182.9 cm ROSSY COFFMAN MD [facility] 12-29-2024 06:57-0400 Body weight 101.9 kg ROSSY COFFMAN MD [facility] 12-29-2024 06:57-0400 Heart rate 82 /min ROSSY COFFMAN MD [facility] 12-15-2024 10:32-0400 Blood Pressure Cuff Size ROSSY COFFMAN MD [facility] 12-15-2024 10:32-0400 Blood Pressure Location ROSSY COFFMAN MD [facility] 12-15-2024 10:32-0400 Blood Pressure Method ROSSY COFFMAN MD [facility] 12-15-2024 10:32-0400 Body height 180 cm ROSSY COFFMAN MD [facility] 12-15-2024 10:32-0400 Body temperature 97.52 [degF] ROSSY COFFMAN MD [facility] 12-15-2024 10:32-0400 Body weight 104.8 kg ROSSY COFFMAN MD [facility] 12-15-2024 10:32-0400 Body weight 32.35 kg/m2 ROSSY COFFMAN MD [facility] 12-15-2024 10:32-0400 Diastolic Blood Pressure Non-Invasive 80 mm[Hg] ROSSY COFFMAN MD [facility] 12-15-2024 10:32-0400 Heart rate 78 /min ROSSY COFFMAN MD [facility] 12-15-2024 10:32-0400 Systolic Blood Pressure Non-Invasive 130 mm[Hg] ROSSY COFFMAN MD [facility] 10-20-2024 09:44-0500 Body height 180.34 cm Laura Nick LPN Work Phone: [employer]; [employer]. 10-20-2024 09:44-0500 Body mass index (BMI) [Ratio] 31.52 kg/m2 Laura Jonesy ARMORED SERVICE TECHNICIAN Work Phone: [employer]; [employer]. 10-20-2024 09:44-0500 Body surface area Derived from formula 2.22 m2 Laura Jonesy ARMORED SERVICE TECHNICIAN Work Phone: [employer]; [employer]. 10-20-2024 09:44-0500 Body temperature 97.7 [degF] Laura Nick ARMORED SERVICE TECHNICIAN Work Phone: [employer]; [employer]. Comment on above: Method: Tympanic 10-20-2024 09:44-0500 Body weight 102.51 kg Laura Jonesy ARMORED SERVICE TECHNICIAN Work Phone: [employer]; [employer]. 10-20-2024 09:44-0500 Diastolic blood pressure 89 mm[Hg] Laura Sandoval ARMORED SERVICE TECHNICIAN Work Phone: [employer]; [employer]. Comment on above: Patient Position: Sitting; Cuff Location : Left Arm; Cuff Size: Large 10-20-2024 09:44-0500 Heart rate 90 /min Laura Sandoval ARMORED SERVICE TECHNICIAN Work Phone: [facility]; [facility]|tab. Comment on above: Pattern: Regular 10-20-2024 09:44-0500 Systolic blood pressure 138 mm[Hg] Laura Sandoval ARMORED SERVICE TECHNICIAN Work Phone: [facility]; [facility] Comment on above: Patient Position: Sitting; Cuff Location : Left Arm; Cuff Size: Large 10-18-2024 08:25-0500 Body temperature 97.34 [degF] ALIS FREIRE MD [address] [place] [address] 10-18-2024 08:25-0500 Diastolic Blood Pressure Non-Invasive 78 mm[Hg] ALIS FREIRE MD [address] [place] [address] 10-18-2024 08:25-0500 Heart rate 60 /min ALIS FREIRE MD [address] 10-18-2024 08:25-0500 Mean blood pressure 91 mm[Hg] ALIS FREIRE MD [address] [place] [address] 10-18-2024 08:25-0500 Respiratory rate 16 /min ALIS FREIRE MD [address] [place] [address] 10-18-2024 08:25-0500 Systolic Blood Pressure Non-Invasive 119 mm[Hg] ALIS FREIRE MD [address] [place] [address] 10-18-2024 08:15-0500 Diastolic Blood Pressure Non-Invasive 79 mm[Hg] ALIS FREIRE MD [address] [place] [address] 10-18-2024 08:15-0500 Heart rate 60 /min ALIS FREIRE MD [address] [place] [address] 10-18-2024 08:15-0500 Mean blood pressure 90 mm[Hg] ALIS FREIRE MD [address] [place] [address] 10-18-2024 08:15-0500 Respiratory rate 16 /min ALIS FREIRE MD [address] [place] [address] 10-18-2024 08:15-0500 Systolic Blood Pressure Non-Invasive 114 mm[Hg] ALIS FREIRE MD [address] [place] [address] 10-18-2024 08:10-0500 Respiratory rate 16 /min ALIS FREIRE MD [address] [place] [address] 10-18-2024 08:00-0500 Heart rate 65 /min ALIS FREIRE MD [address] [place] [address] 10-18-2024 08:00-0500 Systolic Blood Pressure Non-Invasive 118 mm[Hg] ALIS FREIRE MD [address] [place] [address] 10-18-2024 07:55-0500 Respiratory Rate - Anes 30 br/min ALIS FREIRE MD [address] [place] [address] 10-18-2024 07:50-0500 Respiratory Rate - Anes 26 br/min ALIS FREIRE MD [address] [place] [address] 10-18-2024 07:45-0500 Respiratory Rate - Anes 4 br/min ALIS FREIRE MD [address] [place] [address] 10-17-2024 21:20-0500 Body temperature 98.42 [degF] ALIS FREIRE MD [address] [place] [address] 10-17-2024 21:20-0500 Heart rate 64 /min ALIS FREIRE MD [address] [place] [address] 10-17-2024 15:18-0500 Body temperature 97.88 [degF] ALIS FREIRE MD [address] [place] [address] 10-17-2024 15:18-0500 Heart rate 64 /min ALIS FREIRE MD [address] [place] [address] 10-17-2024 08:44-0500 Blood Pressure Cuff Size ALIS FREIRE MD [address] [place] [address] 10-17-2024 08:44-0500 Blood Pressure Location ALIS FREIRE MD [facility] 10-17-2024 08:44-0500 Blood Pressure Method ALIS FREIRE MD [address] [place] [address] 10-17-2024 08:44-0500 Body temperature 98.06 [degF] ALIS FREIRE MD [address] [place] [address] 10-17-2024 08:44-0500 Heart rate 66 /min ALIS FREIRE MD [address] [place] [address] 10-16-2024 14:48-0500 Blood Pressure Cuff Size ALIS FREIRE MD [address] [place] [address] 10-16-2024 14:48-0500 Blood Pressure Location ALIS FREIRE MD [address] [place] [address] 10-16-2024 14:48-0500 Blood Pressure Method ALIS FREIRE MD [address] [place] [address] 10-16-2024 14:48-0500 Reason For Taking VItal Signs ALIS FREIRE MD [address] [place] [address] 10-16-2024 01:06-0500 Reason For Taking VItal Signs ALIS FREIRE MD [address] [place] [address] 10-13-2024 01:37-0500 Body height 182.9 cm ALIS FREIRE MD [address] [place] [address] 10-13-2024 01:37-0500 Body weight 102.5 kg ALIS FREIRE MD [address] [place] [address] 10-13-2024 01:37-0500 Body weight 30.64 kg/m2 ALIS FREIRE MD [address] [place] [address] 09-12-2024 14:38-0500 Body height 180.34 cm Ebonie Ac LPN [facility].; [facility] 09-12-2024 14:38-0500 Body mass index (BMI) [Ratio] 33.33 kg/m2 Ebonie Ac LPN [facility].; [facility] 09-12-2024 14:38-0500 Body surface area Derived from formula 2.27 m2 [address]bonie Ac LPN [facility].; [facility]. 09-12-2024 14:38-0500 Body weight 108.41 kg Ebonie Ac LPN [facility].; [facility] 09-12-2024 14:38-0500 Diastolic blood pressure 85 mm[Hg] Ebonie Ac LPN [facility].; [facility], [facility]. Comment on above: Patient Position: Sitting; Cuff Location : Left Arm; Cuff Size: Standard 09-12-2024 14:38-0500 Heart rate 82 /min Ebonie Ac LPN [facility].; [facility], [facility]. Comment on above: Pattern: Regular 09-12-2024 14:38-0500 Systolic blood pressure 142 mm[Hg] Ebonie Ac LPN [facility].; [facility], [facility]. Comment on above: Patient Position: Sitting; Cuff Location : Left Arm; Cuff Size: Standard 08-01-2024 14:50-0500 Body height 180.34 cm [facility] Work Phone: [facility].; [facility], [facility]. 08-01-2024 14:50-0500 Body mass index (BMI) [Ratio] 31.8 kg/m2 [facility] Work Phone: [facility].; [facility], [facility]. 08-01-2024 14:50-0500 Body surface area Derived from formula 2.23 m2 [facility] Work Phone: [facility].; [facility], [facility]. 08-01-2024 14:50-0500 Body temperature 99.8 [degF] Laura Nick LPN Work Phone: [employer]; [employer]. Comment on above: Method: Tympanic 08-01-2024 14:50-0500 Body weight 103.42 kg Laura Nick LPN Work Phone: [employer]; [employer]. 08-01-2024 14:50-0500 Diastolic blood pressure 95 mm[Hg] Laura Nick LPN Work Phone: [employer]; [employer]. Comment on above: Patient Position: Sitting; Cuff Location : Right Arm; Cuff Size: Large 08-01-2024 14:50-0500 Heart rate 89 /min Laura Nick LPN Work Phone: [employer]; [employer]. Comment on above: Pattern: Regular 08-01-2024 14:50-0500 Inhaled oxygen concentration 21 % Laura Nick LPN Work Phone: [employer]; [employer]. Comment on above: Room air 08-01-2024 14:50-0500 SaO2% (BldA) [Mass fraction] 97 % Laura Nick LPN Work Phone: [employer]; [employer]. 08-01-2024 14:50-0500 Systolic blood pressure 143 mm[Hg] Laura Nick LPN Work Phone: [employer]; [employer]. Comment on above: Patient Position: Sitting; Cuff Location : Right Arm; Cuff Size: Large 08-10-2023 13:41-0500 Diastolic blood pressure 85 mm[Hg] Ebonie Ac LPN [employer]. Comment on above: Patient Position: Sitting; Cuff Location : Left Arm; Cuff Size: Standard 08-10-2023 13:41-0500 Heart rate 89 /min Ebonie Ac LPN [employer]. Comment on above: Pattern: Regular 08-10-2023 13:41-0500 Systolic blood pressure 142 mm[Hg] Ebonie Ac LPN [facility], [facility].; [place] [employer]. Comment on above: Patient Position: Sitting; Cuff Location : Left Arm; Cuff Size: Standard 08-10-2023 13:40-0500 Body height 180.34 cm Ebonie Ac LPN [facility], [facility].; [place] [employer] [facility], [facility]. 08-10-2023 13:40-0500 Body mass index (BMI) [Ratio] 31.8 kg/m2 Ebonie Ac LPN [facility], [facility].; [place] [employer] [facility], [facility]. 08-10-2023 13:40-0500 Body surface area Derived from formula 2.23 m2 Ebonie Ac LPN [facility], [facility].; [place] [employer]. 08-10-2023 13:40-0500 Body weight 103.42 kg Ebonie Ac LPN [facility], [facility].; [employer] [place] [employer]. 08-10-2023 13:40-0500 Diastolic blood pressure 104 mm[Hg] Ebonie Ac LPN [facility], [facility].; [employer] [place] [employer]. Comment on above: Patient Position: Sitting; Cuff Location : Left Arm; Cuff Size: Standard 08-10-2023 13:40-0500 Heart rate 90 /min Ebonie Ac LPN [facility], [facility].; [employer]. Comment on above: Pattern: Regular 08-10-2023 13:40-0500 Systolic blood pressure 159 mm[Hg] Ebonie Ac LPN [facility], [facility].; [employer]. Comment on above: Patient Position: Sitting; Cuff Location : Left Arm; Cuff Size: Standard 09-11-2022 16:40-0500 Body height 180.34 cm Laura Sandoval [employer] SERV[employer] TECHNIC[employer] Work Phone: [facility], [place] [employer].; [employer]. 09-11-2022 16:40-0500 Body mass index (BMI) [Ratio] 30.4 kg/m2 Laura Sandoval [facility] Work Phone: [facility]; [employer]. 09-11-2022 16:40-0500 Body surface area Derived from formula 2.19 m2 Laura Nick LPN Work Phone: [employer]; [employer]. 09-11-2022 16:40-0500 Body weight 98.88 kg Laura Nick ARMORED SERVICE TECHNICIAN Work Phone: [employer]; [employer]. 09-11-2022 16:40-0500 Diastolic blood pressure 90 mm[Hg] Laura Jonesy ARMORED SERVICE TECHNICIAN Work Phone: [employer]; [employer]. Comment on above: Patient Position: Sitting; Cuff Location : Left Arm; Cuff Size: Large 09-11-2022 16:40-0500 Heart rate 83 /min Laura Nick ARMORED SERVICE TECHNICIAN Work Phone: [employer]; [employer]. Comment on above: Pattern: Regular 09-11-2022 16:40-0500 Systolic blood pressure 143 mm[Hg] Laura Jonesy ARMORED SERVICE TECHNICIAN Work Phone: [employer]; [employer]. Comment on above: Patient Position: Sitting; Cuff Location : Left Arm; Cuff Size: Large 06-09-2022 13:54-0400 Diastolic blood pressure 79 mm[Hg] [facility] Work Phone: 06-09-2022 13:54-0400 Heart rate 85 /min [facility] Work Phone: 06-09-2022 13:54-0400 Respiratory rate 16 /min [facility] Work Phone: 06-09-2022 13:54-0400 SaO2% (BldA) [Mass fraction] 95 % [facility] Work Phone: 06-09-2022 13:54-0400 Systolic blood pressure 136 mm[Hg] [facility] Work Phone: 04-24-2022 16:14-0400 Body height 180.34 cm Laura Nick LPN Work Phone: [employer]. 04-24-2022 16:14-0400 Body mass index (BMI) [Ratio] 29.85 kg/m2 Laura Jonesy ARMORED SERVICE TECHNICIAN Work Phone: [employer] 04-24-2022 16:14-0400 Body surface area Derived from formula 2.17 m2 Laura Nick ARMORED SERVICE TECHNICIAN Work Phone: [employer] 04-24-2022 16:14-0400 Body weight 97.07 kg Laura Nick ARMORED SERVICE TECHNICIAN Work Phone: [employer]. 04-24-2022 16:14-0400 Diastolic blood pressure 88 mm[Hg] Laura Jonesy ARMORED SERVICE TECHNICIAN Work Phone: [employer]; [employer]. Comment on above: Patient Position: Sitting; Cuff Location : Left Arm; Cuff Size: Standard 04-24-2022 16:14-0400 Heart rate 82 /min Laura Nick LPN Work Phone: [employer]; [employer]. Comment on above: Pattern: Regular 04-24-2022 16:14-0400 Systolic blood pressure 134 mm[Hg] Laura Jonesy ARMORED SERVICE TECHNICIAN Work Phone: [employer]; [employer]. Comment on above: Patient Position: Sitting; Cuff Location : Left Arm; Cuff Size: Standard 06-08-2021 11:30-0400 Body height 180.34 cm Laura Nick ARMORED SERVICE TECHNICIAN Work Phone: [employer]; [employer]. 06-08-2021 11:30-0400 Body mass index (BMI) [Ratio] 27.89 kg/m2 Lauradevin Jonesy ARMORED SERVICE TECHNICIAN Work Phone: [employer]. 06-08-2021 11:30-0400 Body surface area Derived from formula 2.11 m2 Laura Sandoval ARMORED SERVICE TECHNICIAN Work Phone: [employer]; [employer]. 06-08-2021 11:30-0400 Body temperature 101 [degF] Laura Sandoval ARMORED SERVICE TECHNICIAN Work Phone: [employer]. Comment on above: Method: Tympanic 06-08-2021 11:30-0400 Body weight 90.72 kg Laura Sandoval ARMORED SERVICE TECHNICIAN Work Phone: [employer]. 06-08-2021 11:30-0400 Diastolic blood pressure 83 mm[Hg] Laura Sandoval ARMORED SERVICE TECHNICIAN Work Phone: [employer]; [employer]. Comment on above: Patient Position: Sitting; Cuff Location : Left Arm; Cuff Size: Standard 06-08-2021 11:30-0400 Heart rate 94 /min Laura Sandoval ARMORED SERVICE TECHNICIAN Work Phone: [employer]. Comment on above: Pattern: Regular 06-08-2021 11:30-0400 Inhaled oxygen concentration 20 % Laura Sandoval ARMORED SERVICE TECHNICIAN Work Phone: [employer]. Comment on above: Room air 06-08-2021 11:30-0400 Inhaled oxygen concentration 21 % Laura Sandoval ARMORED SERVICE TECHNICIAN Work Phone: [employer]. Comment on above: Room air 06-08-2021 11:30-0400 SaO2% (BldA) [Mass fraction] 98 % Laura Sandoval ARMORED SERVICE TECHNICIAN Work Phone: [employer]. 06-08-2021 11:30-0400 Systolic blood pressure 118 mm[Hg] Laura Sandoval ARMORED SERVICE TECHNICIAN Work Phone: [employer]. Comment on above: Patient Position: Sitting; Cuff Location : Left Arm; Cuff Size: Standard 01-06-2021 15:43-0400 Body height 180.34 cm Laura Nick ARMORED SERVICE TECHNICIAN Work Phone: [employer]. 01-06-2021 15:43-0400 Body mass index (BMI) [Ratio] 32.36 kg/m2 Laura Nick ARMORED SERVICE TECHNICIAN Work Phone: [employer]. 01-06-2021 15:43-0400 Body surface area Derived from formula 2.25 m2 Laura Nick ARMORED SERVICE TECHNICIAN Work Phone: [employer]; [employer]. 01-06-2021 15:43-0400 Body weight 105.24 kg Laura Nick ARMORED SERVICE TECHNICIAN Work Phone: [employer]; [employer]. 01-06-2021 15:43-0400 Diastolic blood pressure 93 mm[Hg] Laura Nick ARMORED SERVICE TECHNICIAN Work Phone: [employer]; [employer]. Comment on above: Patient Position: Sitting; Cuff Location : Left Arm; Cuff Size: Standard 01-06-2021 15:43-0400 Heart rate 82 /min Laura Nick LPN Work Phone: [employer]; [employer]. Comment on above: Pattern: Regular 01-06-2021 15:43-0400 Systolic blood pressure 148 mm[Hg] Laura Nick ARMORED SERVICE TECHNICIAN Work Phone: [employer].; [employer]. Comment on above: Patient Position: Sitting; Cuff Location : Left Arm; Cuff Size: Standard 06-16-2019 14:30-0400 Body height 180.34 cm Danutaluis Herndon Darrell ARMORED SERVICE TECHNICIAN [employer]. 06-16-2019 14:30-0400 Body mass index (BMI) [Ratio] 30.68 kg/m2 Neilee L Vess ARMORED SERVICE TECHNICIAN [employer] 06-16-2019 14:30-0400 Body surface area Derived from formula 2.2 m2 Neilee L Vess ARMORED SERVICE TECHNICIAN [employer] 06-16-2019 14:30-0400 Body weight 99.79 kg Neilee L Vess ARMORED SERVICE TECHNICIAN [employer] 06-16-2019 14:30-0400 Diastolic blood pressure 86 mm[Hg] Neilee L Vess ARMORED SERVICE TECHNICIAN [employer]. Comment on above: Patient Position: Sitting; Cuff Location : Left Arm; Cuff Size: Standard 06-16-2019 14:30-0400 Heart rate 82 /min Neilee L Vess ARMORED SERVICE TECHNICIAN [employer] Comment on above: Pattern: Regular 06-16-2019 14:30-0400 Systolic blood pressure 131 mm[Hg] Neilee L Vess ARMORED SERVICE TECHNICIAN [employer]. Comment on above: Patient Position: Sitting; Cuff Location : Left Arm; Cuff Size: Standard 06-26-2018 11:00-0400 Body height 180.34 cm [employer] [facility] Work Phone: [employer] 06-26-2018 11:00-0400 Body mass index (BMI) [Ratio] 28.73 kg/m2 Laura Sandoval [facility] Work Phone: [employer].; [employer]. 06-26-2018 11:00-0400 Body surface area Derived from formula 2.14 m2 [employer] [facility] Work Phone: [employer].; [employer]. 06-26-2018 11:00-0400 Body weight 93.44 kg Laura Sandoval [facility] Work Phone: [employer].; [employer]. 06-26-2018 11:00-0400 Diastolic blood pressure 87 mm[Hg] Laura Jonesy ARMORED SERVICE TECHNICIAN Work Phone: [employer].; [employer]. Comment on above: Patient Position: Sitting; Cuff Location : Left Arm; Cuff Size: Large 06-26-2018 11:00-0400 Heart rate 76 /min Laura Jonesy ARMORED SERVICE TECHNICIAN Work Phone: [employer].; [employer]. Comment on above: Pattern: Regular 06-26-2018 11:00-0400 Systolic blood pressure 128 mm[Hg] Laura Jonesy ARMORED SERVICE TECHNICIAN Work Phone: [employer].; [employer]. Comment on above: Patient Position: Sitting; Cuff Location : Left Arm; Cuff Size: Large 05-09-2018 15:59-0400 Body height 180.34 cm Laura Nick LPN Work Phone: [employer].; [employer]. 05-09-2018 15:59-0400 Body mass index (BMI) [Ratio] 30.4 kg/m2 [employer] ARMORED SERVICE TECHNICIAN Work Phone: [employer].; [employer]. 05-09-2018 15:59-0400 Body surface area Derived from formula 2.19 m2 Laura Sandoval ARMORED SERVICE TECHNICIAN Work Phone: [employer]; [employer]. 05-09-2018 15:59-0400 Body temperature 99.2 [degF] Laura Jonesy ARMORED SERVICE TECHNICIAN Work Phone: [employer].; [employer]. Comment on above: Method: Tympanic 05-09-2018 15:59-0400 Body weight 98.88 kg Laura Nick ARMORED SERVICE TECHNICIAN Work Phone: [employer].; [employer]. 05-09-2018 15:59-0400 Diastolic blood pressure 83 mm[Hg] Laura Sandoval ARMORED SERVICE TECHNICIAN Work Phone: [employer]; [employer]. Comment on above: Patient Position: Sitting; Cuff Location : Left Arm; Cuff Size: Standard 05-09-2018 15:59-0400 Heart rate 80 /min Laura Nick ARMORED SERVICE TECHNICIAN Work Phone: [place] [employer]. Comment on above: Pattern: Regular 05-09-2018 15:59-0400 Systolic blood pressure 129 mm[Hg] Laura Nick ARMORED SERVICE TECHNICIAN Work Phone: [employer].; [employer]. Comment on above: Patient Position: Sitting; Cuff Location : Left Arm; Cuff Size: Standard 04-11-2018 15:38-0400 Body height 180.34 cm Neilee L Vess ARMORED SERVICE TECHNICIAN [place] [employer].; [employer]. 04-11-2018 15:38-0400 Body mass index (BMI) [Ratio] 30.4 kg/m2 Neilee L Vess ARMORED SERVICE TECHNICIAN [employer]. 04-11-2018 15:38-0400 Body surface area Derived from formula 2.19 m2 Neilee L Vess ARMORED SERVICE TECHNICIAN [employer].; [employer]. 04-11-2018 15:38-0400 Body temperature 99 [degF] Neilee L Vess ARMORED SERVICE TECHNICIAN [employer]. Comment on above: Method: Tympanic 04-11-2018 15:38-0400 Body weight 98.88 kg Neilee L Vess ARMORED SERVICE TECHNICIAN [employer]. 04-11-2018 15:38-0400 Diastolic blood pressure 88 mm[Hg] Neilee L Vess ARMORED SERVICE TECHNICIAN [employer].; [employer]. Comment on above: Patient Position: Sitting; Cuff Location : Left Arm; Cuff Size: Standard 04-11-2018 15:38-0400 Heart rate 85 /min Neilee L Vess ARMORED SERVICE TECHNICIAN [employer].; [employer]. 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 Comment on above: Patient Position: Sitting; Cuff Location : Left Arm; Cuff Size: Standard 01-14-2018 14:53-0400 Body height 180.34 cm Laura Nick ARMORED SERVICE TECHNICIAN Work Phone: [employer]. 01-14-2018 14:53-0400 Body mass index (BMI) [Ratio] 32.64 kg/m2 Laura Nick ARMORED SERVICE TECHNICIAN Work Phone: [employer]. 01-14-2018 14:53-0400 Body surface area Derived from formula 2.25 m2 Laura Sandoval ARMORED SERVICE TECHNICIAN Work Phone: [employer].; [employer]. 01-14-2018 14:53-0400 Body weight 106.14 kg Laura Nick ARMORED SERVICE TECHNICIAN Work Phone: [employer].; [employer]. 01-14-2018 14:53-0400 Diastolic blood pressure 86 mm[Hg] Laura Jonesy ARMORED SERVICE TECHNICIAN Work Phone: [employer]; [employer]. Comment on above: Patient Position: Sitting; Cuff Location : Left Arm; Cuff Size: Large 01-14-2018 14:53-0400 Heart rate 87 /min Laura Nick ARMORED SERVICE TECHNICIAN Work Phone: [employer]; [employer]. Comment on above: Pattern: Regular 01-14-2018 14:53-0400 Systolic blood pressure 139 mm[Hg] Laura Sandoval ARMORED SERVICE TECHNICIAN Work Phone: [employer]; [employer]. Comment on above: Patient Position: Sitting; Cuff Location : Left Arm; Cuff Size: Large 09-13-2015 11:44-0500 Body height 180.34 cm JoA-nn Schumacher ARMORED SERVICE TECHNICIAN [employer]. 09-13-2015 11:44-0500 Body mass index (BMI) [Ratio] 32.64 kg/m2 Jo-Ann Schumacher [facility] [employer] [facility] [employer] 09-13-2015 11:44-0500 Body surface area Derived from formula 2.25 m2 Jo-Ann Schumacher [facility] 09-13-2015 11:44-0500 Body weight 106.14 kg Jo-Ann Schumacher [facility] [employer] [facility] [employer] 09-13-2015 11:44-0500 Diastolic blood pressure 92 mm[Hg] [facility] [employer] Comment on above: Patient Position: Sitting; Cuff Location : Left Arm; Cuff Size: Large 09-13-2015 11:44-0500 Heart rate 86 /min Jo-Ann Schumacher [facility] [employer] [facility] [employer] Comment on above: Pattern: Regular 09-13-2015 11:44-0500 Systolic blood pressure 136 mm[Hg] Jo-Ann Schumacher [facility] [employer] [facility] [employer] Comment on above: Patient Position: Sitting; Cuff Location : Left Arm; Cuff Size: Large 03-08-2015 11:53-0400 Body height 180.34 cm Laura Nick [facility] Work Phone: [employer] 03-08-2015 11:53-0400 Body mass index (BMI) [Ratio] 31.1 kg/m2 [employer] [facility] Work Phone: [employer] 03-08-2015 11:53-0400 Body surface area Derived from formula 2.21 m2 Laura Sandoval [facility] Work Phone: [employer] 03-08-2015 11:53-0400 Body weight 101.15 kg Laura Sandoval [facility] Work Phone: [employer]. 03-08-2015 11:53-0400 Diastolic blood pressure 84 mm[Hg] Laura Jonesy ARMORED SERVICE TECHNICIAN Work Phone: [employer]. Comment on above: Patient Position: Sitting; Cuff Location : Left Arm; Cuff Size: Standard 03-08-2015 11:53-0400 Heart rate 82 /min Laura Jonesy ARMORED SERVICE TECHNICIAN Work Phone: [employer]. Comment on above: Pattern: Regular 03-08-2015 11:53-0400 Systolic blood pressure 130 mm[Hg] Laura Jonesy ARMORED SERVICE TECHNICIAN Work Phone: [employer]. Comment on above: Patient Position: Sitting; Cuff Location : Left Arm; Cuff Size: Standard 09-16-2014 09:58-0500 Body height 180.34 cm Laura Jonesy ARMORED SERVICE TECHNICIAN Work Phone: [employer]. 09-16-2014 09:58-0500 Body mass index (BMI) [Ratio] 31.1 kg/m2 Laura Jonesy ARMORED SERVICE TECHNICIAN Work Phone: [employer]. 09-16-2014 09:58-0500 Body surface area Derived from formula 2.21 m2 Laura Jonesy ARMORED SERVICE TECHNICIAN Work Phone: [employer] 09-16-2014 09:58-0500 Body temperature 98.6 [degF] Laura Jonesy ARMORED SERVICE TECHNICIAN Work Phone: [employer].; [employer]. Comment on above: Method: Tympanic 09-16-2014 09:58-0500 Body weight 101.15 kg Laura Jonesy ARMORED SERVICE TECHNICIAN Work Phone: [employer].; [employer]. 09-16-2014 09:58-0500 Diastolic blood pressure 96 mm[Hg] Laura Sandoval ARMORED SERVICE TECHNICIAN Work Phone: [employer]. Comment on above: Patient Position: Sitting; Cuff Location : Left Arm; Cuff Size: Large 09-16-2014 09:58-0500 Heart rate 80 /min Laura Nick LPN Work Phone: [facility] [place] [employer]. Comment on above: Pattern: Regular 09-16-2014 09:58-0500 Systolic blood pressure 138 mm[Hg] Laura Nick LPN Work Phone: [facility], [place] [employer]. Comment on above: Patient Position: Sitting; Cuff Location : Left Arm; Cuff Size: Large 05-28-2014 11:42-0400 Body weight 100.7 kg Neilee L Vess ARMORED SERVICE TECHNICIAN [facility].; [employer] [place] Every[place]. 05-28-2014 11:42-0400 Diastolic blood pressure 95 mm[Hg] Neilee L Vess ARMORED SERVICE TECHNICIAN [facility], [place].; [employer]. Comment on above: Patient Position: Sitting; Cuff Location : Left Arm; Cuff Size: Standard 05-28-2014 11:42-0400 Heart rate 91 /min Neilee L Vess ARMORED SERVICE TECHNICIAN [facility], [place].; [employer]. Comment on above: Pattern: Regular 05-28-2014 11:42-0400 Systolic blood pressure 138 mm[Hg] Neilee L Vess ARMORED SERVICE TECHNICIAN [facility], [place].; [employer]. Comment on above: Patient Position: Sitting; Cuff Location : Left Arm; Cuff Size: Standard 05-13-2014 09:53-0400 Body height 180.34 cm Meena Winsome [facility], [facility].; [employer]. 05-13-2014 09:53-0400 Body mass index (BMI) [Ratio] 31.24 kg/m2 [facility].; [employer] [place] Every[employer]. 05-13-2014 09:53-0400 Body surface area Derived from formula 2.21 m2 [facility] [employer] [place] [employer]. 05-13-2014 09:53-0400 Body temperature 97.4 [degF] Jo-Ann Schumacher LPN [facility] [employer] [facility], [place]. Comment on above: Method: Tympanic 05-13-2014 09:53-0400 Body weight 101.61 kg Jo-Ann Schumacher LPN [facility].; [employer] 05-13-2014 09:53-0400 Diastolic blood pressure 86 mm[Hg] Jo-Ann Schumacher LPN [facility].; [employer] Comment on above: Patient Position: Sitting; Cuff Location : Left Arm; Cuff Size: Large 05-13-2014 09:53-0400 Heart rate 65 /min Jo-Ann Schumacher [facility].; [employer] Comment on above: Pattern: Regular 05-13-2014 09:53-0400 Systolic blood pressure 123 mm[Hg] Jo-Ann Schumacher [facility] [employer] Comment on above: Patient Position: Sitting; Cuff Location : Left Arm; Cuff Size: Large 02-02-2014 09:16-0400 Body temperature 98.4 [degF] Jazmyn Roman MD Work Phone: [facility] [place] [employer].; [facility] 10-10-2013 15:08-0500 Body height 180.34 cm [facility] Work Phone: [facility] [place] [employer].; [employer] [facility] 10-10-2013 15:08-0500 Body mass index (BMI) [Ratio] 33.75 kg/m2 [facility] Work Phone: [place] [facility].; [employer] [facility], [place]. 10-10-2013 15:08-0500 Body surface area Derived from formula 2.29 m2 [facility] Work Phone: [place] [employer] [facility], [place] Every[place].; [employer] [place] [employer]. 10-10-2013 15:08-0500 Body weight 109.77 kg [facility] Work Phone: [facility].; [facility]. 10-10-2013 15:08-0500 Diastolic blood pressure 88 mm[Hg] Laura Nick LPN Work Phone: [facility], [facility].; [employer] [facility]. Comment on above: Patient Position: Sitting; Cuff Location : Left Arm; Cuff Size: Large 10-10-2013 15:08-0500 Heart rate 94 /min Laura Nick LPN Work Phone: [facility], [place].; [employer]. Comment on above: Pattern: Regular 10-10-2013 15:08-0500 Systolic blood pressure 142 mm[Hg] Laura Nick ARMORED SERVICE TECHNICIAN Work Phone: [facility], [place].; [employer]. Comment on above: Patient Position: Sitting; Cuff Location : Left Arm; Cuff Size: Large 09-22-2013 11:130500 Body height 180.34 cm Jo-Ann Schumacher [facility].; [employer] [place] [employer]. 09-22-2013 11:13-0500 Body mass index (BMI) [Ratio] 33.47 kg/m2 [facility] Winsome [facility].; [employer] [place] [employer]. 09-22-2013 11:13-0500 Body surface area Derived from formula 2.28 m2 [facility] Winsome [facility].; [employer] [place] [employer]. 09-22-2013 11:13-0500 Body weight 108.86 kg Jo-Ann Schumacher [facility], [facility].; [employer]. 09-22-2013 11:13-0500 Diastolic blood pressure 97 mm[Hg] Meena Stuckey [facility], [facility].; [employer]. Comment on above: Patient Position: Sitting; Cuff Location : Left Arm; Cuff Size: Large 09-22-2013 11:13-0500 Heart rate 82 /min Jo-Ann Schumacher ARMORED SERVICE TECHNICIAN [facility], [place].; [employer]. Comment on above: Pattern: Regular 09-22-2013 11:13-0500 Systolic blood pressure 138 mm[Hg] Jo-Ann Schumacher ARMORED SERVICE TECHNICIAN [facility].; [employer] [place] [employer]. Comment on above: Patient Position: Sitting; Cuff Location : Left Arm; Cuff Size: Large 04-11-2013 16:41-0400 Body height 180.34 cm Olga Jose Cruz LPN [facility] [employer] 04-11-2013 16:41-0400 Body mass index (BMI) [Ratio] 31.66 kg/m2 Olga Cruz [facility] [employer] 04-11-2013 16:41-0400 Body surface area Derived from formula 2.23 m2 Olga Cruz ARMORED SERVICE TECHNICIAN [place] [facility] [employer] [place]. 04-11-2013 16:41-0400 Body temperature 98.6 [degF] Olga Cruz [facility] [employer] [facility] [place]. Comment on above: Method: Tympanic 04-11-2013 16:41-0400 Body weight 102.97 kg Olga Cruz ARMORED SERVICE TECHNICIAN [facility] [employer] [place] [employer]. 04-11-2013 16:41-0400 Diastolic blood pressure 103 mm[Hg] Olga Cruz [facility] [employer] [place]. Comment on above: Patient Position: Sitting; Cuff Location : Left Arm; Cuff Size: Standard 04-11-2013 16:41-0400 Heart rate 78 /min Olga Cruz LPN [facility] [employer] [place] [employer]. Comment on above: Pattern: Regular 04-11-2013 16:41-0400 Systolic blood pressure 186 mm[Hg] Olgabrendan Cruz [facility] [employer] [facility] [employer] [place]. Comment on above: Patient Position: Sitting; Cuff Location : Left Arm; Cuff Size: Standard 12-24-2012 14:11-0400 Body height 180.34 cm Jo-Ann Schumacher [facility] [employer] [facility] [place] [employer]. 12-24-2012 14:11-0400 Body mass index (BMI) [Ratio] 31.66 kg/m2 Jo-Ann Schumacher ARMORED SERVICE TECHNICIAN [facility], [facility].; [facility], [facility]. 12-24-2012 [id number]:110400 Body surface area Derived from formula 2.23 m2 Jo-Ann Schumacher [facility], [facility].; [place] [facility], [place]. 12-24-2012 14:11-0400 Body temperature 98.7 [degF] Jo-Ann Schumacher [facility], [facility].; [place] [facility], [place]. Comment on above: Method: Tympanic 12-24-2012 14:11-0400 Body weight 102.97 kg Jo-Ann Schumacher [facility], [facility].; [place] [employer], [place]. 12-24-2012 14:11-0400 Diastolic blood pressure 89 mm[Hg] Jo-Ann Schumacher [facility].; [employer] [place]. Comment on above: Patient Position: Sitting; Cuff Location : Left Arm; Cuff Size: Large 12-24-2012 14:11-0400 Heart rate 98 /min Jo-Ann Schumacher [facility].; [employer]. Comment on above: Pattern: Regular 12-24-2012 14:11-0400 Systolic blood pressure 152 mm[Hg] Jo-Ann Schumacher [facility].; [employer] [place]. Comment on above: Patient Position: Sitting; Cuff Location : Left Arm; Cuff Size: Large 03-18-2012 10:42-0400 Body weight 100.25 kg Laura Nick ARMORED SERVICE TECHNICIAN Work Phone: [facility], [facility].; [employer]. 03-18-2012 10:42-0400 Diastolic blood pressure 93 mm[Hg] Laura Nick ARMORED SERVICE TECHNICIAN Work Phone: [facility].; [employer]. Comment on above: Patient Position: Sitting; Cuff Location : Left Arm; Cuff Size: Large 03-18-2012 10:42-0400 Heart rate 78 /min Laura Nick ARMORED SERVICE TECHNICIAN Work Phone: [facility].; [employer]. Comment on above: Pattern: Regular 03-18-2012 10:42-0400 Systolic blood pressure 147 mm[Hg] Laura Nick LPN Work Phone: [place] [employer].; [employer]. Comment on above: Patient Position: Sitting; Cuff Location : Left Arm; Cuff Size: Large 11-09-2011 15:53-0500 Body weight 101.15 kg Neilee L Vess ARMORED SERVICE TECHNICIAN [facility] [place].; [employer]. 11-09-2011 15:53-0500 Diastolic blood pressure 89 mm[Hg] Neilee L Vess ARMORED SERVICE TECHNICIAN [place] [employer] [place] [employer].; [employer]. Comment on above: Patient Position: Sitting; Cuff Location : Left Arm; Cuff Size: Standard 11-09-2011 15:53-0500 Heart rate 91 /min Neilee L Vess ARMORED SERVICE TECHNICIAN [place] [employer] [place].; [employer]. Comment on above: Pattern: Regular 11-09-2011 15:53-0500 Systolic blood pressure 144 mm[Hg] Neilee L Vess ARMORED SERVICE TECHNICIAN [employer] [place] [employer].; [employer]. Comment on above: Patient Position: Sitting; Cuff Location : Left Arm; Cuff Size: Standard 10-31-2011 15:44-0500 Body height 180.34 cm Nelsy Mauro Santizo ARMORED SERVICE TECHNICIAN [place] [facility], [facility].; [employer] [place]. 10-31-2011 15:44-0500 Body mass index (BMI) [Ratio] 32.08 kg/m2 Nelsy C Gore ARMORED SERVICE TECHNICIAN [facility] [employer] [place]. 10-31-2011 15:44-0500 Body surface area Derived from formula 2.24 m2 Nelsy C Gore ARMORED SERVICE TECHNICIAN [employer] [facility].; [employer] [place]. 10-31-2011 15:44-0500 Body weight 104.33 kg Nelsy C Gore ARMORED SERVICE TECHNICIAN [place] [employer] [employer] [place]. 10-31-2011 15:44-0500 Diastolic blood pressure 92 mm[Hg] Nelsy C Sukhdev ARMORED SERVICE TECHNICIAN [employer]. Comment on above: Patient Position: Sitting; Cuff Location : Left Arm; Cuff Size: Large 10-31-2011 15:44-0500 Heart rate 84 /min Nelsy Mauro Santizo ARMORED SERVICE TECHNICIAN [employer].; [employer]. Comment on above: Pattern: Regular 10-31-2011 15:44-0500 Systolic blood pressure 138 mm[Hg] Nelsy Mauro Gore ARMORED SERVICE TECHNICIAN [employer].; [employer]. Comment on above: Patient Position: Sitting; Cuff Location : Left Arm; Cuff Size: Large 05-01-2011 16:09-0400 Body height 180.34 cm Laura Sandoval ARMORED SERVICE TECHNICIAN Work Phone: [employer].; [employer]. 05-01-2011 16:09-0400 Body mass index (BMI) [Ratio] 30.82 kg/m2 Laura Sandoval ARMORED SERVICE TECHNICIAN Work Phone: [employer].; [employer]. 05-01-2011 16:09-0400 Body surface area Derived from formula 2.2 m2 Laura Sandoval ARMORED SERVICE TECHNICIAN Work Phone: [employer].; [employer]. 05-01-2011 16:09-0400 Body weight 100.25 kg Laura Jonesy ARMORED SERVICE TECHNICIAN Work Phone: [employer].; [employer]. 05-01-2011 16:09-0400 Diastolic blood pressure 87 mm[Hg] Laura Sandoval ARMORED SERVICE TECHNICIAN Work Phone: [employer].; [employer]. Comment on above: Patient Position: Sitting; Cuff Location : Left Arm; Cuff Size: Standard 05-01-2011 16:09-0400 Heart rate 72 /min Laura Sandoval ARMORED SERVICE TECHNICIAN Work Phone: [employer].; [employer]. Comment on above: Pattern: Regular 05-01-2011 16:09-0400 Systolic blood pressure 132 mm[Hg] Laura Sandoval ARMORED SERVICE TECHNICIAN Work Phone: [employer].; [employer]. Comment on above: Patient Position: Sitting; Cuff Location : Left Arm; Cuff Size: Standard 07-25-2010 11:51-0400 Body height 172.72 cm Laura Nick LPN Work Phone: [employer]. 07-25-2010 11:51-0400 Body mass index (BMI) [Ratio] 34.21 kg/m2 Laura Nick ARMORED SERVICE TECHNICIAN Work Phone: [employer].; [employer]. 07-25-2010 11:51-0400 Body surface area Derived from formula 2.15 m2 Laura Nick ARMORED SERVICE TECHNICIAN Work Phone: [employer]; [employer]. 07-25-2010 11:51-0400 Body temperature 97.2 [degF] Laura Nick ARMORED SERVICE TECHNICIAN Work Phone: [employer]; [employer]. Comment on above: Method: Tympanic 07-25-2010 11:51-0400 Body weight 102.06 kg Laura Nick ARMORED SERVICE TECHNICIAN Work Phone: [employer].; [employer]. 07-25-2010 11:51-0400 Diastolic blood pressure 91 mm[Hg] Laura Nick LPN Work Phone: [employer]; [employer]. Comment on above: Patient Position: Sitting; Cuff Location : Right Arm; Cuff Size: Large 07-25-2010 11:51-0400 Heart rate 81 /min Laura Nick ARMORED SERVICE TECHNICIAN Work Phone: [employer]; [employer]. Comment on above: Pattern: Regular 07-25-2010 11:51-0400 Systolic blood pressure 136 mm[Hg] Laura Nick ARMORED SERVICE TECHNICIAN Work Phone: [employer].; [employer]. Comment on above: Patient Position: Sitting; Cuff Location : Right Arm; Cuff Size: Large 07-22-2010 11:46-0400 Body weight 100.7 kg Neilee Yanick Ramírez LPN [employer].; [employer]. 07-22-2010 11:46-0400 Diastolic blood pressure 92 mm[Hg] Neilee L Vess ARMORED SERVICE TECHNICIAN [employer].; [employer]. Comment on above: Patient Position: Sitting; Cuff Location : Left Arm; Cuff Size: Standard 07-22-2010 11:46-0400 Heart rate 104 /min Neilee L Vess ARMORED SERVICE TECHNICIAN [employer].; [employer] [place] [employer]. Comment on above: Pattern: Regular 07-22-2010 11:46-0400 Systolic blood pressure 136 mm[Hg] Neilee L Vess ARMORED SERVICE TECHNICIAN [employer].; [employer] [place] [employer]. Comment on above: Patient Position: Sitting; Cuff Location : Left Arm; Cuff Size: Standard Encounters Encounter Date Encounter Type Care Provider Facility Start: 06-24-2025 End: 06-24-[address] Jazmyn Roman MD Work Phone: -Radiology [facility] Start: 06-24-2025 End: 06-24-[address] Ancelmo Ramos MD -Radiology [facility] Work Phone: Start: 06-24-2025 End: 06-24-2025 ambulatory Ancelmo Ramos Facility:[facility] Start: 06-05-2025 End: 06-06-2025 ambulatory JAZMYN ROMAN [facility] Start: 01-01-2025 End: 01-01-2025 Procedure Jazmyn Roman MD Work Phone: [facility] Start: 01-01-2025 Review Jazmyn andrews MD Work Phone: [facility] Start: 12-29-2024 End: 12-29-2024 ambulatory ROSSY COFFMAN MD Facility:A Start: 12-29-2024 End: 12-29-2024 SAME DAY STAY ROSSY COFFMAN MD [facility] Start: 12-15-2024 End: 12-15-2024 Admission to establishment ROSSY COFFMAN MD [facility] Start: 12-15-2024 End: 12-15-2024 ambulatory ROSSY COFFMAN MD Facility:A Start: 10-20-2024 Review Jazmyn andrews MD Work Phone: [facility] Start: 10-20-2024 End: 10-20-2024 Office outpatient visit 15 minutes Jazmyn Roman MD Work Phone: [facility] Start: 10-20-2024 ambulatory [facility] Start: 10-20-2024 Follow-up encounter Jazmyn brooks MD Work Phone: [facility] Start: 10-13-2024 End: 10-18-[address] JAZMYN ROMAN MD Facility:A Start: 10-13-2024 End: 10-18-2024 [address]ation ALIS FREIRE MD [facility] Start: 10-12-2024 ambulatory JAZMYN ROMAN [facility] Start: 10-12-2024 End: 10-12-2024 Emergency department patient visit JAZMYN ROMAN [facility] Start: 09-12-2024 End: 09-12-2024 Office outpatient visit 15 minutes Jazmyn Roman MD Work Phone: [facility] Start: 09-12-2024 Follow-up encounter Jazmyn brooks MD Work Phone: [facility] Start: 08-01-2024 End: 08-01-2024 Patient encounter procedure Jazmyn Roman MD Work Phone: [employer] Start: 08-01-2024 End: 08-01-2024 Physical examination Jazmyn Roman MD Work Phone: [facility]; [place] [facility]tab Start: 08-01-2024 Follow-up encounter Jazmyn brooks MD Work Phone: [employer]. Start: 08-01-2024 Physical examination Laura gonzalez LPN Work Phone: [employer]; [employer]. Start: 07-03-2024 Review Jazmyn andrews MD Work Phone: [employer]. Start: 11-08-2023 End: 11-08-2023 Telephone follow-up Jazmyn Roman MD Work Phone: [employer] Start: 08-13-2023 End: 08-13-2023 Patient encounter procedure Jazmyn Roman MD Work Phone: [employer] Start: 08-10-2023 End: 08-10-2023 Patient encounter procedure Jazmyn Roman MD Work Phone: [employer] Start: 08-10-2023 End: 08-10-2023 Physical examination Ebonie Ac LPN [employer]; [employer]. Start: 05-29-2023 End: 05-29-2023 Telephone follow-up Jazmyn Roman MD Work Phone: [employer] Start: 12-07-2022 End: 12-07-2022 Telephone follow-up Jazmyn Roman MD Work Phone: [employer]. Start: 11-23-2022 End: 11-23-2022 Telephone follow-up Jazmyn Roman MD Work Phone: [employer] Start: 09-11-2022 End: 09-11-2022 Historical Summary Jazmyn Roman MD Work Phone: [employer] Start: 06-20-2022 End: 06-21-2022 Orders Jazmyn Roman MD Work Phone: [employer]. Start: 06-09-2022 End: 06-09-2022 [facility] Work Phone: Start: 06-09-2022 End: 06-09-2022 Patient encounter procedure [facility] Start: 06-06-2022 Patient encounter procedure [facility] Provider [facility] Start: 05-24-2022 End: 05-24-2022 Phone Encounter Jazmyn Roman MD Work Phone: [employer] Start: 05-03-2022 End: 05-03-2022 Orders Jazmyn Roman MD Work Phone: [employer] Start: 04-24-2022 End: 04-24-2022 Patient encounter procedure Jazmyn Roman MD Work Phone: [employer] Start: 03-15-2022 End: 03-15-2022 Telephone follow-up Jazmyn Roman MD Work Phone: [employer] Start: 02-02-2022 End: 02-02-2022 Telephone follow-up Jazmyn Roman MD Work Phone: [employer] Start: 06-08-2021 End: 06-08-2021 Patient encounter procedure Jazmyn Roman MD Work Phone: [employer] Start: 01-12-2021 End: 01-12-2021 Orders Jazmyn Roman MD Work Phone: [employer] Start: 01-06-2021 End: 01-06-2021 Patient encounter procedure Jazmyn Roman MD Work Phone: [employer] Start: 11-24-2019 End: 11-24-2019 Historical Summary Jazmyn Roman MD Work Phone: [employer] Start: 07-17-2019 End: 07-17-2019 Follow-up encounter Jazmyn Roman MD Work Phone: [employer] Start: 06-16-2019 End: 06-16-2019 Office outpatient visit 15 minutes Jazmyn Roman MD Work Phone: [employer] Start: 04-22-2019 End: 04-22-2019 Telephone follow-up Jazmyn Roman MD Work Phone: [employer] Start: 06-27-2018 End: 06-27-2018 Phone Encounter Jazmyn Roman MD Work Phone: [employer] Start: 06-26-2018 End: 06-26-2018 Patient encounter procedure Jazmyn Roman MD Work Phone: [employer] Start: 05-09-2018 End: 05-09-2018 Patient encounter procedure Jazmyn Roman MD Work Phone: [employer] Start: 04-11-2018 End: 04-24-2018 Patient encounter procedure Jazmyn Roman MD Work Phone: [employer] Start: 04-05-2018 End: 04-05-2018 Telephone follow-up Jazmyn Roman MD Work Phone: [employer] Start: 03-25-2018 End: 03-25-2018 Telephone follow-up Jazmyn Roman MD Work Phone: [employer] Start: 03-22-2018 End: 03-22-2018 Historical Summary Jazmyn Roman MD Work Phone: [employer] Start: 03-17-2018 End: 03-22-2018 Evaluation and management of inpatient DIANNE Mauro [place] Facility:A Start: 01-14-2018 End: 01-14-2018 Patient encounter procedure Jazmyn Roman MD Work Phone: [employer] Start: 11-12-2017 End: 11-19-2017 Patient encounter procedure Jazmyn Roman MD Work Phone: [employer] Start: 08-24-2017 End: 08-24-2017 Telephone follow-up Jazmyn Roman MD Work Phone: [employer] Start: 09-13-2015 End: 09-13-2015 Office outpatient visit 15 minutes Jazmyn Roman MD Work Phone: [employer] Start: 03-08-2015 End: 03-08-2015 Patient encounter procedure Jazmyn Roman MD Work Phone: [employer] Start: 01-25-2015 End: 02-04-2015 Patient encounter procedure Jazmyn Roman MD Work Phone: [employer]. Start: 01-20-2015 End: 01-20-2015 Orders Jazmyn Roman MD Work Phone: [employer] Start: 09-16-2014 End: 09-24-2014 Patient encounter procedure Jazmyn Roman MD Work Phone: [employer] Start: 05-28-2014 End: 05-28-2014 Patient encounter procedure Jazmyn Roman MD Work Phone: [employer] Start: 05-13-2014 End: 05-13-2014 Office outpatient visit 15 minutes Jazmyn Roman MD Work Phone: [employer] Start: 02-02-2014 End: 02-02-2014 Patient encounter procedure Jazmyn Roman MD Work Phone: [employer] Start: 11-06-2013 End: 11-06-2013 Historical Summary Jazmyn Roman MD Work Phone: [employer] Start: 10-27-2013 End: 10-27-2013 Orders Jazmyn Roman MD Work Phone: [employer] Start: 10-27-2013 End: 10-27-2013 Historical Summary Jazmyn Roman MD Work Phone: [employer] Start: 10-24-2013 End: 10-24-2013 Historical Summary Jazmyn Roman MD Work Phone: [employer] Start: 10-16-2013 End: 10-16-2013 Historical Summary Jazmyn Roman MD Work Phone: [employer] Start: 10-15-2013 End: 10-15-2013 Historical Summary Jazmyn Roman MD [facility] Start: 10-10-2013 End: 10-10-2013 Patient encounter procedure Jazmyn Roman MD Work Phone: [employer] Start: 10-02-2013 End: 10-02-2013 Orders Jazmyn Roman MD Work Phone: [facility] Start: 09-22-2013 End: 09-22-2013 Patient encounter procedure Jazmyn Roman MD Work Phone: [employer] Start: 09-22-2013 End: 09-22-2013 Patient encounter procedure Jazmyn Roman MD Work Phone: [employer] Start: 04-16-2013 End: 04-21-2013 Orders Jazmyn Roman MD Work Phone: [employer] Start: 04-11-2013 End: 04-11-2013 Patient encounter procedure Jazmyn Roman MD Work Phone: [employer] Start: 12-24-2012 End: 12-24-2012 Patient encounter procedure Jazmyn Roman MD Work Phone: [employer] Start: 03-18-2012 End: 03-18-2012 Patient encounter procedure Jazmyn Roman MD Work Phone: [employer] Start: 11-13-2011 End: 11-13-2011 Phone Encounter Jazmyn Roman MD Work Phone: [employer] Start: 11-09-2011 End: 11-09-2011 Patient encounter procedure Jazmyn Roman MD Work Phone: [employer] Start: 11-02-2011 End: 11-03-2011 Orders Jazmyn Roman MD Work Phone: [employer] Start: 10-31-2011 End: 10-31-2011 Patient encounter procedure Jazmyn Roman MD [facility] Start: 05-01-2011 End: 05-05-2011 Patient encounter procedure Jazmyn Roman MD Work Phone: [facility] Start: 12-28-2010 End: 12-28-2010 Medication Jazmyn Roman MD Work Phone: [facility]|tab Start: 08-03-2010 End: 08-03-2010 Historical Summary Jazmyn Roman MD Work Phone: [facility]|tab Start: 07-27-2010 End: 07-27-2010 Orders Jazmyn Roman MD Work Phone: [facility]tab Start: 07-25-2010 End: 07-25-2010 Procedure Jazmyn Roman MD Work Phone: [facility]|tab Start: 07-25-2010 End: 07-25-2010 Patient encounter procedure Jazmyn Roman MD Work Phone: [facility]|tab Start: 07-22-2010 End: 07-22-2010 Patient encounter procedure Jazmyn Roman MD Work Phone: [facility] Procedures Date Procedure Procedure Detail Performing Clinician Start: 06-24-2025 X-ray of lumbosacral spine Dr. Jazmyn Roman MD Work Phone: Start: 06-05-2025 Urinalysis JAZMYN ROMAN Comment on above: Result Comment: URINALYSIS Performed By: #### [id number] #### [facility],[address] [place] [address] Start: 01-01-2025 End: 01-01-2025 Incision thrombosed hemorrhoid external Jazmyn Roman MD Work Phone: Start: 10-18-2024 End: 10-18-2024 ERCP Laura Nick LPN Work Phone: Comment on above: with stent placement, [facility] Start: 10-12-2024 Urinalysis JAZMYN ROMAN Comment on above: Result Comment: URINALYSIS Performed By: #### [id number] #### [facility],[address] [address] Start: 08-01-2024 End: 08-01-2024 Depression screening Jazmyn Roman MD Work Phone: Comment on above: verbal Start: 08-01-2024 End: 08-01-2024 Lab findings surveillance Laura Nick L PN Work Phone: Comment on above: 110 not fasting Start: 08-01-2024 End: 08-01-2024 Lipid panel results documented & reviewed aLura Nick ARMORED SERVICE TECHNICIAN Work Phone: Comment on above: Normal. tc 174 hdl 39 ldl 109 trig 149 Start: 08-01-2024 End: 08-01-2024 Pos clin depres scrn f/u doc Jazmyn Roman MD Work Phone: Start: 08-01-2024 End: 08-01-2024 Prostate specific antigen measurement Laura Jonesy ARMORED SERVICE TECHNICIAN Work Phone: Comment on above: 2.90 Start: 08-01-2024 End: 08-01-2024 Scr dep neg, no plan reqd Jazmyn burgos MD Work Phone: Start: 08-10-2023 End: 08-10-2023 Depression screening Jazmyn Roman MD Work Phone: Start: 08-10-2023 End: 08-10-2023 Flu imm no admin doc gillian Jazmyn brito MD Work Phone: Start: 08-10-2023 End: 08-10-2023 Lab findings surveillance Laura Jonesy L PN Work Phone: Comment on above: 82 Start: 08-10-2023 End: 08-10-2023 Lipid panel results documented & reviewed Laura Nick ARMORED SERVICE TECHNICIAN Work Phone: Comment on above: Normal. tc 173 hdl 40 ldl 109 trig 128 Start: 08-10-2023 End: 08-10-2023 Prostate specific antigen measurement Ebonie Ac LPN Comment on above: never 0.45 Start: 08-10-2023 End: 08-10-2023 Scr dep neg, no plan reqd Jazmyn burgos MD Work Phone: Start: 06-09-2022 MRI of brain with contrast Start: 11-20-2019 End: 11-20-2019 Screening colonoscopy Ebonie Ac LPN Comment on above: Abnormal. 2 polyps, diverticulosis, Dr Yrn martell, recheck 3 yrs Abnormal. 2 polyps-t ubulovillous adenoma and tublar adenoma, diverticulosis, Dr Coffman, recheck 3 yrs Start: 04-23-2019 End: 04-23-2019 Endoscopy Jazmyn Roman MD Work Phone: Comment on above: Abnormal. 04/23/19 gastiritis, w/o bleedi ng, GERD with esophagitis Start: 01-23-2019 Cardiac pacemaker, device (physical object) ROSSY COFFMAN MD Start: 01-22-2019 End: 01-22-2019 Insertion of intracardiac pacemaker Laura Nick LPN Work Phone: Comment on above: Dr Carolyne Verma [facility] Start: 06-26-2018 End: 06-26-2018 Flu imm no admin doc gillian brito MD Work Phone: Start: 06-26-2018 End: 06-26-2018 Lab findings surveillance Ebonie Ac LPN Start: 06-26-2018 End: 06-26-2018 Ketorolac tromethamine inj Jazmyn Roman MD Work Phone: Start: 03-20-2018 End: 03-20-2018 ECRP Laura Nick LPN Work Phone: Comment on above: with stent placement Start: 01-14-2018 End: 01-14-2018 Body mass index documented Jazmyn Roman MD Work Phone: Start: 11-12-2017 End: 11-12-2017 Flu imm no admin doc gillian brito MD Work Phone: Start: 10-25-2017 End: 10-25-2017 CPK Ebonie Ac LPN Comment on above: Abnormal. 2546 (1283 in 2014) (3012 in 2 012) Start: 03-08-2015 End: 03-08-2015 Triamcinolone acet inj NOS Jazmyn Roman MD Work Phone: Start: 01-25-2015 End: 04-02-2015 Radiologic exam small int single contrast study Jazmyn Roman MD Work Phone: Start: 01-20-2015 End: 04-02-2015 Ct limited/localized follow up study Jazmyn Roman MD Work Phone: Start: 05-13-2014 End: 05-13-2014 Dexamethasone sodium phos Rj Miller MD Work Phone: Start: 10-27-2013 End: 11-21-2013 Polysom 6/>yrs sleep w/cpap 4/> addl stefany attnd Jazmyn Roman MD Work Phone: Start: 10-15-2013 End: 10-15-2013 CT of abdomen Laura Nick ARMORED SERVICE TECHNICIAN Work Phone: Comment on above: fatty liver Start: 10-10-2013 End: 10-24-2013 Polysom 6/>yrs sleep 4/> addl stefany attnd Jazmyn Roman MD Work Phone: Start: 10-10-2013 End: 04-22-2014 Ct abdomen w/contrast material Jazmyn Roman MD Work Phone: Start: 10-07-2013 End: 10-07-2013 Lipid panel results documented & reviewed Ebonie Ac LPN Comment on above: Normal. at [facility] Start: 09-24-2013 End: 09-24-2013 Catheterization of both left and right heart Laura Nick ARMORED SERVICE TECHNICIAN Work Phone: Comment on above: [facility]ina normal coronaries and normal le ft ventricular function Start: 09-24-2013 End: 09-24-2013 Echocardiography Laura Nick LPN Work Phone: Comment on above: [facility], ejection fraction 60% Start: 09-24-2013 End: 09-24-2013 heart cath Laura Sandoval ARMORED SERVICE TECHNICIAN Work Phone: Comment on above: clean coronaries yina 09/2013 Start: 09-24-2013 End: 09-24-2013 sleep study Laura Sandoval ARMORED SERVICE TECHNICIAN Work Phone: Comment on above: ANIKA Start: 04-16-2013 End: 04-18-2013 Myocardial spect multiple studies Kelvin Gifford MD Work Phone: Start: 04-11-2013 End: 04-18-2013 Myocardial spect multiple studies Kelvin Gifford MD Work Phone: Start: 03-18-2012 End: 03-18-2012 Radex ribs bilateral 3 views Jazmyn Roman MD Work Phone: Start: 11-01-2011 End: 11-05-2011 Ct abdomen w/contrast material Kelvin Gifford MD Work Phone: Start: 07-25-2010 End: 08-12-2010 Ketorolac tromethamine inj Jazmyn Roman MD Work Phone: Start: 07-25-2010 End: 01-19-2011 Radex elbow complete minimum 3 views Jazmyn Roman MD Work Phone: Cholecystectomy Laura Sandoval ARMORED SERVICE TECHNICIAN Work Phone: Comment on above: 07/2010 jaroch Cholecystectomy Laura Sandoval ARMORED SERVICE TECHNICIAN Work Phone: Comment on above: 07/2010 jar[facility] Cholecystectomy ALIS FREIRE MD Cholecystectomy Laura Sandoval ARMORED SERVICE TECHNICIAN Work Phone: Comment on above: 07/2010 jar[facility] Colonoscopy ROSSY COFFMAN MD History of cholecystectomy History of cholecystectomy Ebonie Ac ARMORED SERVICE TECHNICIAN History of cholecystectomy History of cholecystectomy Laura Sandoval ARMORED SERVICE TECHNICIAN Work Phone: History of cholecystectomy History of cholecystectomy Ebonie Ac ARMORED SERVICE TECHNICIAN History of cholecystectomy History of cholecystectomy Laura Sandoval ARMORED SERVICE TECHNICIAN Work Phone: History of cholecystectomy History of cholecystectomy Laura Sandoval ARMORED SERVICE TECHNICIAN Work Phone: History of operative procedure on elbow ALIS FREIRE MD History of operative procedure on elbow ROSSY COFFMAN MD Comment on above: right History of operative procedure on knee ALIS FREIRE MD History of operative procedure on knee ROSSY COFFMAN MD Comment on above: left knee right knee manipulat ion as well Traumatic dislocatio n of knee joint (disorder) ALIS FREIRE MD Traumatic dislocatio n of knee joint (disorder) ROSSY COFFMAN MD Comment on above: left-surgery Plan of Treatment Date Care Activity Detail Author Start: 09-12-2024 Patient encounter procedure Medical; EXTENDED RTN - 6 WK F/U [employer]. Start: 12-Sep-2024 14:50-05:00 MD Jazmyn Roman Appointment Request [employer]. Start: 08-01-2024 Blood count complete auto&auto difrntl wbc CBC, PLATELETS & AUT DIFF (M) (52380) Start: 01-Aug-2024 15:57-05:00 Request [employer]; [employer]. Start: 08-01-2024 Lipid panel LIPID PANEL (03325) Start: 01-Aug-2024 15:56-05:00 Request [employer].; [employer]. Start: 08-01-2024 Comprehensive metabolic panel CMP w/ GFR* (41220) Start: 01-Aug-2024 15:56-05:00 Request [employer].; [employer]. Start: 08-01-2024 Assay of prostate specific antigen total PSA TOTAL (PROSTATE SPECIFIC ANTIGEN) (07393) Start: 01-Aug-2024 15:56-05:00 Request [employer]; [employer]. Start: 08-01-2024 Patient encounter procedure Medical; EXTENDED RTN - RTN [employer] Start: 01-Aug-2024 14:50-05:00 MD Jazmyn Roman Appointment Request [employer] Start: 01-22-2024 LIPID SCREEN LIPID SCREEN [facility] Start: 11-09-2022 DIABETES SCREEN DIABETES SCREEN [facility] Start: 05-25-2022 Influenza vaccination INFLUENZA (#1) [facility] Start: 2018 SHINGRIX VACCINE (1 of 2) SHINGRIX VACCINE (1 of 2) [facility] Start: 2013 COLOGUARD (FIT-DNA) COLOGUARD (FIT-DNA) [facility] Start: 2013 Colonoscopy COLONOSCOPY [facility] Start: 2013 COLORECTAL CANCER SCREENING COLORECTAL CANCER SCREENING [facility] Start: [address] COLONOGRAPHY [facility] Start: 2013 FECAL OCCULT BLOOD FECAL OCCULT BLOOD [facility] Start: 2013 SIGMOIDOSCOPY SIGMOIDOSCOPY [facility] Start: 1987 Urine microalbumin profile DTAP,TDAP,TD (1 - Tdap) [facility] Start: 1986 HEPATITIS C SCREENING HEPATITIS C SCREENING [facility] Start: 1986 HIV SCREENING HIV SCREENING [facility] Start: 1980 Adult depression screening assessment DEPRESSION SCREENING [facility] Start: 02-11-1969 COVID-19 VACCINE (#1) COVID-19 VACCINE (#1) [facility] Start: 1968 HEPATITIS B (1 of 3 - 3-dose series) HEPATITIS B (1 of 3 - 3-dose series) [facility] dexAMETHasone so d phos (bulk) 100 % powder Ordered: 13-May-2014 MD Rj Miller [facility]. Work Phone: dexAMETHasone so d phos (bulk) 100 % powder Ordered: 08-Mar-2015 MD Jazmyn Roman [facility]. Immunizations Immunization Date Immunization Notes Care Provider Noe [facility] 05-24-2023 tetanus toxoid, reduced diphtheria toxoid, and acellular pertussis vaccine, adsorbed ROSSY COFFMAN MD [facility] 03-10-2022 tetanus toxoid, reduced diphtheria toxoid, and acellular pertussis vaccine, adsorbed ROSSY COFFMAN MD [facility] 02-13-2014 measles, mumps and rubella virus vaccine Jazmyn Roman MD Work Phone: [facility]; [employer] 02-13-2014 measles/mumps/rubell a virus vaccine ROSSY COFFMAN MD [facility] 07-22-2010 influenza, seasonal, injectable Jazmyn Roman MD Work Phone: [employer]; [employer] Work Phone: Comment on above: Site: Deltoid (Right )VIS Given: * Inactivated Influenza Vaccine (05/04/09) 07-22-2010 IMMUNIZATION ADMIN (11407) Jazmyn Roman MD Work Phone: [employer]; [employer] 07-27-2005 tetanus and diphther ia toxoids, adsorbed, preservative free, for adult use (2 Lf of tetanus toxoid and 2 Lf of diphtheria toxoid) Jazmyn Roman MD Work Phone: [employer]; [employer] Payers Date Payer Category Payer Self-pay 2024 Unknown 2024 Unknown [id number] 2017 Unknown [id number] 1970 Unknown [id number] 2.16.8 [id number] 1968 Unknown [id number] 2.16.8 [id number] 1968 Unknown [id number] 2.16.8 [id number] 1968 Unknown [id number] 2.16.8 [id number] 1968 Unknown [id number] 2.16.8 [id number] 1968 Unknown [id number] 2.16.8 [id number] Unknown [id number] Unknown [id number] Unknown [id number] 2.16.8 [id number] Social History Date Type Detail Facility Tobacco smoking stat [facility] Tobacco smoking consumption unknown [facility] Start: 1970 Sex Assigned At Not on file C [facility] Start: 1970 Sex Assigned At Male W [facility] alcohol abuse alcohol abuse [facility]; [facility] Tobacco Use: Tobacco Use: ; U ses chewing tobacco. Never smoker. [facility] [employer] Start: 12-15-2024 End: 06-26-2025 Never smoked tobacco [facility] [employer] Work Phone: Uses chewing tobacco [employer]; [employer] Work Phone: Sexual Orientation [facility] Start: 11-02-2005 Sex Male (finding) [facility] Sex Male [facility] Medical Equipment Procedure Code Equipment Code Equipment Origin al Text Equipment Identifier Dates OP ERCP with Anesthesia Unknown 10/18/24 Unknown Unknown FDA Start: 10-18-2024 Unknown Unknown 03/20/18 Unknown Unknown FDA Start: 03-20-2018 OP ERCP with Anesthesia Unknown 10/18/24 Unknown Unknown FDA Start: 10-18-2024 Unknown Unknown 03/20/18 Unknown Unknown FDA Start: 03-20-2018 OP ERCP with Anesthesia Unknown 10/18/24 Unknown Unknown FDA Start: 10-18-2024 Unknown Unknown 03/20/18 Unknown Unknown FDA Start: 03-20-2018 Functional Status Date Assessment Result Facility 12-29-2024 Functional Status Up to bathroom , Up with assistance [facility] 12-29-2024 Functional Status Repositioned back [facility] 12-29-2024 Functional Status Maintained [facility] 12-15-2024 Functional Status Sensory Deficits None A [facility] 10-18-2024 Functional Status Nurse Neelima bellamy q2hrs Performed Other: 7a-d/c [facility] 10-18-2024 Functional Status Lunch Percent 0 [facility] 10-18-2024 Functional Status Non-Slip footw ear, Room check performed [facility] 10-18-2024 Functional Status [facility] 10-18-2024 [facility] Status [facility] 10-16-2024 Functional Status [facility] 10-16-2024 Functional Status [facility] 10-16-2024 [facility] 10-15-[facility] Functional Status Independent [facility] 10-15-2024 Functional Status [facility] 10-14-2024 Functional Status [facility] 10-14-2024 Functional Status bilateral knee high rem nell/off [facility] 10-14-2024 Functional Status 0 [facility] 10-14-2024 Functional Status [facility] 10-14-2024 Functional Status [facility] 10-14-2024 Functional Status Activity Assistance Ind ependent [facility] 10-13-2024 Functional Status [facility] 10-13-2024 Functional Status [facility] 10-13-2024 Functional Status Sensory Deficits None A [facility] Mental Status Date Assessment Result Facility 12-29-2024 Mental Status Oriented x 4 [facility] 10-18-2024 Mental Status Oriented x 4 [facility] 10-17-2024 Mental Status Orientation Assessment Orie nted x 4 [facility] 10-16-[facility]24 [facility] Clinical Notes 10-13-2024 to 06-24-2025 Note Date & Type Note Facility 06-24-2025 Radiology Diagnostic study note [facility] Imaging Services [address] [place] [address] (004) L/S Spine Min 4 Views MR#: [id number] Acct: [id number] Name: SKYLERLIYAH A Rep #: [id number] : 1970 M 54 From: Farooq Dhillon MD PCP: Dr. Jazmyn Roman MD Status: R EG CLI Study:L/S Spine Min 4 Views Date of Exam: 06/24/25 Exam# [id number] Ordering Dr: Ancelmo Ramos MD PROCEDURE: L/S SPINE MIN 4 VIEWS 06/24/2025 REASON FOR EXAM: LUMBAR STENOSIS TECHNIQUE: Procedure Code: RADSPLS Modality: DX Procedure: L/S SPINE MIN 4 VIEWS FINDINGS: No evidence of acute fracture or dislocation. No visualized pars defects. Milddegenerative changes of the visualized spine. Mild lower lumbar facet arthropathy. Normal alignment. RAD/L/S Spine Min 4 Views IMPRESSION: Spondylosis. Reading Location: [id number] CC: Dr. Jazmyn Roman MD; Dr. Ancelmo Ramos MD ~ Test Boring Crew Chief: Signed [facility] 12-29-2024 Hospital Discharge instructions Patient Education 12/29/2024 10:08:48 [facility] Discharge Instructions Template (06/2018) (Custom) [facility] SAME DAY SURGERY DISCHARGE INSTRUCTIONS PLEASE FOLLOW THE INSTRUCTIONS BELOW MARKED WITH AN X: _x__ Regular Diet: Start with clear liquids, then soup and crackers and gradually add other foods. _x__ Drink extra fluids. ___ Special Diet Instructions: ___ ACTIVITY: _x__ Avoid stress to suture line. Since you have had an anesthetic, it would be advisable not to drive, drink alcohol, or make major decisions over the next 24 hours. You may require more rest tonight and tomorrow. ___ May resume regular activity as tolerated. ___ Restrict activity as follows: ___ ___ Walk Only ___ ___ Do not go up and down stairs. ___ Do not ride in car until ___ ___ Do not drive car. ___ Do not have sexual intercourse. ___ No heavy lifting, pushing or straining. ___ Other: ___ BATHING/SHOWERING: ___ Sponge bathe until office visit. ___ Sitting in tub of warm water may relieve discomfort. ___ May tub bathe ___ May shower ___ On day after surgery sit in tub of warm water to soak off dressing. DRESSING: ___ Keep operative area dry and clean for ___ ___ Check the operative area for signs of bleeding. Apply pressure to the bleeding site if necessary and call your physician. ___ Change dressing as necessary using sterile dressing material or bandaid. ___ Reinforce dressing as necessary. ___ Change and care for wound as follows: ___ ___ Wear bra for ___ days following breast surgery for comfort. ___ Change drip pad as needed. ___ Wear scrotal support for comfort. WATCH FOR SIGNS OF INFECTION: (Usually appears 36-48 hours after surgery) Increased temperature (101 degrees Fahrenheit or higher) Redness or swelling Increased pain Foul odor or drainage. If you have any questions, please call your doctor at the number listed on your follow up instructions. Follow all instructions given to you by your physician. Please complete and return the survey you will be receiving in the mail to help us better serve our patients. Form: [id number]) R: 12/3112/29/2024 10:08:48 Endoscopic Retrograde Cholangiopancreatogram, Care After Endoscopic Retrograde Cholangiopancreatogram, Care After This sheet gives you information about how to care for yourself after your procedure. Your health care provider may also give you more specific instructions. If you have problems or questions, contact your health care provider. What can I expect after the procedure? After the procedure, it is common to have: Soreness in your throat. Nausea. Bloating. Dizziness. Tiredness (fatigue). Follow these instructions at home: Take nltq-kkd-fnogyry and prescription medicines only as told by your health care provider. Do not drive for 24 hours if you were given a medicine to help you relax (sedative) during your procedure. Have someone stay with you for 24 hours after the procedure. Return to your normal activities as told by your health care provider. Ask your health care provider what activities are safe for you. Return to eating what you normally do as soon as you feel well enough or as told by your health care provider. Keep all follow-up visits as told by your health care provider. This is important. Contact a health care provider if: You have pain in your abdomen that does not get better with medicine. You develop signs of infection, such as: ?Chills. ?Feeling unwell. Get help right away if: You have difficulty swallowing. You have worsening pain in your throat, chest, or abdomen. You vomit bright red blood or a substance that looks like coffee grounds. You have bloody or very black stools. You have a fever. You have a sudden increase in swelling (bloating) in your abdomen. Summary After the procedure, it is common to feel tired and to have some discomfort in your throat. Contact your health care provider if you have signs of infection such as chills or feeling unwell or if you have pain that does not improve with medicine. Get help right away if you have trouble swallowing, worsening pain, bloody or black vomit, bloody or black stools, a fever, or increased swelling in your abdomen. Keep all follow-up visits as told by your health care provider. This is important. This information is not intended to replace advice given to you by your health care provider. Make sure you discuss any questions you have with your health care provider. Document Released: 07/01/2014 Document Revised: 08/23/2018 Document Reviewed: 07/30/2017 [employer] Patient Education 2020 [employer]. Follow Up Care 10/28/2024 13:30:02 With:ROSSY COFFMAN MD Address: [address] [place] [address] [facility], [place] [address]- [phone] When: Unknown Comments:Schedule appointment as soon as possible [facility] 12-29-2024 Anesthesiology Consult note Patient: LIYAH HOLLAND Age: 54 years Sex: Male : 1970 Associated Diagnoses: None Author: TERRANCE COLUNGA MD Postoperative Information Post Operative Info: Post op day: Post Anesthesia Care Unit. Patient location: PACU. Assessment Postanesthesia assessment Vitals: Vital signs from flowsheet : Vital Signs 12/29/2024 10:00 EDT Temperature Temporal Artery 35.7 DegC Heart Rate Monitored 61 bpm Respiratory Rate 16 br/min Systolic Blood Pressure Non-Invasive 110 mmHg Diastolic Blood Pressure Non-Invasive 64 mmHg 12/29/2024 9:41 EDT Heart Rate Monitored 63 bpm 12/29/2024 9:41 EDT Temperature Temporal Artery 36.5 DegC Respiratory Rate 16 br/min Systolic Blood Pressure Non-Invasive 105 mmHg Diastolic Blood Pressure Non-Invasive 71 mmHg Mean Arterial Pressure (NBP) 84 mmHg 12/29/2024 9:28 EDT Systolic Blood Pressure Non-Invasive 101 mmHg Diastolic Blood Pressure Non-Invasive 68 mmHg Mean Arterial Pressure (NBP) 79 mmHg 12/29/2024 9:27 EDT Heart Rate Monitored 61 bpm 12/29/2024 9:27 EDT Respiratory Rate 16 br/min 12/29/2024 9:14 EDT Temperature Temporal Artery 36.6 DegC Heart Rate Monitored 63 bpm Systolic Blood Pressure Non-Invasive 109 mmHg Diastolic Blood Pressure Non-Invasive 68 mmHg Mean Arterial Pressure (NBP) 81 mmHg 12/29/2024 9:13 EDT Heart Rate Monitored 68 bpm 12/29/2024 9:13 EDT Systolic Blood Pressure Non-Invasive 109 mmHg Diastolic Blood Pressure Non-Invasive 68 mmHg Mean Arterial Pressure (NBP) 81 mmHg 12/29/2024 9:10 EDT Respiratory Rate - Anes 35 br/min br/min 12/29/2024 9:09 EDT Systolic Blood Pressure Non-Invasive 120 mmHg mmHg Diastolic Blood Pressure Non-Invasive 83 mmHg mmHg 12/29/2024 9:05 EDT Heart Rate Monitored 74 bpm bpm Respiratory Rate - Anes 0 br/min br/min Systolic Blood Pressure Non-Invasive 125 mmHg mmHg Diastolic Blood Pressure Non-Invasive 91 mmHg mmHg 12/29/2024 9:03 EDT Systolic Blood Pressure Non-Invasive 128 mmHg mmHg Diastolic Blood Pressure Non-Invasive 95 mmHg mmHg 12/29/2024 9:00 EDT Heart Rate Monitored 67 bpm bpm Respiratory Rate - Anes 0 br/min br/min 12/29/2024 8:59 EDT Systolic Blood Pressure Non-Invasive 114 mmHg mmHg Diastolic Blood Pressure Non-Invasive 83 mmHg mmHg 12/29/2024 8:57 EDT Systolic Blood Pressure Non-Invasive 125 mmHg mmHg Diastolic Blood Pressure Non-Invasive 88 mmHg mmHg 12/29/2024 8:55 EDT Heart Rate Monitored 74 bpm bpm Respiratory Rate - Anes 9 br/min br/min 12/29/2024 6:57 EDT Temperature Temporal Artery 36.5 DegC Peripheral Pulse Rate 82 bpm Respiratory Rate 16 br/min Systolic Blood Pressure Non-Invasive 122 mmHg Diastolic Blood Pressure Non-Invasive 76 mmHg . Mental status: at preoperative baseline. Respiratory function: respirations are non-labored, Stable. Respiratory support: none. CV function: Stable. Cardiovascular support: none. Pain: Satisfactory. Nausea status: Satisfactory. Postoperative hydration status: within normal limits. Notes: Patient is sufficiently recovered from anesthesia to participate in the evaluation. No follow-up care needed. No complications post-anesthesia.. Digitally Signed by TERRANCE COLUNGA MD on 12/29/2024 10:42 AM [facility] 12-29-2024 Summary of episode note Discharge Instructions Thank you for allowing [facility] to assist you with your healthcare needs. The following is important discharge information regarding your hospital visit. Your Care Team JESSIE HARRIS, JAZMYN Carlton What to do next Follow Up Appointments Follow Up with ROSSY COFFMAN MD Where:[address] [facility], [place] [address]- [phone] Additional Information: Schedule appointment as soon as possible Allergies codeine Swelling of throat, Swelling, Tongue swelling Medications Please ask your primary doctor or pharmacist before taking any other medication not listed, including over the counter drugs, herbal medications, vitamins and or supplements as they may interact with your home medications. What How Much When Instructions Last Dose Unchanged dutasteride-tamsulosin (dutasteride-tamsulosin 0.5 mg-0.4 mg oral capsule) 1 cap by mouth Daily at bedtime Unchanged ibuprofen (ibuprofen 200 mg oral tablet) 2 tab(s) by mouth Every 4 hours as needed for as needed for pain Take with food or milk. Unchanged melatonin (melatonin 3 mg oral tablet) 1 tab(s) by mouth Daily at bedtime as needed for Sleep Unchanged pantoprazole (pantoprazole 40 mg oral enteric coated tablet) 1 tab(s) by mouth Two (2) times a day TAKE 1 TABLET BY MOUTH TWICE DAILY Unchanged sertraline (sertraline 100 mg oral tablet) 1 tab(s) by mouth Once a day (in the morning) Unchanged sertraline (sertraline 25 mg oral tablet) 1 tab(s) by mouth Once a day (in the morning) Unchanged ursodiol (ursodiol 300 mg oral capsule) 1 cap by mouth Two (2) times a day Please take this list to your next doctor s visit. Bring all medications you take, including over the counter medications, herbals and other supplements with you to your doctor s visit. Patients and families are reminded to discard old lists and to update any records with all medication providers or retail pharmacies. Education Materials [facility] SAME DAY SURGERY DISCHARGE INSTRUCTIONS PLEASE FOLLOW THE INSTRUCTIONS BELOW MARKED WITH AN X: _x__ Regular Diet: Start with clear liquids, then soup and crackers and gradually add other foods. _x__ Drink extra fluids. ___ Special Diet Instructions: ___ ACTIVITY: _x__ Avoid stress to suture line. Since you have had an anesthetic, it would be advisable not to drive, drink alcohol, or make major decisions over the next 24 hours. You may require more rest tonight and tomorrow. ___ May resume regular activity as tolerated. ___ Restrict activity as follows: ___ ___ Walk Only ___ ___ Do not go up and down stairs. ___ Do not ride in car until ___ ___ Do not drive car. ___ Do not have sexual intercourse. ___ No heavy lifting, pushing or straining. ___ Other: ___ BATHING/SHOWERING: ___ Sponge bathe until office visit. ___ Sitting in tub of warm water may relieve discomfort. ___ May tub bathe ___ May shower ___ On day after surgery sit in tub of warm water to soak off dressing. DRESSING: ___ Keep operative area dry and clean for ___ ___ Check the operative area for signs of bleeding. Apply pressure to the bleeding site if necessary and call your physician. ___ Change dressing as necessary using sterile dressing material or bandaid. ___ Reinforce dressing as necessary. ___ Change and care for wound as follows: ___ ___ Wear bra for ___ days following breast surgery for comfort. ___ Change drip pad as needed. ___ Wear scrotal support for comfort. WATCH FOR SIGNS OF INFECTION: (Usually appears 36-48 hours after surgery) Increased temperature (101 degrees Fahrenheit or higher) Redness or swelling Increased pain Foul odor or drainage. If you have any questions, please call your doctor at the number listed on your follow up instructions. Follow all instructions given to you by your physician. Please complete and return the survey you will be receiving in the mail to help us better serve our patients. Form: 1522 ([id number]) R: 12/31 Endoscopic Retrograde Cholangiopancreatogram, Care After This sheet gives you information about how to care for yourself after your procedure. Your health care provider may also give you more specific instructions. If you have problems or questions, contact your health care provider. What can I expect after the procedure? After the procedure, it is common to have: Soreness in your throat. Nausea. Bloating. Dizziness. Tiredness (fatigue). Follow these instructions at home: Take gihu-nkc-qbfshae and prescription medicines only as told by your health care provider. Do not drive for 24 hours if you were given a medicine to help you relax (sedative) during your procedure. Have someone stay with you for 24 hours after the procedure. Return to your normal activities as told by your health care provider. Ask your health care provider what activities are safe for you. Return to eating what you normally do as soon as you feel well enough or as told by your health care provider. Keep all follow-up visits as told by your health care provider. This is important. Contact a health care provider if: You have pain in your abdomen that does not get better with medicine. You develop signs of infection, such as: ? Chills. ? Feeling unwell. Get help right away if: You have difficulty swallowing. You have worsening pain in your throat, chest, or abdomen. You vomit bright red blood or a substance that looks like coffee grounds. You have bloody or very black stools. You have a fever. You have a sudden increase in swelling (bloating) in your abdomen. Summary After the procedure, it is common to feel tired and to have some discomfort in your throat. Contact your health care provider if you have signs of infection such as chills or feeling unwell or if you have pain that does not improve with medicine. Get help right away if you have trouble swallowing, worsening pain, bloody or black vomit, bloody or black stools, a fever, or increased swelling in your abdomen. Keep all follow-up visits as told by your health care provider. This is important. This information is not intended to replace advice given to you by your health care provider. Make sure you discuss any questions you have with your health care provider. Document Released: 07/01/2014 Document Revised: 08/23/2018 Document Reviewed: 07/30/2017 Elsevier Patient Education 2020 [employer] Additional Information VACCINATE! IT SAVES LIVES! Members of the community who have not yet received the COVID-19 vaccine and would like to receive it can visit one of [facility] vaccine clinics. There are many vaccine clinic locations within the [facility]. For locations and available times, please visit https://gettheshot.coronavirus.[place] .gov/. It is important to note that some COVID mobile vaccine clinics are held outdoors and may be canceled in rainy or stormy conditions. To learn more about pediatric vaccinations (ages 5-11), we invite you to visit the [employer] webpage. [email or web address]/page [email or web address]-[email or web address]-[email or web address]-[email or web address] -[email or web address]-Questions.html To learn more about the COVID-19 vaccine, we invite you to visit the CDC website for a list of frequently asked questions.https://www.cdc.gov/coron avirus/2019-ncov/vaccines/faq.html [facility] Patient Portal Access Instructions: Stay connected with your healthcare team and access your personal medical information anytime with the [facility] Patient Portal. Please follow the directions below to create your [facility] account: 1.Access the email account you provided upon registration to the hospital/physician office.2.Look for an invitation email from [facility].3.Open the email and access the invitation link: Accept Invitation to [facility].4.Fill in the required petty to create your account. To access your account, visit [facility]. Click the blue button labeled Access Patient Portal and then log in with the username and password that you created in the steps above. You will be able to view your test results, lab results, a summary of your visits, upcoming appointments and more. There is also a convenient messaging option where you can send secure messages to your provider. In addition, you will have the ability to download any documents or summaries to your computer and/or send the information securely to a physician. Remember that your healthcare information is confidential, so carefully consider who you will allow to register on the [facility] Patient Portal for access to your information. You can also access the [facility] Patient Portal on the [facility] frida. Simply click on Patient Portal and then log into your account. If you would like to receive a full copy of your medical records, please contact the [facility] Medical Records Department by calling [phone], Sunday through Sunday between 8 a.m. and 4:30 p.m. HOW TO SAFELY DISPOSE OF PRESCRIPTION MEDICATIONS Please use one of the following methods to safely dispose of your unused medications. 1.Use a drug disposal kit: the drug disposal pouch allows you to safely discard your old and unused drugs. Ask your nurse to give you one when you are discharged.2.Visit a local take-back location: Many local pharmacies and police departments have programs that collect old and unwanted prescription drugs. Call your local pharmacy or go to http://Beatrobo/6D8Dm8x to find one close to you.3.Make use of household items: Use cat litter or old coffee grounds to dispose medications if other options are not available. Mix your drugs with these household products, seal them in an airtight container and throw it into the garbage. Call [facility]: [phone] to be sure your drugs can be disposed of in this way. Some medicines may require a different approach.4.Never flush your medications down the toilet. IF YOU HAVE BEEN PRESCRIBED AN OPIOID FOR PAIN If you have been prescribed an opioid (such as hydrocodone, oxycodone or morphine), it is critical to understand the possible side effects and risks of opioid pain medications. Even when taken as directed, opioids can have several side effects including: Tolerance, meaning you might need to take more of a medication for the same pain relief. Nausea, vomiting and/or constipation. Sleepiness, dizziness, dry mouth, confusion, depression or itching. Physical dependence, meaning you have withdrawal symptoms when a medication is stopped, can develop within a few days. KNOW YOUR RESPONSIBILITIES It is important to know exactly how much and how often to take the opioid pain medications you are prescribed. Never take opioids in higher amounts or more often than prescribed. Do not combine opioids with alcohol or other drugs that cause drowsiness, such as benzodiazepines, also known as benzos, including diazepam and alprazolam, muscle relaxants or sleep aids. Never sell or share prescription opioids. This is illegal. Store opioids in a secure place and out of reach of others (including children, family, friends and visitors). The last page of this document has been signed and retained as a CHART COPY. Signatures Patient Education Materials 1-SDS Discharge Instructions Template (06/2018) (Custom) Endoscopic Retrograde Cholangiopancreatogram, Care After Medication Leaflets My discharge plan and instructions have been reviewed and explained to me and I,LIYAH HOLLAND understand my current condition and have read and understand these discharge instructions. I have received a written copy of the plan/instructions. If I have questions, I am aware that I should contact my doctor. Patient/[employer] Signature: ____ Date/Time: Relationship to Patient: __ Witness Name/Signature: Date/Time: [facility] 12-29-2024 Anesthesiology Consult note Patient: LIYAH HOLLAND Age: 54 years Sex: Male : 1970 Associated Diagnoses: None Author: DAMEON PELAEZ MD Preoperative Information NPO >8 hours food >2hours clear liqiods Anesthesia history Patient's history: negative. Health Status Allergies: Allergic Reactions (Selected) Severity Not Documented Codeine- Tongue swelling, swelling of throat and swelling., Allergies (1) ActiveSeverityReaction codeineTongue swelling, Swelling, Swelling o of throat Current medications: (Selected) Inpatient Medications Ordered Ancef: Start: 12/29/24 5:00:00 EDT, Dose= 1 gram(s), = 10 mL, IV Push (INT), PREOP pharm, Routine, Rate: 120 mL/hr, Infuse over: 5 minute(s), 10 mL, 12/29/24 5:00:00 EDT D5W 1,000 mL: Start: 12/29/24 5:00:00 EDT, Rate: 20 mL/hr, 12/29/24 5:00:00 EDT Zofran: Start: 12/29/24 5:00:00 EDT, Dose = 4 mg, = 2 mL, IV Push, Once, PRN, Nausea/Vomiting, 12/29/24 5:00:00 EDT Documented Medications Documented dutasteride-tamsulosin 0.5 mg-0.4 mg oral capsule: Dose = 1 cap(s), Oral, qHS, # 30 cap(s), 0 Refill(s) ibuprofen 200 mg oral tablet: Dose : 400 mg = 2 tab(s), Oral, q4h, PRN as needed for pain, Take with food or milk., # 120 tab(s), 0 Refill(s) melatonin 3 mg oral tablet: Dose : 3 mg = 1 tab(s), Oral, qHS, PRN Sleep, 0 Refill(s) pantoprazole 40 mg oral enteric coated tablet: Dose : 40 mg = 1 tab(s), Oral, BID, TAKE 1 TABLET BY MOUTH TWICE DAILY sertraline 100 mg oral tablet: Dose : 100 mg = 1 tab(s), Oral, qAM, # 90 tab(s), 0 Refill(s) sertraline 25 mg oral tablet: Dose : 25 mg = 1 tab(s), Oral, qAM, # 90 tab(s), 0 Refill(s) ursodiol 300 mg oral capsule: Dose : 300 mg = 1 cap(s), Oral, BID, 0 Refill(s), Medications (3) Active Scheduled: (1) ceFAZolin syringe 1 gram(s) 10 mL, IV Push (INT), PREOP pharm Continuous: (1) Dextrose 5% in Water 1,000 mL 1,000 mL, Intravenous, 20 mL/hr PRN: (1) ondansetron 2 mg/ 1 mL 2 mL INJ 4 mg 2 mL, IV Push, Once Problem list: Medical Anxiety / SNOMED CT 99604035 / Confirmed Acid reflux / SNOMED CT 870328710 / Confirmed Obesity / SNOMED CT 8953210650 / Confirmed Symptomatic sinus bradycardia / SNOMED CT 6459100782 / Confirmed Tubular aggregates / SNOMED CT 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 Anxiety (31039467) Symptomatic sinus bradycardia (9859253263) Family History: Asthma Son Heart disease Mother Cancer Father Sister Seizure Son Procedure history: Cardiac pacemaker (93288597) on 01/23/2019 at 48 Years. Cholecystectomy (46589100). Dislocated knee (1433443318). Comments: 12/15/2024 10:22 Rodrigo Sheehan RN left-surgery History of elbow surgery (9178685475). Comments: 12/15/2024 10:23 Rodrigo Sheehan RN right History of knee surgery (5892556361). Comments: 12/15/2024 10:24 Rodrigo Sheehan RN right knee manipulation as well 12/15/2024 10:23 Rodrigo Sheehan RN left knee Colonoscopy (010977909). Social History: Social & Psychosocial Habits Alcohol 12/29/2024Risk Assessment: Denies Alcohol Use 12/29/2024 Use: Current Frequency: 1-2 times per month Substance Abuse 12/29/2024Risk Assessment: Denies Substance Abuse 12/29/2024 Use: Never Tobacco 12/29/2024 Tobacco Use: Never (less than 100 in l Home/Environment 12/29/[address]: Yes Lives In 1st floor bathroom, 1st floor bedroom, 1st floor laundry, Multilevel home Physical Examination Vital Signs (last 24 hrs) Last Charted Temp Bmdfmeqz34.5 DegC (DEC 29 06:57) DSG339 mmHg (DEC 29 06:57) DBP76 mmHg (DEC 29 06:57) Measurements from flowsheet : Measurements 12/29/2024 6:57 EDT Height 182.9 cm Height in inches 72 inch(es) Admission Weight 101.9 kg Weight Lbs 224.2 lb Weight Method Actual [place] Body Weight 77.62 kg Type of Scale Used Bed scale Admission Body Mass Index 30.46 m2 General: Alert and oriented. Airway: Mallampati classification: II (soft palate, fauces, uvula visible). Dentition Evaluation: Intact. Respiratory: Lungs are clear to auscultation, Respirations are non-labored. Cardiovascular: Normal rate, Regular rhythm. Heart Sounds: Normal. Neurologic: Alert, Oriented. Review / Management Results review: No qualifying data available . Documentation reviewed: Current records. Assessment and Plan [place] [employer] Anesthesiologists (ASA) physical status classification: Class III. Anesthetic Preoperative Plan Premedication: intravenous. Anesthetic technique: MAC. Induction: intravenously. Maintenance airway. Postoperative pain management: Per surgeon. Informed consent: signed by patient. Notes: Pacemaker, neuropathy. Digitally Signed by DAMEON PELAEZ MD on 12/29/2024 08:10 AM [facility] 10-18-2024 Hospital Discharge instructions Patient Education 10/18/2024 14:02:05 Acute Pancreatitis Acute Pancreatitis The pancreas is a gland that is located behind the stomach on the left side of the abdomen. It produces enzymes that help to digest food. The pancreas also releases the hormones glucagon and insulin, which help to regulate blood sugar. Acute pancreatitis happens when inflammation of the pancreas suddenly occurs and the pancreas becomes irritated and swollen. Most acute attacks last a few days and cause serious problems. Some people become dehydrated and develop low blood pressure. In severe cases, bleeding in the abdomen can lead to shock and can be life-threatening. The lungs, heart, and kidneys may fail. What are the causes? This condition may be caused by: Alcohol abuse. Drug abuse. Gallstones or other conditions that can block the tube that drains the pancreas (pancreatic duct). A tumor in the pancreas. Other causes include: Certain medicines. Exposure to certain chemicals. Diabetes. An infection in the pancreas. Damage caused by an accident (trauma). The poison (venom) from a scorpion bite. Abdominal surgery. Autoimmune pancreatitis. This is when the body's disease-fighting (immune) system attacks the pancreas. Genes that are passed from parent to child (inherited). In some cases, the cause of this condition is not known. What are the signs or symptoms? Symptoms of this condition include: Pain in the upper abdomen that may radiate to the back. Pain may be severe. Tenderness and swelling of the abdomen. Nausea and vomiting. Fever. How is this diagnosed? This condition may be diagnosed based on: A physical exam. Blood tests. Imaging tests, such as X-rays, CT or MRI scans, or an ultrasound of the abdomen. How is this treated? Treatment for this condition usually requires a stay in the hospital. Treatment for this condition may include: Pain medicine. Fluid replacement through an IV. Placing a tube in the stomach to remove stomach contents and to control vomiting (NG tube, or nasogastric tube). Not eating for 3 4 days. This gives the pancreas a rest, because enzymes are not being produced that can cause further damage. Antibiotic medicines, if your condition is caused by an infection. Treating any underlying conditions that may be the cause. Steroid medicines, if your condition is caused by your immune system attacking your body's own tissues (autoimmune disease). Surgery on the pancreas or gallbladder. Follow these instructions at home: Eating and drinking Follow instructions from your health care provider about diet. This may involve avoiding alcohol and decreasing the amount of fat in your diet. Eat smaller, more frequent meals. This reduces the amount of digestive fluids that the pancreas produces. Drink enough fluid to keep your urine pale yellow. Do not drink alcohol if it caused your condition. General instructions Take esan-abq-mvgyeyr and prescription medicines only as told by your health care provider. Do not drive or use heavy machinery while taking prescription pain medicine. Ask your health care provider if the medicine prescribed to you can cause constipation. You may need to take steps to prevent or treat constipation, such as: ?Take an pspn-awc-yeeaxgc or prescription medicine for constipation. ?Eat foods that are high in fiber such as whole grains and beans. ?Limit foods that are high in fat and processed sugars, such as fried or sweet foods. Do not use any products that contain nicotine or tobacco, such as cigarettes, e-cigarettes, and chewing tobacco. If you need help quitting, ask your health care provider. Get plenty of rest. If directed, check your blood sugar at home as told by your health care provider. Keep all follow-up visits as told by your health care provider. This is important. Contact a health care provider if you: Do not recover as quickly as expected. Develop new or worsening symptoms. Have persistent pain, weakness, or nausea. Recover and then have another episode of pain. Have a fever. Get help right away if: You cannot eat or keep fluids down. Your pain becomes severe. Your skin or the white part of your eyes turns yellow (jaundice). You have sudden swelling in your abdomen. You vomit. You feel dizzy or you faint. Your blood sugar is high (over 300 mg/dL). Summary Acute pancreatitis happens when inflammation of the pancreas suddenly occurs and the pancreas becomes irritated and swollen. This condition is typically caused by alcohol abuse, drug abuse, or gallstones. Treatment for this condition usually requires a stay in the hospital. This information is not intended to replace advice given to you by your health care provider. Make sure you discuss any questions you have with your health care provider. Document Released: 09/10/2006 Document Revised: 06/30/2019 Document Reviewed: 03/17/2019 [employer] Patient Education 2020 [employer]. Follow Up Care 10/12/2024 19:17:34 With:ROSSY COFFMAN MD Address: [address] [facility], [place] [address]- [phone] When:1-2 days Comments:2-4weeks With:JAZMYN ROMAN MD Address: [address] [place] [address] [phone] When:1-2 days Comments:Please call the office to schedule a hospital follow up appointment. [facility] 10-18-2024 Note Discharge Instructions Thank you for allowing [facility] to assist you with your healthcare needs. The following is important discharge information regarding your hospital visit. Your Care Team JAZMYN ROMAN MD Your Diagnosis Pancreatitis Transaminitis What to do next Follow Up Appointments Follow Up with ROSSY COFFMAN MD When:Within 1-2 days Where:[address] [facility], [place] [address]- [phone] Additional Information: 2-4weeks Follow Up with JAZMYN ROMAN MD When:Within 1-2 days Where:[place] [address]- [phone] Additional Information: Please call the office to schedule a hospital follow up appointment. The Following Activity and Diet Have Been Ordered for You Discharge Activity - Ordered -- Lifting Restricted less than 5 pounds, 10/18/24 13:24:00 EST Discharge Diet - Ordered -- Type of Diet: Regular, Fats limit: Low, 10/18/24 13:24:00 EST The Following Equipment Has Been Ordered for You No qualifying data available. The Following Treatments Have Been Ordered for You Discharge Labs No qualifying data available. Discharge Radiology No qualifying data available. Other Therapies No qualifying data available. Post Acute Orders No qualifying data available. Someone Will Contact You Regarding These Home Health Referrals No home referrals have been ordered for you. No one will call you. Allergies codeine Medications Please ask your primary doctor or pharmacist before taking any other medication not listed, including over the counter drugs, herbal medications, vitamins and or supplements as they may interact with your home medications. What How Much When Instructions Last Dose New erythromycin ophthalmic (erythromycin 0.5% ophthalmic ointment) 1 application Both eyes Four (4) times a day Changed melatonin (melatonin 3 mg oral tablet) 1 tab(s) by mouth Daily at bedtime as needed for Sleep Unchanged dutasteride-tamsulosin (dutasteride-tamsulosin 0.5 mg-0.4 mg oral capsule) 1 cap by mouth Once a day Unchanged pantoprazole (pantoprazole 40 mg oral enteric coated tablet) 1 tab(s) by mouth Once a day Duration: 30 Days Unchanged sertraline (sertraline 25 mg oral tablet) 1 tab(s) by mouth Every day Unchanged ursodiol (ursodiol 300 mg oral capsule) 1 cap by mouth Every day Please take this list to your next doctor s visit. Bring all medications you take, including over the counter medications, herbals and other supplements with you to your doctor s visit. Patients and families are reminded to discard old lists and to update any records with all medication providers or retail pharmacies. Education Materials Acute Pancreatitis The pancreas is a gland that is located behind the stomach on the left side of the abdomen. It produces enzymes that help to digest food. The pancreas also releases the hormones glucagon and insulin, which help to regulate blood sugar. Acute pancreatitis happens when inflammation of the pancreas suddenly occurs and the pancreas becomes irritated and swollen. Most acute attacks last a few days and cause serious problems. Some people become dehydrated and develop low blood pressure. In severe cases, bleeding in the abdomen can lead to shock and can be life-threatening. The lungs, heart, and kidneys may fail. What are the causes? This condition may be caused by: Alcohol abuse. Drug abuse. Gallstones or other conditions that can block the tube that drains the pancreas (pancreatic duct). A tumor in the pancreas. Other causes include: Certain medicines. Exposure to certain chemicals. Diabetes. An infection in the pancreas. Damage caused by an accident (trauma). The poison (venom) from a scorpion bite. Abdominal surgery. Autoimmune pancreatitis. This is when the body's disease-fighting (immune) system attacks the pancreas. Genes that are passed from parent to child (inherited). In some cases, the cause of this condition is not known. What are the signs or symptoms? Symptoms of this condition include: Pain in the upper abdomen that may radiate to the back. Pain may be severe. Tenderness and swelling of the abdomen. Nausea and vomiting. Fever. How is this diagnosed? This condition may be diagnosed based on: A physical exam. Blood tests. Imaging tests, such as X-rays, CT or MRI scans, or an ultrasound of the abdomen. How is this treated? Treatment for this condition usually requires a stay in the hospital. Treatment for this condition may include: Pain medicine. Fluid replacement through an IV. Placing a tube in the stomach to remove stomach contents and to control vomiting (NG tube, or nasogastric tube). Not eating for 3 4 days. This gives the pancreas a rest, because enzymes are not being produced that can cause further damage. Antibiotic medicines, if your condition is caused by an infection. Treating any underlying conditions that may be the cause. Steroid medicines, if your condition is caused by your immune system attacking your body's own tissues (autoimmune disease). Surgery on the pancreas or gallbladder. Follow these instructions at home: Eating and drinking Follow instructions from your health care provider about diet. This may involve avoiding alcohol and decreasing the amount of fat in your diet. Eat smaller, more frequent meals. This reduces the amount of digestive fluids that the pancreas produces. Drink enough fluid to keep your urine pale yellow. Do not drink alcohol if it caused your condition. General instructions Take syho-pxz-rgvzsfr and prescription medicines only as told by your health care provider. Do not drive or use heavy machinery while taking prescription pain medicine. Ask your health care provider if the medicine prescribed to you can cause constipation. You may need to take steps to prevent or treat constipation, such as: ? Take an ryyk-wnt-jiaxxsr or prescription medicine for constipation. ? Eat foods that are high in fiber such as whole grains and beans. ? Limit foods that are high in fat and processed sugars, such as fried or sweet foods. Do not use any products that contain nicotine or tobacco, such as cigarettes, e-cigarettes, and chewing tobacco. If you need help quitting, ask your health care provider. Get plenty of rest. If directed, check your blood sugar at home as told by your health care provider. Keep all follow-up visits as told by your health care provider. This is important. Contact a health care provider if you: Do not recover as quickly as expected. Develop new or worsening symptoms. Have persistent pain, weakness, or nausea. Recover and then have another episode of pain. Have a fever. Get help right away if: You cannot eat or keep fluids down. Your pain becomes severe. Your skin or the white part of your eyes turns yellow (jaundice). You have sudden swelling in your abdomen. You vomit. You feel dizzy or you faint. Your blood sugar is high (over 300 mg/dL). Summary Acute pancreatitis happens when inflammation of the pancreas suddenly occurs and the pancreas becomes irritated and swollen. This condition is typically caused by alcohol abuse, drug abuse, or gallstones. Treatment for this condition usually requires a stay in the hospital. This information is not intended to replace advice given to you by your health care provider. Make sure you discuss any questions you have with your health care provider. Document Released: 09/10/2006 Document Revised: 06/30/2019 Document Reviewed: 03/17/2019 [employer] Patient Education 2020 [employer] Additional Information VACCINATE! IT SAVES LIVES! Members of the community who have not yet received the COVID-19 vaccine and would like to receive it can visit one of [facility] vaccine clinics. There are many vaccine clinic locations within the [facility]. For locations and available times, please visit https://gettheshot.coronavirus.[place] .gov/. It is important to note that some COVID mobile vaccine clinics are held outdoors and may be canceled in rainy or stormy conditions. To learn more about pediatric vaccinations (ages 5-11), we invite you to visit the [facility] webpage. [email or web address].[email or web address].org/page [email or web address]-Auhwx-Wvqfduepxun-Frequently -Asked-Questions.html To learn more about the COVID-19 vaccine, we invite you to visit the CDC website for a list of frequently asked questions.https://www.cdc.gov/coron avirus/2019-ncov/vaccines/faq.html [facility] Patient Portal Access Instructions: Stay connected with your healthcare team and access your personal medical information anytime with the [facility] Patient Portal. Please follow the directions below to create your [facility] account: 1.Access the email account you provided upon registration to the hospital/physician office.2.Look for an invitation email from [facility].3.Open the email and access the invitation link: Accept Invitation to [facility].4.Fill in the required petty to create your account. To access your account, visit [email or web address]. Click the blue button labeled Access Patient Portal and then log in with the username and password that you created in the steps above. You will be able to view your test results, lab results, a summary of your visits, upcoming appointments and more. There is also a convenient messaging option where you can send secure messages to your provider. In addition, you will have the ability to download any documents or summaries to your computer and/or send the information securely to a physician. Remember that your healthcare information is confidential, so carefully consider who you will allow to register on the [facility] Patient Portal for access to your information. You can also access the [facility] Patient Portal on the [facility] frida. Simply click on Patient Portal and then log into your account. If you would like to receive a full copy of your medical records, please contact the [facility] Medical Records Department by calling [phone], Sunday through Sunday between 8 a.m. and 4:30 p.m. HOW TO SAFELY DISPOSE OF PRESCRIPTION MEDICATIONS Please use one of the following methods to safely dispose of your unused medications. 1.Use a drug disposal kit: the drug disposal pouch allows you to safely discard your old and unused drugs. Ask your nurse to give you one when you are discharged.2.Visit a local take-back location: Many local pharmacies and police departments have programs that collect old and unwanted prescription drugs. Call your local pharmacy or go to http://bit.[employer]/9P2Rc9g to find one close to you.3.Make use of household items: Use cat litter or old coffee grounds to dispose medications if other options are not available. Mix your drugs with these household products, seal them in an airtight container and throw it into the garbage. Call [facility]: [phone] to be sure your drugs can be disposed of in this way. Some medicines may require a different approach.4.Never flush your medications down the toilet. IF YOU HAVE BEEN PRESCRIBED AN OPIOID FOR PAIN If you have been prescribed an opioid (such as hydrocodone, oxycodone or morphine), it is critical to understand the possible side effects and risks of opioid pain medications. Even when taken as directed, opioids can have several side effects including: Tolerance, meaning you might need to take more of a medication for the same pain relief. Nausea, vomiting and/or constipation. Sleepiness, dizziness, dry mouth, confusion, depression or itching. Physical dependence, meaning you have withdrawal symptoms when a medication is stopped, can develop within a few days. KNOW YOUR RESPONSIBILITIES It is important to know exactly how much and how often to take the opioid pain medications you are prescribed. Never take opioids in higher amounts or more often than prescribed. Do not combine opioids with alcohol or other drugs that cause drowsiness, such as benzodiazepines, also known as benzos, including diazepam and alprazolam, muscle relaxants or sleep aids. Never sell or share prescription opioids. This is illegal. Store opioids in a secure place and out of reach of others (including children, family, friends and visitors). The last page of this document has been signed and retained as a CHART COPY. Signatures Patient Education Materials Acute Pancreatitis Medication Leaflets My discharge plan and instructions have been reviewed and explained to me and ISKYLER DUANE A understand my current condition and have read and understand these discharge instructions. I have received a written copy of the plan/instructions. If I have questions, I am aware that I should contact my doctor. Patient/[employer] Signature: ____ Date/Time: Relationship to Patient: __ Witness Name/Signature: Date/Time: [facility] 10-18-2024 Discharge summary Date of Service 10/18/2024 Discharge Diagnosis acute pancreatitis bph mdd anxiety right femoral necrosis biliary stent placment gall sludge extraction Hospital Course 54-year-old male with a history of GERD, anxiety, who drinks about 1 alcoholic beverage a month but did drink more in the remote past presents with abdominal pain. Patient started having pain in his abdomen 3 days ago associated with nausea the pain is in the periumbilical region and got so severe he became concerned so he went to the emergency department at [facility] In the emergency department CT abdomen pelvis with contrast showed pancreatitis. Diffuse fatty liver infiltration. Right femoral head necrosis. CBC WBC of 6 H&H 16/48 platelets 196. Patient was seen by gastroenterology. Patient was noted to have acute pancreatitis for which he was kept n.p.o. aggressively treated with pain medication including morphine intravenously as well as oxycodone and IV fluids. . Patient was also put on Protonix continued on his home medications including tamsulosin and dutasteride for BPH. Patient's sertraline was continued. He was put started on clear liquids during the course of the hospitalization initially and was scheduled to have an MRI MRCP. However because he has a pacemaker that needs to be verified and adjusted patient was not able to get an MRCP done during the course of the stay. Patient's liver enzymes were very much elevated had initially been trending down however this started to trend upwards again after he had eaten and the decision was made by gastroenterology Dr. Tank gonzalez to go ahead and do an ERCP today on 10/18/2024. ERCP done was done and sludge was removed and a biliary stent was placed for continuous clearance of the sludge. Patient is feeling well today he is tolerated his breakfast and lunch without any emesis. Patient has not been taking any medications for the last 24 hours or so has not taken morphine. Overall patient appears to be doing well and is going to be discharged home. He will follow-up with Dr. Coffman in 2 to 4 weeks will need to have a repeat ERCP 2 3 months . Is in the room with him he is medically stable at this time for discharge. Allergies codeine Consults Consult to Physician - Ordered -- 10/13/24 12:37:00 CYNDI, GIANCARLO MONGE MD, Routine, acute pancreatitis, patient known Physical Exam Vitals and Measurements T: 36.3 C (Temporal Artery) TMIN: 36.3 C (Temporal Artery) TMAX: 36.9 C (Oral) HR: 60 (Monitored) RR: 16 BP: 119/78 SpO2: 96% Weight Dosing Weight: 102.5 kg (10/13/24) General Appearance: no acute distress, Head: atraumatic, perrrla, EENT:moist mucosa,, normal pharynx, normal tonsils and adenoids and tongue Neck:trachea midline, no carotid bruit, no mass or lymphadenopathy. Cardiac: RRR, no murmurs, normal S1 and S2 Lungs: Normal chest wall expansion, clear to auscultation Abdomen: Soft nontender nondistended, normal bowel sounds all quadrants, no hepatomegaly, guarding Genitourinary: No inguinal hernia, Musculoskeletal:Range of Motion intact in all extremities, strength intact, gait normal Extremities: No edema, Neurological:Awake alert oriented x3, cranial nerves II through XII intact, DTR intact, sensory function intact, Skin: Warm dry, pink, no rash, purpura, petechia Psychiatric: Normal affect, intact cognition, Code Status Code Status - Ordered -- 10/13/24 5:24:00 EST, Full Code, Constant Order Admission Date 10/13/2024 Discharge Date 10/18/2024 Medications New Prescription erythromycin ophthalmic (erythromycin 0.5% ophthalmic ointment)1 application Both eyes four (4) times a day. Changed melatonin (melatonin 3 mg oral tablet)1 tab(s) by mouth daily at bedtime as needed Sleep. Unchanged dutasteride-tamsulosin (dutasteride-tamsulosin 0.5 mg-0.4 mg oral capsule)1 cap by mouth once a day. pantoprazole (pantoprazole 40 mg oral enteric coated tablet)1 tab(s) by mouth once a day for 30 Days. Refills: 0. sertraline (sertraline 25 mg oral tablet)1 tab(s) by mouth every day. ursodiol (ursodiol 300 mg oral capsule)1 cap by mouth every day. Follow Up Follow Up with ROSSY COFFMAN MD When:Within 1-2 days Where:[address] [facility], [place] [address]- [phone] Additional Information: 2-4weeks Follow Up with JAZMYN ROMAN MD When:Within 1-2 days Where:[address] [facility] [address] [place] [address]- [phone] Additional Information: Please call the office to schedule a hospital follow up appointment. Follow Up Appointments dr coffman . Follow Up Labs/Studies Discharge Labs No Follow-up Labs Discharge Studies No Follow-up Studies Discharge Diet Discharge Diet - Ordered -- Type of Diet: Regular, Fats limit: Low, 10/18/24 13:24:00 EST Discharge Activity Discharge Activity - Ordered -- Lifting Restricted less than 5 pounds, 10/18/24 13:24:00 EST Condition on Discharge stable , improved Discharge Disposition home Information Provided To Time Spent 40 min Digitally Signed by MIGDALIA VENCES MD on 10/18/2024 01:37 PM [facility] 10-18-2024 Anesthesiology Consult note Patient: LIYAH HOLLAND Age: 54 years Sex: Male : 1970 Associated Diagnoses: None Author: DAMEON PELAEZ MD Postoperative Information Post Operative Info: Post op day: Post Anesthesia Care Unit. Patient location: PACU. Assessment Postanesthesia assessment Vitals: Vital signs from flowsheet : Vital Signs 10/18/2024 8:25 EST Temperature Temporal Artery 36.3 DegC Heart Rate Monitored 60 bpm Respiratory Rate 16 br/min Systolic Blood Pressure Non-Invasive 119 mmHg Diastolic Blood Pressure Non-Invasive 78 mmHg Mean Arterial Pressure (NBP) 91 mmHg 10/18/2024 8:15 EST Heart Rate Monitored 60 bpm Respiratory Rate 16 br/min Systolic Blood Pressure Non-Invasive 114 mmHg Diastolic Blood Pressure Non-Invasive 79 mmHg Mean Arterial Pressure (NBP) 90 mmHg 10/18/2024 8:10 EST Respiratory Rate 16 br/min 10/18/2024 8:00 EST Temperature Temporal Artery 36.3 DegC Heart Rate Monitored 65 bpm Respiratory Rate 10 br/min Systolic Blood Pressure Non-Invasive 118 mmHg Diastolic Blood Pressure Non-Invasive 79 mmHg Mean Arterial Pressure (NBP) 91 mmHg 10/18/2024 7:56 EST Systolic Blood Pressure Non-Invasive 142 mmHg mmHg Diastolic Blood Pressure Non-Invasive 95 mmHg mmHg 10/18/2024 7:55 EST Heart Rate Monitored 77 bpm bpm Respiratory Rate - Anes 30 br/min br/min 10/18/2024 7:53 EST Systolic Blood Pressure Non-Invasive 163 mmHg mmHg Diastolic Blood Pressure Non-Invasive 106 mmHg mmHg 10/18/2024 7:50 EST Heart Rate Monitored 71 bpm bpm Respiratory Rate - Anes 26 br/min br/min Systolic Blood Pressure Non-Invasive 153 mmHg mmHg Diastolic Blood Pressure Non-Invasive 108 mmHg mmHg 10/18/2024 7:47 EST Systolic Blood Pressure Non-Invasive 162 mmHg mmHg Diastolic Blood Pressure Non-Invasive 113 mmHg mmHg 10/18/2024 7:45 EST Heart Rate Monitored 69 bpm bpm Respiratory Rate - Anes 4 br/min br/min 10/18/2024 7:44 EST Respiratory Rate - Anes 3 br/min br/min Systolic Blood Pressure Non-Invasive 136 mmHg mmHg Diastolic Blood Pressure Non-Invasive 102 mmHg mmHg 10/18/2024 7:43 EST Respiratory Rate - Anes 12 br/min br/min 10/18/2024 7:41 EST Systolic Blood Pressure Non-Invasive 124 mmHg mmHg Diastolic Blood Pressure Non-Invasive 96 mmHg mmHg 10/18/2024 7:40 EST Respiratory Rate - Anes 18 br/min br/min (Modified) 10/18/2024 7:39 EST Respiratory Rate - Anes 16 br/min br/min 10/18/2024 7:38 EST Respiratory Rate - Anes 16 br/min br/min 10/17/2024 21:20 EST Temperature Oral 36.9 DegC Peripheral Pulse Rate 64 bpm Respiratory Rate 18 br/min Systolic Blood Pressure Non-Invasive 136 mmHg Diastolic Blood Pressure Non-Invasive 86 mmHg 10/17/2024 15:18 EST Temperature Oral 36.6 DegC Peripheral Pulse Rate 64 bpm Respiratory Rate 18 br/min Systolic Blood Pressure Non-Invasive 114 mmHg Diastolic Blood Pressure Non-Invasive 75 mmHg 10/17/2024 8:44 EST Temperature Oral 36.7 DegC Peripheral Pulse Rate 66 bpm Respiratory Rate 18 br/min Systolic Blood Pressure Non-Invasive 120 mmHg Diastolic Blood Pressure Non-Invasive 71 mmHg Blood Pressure Method Automatic Blood Pressure Location Right arm Blood Pressure Cuff Size Medium , Oxygen Therapy : Oxygen Therapy & Oxygenation Information 10/18/2024 8:59 EST Oxygen Therapy Room air 10/18/2024 8:25 EST Oxygen Therapy Room air Oxygen Saturation 96 % 10/18/2024 8:15 EST Oxygen Therapy Room air Oxygen Saturation 96 % 10/18/2024 8:10 EST Oxygen Therapy Room air Oxygen Saturation 97 % 10/18/2024 8:00 EST Oxygen Therapy Nasal cannula 0L-6L Oxygen Saturation 98 % Oxygen Flow Rate 3 L/min 10/18/2024 7:55 EST Oxygen Saturation 100 % % 10/18/2024 7:50 EST Oxygen Saturation 99 % % 10/18/2024 7:45 EST Oxygen Saturation 100 % % 10/18/2024 7:40 EST Oxygen Saturation 100 % % 10/17/2024 21:20 EST Oxygen Therapy Room air Oxygen Saturation 96 % 10/17/2024 15:18 EST Oxygen Therapy Room air Oxygen Saturation 97 % 10/17/2024 9:22 EST Oxygen Therapy Room air 10/17/2024 8:44 EST Oxygen Therapy Room air Oxygen Saturation 95 % . Mental status: at preoperative baseline. Respiratory function: respirations are non-labored, Stable. Respiratory support: none. CV function: Stable. Cardiovascular support: none. Pain: Satisfactory. Nausea status: Satisfactory. Postoperative hydration status: within normal limits. Notes: Patient is sufficiently recovered from anesthesia to participate in the evaluation. No follow-up care needed. No complications post-anesthesia.. Digitally Signed by DAMEON PELAEZ MD on 10/18/2024 12:02 PM [facility] 10-18-2024 Note Exam Date Time Procedure Performing Provider Status 10/18/24 9:45 AM XR ERCP Biliary and Pancreatic Duct ALONSO LANZA MD; Auth (Verified) [id number] ORIGINAL EXAMINATION: 2 SPOT IMAGES FROM AN ERCP COMPARISON: None FLUOROSCOPY DOSE AND TYPE: Reference air kerma: mGy, 11.473 HISTORY: ORDERING SYSTEM PROVIDED HISTORY: Reason for Exam: GS, pancreatitis FINDINGS: Endoscopy and cannulation of the major papilla was performed by the gastroenterology service. Spot views are presented for interpretation. Cholecystectomy. Biliary stent. IMPRESSION: ERCP. Please see procedural report. Interpreted by: Alonso Lanza Preliminary Report By: Alonso Lanza Electronically signed By Alonso Lanza Dictated Date: 10/18/2024 4:05:51 PM Prelim Date: 10/18/2024 4:06:56 PM Sign Date: 10/18/2024 4:06:56 PM Ordering Provider: [facility]MAN [id number] Procedure note Date of Service October 18 2024 Procedure Name ERCP/sludge removal/biliary stent placement Consent Informed consent obtained after explaining the indications, the risks including perforation bleeding phlebitis and medication reaction as well as pancreatitis Indication Gallstone pancreatitis Location OR 1 Pre-Procedure Exam Per chart Procedural Sedation Anesthesia Technique Olympus video therapeutic side-viewing endoscope advanced under direct vision to the small bowel. The papilla was identified patient's status post sphincterotomy, there is marked small bowel edema most likely related to the pancreatitis. Selective cannulation of the biliary tree was obtained with the sphincterotome and guidewire, cholangiogram revealed dilated bile duct at around 13 to 14 mm. Using a 15 to 18 mm balloon the duct was dragged multiple times recovering sludge and no stones. I was able to drag an 18 mm balloon through the sphincterotomy site that was not extended today. Duct clearance was assured by multiple negative passes, due to the marked small bowel edema I elected to place a 10 Ukrainian 5 cm stent to assure drainage until the swelling goes down. Pancreatic and cystic duct not opacified Findings Dilated biliary tree, sludge removed using a 15 to 18 mm balloon uneventfully. 10 Ukrainian 5 cm stent was placed to assure drainage. Pancreatic and cystic duct not opacified Complications No immediate complications Estimated Blood Loss 0 Assessment/Plan Pancreatitis Transaminitis Orders: Dextrose 5% in Water intravenous soln 1,000 mL(D5W 1,000 mL), 1000 mL, Intravenous Endoscopic Retrograde Cholangiopancreatography (OPD)(ERCP (OPD)), 10/18/24 7:30:00 EST, Once, ROSSY COFFMAN MD, GS pancreatitis, Yes, Yes, Consent Required NPO after Midnight, 10/17/24 23:58:00 EST, Constant Order, For ERCP XR ERCP Biliary and Pancreatic Duct(ERCP (XR) Biliary and Pancreatic Duct), 10/18/24 7:16:00 EST, 10/18/24 7:16:00 EST, Routine, GS, pancreatitis, Wt k.5, [facility], [place] Follow Up/Recommendation Follow-up clinically and advance diet slowly May discharge after diet as tolerated Plan to repeat ERCP in 2 to 3 months for stent removal Sign off and follow-up as needed Digitally Signed by ROSSY COFFMAN MD on 10/18/2024 07:59 AM [id number] Anesthesiology Consult note Patient: LIYAH HOLLAND Age: 54 years Sex: Male : 1970 Associated Diagnoses: None Author: DAMEON PELAEZ MD Preoperative Information NPO >8 hours food >2hours clear liqiods Anesthesia history Patient's history: negative. Health Status Allergies: Allergic Reactions (Selected) Severity Not Documented Codeine- No reactions were documented., Allergies (1) ActiveSeverityReaction codeineNone Documented Current medications: (Selected) Inpatient Medications Ordered Ancef: Start: 10/18/24 7:15:00 EST, Dose= 2 gram(s), = 20 mL, IV Push (INT), PREOP pharm, Surgical Prophylaxis, Routine, Rate: 240 mL/hr, Infuse over: 5 minute(s), 20 mL, 10/18/24 7:15:00 EST Avodart: Start: 10/13/24 9:00:00 EST, Dose = 0.5 mg, = 1 cap(s), Oral, qDay, 0 D5W 1,000 mL: Start: 10/17/24 9:11:00 EST, Rate: 20 mL/hr, 10/17/24 9:11:00 EST Dextrose 50% IV Push: Start: 10/13/24 5:27:00 EST, Dose = 12.5 gram(s), = 25 mL, IV Push, AsDirected, PRN, Hypoglycemia, 10/13/24 5:27:00 EST Flomax: Start: 10/13/24 9:00:00 EST, Dose = 0.4 mg, = 1 cap(s), Oral, qDayPC, 0 Maalox: Start: 10/13/24 5:27:00 EST, Dose = 30 mL, Susp, Oral, q2h, PRN, Indigestion, 10/13/24 5:27:00 EST Miralax Powder Packet: Start: 10/13/24 5:27:00 EST, Dose = 17 gram(s), = 15 mL, Oral, qDay, PRN, Constipation, 10/13/24:27:00 EST NS 1,000 mL: Start: 10/13/24 5:27:00 EST, Rate: 150 mL/hr, 10/13/24 5:27:00 EST Percocet 325/5: Start: 10/13/24 5:27:00 EST, Dose = 2 tab(s), Tab, Oral, q4h, PRN, Pain, scale 4-6,10/13/24 5:27:00 EST Protonix: Start: 10/13/24 6:00:00 EST, Dose = 40 mg, = 1 tab(s), Oral, qDayAC, 10/13/24:27:00 EST Tears Naturale: Start: 10/15/24 21:01:00 EST, Dose = 2 drop(s), OpSol, Eyes, both, BID, PRN, Dry eyes, 10/15/24 21:01:00 EST Tylenol: Start: 10/13/24 5:27:00 EST, Dose = 650 mg, = 2 tab(s), Oral, q4h, PRN, Pain, scale 1-3, 10/13/24:27:00 EST Zofran: Start: 10/13/24 5:27:00 EST, Dose = 4 mg, = 2 mL, IV Push, q4h, PRN, Nausea/Vomiting, 10/13/24:27:00 EST erythromycin 0.5% ophthalmic ointment: Start: 10/15/24 22:43:00 EST, Dose = 1 frida, Ointment, Eyes, both, QID, 10/15/24 22:43:00 EST melatonin: Start: 10/13/24 5:27:00 EST, Dose = 3 mg, = 1 tab(s), Oral, qHS, PRN, Sleep, May repeat x 1 dose, 10/13/24 5:27:00 EST melatonin: Start: 10/13/24 5:27:00 EST, Dose = 3 mg, = 1 tab(s), Oral, qHS, PRN, Sleep, May repeat x 1 dose, 10/13/24 5:27:00 EST morphine: Start: 10/13/24 5:27:00 EST, Dose = 2 mg, = 1 mL, IV Push, q3h, PRN, Pain, scale 7-10, 10/13/24 5:27:00 EST sertraline: Start: 10/13/24 9:00:00 EST, Dose = 125 mg, = 2.5 tab(s), Oral, Daily, 0, 10/13/24 5:44:00 EST ursodiol: Start: 10/13/24 9:00:00 EST, Dose = 300 mg, = 1 cap(s), Oral, Daily, 10/13/24 5:45:00 EST Prescriptions Prescribed pantoprazole 40 mg oral enteric coated tablet: Dose : 40 mg = 1 tab(s), Oral, qDay, # 30 tab(s), 0 Refill(s) Documented Medications Documented dutasteride-tamsulosin 0.5 mg-0.4 mg oral capsule: Dose = 1 cap(s), Oral, qDay, # 30 cap(s), 0 Refill(s) melatonin 2.5 mg oral capsule: Dose : 2.5 mg = 1 cap(s), Oral, qHS, PRN for insomnia, 0 Refill(s) sertraline 25 mg oral tablet: Dose : 25 mg = 1 tab(s), Oral, Daily, # 90 tab(s), 0 Refill(s) ursodiol 300 mg oral capsule: Dose : 300 mg = 1 cap(s), Oral, Daily, 0 Refill(s), Medications (19) Active Scheduled: (7) ceFAZolin syringe 2 gram(s) 20 mL, IV Push (INT), PREOP pharm dutasteride 0.5 mg Capsule 0.5 mg 1 cap(s), Oral, qDay erythromycin ophthalmic 0.5% ointment 1 frida, Eyes, both, QID pantoprazole 40 mg EC tablet 40 mg 1 tab(s), Oral, qDayAC sertraline 50 mg tablet 125 mg 2.5 tab(s), Oral, Daily tamsulosin 0.4 mg Capsule 0.4 mg 1 cap(s), Oral, qDayPC ursodiol 300 mg Capsule 300 mg 1 cap(s), Oral, Daily Continuous: (2) Dextrose 5% in Water 1,000 mL 1,000 mL, Intravenous, 20 mL/hr NS (0.9% nacl) 1,000 mL 1,000 mL, Intravenous, 150 mL/hr PRN: (10) acetaminophen 325 mg Tablet 650 mg 2 tab(s), Oral, q4h acetaminophen-OXYcodone 325 mg-5 mg Tablet 2 tab(s), Oral, q4h Al hydrox/Mg hydrox/simethicone 200-200-20 mg/5 mL Susp UD 30 mL, Oral, q2h dextrose 50% Solution Disp syringe 50 mL 12.5 gram(s) 25 mL, IV Push, AsDirected melatonin 3 mg tablet 3 mg 1 tab(s), Oral, qHS melatonin 3 mg tablet 3 mg 1 tab(s), Oral, qHS morphine 2 mg/mL 1 mL syringe 2 mg 1 mL, IV Push, q3h ocular lubricant preserved Soln 15 mL 2 drop(s), Eyes, both, BID ondansetron 2 mg/ 1 mL 2 mL INJ 4 mg 2 mL, IV Push, q4h polyethylene glycol 3350 - UD packet 17 gram(s) 15 mL, Oral, qDay Problem list: Medical Anxiety / SNOMED CT 18009690 / Confirmed 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 Anxiety (26918837) Family History: Asthma Son Heart disease Mother Cancer Father Sister Seizure Son Procedure history: Cholecystectomy (89768876). Dislocated knee (0311801041). History of elbow surgery (6734800605). History of knee surgery (5660515460). Social History: Social & Psychosocial Habits Alcohol 03/16/2018Risk Assessment: Denies Alcohol Use Substance Abuse 03/16/2018Risk Assessment: Denies Substance Abuse Physical Examination Vital Signs (last 24 hrs) Last Charted Temp Oral36.9 DegC (OCT 17 21:20) ZGB746 mmHg (OCT 17 21:20) DBP86 mmHg (OCT 17 21:20) General: Alert and oriented. Airway: Mallampati classification: II (soft palate, fauces, uvula visible). Dentition Evaluation: Intact, Loose bottom front. Respiratory: Lungs are clear to auscultation, Respirations are non-labored. Cardiovascular: Normal rate, Regular rhythm. Heart Sounds: Normal. Neurologic: Alert, Oriented. Review / Management Results review: Labs (Last four charted values) WBC 5.8(OCT 14)4.8(OCT 13) Hgb 14.6(OCT 14)15.7(OCT 13) Hct 42.5(OCT 14)45.6(OCT 13) Plt 165(OCT 14)187(OCT 13) Na 142(OCT 14)143(OCT 13) K 3.5(OCT 14)3.9(OCT 13) CO2 26(OCT 14)28(OCT 13) Cl 106(OCT 14)106(OCT 13) Cr L 0.46(OCT 14)L 0.53(OCT 13) BUN 9.0(OCT 14)11.0(OCT 13) Glucose 79(OCT 14)H 115(OCT 13) Mg 2.0(OCT 14)2.2(OCT 13) Ca L 8.3(OCT 14)8.8(OCT 13) . Documentation reviewed: Current records. Assessment and Plan [place] [employer] (ASA) physical status classification: Class III, E. Anesthetic Preoperative Plan Premedication: intravenous. Anesthetic technique: MAC. Induction: intravenously. Maintenance airway: . Postoperative pain management: Per surgeon. Informed consent: signed by patient. Notes: Pancreatitis, Pacemaker for bradycardia. Digitally Signed by DAMEON PELAEZ MD on 10/18/2024 07:26 AM Digitally Signed by DAMEON PELAEZ MD on 10/18/2024 07:34 AM [id number] Note Date of Service 10/17/2024 Chief Complaint abd pain Subjective Patient seen and examined discussed with staff. Patient is lying in bed states he is feeling much better pain control is adequate at this time is not taking any morphine since yesterday patient is asking for Percocet every so often. Describes the pain to be 4 out of 10 at this time mid abdominal area. Patient has been tolerating his diet with no acute other issues. Objective Vitals and Measurements T: 36.7 C (Oral) TMIN: 36.6 C (Oral) TMAX: 36.7 C (Oral) HR: 66 RR: 18 BP: 120/71 SpO2: 95% General Appearance: no acute distress, Head: atraumatic, perrrla, EENT:moist mucosa,, normal pharynx, normal tonsils and adenoids and tongue Neck:trachea midline, no carotid bruit, no mass or lymphadenopathy. Cardiac: RRR, no murmurs, normal S1 and S2 Lungs: Normal chest wall expansion, clear to auscultation Abdomen: Soft nontender distended, normal bowel sounds all quadrants, no hepatomegaly, guarding Genitourinary: No inguinal hernia, Musculoskeletal:Range of Motion intact in all extremities, strength intact, Extremities: No edema, Neurological:Awake alert oriented x3, cranial nerves II through XII intact, DTR intact, sensory function intact, Skin: Warm dry, pink, no rash, purpura, petechia Psychiatric: Normal affect, intact cognition, Intake and Output 7AM Yesterday to 7AM Today Intake and Output (Last 24 hours) Intake Oral Intake 600.00 Administration Information 2400.00 Supplement Intake 0.00 Output Urine Voided 1475.00 Stool Count 1.00 Urine Count 2.00 Total Summary Total Intake 3000.00 Total Output 1475.00 Fluid Balance 1525.00 Physical Exam Weight Dosing Weight: 102.5 kg (10/13/24) Medications Medications (18) Active Scheduled: (6) dutasteride 0.5 mg Capsule 0.5 mg 1 cap(s), Oral, qDay erythromycin ophthalmic 0.5% ointment 1 frida, Eyes, both, QID pantoprazole 40 mg EC tablet 40 mg 1 tab(s), Oral, qDayAC sertraline 50 mg tablet 125 mg 2.5 tab(s), Oral, Daily tamsulosin 0.4 mg Capsule 0.4 mg 1 cap(s), Oral, qDayPC ursodiol 300 mg Capsule 300 mg 1 cap(s), Oral, Daily Continuous: (2) Dextrose 5% in Water 1,000 mL 1,000 mL, Intravenous, 20 mL/hr NS (0.9% nacl) 1,000 mL 1,000 mL, Intravenous, 150 mL/hr PRN: (10) acetaminophen 325 mg Tablet 650 mg 2 tab(s), Oral, q4h acetaminophen-OXYcodone 325 mg-5 mg Tablet 2 tab(s), Oral, q4h Al hydrox/Mg hydrox/simethicone 200-200-20 mg/5 mL Susp UD 30 mL, Oral, q2h dextrose 50% Solution Disp syringe 50 mL 12.5 gram(s) 25 mL, IV Push, AsDirected melatonin 3 mg tablet 3 mg 1 tab(s), Oral, qHS melatonin 3 mg tablet 3 mg 1 tab(s), Oral, qHS morphine 2 mg/mL 1 mL syringe 2 mg 1 mL, IV Push, q3h ocular lubricant preserved Soln 15 mL 2 drop(s), Eyes, both, BID ondansetron 2 mg/ 1 mL 2 mL INJ 4 mg 2 mL, IV Push, q4h polyethylene glycol 3350 - UD packet 17 gram(s) 15 mL, Oral, qDay Lab Results No 36 Hour Lab Data EKG No qualifying data available. Assessment/Plan Pancreatitis Transaminitis Orders: Diet Order, 10/16/24 14:52:00 EST, Start Meal: Now, Soft Diet, Constant Order, : N/A, : N/A Nutritional Supplement Order(Supplement Order - Dietary), 10/16/24 14:15:00 EST, Ensure High Protein, 1 serving, BIDM, Chocolate Assessment and plan 1:Acute pancreatitis: noted on CT scan A/P, last ERCP that patient had was in 2019. He is being followed by gastroenterology and his diet is being advanced from full to low fat diet His MRI MRCP remain to be done after contacting the pacemaker supplier and will need settings changed. Patient still requiring pain meds, but now taking oral meds only. Appetite improved, but still needing pain meds. Repeat hepatic panel and lipase elevated and will undergo ERCP in am per Dr Coffman. 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 pacemaker clearance by pacemaker company with regards to settings for the MRI mrcp remains pending. Patient updated along with his , guards to the ERCP to which is going to be performed tomorrow.To keep him n.p.o. past midnight. Patient is high risk due to complicated medical history along with pancreatitis. At this time patient is awaiting MRI MRCP. Anticipated Date of Discharge Level of Care Indication Regular Floor DVT Prophylaxis Contraindicated Maintenance IVF Indication NA / No maintenance IVF Indwelling Urinary Catheter Indication NA No indwelling catheter Anticipated Timeline of Discharge 48 hours Anticipated DC Disposition Home without services Time Spent 35 min Digitally Signed by MIGDALIA VENCES MD on 10/17/2024 01:43 PM [id number] Gastroenterology Progress note Date of Service 10/17/2024 Subjective Patient is seen lying in bed in no acute distress. States that his abdominal pain has returned along with episodes of emesis last night, denies any hematemesis. Has had multiple bowel movements and denies any hematochezia or melena/tarry stools. Objective Vitals and Measurements T: 36.7 C (Oral) TMIN: 36.6 C (Oral) TMAX: 36.7 C (Oral) HR: 66 RR: 18 BP: 120/71 SpO2: 95% Intake and Output 7AM Yesterday to 7AM Today Intake and Output (Last 24 hours) Intake Oral Intake 600.00 Administration Information 2400.00 Output Urine Voided 700.00 Stool Count 1.00 Urine Count 2.00 Total Summary Total Intake 3000.00 Total Output 700.00 Fluid Balance 2300.00 Physical Exam Constitutional: Resting in bed, in no acute distress Cardiac: S1, S2, regular rate and rhythm, no appreciable murmurs Lungs: clear to auscultation, no wheezing rales or rhonchi; respirations easy and unlabored; chest expansion symmetric Abdomen: obese, distended, tenderness to palpation epigastric/RUQ; bowel sounds active x 4 quadrants Skin: warm, pale and dry; no rashes noted visible skin Psychiatric: Cooperative, appropriate mood & affect Weight Dosing Weight: 102.5 kg (10/13/24) Medications Medications (18) Active Scheduled: (6) dutasteride 0.5 mg Capsule 0.5 mg 1 cap(s), Oral, qDay erythromycin ophthalmic 0.5% ointment 1 frida, Eyes, both, QID pantoprazole 40 mg EC tablet 40 mg 1 tab(s), Oral, qDayAC sertraline 50 mg tablet 125 mg 2.5 tab(s), Oral, Daily tamsulosin 0.4 mg Capsule 0.4 mg 1 cap(s), Oral, qDayPC ursodiol 300 mg Capsule 300 mg 1 cap(s), Oral, Daily Continuous: (2) Dextrose 5% in Water 1,000 mL 1,000 mL, Intravenous, 20 mL/hr NS (0.9% nacl) 1,000 mL 1,000 mL, Intravenous, 150 mL/hr PRN: (10) acetaminophen 325 mg Tablet 650 mg 2 tab(s), Oral, q4h acetaminophen-OXYcodone 325 mg-5 mg Tablet 2 tab(s), Oral, q4h Al hydrox/Mg hydrox/simethicone 200-200-20 mg/5 mL Susp UD 30 mL, Oral, q2h dextrose 50% Solution Disp syringe 50 mL 12.5 gram(s) 25 mL, IV Push, AsDirected melatonin 3 mg tablet 3 mg 1 tab(s), Oral, qHS melatonin 3 mg tablet 3 mg 1 tab(s), Oral, qHS morphine 2 mg/mL 1 mL syringe 2 mg 1 mL, IV Push, q3h ocular lubricant preserved Soln 15 mL 2 drop(s), Eyes, both, BID ondansetron 2 mg/ 1 mL 2 mL INJ 4 mg 2 mL, IV Push, q4h polyethylene glycol 3350 - UD packet 17 gram(s) 15 mL, Oral, qDay Lab Results No 36 Hour Lab Data EKG No qualifying data available. Assessment/Plan 1. Transaminitis 2. Pancreatitis Patient is complaining of return of abdominal pain with associated nausea and vomiting now at this time. Tenderness to palpation in the epigastric region and right upper quadrant. States has had multiple bowel movements that he describes as loose but brown in color with no signs of active GI bleed at this time. Ordered MRCP earlier this week that still has not been completed secondary to needing clearance on pacemaker settings. A.m. labs showed Increase in AST and ALT 270/250, with a lipase still being elevated at 402 Discussed and seen the patient with Dr. Coffman will place patient on schedule for ERCP tomorrow morning at 730. Plan -Monitor LFTs and bilirubin -ERCP 10/18/[address] Coffman -Supportive care per admitting team -Will continue to follow Digitally Signed by DEBORAH LAYTON PA-C on 10/17/2024 10:26 AM Digitally Signed by ROSSY COFFMAN MD [id number] Note Date of Service 10/16/2024 Chief Complaint abd pain Subjective Patient seen and examined discussed with staff. Patient is lying in bed states that he continues tohave pain however is improving. I states he is very very is on the phone with him. Patient denies any nausea vomiting. Objective Vitals and Measurements T: 36.7 C (Oral) TMIN: 36.7 C (Oral) TMAX: 36.8 C (Oral) HR: 74 RR: 18 BP: 104/54 SpO2: 94% General Appearance: no acute distress, Head: atraumatic, perrrla, EENT:moist mucosa,, normal pharynx, normal tonsils and adenoids and tongue Neck:trachea midline, no carotid bruit, no mass or lymphadenopathy. Cardiac: RRR, no murmurs, normal S1 and S2 Lungs: Normal chest wall expansion, clear to auscultation Abdomen: Soft nontender distended, normal bowel sounds all quadrants, no hepatomegaly, guarding Genitourinary: No inguinal hernia, Musculoskeletal:Range of Motion intact in all extremities, strength intact, gait normal Extremities: No edema, Neurological:Awake alert oriented x3, cranial nerves II through XII intact, DTR intact, sensory function intact, Skin: Warm dry, pink, no rash, purpura, petechia Psychiatric: Normal affect, intact cognition, Intake and Output 7AM Yesterday to 7AM Today Intake and Output (Last 24 hours) Intake Administration Information 2400.00 Oral Intake 240.00 Output Urine Voided 2550.00 Stool Count 1.00 Total Summary Total Intake 2640.00 Total Output 2550.00 Fluid Balance 90.00 Physical Exam Weight Dosing Weight: 102.5 kg (10/13/24) Medications Medications (17) Active Scheduled: (6) dutasteride 0.5 mg Capsule 0.5 mg 1 cap(s), Oral, qDay erythromycin ophthalmic 0.5% ointment 1 frida, Eyes, both, QID pantoprazole 40 mg EC tablet 40 mg 1 tab(s), Oral, qDayAC sertraline 50 mg tablet 125 mg 2.5 tab(s), Oral, Daily tamsulosin 0.4 mg Capsule 0.4 mg 1 cap(s), Oral, qDayPC ursodiol 300 mg Capsule 300 mg 1 cap(s), Oral, Daily Continuous: (1) NS (0.9% nacl) 1,000 mL 1,000 mL, Intravenous, 150 mL/hr PRN: (10) acetaminophen 325 mg Tablet 650 mg 2 tab(s), Oral, q4h acetaminophen-OXYcodone 325 mg-5 mg Tablet 2 tab(s), Oral, q4h Al hydrox/Mg hydrox/simethicone 200-200-20 mg/5 mL Susp UD 30 mL, Oral, q2h dextrose 50% Solution Disp syringe 50 mL 12.5 gram(s) 25 mL, IV Push, AsDirected melatonin 3 mg tablet 3 mg 1 tab(s), Oral, qHS melatonin 3 mg tablet 3 mg 1 tab(s), Oral, qHS morphine 2 mg/mL 1 mL syringe 2 mg 1 mL, IV Push, q3h ocular lubricant preserved Soln 15 mL 2 drop(s), Eyes, both, BID ondansetron 2 mg/ 1 mL 2 mL INJ 4 mg 2 mL, IV Push, q4h polyethylene glycol 3350 - UD packet 17 gram(s) 15 mL, Oral, qDay Lab Results No 36 Hour Lab Data EKG No qualifying data available. Assessment/Plan Pancreatitis Transaminitis assessment and plan: 1: Acute pancreatitis: noted on CT scan A/P, last ERCP that patient had was in 2019. He is being followed by gastroenterology and his diet is being advanced from full to low fat diet His MRI MRCP remain to be done after contacting the pacemaker suppplier and will need settings changed. Patient still requiring pain meds, but appetite improved, will repeat hepatic panel and lipase in am. Most likely he will not need ercp since he is improving , will continue urosudiol. 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 . 5: BPH: New with tamsulosin and dutasteride 6. pacemaker clearance by pacemaker company with regards to settings for the MRImrcp. Patient updated along with his . Plan is basically to advance his diet check liver enzymes and lipase in the morning and if everything continues to be trending downwards patient can get discharged. If on the other hand the MRI MRCP could not can be done will continue to follow-up. Patient is high risk due to complicated medical history along with pancreatitis. At this time patient is awaiting MRI MRCP. Patient was seen by gastroenterology transaminases are trending down. Will need to advance diet. Anticipated Date of Discharge Level of Care Indication Regular Floor DVT Prophylaxis Other: specify in note Maintenance IVF Indication NA / No maintenance IVF Indwelling Urinary Catheter Indication _ Anticipated Timeline of Discharge 24 hours Anticipated DC Disposition Home without services Time Spent 35 min Digitally Signed by MIGDALIA VENCES MD on 10/16/2024 02:20 PM [facility] [id number] Gastroenterology Progress note Date of Service 10/16/2024 Subjective Patient is seen and lying in bed in no acute distress at this time. States that his abdominal pain has improved at this time as well as no associated nausea or vomiting. States that he is having lower back pain from being in the hospital. Did have a bowel movement last night that he states was loose but brown in color. Objective Vitals and Measurements T: 36.7 C (Oral) TMIN: 36.7 C (Oral) TMAX: 36.9 C (Oral) HR: 74 RR: 18 BP: 104/54 SpO2: 94% Intake and Output 7AM Yesterday to 7AM Today Intake and Output (Last 24 hours) Intake Administration Information 2400.00 Oral Intake 240.00 Output Urine Voided 2550.00 Stool Count 1.00 Total Summary Total Intake 2640.00 Total Output 2550.00 Fluid Balance 90.00 Physical Exam Constitutional: Resting in bed, does not appear septic or toxic, in no acute distress Cardiac: S1, S2, regular rate and rhythm, no appreciable murmurs Lungs: clear to auscultation, no wheezing rales or rhonchi; respirations easy and unlabored; chest expansion symmetric Abdomen: obese, distended, tenderness to palpation epigastric; bowel sounds active x 4 quadrants Skin: warm, pale and dry; no rashes noted visible skin Psychiatric: Cooperative, appropriate mood & affect Weight Dosing Weight: 102.5 kg (10/13/24) Medications Medications (17) Active Scheduled: (6) dutasteride 0.5 mg Capsule 0.5 mg 1 cap(s), Oral, qDay erythromycin ophthalmic 0.5% ointment 1 frida, Eyes, both, QID pantoprazole 40 mg EC tablet 40 mg 1 tab(s), Oral, qDayAC sertraline 50 mg tablet 125 mg 2.5 tab(s), Oral, Daily tamsulosin 0.4 mg Capsule 0.4 mg 1 cap(s), Oral, qDayPC ursodiol 300 mg Capsule 300 mg 1 cap(s), Oral, Daily Continuous: (1) NS (0.9% nacl) 1,000 mL 1,000 mL, Intravenous, 150 mL/hr PRN: (10) acetaminophen 325 mg Tablet 650 mg 2 tab(s), Oral, q4h acetaminophen-OXYcodone 325 mg-5 mg Tablet 2 tab(s), Oral, q4h Al hydrox/Mg hydrox/simethicone 200-200-20 mg/5 mL Susp UD 30 mL, Oral, q2h dextrose 50% Solution Disp syringe 50 mL 12.5 gram(s) 25 mL, IV Push, AsDirected melatonin 3 mg tablet 3 mg 1 tab(s), Oral, qHS melatonin 3 mg tablet 3 mg 1 tab(s), Oral, qHS morphine 2 mg/mL 1 mL syringe 2 mg 1 mL, IV Push, q3h ocular lubricant preserved Soln 15 mL 2 drop(s), Eyes, both, BID ondansetron 2 mg/ 1 mL 2 mL INJ 4 mg 2 mL, IV Push, q4h polyethylene glycol 3350 - UD packet 17 gram(s) 15 mL, Oral, qDay Lab Results No 36 Hour Lab Data EKG No qualifying data available. Assessment/Plan 1. Transaminitis 2. Pancreatitis Patient states that his abdominal pain, nausea and vomiting have resolved at this time. Is glass furnace tender to palpation in the epigastric region at this time. Had a bowel movement last night that he just states is loose but brown in color. Is having complaints of low back pain secondary to being in the hospital bed. Discussed case with Dr. Coffman and patient. If liver enzymes from morning draw come back elevated still we will proceed with ERCP tomorrow morning. MRCP still pending at this time secondary to needing clearance for pacemaker settings. Plan -Monitor LFTs and bilirubin, morning labs pending at this time, if elevated with no downtrend will proceed with ERCP 10/17/2024. -Supportive care per admitting team at this time -MRCP MRI pending at this time -Will continue to follow Digitally Signed by DEBORAH LAYTON PA-C on 10/16/2024 07:56 AM [id number] Gastroenterology Progress note Date of Service 10/16/2024 Subjective Patient is seen and lying in bed in no acute distress at this time. States that his abdominal pain has improved at this time as well as no associated nausea or vomiting. States that he is having lower back pain from being in the hospital. Did have a bowel movement last night that he states was loose but brown in color. Objective Vitals and Measurements T: 36.7 C (Oral) TMIN: 36.7 C (Oral) TMAX: 36.9 C (Oral) HR: 74 RR: 18 BP: 104/54 SpO2: 94% Intake and Output 7AM Yesterday to 7AM Today Intake and Output (Last 24 hours) Intake Administration Information 2400.00 Oral Intake 240.00 Output Urine Voided 2550.00 Stool Count 1.00 Total Summary Total Intake 2640.00 Total Output 2550.00 Fluid Balance 90.00 Physical Exam Constitutional: Resting in bed, does not appear septic or toxic, in no acute distress Cardiac: S1, S2, regular rate and rhythm, no appreciable murmurs Lungs: clear to auscultation, no wheezing rales or rhonchi; respirations easy and unlabored; chest expansion symmetric Abdomen: obese, distended, tenderness to palpation epigastric; bowel sounds active x 4 quadrants Skin: warm, pale and dry; no rashes noted visible skin Psychiatric: Cooperative, appropriate mood & affect Weight Dosing Weight: 102.5 kg (10/13/24) Medications Medications (17) Active Scheduled: (6) dutasteride 0.5 mg Capsule 0.5 mg 1 cap(s), Oral, qDay erythromycin ophthalmic 0.5% ointment 1 frida, Eyes, both, QID pantoprazole 40 mg EC tablet 40 mg 1 tab(s), Oral, qDayAC sertraline 50 mg tablet 125 mg 2.5 tab(s), Oral, Daily tamsulosin 0.4 mg Capsule 0.4 mg 1 cap(s), Oral, qDayPC ursodiol 300 mg Capsule 300 mg 1 cap(s), Oral, Daily Continuous: (1) NS (0.9% nacl) 1,000 mL 1,000 mL, Intravenous, 150 mL/hr PRN: (10) acetaminophen 325 mg Tablet 650 mg 2 tab(s), Oral, q4h acetaminophen-OXYcodone 325 mg-5 mg Tablet 2 tab(s), Oral, q4h Al hydrox/Mg hydrox/simethicone 200-200-20 mg/5 mL Susp UD 30 mL, Oral, q2h dextrose 50% Solution Disp syringe 50 mL 12.5 gram(s) 25 mL, IV Push, AsDirected melatonin 3 mg tablet 3 mg 1 tab(s), Oral, qHS melatonin 3 mg tablet 3 mg 1 tab(s), Oral, qHS morphine 2 mg/mL 1 mL syringe 2 mg 1 mL, IV Push, q3h ocular lubricant preserved Soln 15 mL 2 drop(s), Eyes, both, BID ondansetron 2 mg/ 1 mL 2 mL INJ 4 mg 2 mL, IV Push, q4h polyethylene glycol 3350 - UD packet 17 gram(s) 15 mL, Oral, qDay Lab Results No 36 Hour Lab Data EKG No qualifying data available. Assessment/Plan 1. Transaminitis 2. Pancreatitis Patient states that his abdominal pain, nausea and vomiting have resolved at this time. Is glass furnace tender to palpation in the epigastric region at this time. Had a bowel movement last night that he just states is loose but brown in color. Is having complaints of low back pain secondary to being in the hospital bed. Discussed case with Dr. Coffman and patient. If liver enzymes from morning draw come back elevated still we will proceed with ERCP tomorrow morning. MRCP still pending at this time secondary to needing clearance for pacemaker settings. Plan -Monitor LFTs and bilirubin, morning labs pending at this time, if elevated with no downtrend will proceed with ERCP 10/17/2024. -Supportive care per admitting team at this time -MRCP MRI pending at this time -Will continue to follow Digitally Signed by DEBORAH LAYTON PA-C on 10/16/2024 07:56 AM [id number] Note Date of Service 10/15/2024 Chief Complaint abd pain Subjective Patient seen and examined discussed with staff. Patient is currently lying in bed not in any distress but does complain of occasional pain pain he has been eating more on clear liquids awaiting an MRI MRCP. Patient scheduled. To be 7 out of 10 abdominal area and states that the pain medicine hold them for about 4 to 5 hours and he starts to get the pain. Patient is able to tolerate a diet which is clear liquids. Objective Vitals and Measurements T: 36.7 C (Oral) TMIN: 36.7 C (Oral) TMAX: 36.9 C (Oral) HR: 62 RR: 18 BP: 118/79 SpO2: 97% General Appearance: no acute distress, Head: atraumatic, perrrla, EENT:moist mucosa,, normal pharynx, normal tonsils and adenoids and tongue Neck:trachea midline, no carotid bruit, no mass or lymphadenopathy. Cardiac: RRR, no murmurs, normal S1 and S2 Lungs: Normal chest wall expansion, clear to auscultation Abdomen: Soft mild tender distended, normal bowel sounds all quadrants, no hepatomegaly, no guarding Genitourinary: No inguinal hernia, Musculoskeletal:Range of Motion intact in all extremities, strength intact, Extremities: No edema, Neurological:Awake alert oriented x3, cranial nerves II through XII intact, DTR intact, sensory function intact, Skin: Warm dry, pink, no rash, purpura, petechia Psychiatric: Normal affect, intact cognition, Intake and Output 7AM Yesterday to 7AM Today Intake and Output (Last 24 hours) Intake Oral Intake 480.00 Output Urine Voided 1575.00 Stool Count 0.00 Total Summary Total Intake 480.00 Total Output 1575.00 Fluid Balance -1095.00 Physical Exam Weight Dosing Weight: 102.5 kg (10/13/24) Medications Medications (15) Active Scheduled: (5) dutasteride 0.5 mg Capsule 0.5 mg 1 cap(s), Oral, qDay pantoprazole 40 mg EC tablet 40 mg 1 tab(s), Oral, qDayAC sertraline 50 mg tablet 125 mg 2.5 tab(s), Oral, Daily tamsulosin 0.4 mg Capsule 0.4 mg 1 cap(s), Oral, qDayPC ursodiol 300 mg Capsule 300 mg 1 cap(s), Oral, Daily Continuous: (1) NS (0.9% nacl) 1,000 mL 1,000 mL, Intravenous, 150 mL/hr PRN: (9) acetaminophen 325 mg Tablet 650 mg 2 tab(s), Oral, q4h acetaminophen-OXYcodone 325 mg-5 mg Tablet 2 tab(s), Oral, q4h Al hydrox/Mg hydrox/simethicone 200-200-20 mg/5 mL Susp UD 30 mL, Oral, q2h dextrose 50% Solution Disp syringe 50 mL 12.5 gram(s) 25 mL, IV Push, AsDirected melatonin 3 mg tablet 3 mg 1 tab(s), Oral, qHS melatonin 3 mg tablet 3 mg 1 tab(s), Oral, qHS morphine 2 mg/mL 1 mL syringe 2 mg 1 mL, IV Push, q3h ondansetron 2 mg/ 1 mL 2 mL INJ 4 mg 2 mL, IV Push, q4h polyethylene glycol 3350 - UD packet 17 gram(s) 15 mL, Oral, qDay Lab Results 10/14 08:05 WBC: 5.8 Hgb: 14.6 Hct: 42.5 Platelet: 165 Neutrophil %: 70.6 Glucose Level: 79 Sodium Level: 142 Potassium Level: 3.5 BUN: 9.0 Creatinine Lvl (s): 0.46 L EKG No qualifying data available. Assessment/Plan Pancreatitis Transaminitis Orders: Hepatic Function Panel, 10/16/24 5:00:00 EST, Next AM Draw (one day only), Blood, Once, Stop date 10/16/24 5:00:00 EST NPO after Midnight, 10/15/24 23:58:00 EST, Constant Order, for MRCP 10/16/24 assessment and plan: 1: Acute pancreatitis: noted on CT scan A/P, last ERCP that patient had was in 2019. He is being followed by gastroenterology he is currently remains on clear liquids to be kept n.p.o. after midnightawaiting an MRI MRCP to be done to evaluate for gallbladder pathology. Patient continues on IV painmedications. Patient also on ursodial 2: Anxiety: continue with home medications. 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 will check hepatic [panel in am. 5: BPH: New with tamsulosin and dutasteride 6;pacemaker clearance by pacemaker [employer] with regards to settings for the MRI. Patient is high risk due to complicated medical history along with pancreatitis. At this time patient is awaiting MRI MRCP. Patient was seen by gastroenterology transaminases are trending down. Will need to advance diet. Anticipated Date of Discharge Level of Care Indication Regular Floor DVT Prophylaxis Enoxaparin SQ Maintenance IVF Indication Hypovolemia / EDISON Indwelling Urinary Catheter Indication NA No indwelling catheter Anticipated Timeline of Discharge 48 hours Anticipated DC Disposition Home without services Time Spent 30 min Digitally Signed by MIGDALIA VENCES MD on 10/15/2024 05:37 PM [id number] Gastroenterology Progress note Date of Service 10/15/2024 Subjective Patient is lying in bed in no acute distress. States that his symptoms have improved and denies anynausea or vomiting at this time. Still has some mild discomfort to his abdomen. Denies having a bowel movement this admission so far. Objective Vitals and Measurements T: 36.9 C (Oral) TMIN: 36.6 C (Oral) TMAX: 36.9 C (Oral) HR: 66 RR: 18 BP: 123/82 SpO2: 97% WBC 5.8, hemoglobin 14.6, hematocrit 42.5, MCV 99.5, platelets 165, sodium 142, potassium 3.5, BUN 9, creatinine 0.46, albumin 3.3, globulin 3.3, total bilirubin 0.7, alk phos 29, AST 190, ALT 276 Intake and Output 7AM Yesterday to 7AM Today Intake and Output (Last 24 hours) Intake Oral Intake 480.00 Output Urine Voided 2575.00 Stool Count 0.00 Urine Count 2.00 Total Summary Total Intake 480.00 Total Output 2575.00 Fluid Balance -2095.00 Physical Exam Constitutional: Resting in bed, in no acute distress Cardiac: S1, S2, regular rate and rhythm, no appreciable murmurs Lungs: clear to auscultation, no wheezing rales or rhonchi; respirations easy and unlabored; chest expansion symmetric Abdomen: obese, tenderness to palpation RUQ/epigatric, non-distended; bowel sounds active x 4 quadrants Skin: warm, pale and dry; no rashes noted visible skin Psychiatric: Cooperative, appropriate mood & affect Weight Dosing Weight: 102.5 kg (10/13/24) Medications Medications (15) Active Scheduled: (5) dutasteride 0.5 mg Capsule 0.5 mg 1 cap(s), Oral, qDay pantoprazole 40 mg EC tablet 40 mg 1 tab(s), Oral, qDayAC sertraline 50 mg tablet 125 mg 2.5 tab(s), Oral, Daily tamsulosin 0.4 mg Capsule 0.4 mg 1 cap(s), Oral, qDayPC ursodiol 300 mg Capsule 300 mg 1 cap(s), Oral, Daily Continuous: (1) NS (0.9% nacl) 1,000 mL 1,000 mL, Intravenous, 150 mL/hr PRN: (9) acetaminophen 325 mg Tablet 650 mg 2 tab(s), Oral, q4h acetaminophen-OXYcodone 325 mg-5 mg Tablet 2 tab(s), Oral, q4h Al hydrox/Mg hydrox/simethicone 200-200-20 mg/5 mL Susp UD 30 mL, Oral, q2h dextrose 50% Solution Disp syringe 50 mL 12.5 gram(s) 25 mL, IV Push, AsDirected melatonin 3 mg tablet 3 mg 1 tab(s), Oral, qHS melatonin 3 mg tablet 3 mg 1 tab(s), Oral, qHS morphine 2 mg/mL 1 mL syringe 2 mg 1 mL, IV Push, q3h ondansetron 2 mg/ 1 mL 2 mL INJ 4 mg 2 mL, IV Push, q4h polyethylene glycol 3350 - UD packet 17 gram(s) 15 mL, Oral, qDay Lab Results 10/14 08:05 WBC: 5.8 Hgb: 14.6 Hct: 42.5 Platelet: 165 Neutrophil %: 70.6 Glucose Level: 79 Sodium Level: 142 Potassium Level: 3.5 BUN: 9.0 Creatinine Lvl (s): 0.46 L EKG No qualifying data available. Assessment/Plan 1. Transaminitis 2. Pancreatitis Patient is still having some mild mid abdominal epigastric region/right upper quadrant abdominal pain but nausea and vomiting have stabilized at this time. LFTs and bilirubin mildly improved this morning MRCP pending at this time, had nursing staff call and [facility]. Stated that if they received this today MRCP will be performed later today. Plan -Monitor LFTs and bilirubin -Supportive care per admitting team at this time -MRCP MRI pending at this time -Will continue to follow Digitally Signed by DEBORAH LAYTON PA-C on 10/15/2024 09:07 AM Digitally Signed by ROSSY COFFMAN MD on 10/16/2024 07:39 AM [facility] [id number] Evaluation + Plan noteExtracted from: Title:History and Physical Author:CHANDA MOODY Date:10/13/24 54-year-old male with a hist ory of GERD, anxiety and occasional alcohol consumption is presenting with abdominal pain with imaging suggestive of acute pancreatitis would recommend a clear liquid diet to advance as tolerated, IV fluids, IV antibiotics and pain control. Acute pancreatitis clear liquid diet advance as tolerated, antiemetics, IV fluids, pain control Right femoral head necrosis currently asymptomatic recommend outpatient follow- up with PT if he becomes symptomatic GERD PPI Maalox as needed Anxiety stable DVT prophylaxis SCDs Full code Patient was admitted for the above [facility] 01-20-[facility]25 Gastroenterology Consult note Date of Service 10/13/2024 Reason for Consultation Pancreatitis Referring Physician Hospitalist History of Present Illness We have been asked to see Mr. Holland a 54-year-old male for acute pancreatitis. Past medical history of GERD, anxiety, bradycardia with pacemaker. Patient is known to our practice and has seen Kush RAMIREZ and Dr. Coffman with most recent office visit only being 01/12/2020. 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 Patient states that on Sunday he started to have mid abdominal pain that started worsening to his back and he decided to go to the emergency room in [place] and was transferred to [facility]. Denies any further associated GI symptoms to include dysphagia, dyspepsia, nausea, vomiting, hematochezia, hematemesis, weight loss or loss of appetite. States that his symptoms are similar to what he had back in 2019 when he required ERCP for duct stone removal. Denies frequent EtOH stating that he is maybe 1 beer a month, tobacco use about a can every 2 days, denies frequent NSAID use, denies other illicit drug use. States that his last bowel movement was Sunday morning. Has 2-3 bowel movements daily brown and formed. Has a muscle disorder that he states causes his pupils to not dilate. Denies any family history of liver disease, IBD. Laboratory: 10/13/2024-WBC 4.8, hemoglobin 15.7, hematocrit 45.6, MCV 99.1, platelets 187, sodium 143, potassium 3.9, BUN 11, creatinine 0.53, albumin 3.6, globulin 3.5, total bilirubin 1, direct bilirubin 0.5, indirect bilirubin 0.5, alk phos 30, elevated AST 276, ALT 291, lipase 529, [id number] Imaging: No abdominal imaging ordered this admission to review. Patient states that had a CT scan done at [place] but is not in chart to review. States that it showed inflammation of the pancreas. Endoscopy: ERCP 11/08/2019-Dr. Cornell-major papilla was identified appeared normal, dilated common bile duct and common hepatic duct at 15 to 18 mm in diameter with slightly dilated right and left hepatic ducts, questionable small filling defect in the cystic duct stump, multiple balloon sweeps were performed with extraction of small amount of sludge, occlusion cholangiogram was performed with no evidence of filling defects or stricture with adequate decompression of biliary system Colonoscopy 11/20/2019-diverticulosis, hemorrhoids, polyps. Pathology revealed tubulovillous adenoma, tubular adenoma Review of Systems A 14 point review of systems was completed including: constitutional, HEENT, respiratory, cardiac, gastrointestinal, genitourinary, integumentary, musculoskeletal, neurological, hematology/immunology, endocrine and psych. Pertinent positives and negatives mentioned above and are otherwise negative. Physical Exam Vitals and Measurements T: 36.7 C (Oral) HR: 64 RR: 18 BP: 105/73 SpO2: 96% HT: 182.9 cm WT: 102.5 kg BMI: 30.64 Weight Dosing Weight: 102.5 kg (10/13/24) Constitutional: Resting in bed, in no acute distress Head: normocephalic, atraumatic EENT: Pupils are equal, sclera anicteric; Oral mucosa dry Neck:supple, trachea is midline Cardiac: S1, S2, regular rate and rhythm, no appreciable murmurs Lungs: clear to auscultation, no wheezing rales or rhonchi; respirations easy and unlabored; chest expansion symmetric Abdomen: obese, tenderness to palpation epigastric region, non-distended; bowel sounds active x 4 quadrants Musculoskeletal/extremities: Radial and pedal pulses +2 bilaterally. No edema noted. Neurological: Alert and oriented to person, place, time, and situation. Skin: warm, pale and dry; no rashes noted visible skin Psychiatric: Cooperative, appropriate mood & affect Lab Results 10/13 08:12 WBC: 4.8 Hgb: 15.7 Hct: 45.6 Platelet: 187 Neutrophil %: 64.0 Glucose Level: 115 H Sodium Level: 143 Potassium Level: 3.9 BUN: 11.0 Creatinine Lvl (s): 0.53 L Assessment/Plan 1. Transaminitis 2. Pancreatitis Patient states that Sunday he started to have mid abdominal pain that radiated to his right upper quadrant and back. Denies any associated nausea or vomiting. Patient was initially admitted to [facility] but was transferred up to [facility] due to them not having any GI down there. States to have had CAT scan done that showed inflammation of the pancreas this is not in chart to review. Patient was seen by our practice and had [place] [address] Cornell that showed common bile duct and hepatic duct dilation as well as hepatic duct dilation but no evidence of filling defects or strictures at that time. Laboratory findings show direct bilirubin 0.5, alk phos 30, elevated AST 276, ALT 291, lipase 529. MRCP pending at this time Plan -Monitor LFTs and bilirubin -Supportive care per admitting team at this time -MRCP MRI pending at this time -Will continue to follow Orders: MRI MRCP, 10/13/24 12:58:00 EST, 10/13/24 12:58:00 EST, Routine, Transaminitis, pancreatitis, : No, Prior Valve Replacement: No Problem List/Past Medical History Ongoing Anxiety Tubular aggregates Procedure/Surgical History Cholecystectomy History of knee surgery History of elbow surgery Medications Inpatient Avodart, 0.5 mg= 1 cap(s), Oral, qDay Dextrose 50% IV Push, 12.5 gram(s)= 25 mL, IV Push, AsDirected, PRN Flomax, 0.4 mg= 1 cap(s), Oral, qDayPC Maalox, 30 mL, Oral, q2h, PRN melatonin, 3 mg= 1 tab(s), Oral, qHS, PRN melatonin, 3 mg= 1 tab(s), Oral, qHS, PRN Miralax Powder Packet, 17 gram(s)= 15 mL, Oral, qDay, PRN morphine, 2 mg= 1 mL, IV Push, q3h, PRN NS 1,000 mL, 1000 mL, Intravenous Percocet 325/5, 2 tab(s), Oral, q4h, PRN Protonix, 40 mg= 1 tab(s), Oral, qDayAC sertraline, 125 mg= 2.5 tab(s), Oral, Daily Tylenol, 650 mg= 2 tab(s), Oral, q4h, PRN ursodiol, 300 mg= 1 cap(s), Oral, Daily Zofran, 4 mg= 2 mL, IV Push, q4h, PRN Home dutasteride-tamsulosin 0.5 mg-0.4 mg oral capsule, 1 cap(s), Oral, qDay melatonin 2.5 mg oral capsule, 2.5 mg= 1 cap(s), Oral, qHS, PRN pantoprazole 40 mg oral enteric coated tablet, 40 mg= 1 tab(s), Oral, qDay sertraline 25 mg oral tablet, 25 mg= 1 tab(s), Oral, Daily ursodiol 300 mg oral capsule, 300 mg= 1 cap(s), Oral, Daily Allergies codeine Social History Smoking Status - 03/16/2018 Never smoker Alcohol - Denies Alcohol Use, 03/16/2018 Substance Abuse - Denies Substance Abuse, 03/16/2018 Family History Asthma: Son.Negative: Mother, Father, Sister and Brother. Cancer: Father and Sister.Negative: Brother and Son. Diabetes mellitus: Negative: Mother, Father, Sister, Brother and Son. HIV: Negative: Mother, Father, Sister, Brother and Son. HTN - Hypertension: Negative: Mother, Father, Sister, Brother and Son. Heart disease: Mother.Negative: Father, Sister, Brother and Son. Hepatitis: Negative: Mother, Father, Sister, Brother and Son. Hyperchloremia: Negative: Mother, Father, Sister, Brother and Son. Mental illness: Negative: Mother, Father, Sister, Brother and Son. Seizure: Son.Negative: Mother, Father, Sister and Brother. Stroke: Negative: Mother, Father, Sister, Brother and Son. TB - Tuberculosis: Negative: Mother, Father, Sister, Brother and Son. Health Status Family Member(s) Daughter: History is negative Immunizations No qualifying data available. Digitally Signed by DEBORAH LAYTON PA-C on 10/13/2024 01:43 PM Digitally Signed by ROSSY COFFMAN MD on 10/14/2024 09:07 AM [facility] [id number] History and physical note Date of Service 10/13/2024 Chief Complaint Acute pancreatitis History of Present Illness 54-year-old male with a history of GERD, anxiety, who drinks about 1 alcoholic beverage a month butdid drink more in the remote past presents with abdominal pain. Patient started having pain in his abdomen 3 days ago associated with nausea the pain is in the periumbilical region and got so severe he became concerned so he went to the emergency department at [facility] In the emergency department CT abdomen pelvis with contrast showed pancreatitis. Diffuse fatty liver infiltration. Right femoral head necrosis. CBC WBC of 6 H&H 16/48 platelets 196 BMP sodium 141 potassium 4.2 chloride 104 CO2 24 glucose 89 creatinine 0.5 BUN 12 LFTs alk phos 33 AST 56 ALT 72 albumin 3.8 Lipase 24 UA no nitrites no leuk esterase Patient received 2 L of normal saline, IV Zofran 4 mg x 1, IV morphine 4 mg x 3 ED physician attempted to admit to the hospitalist at but they preferred the patient, to a tertiary care facility [facility]. Reports seeing my colleague swing physician Dr. Freire the emergency spoke to regarding the patient's presentation Upon arrival to floor patient was seen and examined at the bedside He is still complaining of pain in his periumbilical region with some nausea He denies having any recent alcoholic beverage, he denies having a large meal We did review his CT abdomen pelvis showing right femoral head necrosis and he denied have any painwith his right hip Last discharge summary DISCHARGE SUMMARY (Verified) DATE OF ADMISSION: 03/17/2018 DATE OF DISCHARGE: 03/22/2018 DIAGNOSIS ON ADMISSION: Abdominal pain. DIAGNOSES AT DISCHARGE: 1. Abdominal pain due to mild pancreatitis and common bile duct stricture, which is resolving. 2. Abnormal liver function test due to common bile duct obstruction. 3. Common bile duct, status post endoscopic retrograde cholangiopancreatography and percutaneous transluminal coronary angioplasty and stent placement. 4. Anxiety. 5. Mild lactic acidosis, which has resolved. SHORT HOSPITAL COURSE: Mr. Holland is a 47-year-old male with a history of anxiety, on Paxil, presents with abdominal pain. Please refer to my earlier dictated discharge summary yesterday. Patient was kept n.p.o., started on IV fluid and GI was consulted. Dr. Coffman and Dr. Monge saw the patient. MRCP was obtained, which showed dilated common bile duct, no choledocholithiasis or other filling defects, stricture of the ampulla. Initial ERCP was attempted by Dr. Coffman, but he could not succeed in putting a stent. Subsequently, patient had a procedure by Dr. Coffman and Dr. Rondon of IR together and the patient underwent PTCA and sepsis and over a guidewire, biopsy of the ampulla was done. Subsequently, stent was placed in the common bile duct. The patient yesterday had mild abdominal pain, had lactic acidosis and after discussion with Dr. Monge, the patient was kept in house and IV fluids were started. Patient was continued on regular diet. Since then, patient has tolerated diet. He has had noproductive cough, fever or chills, no abdominal pain or nausea or vomiting. No melena, hematochezia. Review of Systems All pertinent positive and negative review of systems as per HPI, all other review of systems reviewed and negative Physical Exam Vitals and Measurements T: 36.7 C (Oral) HR: 72 RR: 16 BP: 153/91 SpO2: 94% HT: 182.9 cm WT: 102.5 kg BMI: 30.64 Weight Dosing Weight: 102.5 kg (10/13/24) GENERAL:Well nourished ; no acute distress. ASSISTIVE DEVICES: None PSYCHIATRIC: appropriate HEENT moist mucous membranes extraocular muscles intact CARDIOVASCULAR: Regular rate, regular rhythm, no murmurs noted. Notrace lower extremity pitting edema. No lymphedema. Dorsalis Pedis pulses+2/4 blaterally . Posterior Tibialis pulses+2/4 bilaterally . RESPIRATORY: Regular rate and depth; no distress, RIGHT lungclear ; LEFT lungclear . Breath soundsnormal . ABDOMEN soft, no guarding, tender in the supraumbilical region nondistended, positive bowel sounds, NEURO: no focal deficits DERM: no acute rash Lab Results No 36 Hour Lab Data Assessment/Plan 54-year-old male with a history of GERD, anxiety and occasional alcohol consumption is presenting with abdominal pain with imaging suggestive of acute pancreatitis would recommend a clear liquid dietto advance as tolerated, IV fluids, IV antibiotics and pain control. Acute pancreatitis clear liquid diet advance as tolerated, antiemetics, IV fluids, pain control Right femoral head necrosis currently asymptomatic recommend outpatient follow- up with PT if he becomes symptomatic GERD PPI Maalox as needed Anxiety stable DVT prophylaxis SCDs Full code Patient was admitted for the above Problem List/Past Medical History Ongoing Anxiety Tubular aggregates Procedure/Surgical History Cholecystectomy History of knee surgery History of elbow surgery Medications Home Medications (5) Active dutasteride-tamsulosin 0.5 mg-0.4 mg oral capsule 1 cap(s), Oral, qDay melatonin 2.5 mg oral capsule 2.5 mg = 1 cap(s), PRN, Oral, qHS pantoprazole 40 mg oral enteric coated tablet 40 mg = 1 tab(s), Oral, qDay sertraline 25 mg oral tablet 25 mg = 1 tab(s), Oral, Daily ursodiol 300 mg oral capsule 300 mg = 1 cap(s), Oral, Daily Allergies codeine Social History Smoking Status - 03/16/2018 Never smoker Alcohol - Denies Alcohol Use, 03/16/2018 Substance Abuse - Denies Substance Abuse, 03/16/2018 Family History Asthma: Son.Negative: Mother, Father, Sister and Brother. Cancer: Father and Sister.Negative: Brother and Son. Diabetes mellitus: Negative: Mother, Father, Sister, Brother and Son. HIV: Negative: Mother, Father, Sister, Brother and Son. HTN - Hypertension: Negative: Mother, Father, Sister, Brother and Son. Heart disease: Mother.Negative: Father, Sister, Brother and Son. Hepatitis: Negative: Mother, Father, Sister, Brother and Son. Hyperchloremia: Negative: Mother, Father, Sister, Brother and Son. Mental illness: Negative: Mother, Father, Sister, Brother and Son. Seizure: Son.Negative: Mother, Father, Sister and Brother. Stroke: Negative: Mother, Father, Sister, Brother and Son. TB - Tuberculosis: Negative: Mother, Father, Sister, Brother and Son. Health Status Family Member(s) Daughter: History is negative Immunizations No qualifying data available. Code Status No qualifying data available. Digitally Signed by CHANDA MOODY MD on 10/13/2024 05:42 AM [id number] NoteDischarge Instructions Discharge Summary [id number] [facility] [place] [address] [id number] 10/12/2024 Patient: LIYAH HOLLAND [facility] [id number] Sex: Male : 1970 Age: 54y Thank you for visiting [facility]. You have been evaluated today by Skylar Flores D.O. for the following condition(s): Principal Diagnosis Acute pancreatitis. You have been given the following additional information: Pancreatitis Patient [facility] [employer] Date/Time General Instructions with ExitWriter [id number] [facility] [place] [address] [id number] 10/12/2024 Patient: LIYAH HOLLAND Sex: Male : 1970 Age: 54y 1 of 3 Discharge Instructions Thank you for visiting [facility]. You have been evaluated today by Skylar Flores D.O. for the following condition(s): Principal Diagnosis Acute pancreatitis. ADDITIONAL INFORMATION Pancreatitis The pancreas is an organ in the abdomen that secretes digestive juices into the stomach. Pancreatitis is an inflammation of the pancreas. In many cases, it's caused when the duct that connects the pancreas and gallbladder is blocked by a gallstone. Heavy alcohol use is another major cause. Less common causescan include medicines, trauma, certain medical procedures, viruses, and toxins. Sometimes the cause of pancreatitis can't be found. Genetic testing is sometimes done in those cases, especially if there is a family history of pancreas disease. Symptoms of pancreatitis include: Severe abdominal pain Nausea and vomiting Severe indigestion Racing heart Fever If the pancreatitis becomes chronic, diarrhea, chronic pain, weight loss, and poor nutrition can result. At first, pancreatitis may be treated in the hospital. It may be diagnosed by history, exam, blood tests, and sometimes imaging studies. There, fluids and medicines can be provided. The underlying cause of theproblem must also be treated to prevent further problems. If gallstones are the cause, you and your healthcare provider can discuss options for treating them. This usually results in gallbladder surgery. Sometimes another test must be done to clear the drainage ducts of a blocked gallstones. If alcohol is the cause, talk with your healthcare provider about a program to help you stop drinking. 2 of 3 Discharge Instructions Home care Don't drink alcohol. Rest in bed or sit up in a chair until you feel better. Take medicines as prescribed. If you were given an antibiotic for infection, take it until it's gone, even if you feel better. Let your healthcare provider know if you vomit up your medicine. Tips for eating and drinking: If instructed, don't eat or drink until nausea and vomiting go away. Try sipping clear liquids to prevent dehydration. When you begin eating again, start with small amounts. Have small, more frequent meals rather than larger meals. Low fat meals are best. Follow-up care Follow up with your healthcare provider as advised. When to seek medical advice Call your healthcare provider right away for any of the following: Continued or worsening pain Repeated vomiting Dizziness, weakness Fever of 100.4 F (38 C) or higher, or as directed by your healthcare provider Severe muscle cramps Call 911 Call 911 if you have any of the following: Vomiting blood or large amounts of blood in stool Seizure Loss of consciousness [address] [place], [place] [address]Evaluation + Plan note Future Appointments [facility] Evaluation noteNo assessment information available [facility] Work Phone: Hospital course Narrative No data available for this section [facility] Hospital Discharge instructions No data available for this section [facility] Progress note No data available for this section [facility] Reason for referral (narrative)No reason for referral information availablePark[facility] Work Phone: Summary Purpose Family History No Family History Records Found Father Status:Active Comments:[facility]. Mother Status:Active Comments: d. Myositis Status:Active Comments:Mother. Father Status:Active Comments:[facility]. Mother Status:Active Comments: d. Myositis Status:Active Comments:Mother. Father Status:Active Comments:[facility]. Mother Status:Active Comments: d. Myositis Status:Active Comments:Mother. Father Status:Active Comments:[facility]. Mother Status:Active Comments: d. Myositis Status:Active Comments:Mother. Father Status:Active Comments:[facility]. Mother Status:Active Comments: d. Myositis Status:Active Comments:Mother. Father Status:Active Comments:[facility]. Mother Status:Active Comments: d. Myositis Status:Active Comments:Mother. Father Status:Active Comments:[facility]. Mother Status:Active Comments: d. Myositis Status:Active Comments:Mother. Father Status:Active Comments:[facility]. Mother Status:Active Comments: d. Myositis Status:Active Comments:Mother. Father Status:Active Comments:[facility]. Mother Status:Active Comments: d. Myositis Status:Active Comments:Mother. Father Status:Active Comments:[facility]. Mother Status:Active Comments: d. Myositis Status:Active Comments:Mother. Father Status:Active Comments:[facility]. Mother Status:Active Comments: d. Myositis Status:Active Comments:Mother. Father Status:Active Comments:[facility]. Mother Status:Active Comments: d. Myositis Status:Active Comments:Mother. Father Status:Active Comments:[facility]. Mother Status:Active Comments: d. Myositis Status:Active Comments:Mother. Father Status:Active Comments:[facility]. Mother Status:Active Comments: d. Myositis Status:Active Comments:Mother. Father Status:Active Comments:[facility]. Mother Status:Active Comments: d. Myositis Status:Active Comments:Mother. Father Status:Active Comments:[facility]. Mother Status:Active Comments: d. Myositis Status:Active Comments:Mother. Father Status:Active Comments:[facility]. Mother Status:Active Comments: d. Myositis Status:Active Comments:Mother. Father Status:Active Comments:[facility]. Mother Status:Active Comments: d. Myositis Status:Active Comments:Mother. Father Status:Active Comments:[facility]. Mother Status:Active Comments: d. Myositis Status:Active Comments:Mother. Father Status:Active Comments:[facility]. Mother Status:Active Comments: d. Myositis Status:Active Comments:Mother. Father Status:Active Comments:[facility]. Mother Status:Active Comments: d. Myositis Status:Active Comments:Mother. Father Status:Active Comments:[facility]. Mother Status:Active Comments: d. Myositis Status:Active Comments:Mother. Father Status:Active Comments:[facility]. Mother Status:Active Comments: d. Myositis Status:Active Comments:Mother. Father Status:Active Comments:[facility]. Mother Status:Active Comments: d. Myositis Status:Active Comments:Mother. Father Status:Active Comments:[facility]. Mother Status:Active Comments: d. Myositis Status:Active Comments:Mother. Father Status:Active Comments:[facility]. Mother Status:Active Comments: d. Myositis Status:Active Comments:Mother. Father Status:Active Comments:[facility]. Mother Status:Active Comments: d. Myositis Status:Active Comments:Mother. Father Status:Active Comments:[facility]. Mother Status:Active Comments: d. Myositis Status:Active Comments:Mother. Father Status:Active Comments:[facility]. Mother Status:Active Comments: d. Myositis Status:Active Comments:Mother. Father Status:Active Comments:[facility]. Mother Status:Active Comments: d. Myositis Status:Active Comments:Mother. Father Status:Active Comments:[facility]. Mother Status:Active Comments: d. Myositis Status:Active Comments:Mother. Father Status:Active Comments:[facility]. Mother Status:Active Comments: d. Myositis Status:Active Comments:Mother. Father Status:Active Comments:[facility]. Mother Status:Active Comments: d. Myositis Status:Active Comments:Mother. Father Status:Active Comments:[facility]. Mother Status:Active Comments: d. Myositis Status:Active Comments:Mother. Father Status:Active Comments:[facility]. Mother Status:Active Comments: d. Myositis Status:Active Comments:Mother. Father Status:Active Comments:[facility]. Mother Status:Active Comments: d. Myositis Status:Active Comments:Mother. Father Status:Active Comments:[facility]. Mother Status:Active Comments: d. Myositis Status:Active Comments:Mother. Father Status:Active Comments:[facility]. Mother Status:Active Comments: d. Myositis Status:Active Comments:Mother. Father Status:Active Comments:[facility]. Mother Status:Active Comments: d. Myositis Status:Active Comments:Mother. Father Status:Active Comments:[facility]. Mother Status:Active Comments: d. Myositis Status:Active Comments:Mother. Advance Directives No Advanced Directives Records FoundNo Advanced Directives Records FoundNo Advanced Directives Records FoundNo Advanced Directives Records FoundNo Advanced Directives Records FoundNo Advanced Directives Records FoundNo Advanced Directives Records FoundNo Advanced Directives Records FoundNo Advanced Directives Records FoundNo Advanced Directives Records Found Chief Complaint and Reason for Visit Chief Complaint BILATERAL TINNITUS * ATTENTION IAC* Chief Complaint Admit Date LUMBAR STENOSIS June 24, 2025 12 :57pm Additional Source Comments (unrecognized sect ion and content) No Status Records FoundNo Status Records FoundNo Status Records FoundNo Status Records FoundNo Status Records FoundNo Status Records FoundNo Status Records FoundNo Status Records FoundNo Status Records FoundNo Status Records Found INFORMATION SOURCE (unrecogn ized section and content) DATE CREATED AUTHOR 03/29/2018 [facility] ([place]) DATE CREATED AUTHOR AUTHOR'S ORGANIZ ATION 01/25/2021 [facility] DATE CREATED AUTHOR AUTHOR'S ORGANIZ ATION 07/24/2021 [facility] DATE CREATED AUTHOR AUTHOR'S ORGANIZ ATION 06/07/2022 [facility] DATE CREATED AUTHOR AUTHOR'S ORGANIZ ATION 10/20/2024 [facility] DATE CREATED AUTHOR AUTHOR'S ORGANIZ ATION 01/09/2025 [facility] DATE CREATED AUTHOR AUTHOR'S ORGANIZ ATION 06/08/2025 [facility] DATE CREATED AUTHOR AUTHOR'S ORGANIZ ATION 06/14/2025 [facility] DATE CREATED AUTHOR AUTHOR'S ORGANIZ ATION 07/03/2025 [facility] DATE CREATED AUTHOR AUTHOR'S MATT MCKEON 07/03/2025 [facility] Source Comments (unrecognize d section and content) In the event this informatio n is protected by the Federal Confidentiality of Alcohol and Drug Abuse Patient Records regulations: The Federal rules restrict any use of the information to criminally investigate or prosecute any alcohol or drug abuse patient.[facility] Care Teams (unrecognized sec tion and content) Agency Recruiter Relationship Specialty Start Date End Date Jazmyn Roman [address] [place] [address] [place] [id number] PCP - General Family Practice 11/13/11 Team Status: Active Member Role/Relationship Status Dates Dr. Jazmyn Roman MD Primary care physician Activ e Team Status: Inactive Member Role/Relationship Status Dates Dr. Jazmyn Roman MD Primary care physician Activ e Start: June 24, 2025 End: June 24, 2025 Dr. Ancelmo Ramos MD Attending physician Active Start: June 24, 2025 End: June 24, 2025 Dr. Ancelmo Ramos MD Referring Provider Active Start: June 24, 2025 End: June 24, 2025 Goals (unrecognized section and content) Goals may be documented in a n alternate section No data available for this section No data available for this section No data available for this sectionGoals may be documented in an alternate section FOR RECORDS PERTAINING TO PATIENTS WHO ARE OR HAVE BEEN ENROLLED IN A CHEMICAL DEPENDENCY/SUBSTANCEABUSE PROGRAM, SOME INFORMATION MAY BE OMITTED. This clinical summary was aggregated from multiple sources. Caution should be exercised in using it in the provision of clinical care. This summary normalizes information from multiple sources, and as a consequence, information in this document may materially change the coding, format and clinical context of patient data. In addition, data may be omitted in some cases. CLINICAL DECISIONS SHOULD BE BASED ON THE PRIMARY CLINICAL RECORDS. [employer] provides no warranty or guarantee of the accuracy or completeness of information in this document."
[2025-09-10 07:41] VITALS: BP 128/81; PULSE 89; RESP 18; O2SAT 96
[2025-09-10 07:51] VITALS: BP 118/78; PULSE 84; RESP 18; O2SAT 96
[2025-09-10 08:02] VITALS: BP 124/63; PULSE 85; O2SAT 94
[2025-09-10 08:09] VITALS: BP 128/83; PULSE 88; O2SAT 94
[2025-09-10 08:18] VITALS: BP 129/76; PULSE 85; O2SAT 94
== END | disposition home or self-care (01) ==
LOC: OPMRI 07:04
PROVIDERS: PCP Family Medicine; Referring Provider Internal Medicine Gastroenterology; Visit Provider Internal Medicine Gastroenterology
DX: K86.1 Other chronic pancreatitis (principal); K80.50 Calculus of bile duct without cholangitis or cholecystitis without obstruction; R94.5 Abnormal results of liver function studies
CPT/HCPCS: 74181